=== PATIENT | female | born 1955 | race Caucasian/White ===

== ENCOUNTER 2020-01-01 12:03 | Emergency (ER) | payer OTHER, SELFPAY ==
[2020-01-01 12:15] VITALS: BP 136/82; PULSE 80; RESP 16; TEMP 35.9; O2SAT 99
--- NOTE | 2020-01-01 12:20 | ECG_ITS ---
Measurements Intervals [place] Rate: 80 P: 59 MS: 156 QRS: -24 QRSD: 142 T: 95 QT: 452 QTc: 522 Interpretive Statements SINUS RHYTHM POSSIBLE LEFT ATRIAL ENLARGEMENT LEFT BUNDLE BRANCH BLOCK BASELINE ARTIFACT- II, III, AVF ABNORMAL ECG Electronically Signed On 01-01-2020 15:59:07 PATTERN CHECKER by Aman Thompson D.O.
[2020-01-01 12:25] VITALS: BP 136/82; PULSE 80; RESP 16; TEMP 35.9; O2SAT 99
--- NOTE | 2020-01-01 12:40 | ED.CHESTPAIN ---
HPI - Chest Pain General Chief Complaint: Chest Pain Stated Complaint: chest pain Time Seen by Provider: 01/01/20 12:07 Source: patient Mode of arrival: ambulatory Limitations: no limitations History of Present Illness HPI narrative: Patient presents for evaluation of intermittent chest pain for the last 3 days. She indicates she has had several episodes of varying duration. The majority of her pain is in the sternal region described as burning . During several of her previous episodes she did not take any medication to assist with her symptoms. Today she took some Tums and her symptoms are near resolved. She denies any cough, shortness of breath, fever, chills, leg swelling. She has an underlying history of diabetes, hyperlipidemia, COPD, former tobacco use. Personal history of ruptured cerebral aneurysm. No personal history of FL or CVA. She contacted her primary provider today but was unable to get a hold of them. Related Data Home Medications Medication Instructions Recorded Confirmed albuterol sulfate [Ventolin HFA] 90 mcg INHALATION PRN 01/01/20 01/01/20 alendronate 35 mg PO DAILY 01/01/20 01/01/20 fluticasone propionate 50 mcg INTRANASAL DAILY 01/01/20 01/01/20 insulin NPH and regular human 100 unit SUBCUT DAILY 01/01/20 01/01/20 [Humulin 70/30 U-100 Insulin] insulin glargine [Basaglar KwikPen 100 unit SUBCUT DAILY 01/01/20 01/01/20 U-100 Insulin] lancets [OneTouch Delica Plus 01/01/20 01/01/20 Lancet] Allergies Allergy/AdvReac Type Severity Reaction Status Date / Time No Known Allergies Allergy Verified 01/01/20 12:21 Review of Systems Review of Systems: Narrative: CONSTITUTIONAL: Denies fever, chills, or sweats. EYES: Denies visual changes, redness, or discharge. ENT: Denies rhinorrhea, congestion, sore throat, or otalgia. CARDIOVASCULAR: Denies palpitations, or edema. Reports chest pain RESPIRATORY: Denies cough or dyspnea. GASTROINTESTINAL: Denies abdominal pain, nausea, vomiting, or diarrhea. GENITOURINARY: Denies dysuria or hematuria. SKIN: Denies rash or itching. MUSCULOSKELETAL: Denies back pain, joint pain, or myalgia. NEUROLOGIC: Denies headache, numbness, dizziness, or weakness. PSYCHIATRIC: Denies anxiety or depression. [facility] Past Medical History Medical History COPD (chronic obstructive pulmonary disease) Diabetes mellitus type 2, controlled, without complications History of tobacco use Surgical History Surgical History History of cholecystectomy Family History Family History Mother Ruptured cerebral aneurysm Diabetes mellitus Father Diabetes mellitus Social History Social History Smoking status: Former smoker Alcohol use details: social Substance use: never Living arrangements: alone Gender identity (if verbalized by the patient): Female Sexual Orientation (if Verbalized by the Patient): Straight or Heterosexual Exam Narrative: Exam Narrative: GENERAL: Well-appearing, well-nourished, and in no acute distress. HEAD: Normocephalic, atraumatic. EYES: PERRLA and EOMI. ENT: Nares clear, no rhinorrhea or epistaxis. Mucous membranes moist. Oropharynx without tonsillar hypertrophy exudate or other lesions. Bilateral TMs pearly lopez nonbulging NECK: Supple. No adenopathy or masses. No carotid bruits or JVD CHEST: Clear to auscultation. No respiratory distress. No wheezes rales or rhonchi HEART: Regular rate and rhythm. No murmur heard. Normal peripheral pulses. ABDOMEN: Soft, nontender, nondistended, normal active bowel sounds. EXTREMITIES: Normal range of motion. No edema. SKIN: Warm, dry, no rash. NEURO: No focal deficits. Alert and oriented x3. PSYCH: Normal mood and affect. Course Course Emergency Course: This is a 64-year-old female with history of diabetes,
== END 2020-01-01 12:45 | disposition short-term general hospital (02) ==
PROVIDERS: Emergency Provider Nurse Practitioner
DX: R07.89 Other chest pain (principal); I44.7 Left bundle-branch block, unspecified; Z87.891 Personal history of nicotine dependence; J44.9 Chronic obstructive pulmonary disease, unspecified; E11.9 Type 2 diabetes mellitus without complications
CPT/HCPCS: 93005; 99213; G0463

== ENCOUNTER 2020-01-01 12:58 | Emergency (ER) | payer OTHER, SELFPAY ==
--- NOTE | ~2020-01-01 | XR_ITS ---
EXAMINATION: XR chest 2V DATE: 01/01/2020 14:16 INDICATION: Midline chest pain. TECHNIQUE: Frontal and lateral views of the chest were obtained. COMPARISON: Chest 2 views 09/29/2017 FINDINGS: The chest demonstrates clear lungs without pneumonia, pleural effusion, or pneumothorax. Th e heart size is normal. Surgical clips in the right upper quadrant are likely from cholecystectomy. IMPRESSION: 1. No acute cardiopulmonary disease. Reviewed, dictated and finalized at location A. RNATIONAL RELATIONS PROFESSOR
[2020-01-01 13:02] VITALS: BP 151/77; PULSE 89; RESP 18; TEMP 36.6; O2SAT 99
--- NOTE | 2020-01-01 13:13 | ECG_ITS ---
Measurements Intervals [place] Rate: 78 P: 47 IN: 156 QRS: -18 QRSD: 142 T: 98 QT: 444 QTc: 506 Interpretive Statements SINUS RHYTHM POSSIBLE LEFT ATRIAL ENLARGEMENT LEFT BUNDLE BRANCH BLOCK ABNORMAL ECG Electronically Signed On 01-01-2020 15:58:29 CORRECTIONAL GUARD by Aman Thompson D.O.
[2020-01-01 13:37] LABS: Basophils Absolute Auto 0.1 K/mm3 (0.0-0.1); Basophils Percent Auto 0.6 % (0.2-1.2); Eosinophils Absolute Auto 0.1 K/mm3 (0-0.3); Eosinophils Percent Auto 0.9 % (0-4.4); Hematocrit 46.2 % (37.0-47.0); Hemoglobin 15.1 g/dL (12.0-15.0); Immature Granulocyte Absolute 0.03 K/mm3 (0.00-0.031); Immature Granulocyte Percent A 0.3 % (0-0.5); Lymphocytes Absolute Auto 2.95 K/mm3 (0.9-3.2); Mean Corpuscular HGB Conc 32.7 g/dl (32-36); Mean Corpuscular Hemoglobin 27.7 pg (26-34); Mean Corpuscular Volume 84.8 fl (80-100); Mean Platelet Volume 10.9 fl (7.4-10.4); Monocytes Percent Auto 9.6 % (2.6-8.5); Neutrophils Absolute Auto 6.4 K/mm3 (1.3-6.7); Neutrophils Percent Auto 60.6 % (45.5-73.1); Platelet Count Result 276 k/mm3 (150-375); Red Blood Count 5.45 M/mm3 (4.2-5.4); Red Cell Distribution Width 13.3 % (11.5-14.5); White Blood Count 10.5 K/mm3 (4.5-10.0)
[2020-01-01 13:50] LABS: Anion Gap 7 mmol/L (8-16); Blood Urea Nitrogen 19 mg/dL (7-17); Calcium 9.7 mg/dL (8.4-10.2); Carbon Dioxide 35 mmol/L (22-30); Chloride 96 mmol/L (98-107); Estimated Glomerular Filt Rate 50; Glucose 242 mg/dL (65-105); Potassium 3.9 mmol/L (3.4-5.0); Sodium 138 mmol/L (137-145)
[2020-01-01 13:51] LABS: Prothrombin Time 13.5 Seconds (11.1-14.7)
[2020-01-01 13:52] LABS: Partial Thromboplastin Time 26.7 SECONDS (22.3-36.8)
--- NOTE | 2020-01-01 13:53 | ED.CHESTPAIN ---
HPI - Chest Pain General Chief Complaint: Chest Pain Stated Complaint: chest pain Time Seen by Provider: 01/01/20 13:50 History of Present Illness HPI narrative: 64 yo female w/ COPD, DM presents to the ED for CP. She had burning chest pain for several hours. This was releived by TUMS. She was seen at urgent care and they were concerned about LBBB n EKG. Related Data Home Medications Medication Instructions Recorded Confirmed albuterol sulfate [Ventolin HFA] 90 mcg INHALATION PRN 01/01/20 01/01/20 alendronate 35 mg PO DAILY 01/01/20 01/01/20 fluticasone propionate 50 mcg INTRANASAL DAILY 01/01/20 01/01/20 insulin NPH and regular human 100 unit SUBCUT DAILY 01/01/20 01/01/20 [Humulin 70/30 U-100 Insulin] insulin glargine [Basaglar KwikPen 100 unit SUBCUT DAILY 01/01/20 01/01/20 U-100 Insulin] lancets [OneTouch Delica Plus 01/01/20 01/01/20 Lancet] Allergies Allergy/AdvReac Type Severity Reaction Status Date / Time No Known Allergies Allergy Verified 01/01/20 12:21 Review of Systems Review of Systems: All systems reviewed & are unremarkable except as noted in HPI and below Constitutional: Constitutional: Denies chills Eyes: Eyes: Reports no additional eye complaints ENT: Reports system reviewed and no additional complaints, except as documented Cardiovascular: Cardiovascular: Reports chest pain Respiratory: Respiratory: Denies chest congestion, Denies cough and Denies dyspnea Gastrointestinal: Gastrointestinal: Denies abdominal pain Neurologic: Denies weakness PMFSH Past Medical History Medical History COPD (chronic obstructive pulmonary disease) Diabetes mellitus type 2, controlled, without complications History of tobacco use Surgical History Surgical History History of cholecystectomy Family History Family History Mother Ruptured cerebral aneurysm Diabetes mellitus Father Diabetes mellitus Social History Social History Smoking status: Former smoker Substance use: never Gender identity (if verbalized by the patient): Female Exam Const: General: healthy appearing, no acute distress and alert Orientation/consciousness: patient oriented x3 HENMT: Head: normal to inspection Neck: Neck: normal visual inspection and no lymphadenopathy Chest: Chest palpation & inspection: no tenderness Resp: Effort & Inspection: normal respiratory effort Auscultation: clear to auscultation bilaterally, no rales, no rhonchi and no wheezes Cardio: Jugular venous distension: no JVD Rate: regular rate Rhythm: regular rhythm Heart sounds: no murmurs GI: Inspection: non-distended GI Palp: Yes Soft to palpation and No Tenderness to palpation present (GI) Skin: General skin exam: normal color Neuro: General: patient oriented x3 and moves all extremities Speech: normal speech Extrem: General: no edema Psych: Appearance: well kempt Affect: normal affect Course Vital Signs Vital signs: Vital Signs Temperature 36.6 C 01/01/20 13:02 Pulse Rate 89 01/01/20 13:02 Respiratory Rate 18 01/01/20 13:02 Blood Pressure 151/77 H 01/01/20 13:02 Pulse Oximetry 99 01/01/20 13:02 Temperature 36.6 C 01/01/20 13:02 Pulse Rate 76 01/01/20 14:30 Respiratory Rate 13 01/01/20 14:30 Blood Pressure 130/72 01/01/20 14:30 Pulse Oximetry 100 01/01/20 14:30 MDM - Chest Pain MDM Narrative Medical decision making narrative: History consistent with GI cause. No acute findings on EKG. Asymptomatic at this time Medical Records Data Attestation: I reviewed the patient's medical records. Lab Data Attestation: I reviewed the patient's lab results. Result diagrams: 01/01/20 13:28 01/01/20 13:28 Labs: Lab Results 01/01/20 01/01/20 01/01/20 Range/Units 13:28 13:28
[2020-01-01 14:02] LABS: Troponin I < 0.012 ng/mL (0.000-0.034)
[2020-01-01 14:09] VITALS: PULSE 89; RESP 20; O2SAT 99
[2020-01-01 14:28] VITALS: PULSE 78; RESP 16; O2SAT 100
[2020-01-01 14:29] VITALS: PULSE 78
[2020-01-01 14:30] VITALS: BP 130/72; PULSE 76; RESP 13; O2SAT 100
--- NOTE | 2020-01-01 14:37 | PC.NURSE ---
PER ERP LOIS DO NOT ADMIN ASA
[2020-01-01 15:14] VITALS: BP 130/72; PULSE 82; RESP 17; O2SAT 99
== END 2020-01-01 15:15 | disposition home or self-care (01) ==
PROVIDERS: Emergency Medicine; Emergency Provider Emergency Medicine
DX: R07.89 Other chest pain (principal); E11.9 Type 2 diabetes mellitus without complications; Z79.4 Long term (current) use of insulin; I44.7 Left bundle-branch block, unspecified; J44.9 Chronic obstructive pulmonary disease, unspecified; Z87.891 Personal history of nicotine dependence
CPT/HCPCS: 36415; 71046; 80048; 84484; 85025; 85610; 85730; 93005; 99284

== ENCOUNTER 2021-07-06 20:24 | Observation (INO) | payer MEDICARE, SELFPAY ==
--- NOTE | ~2021-07-06 | XR_ITS ---
EXAMINATION: XR chest 1V portable Exam Date/Time: 07/06/2021 20:55 CDT HISTORY: CHEST PAIN, COPD, MISSED TAKING INSULIN THIS MORNING Comparison: 01/01/2020. RESULT: Lines, tubes, and devices: Cholecystectomy clips. Lungs and pleura: Clear. Cardiomediastinal silhouette: Stable cardiomediastinal silhouette. Other: No acute osseous or upper abdominal finding. IMPRESSION: No acute cardiopulmonary process. Reviewed, dictated and finalized at location K.
[2021-07-06 20:26] VITALS: BP 112/57; PULSE 88; RESP 18; TEMP 36.6; O2SAT 100
[2021-07-06 20:32] LABS: Glucose Point of Care 369 mg/dl (65-105)
--- NOTE | 2021-07-06 20:48 | ECG_ITS ---
Measurements Intervals [place] Rate: 83 P: 43 MO: 153 QRS: -30 QRSD: 140 T: 106 QT: 425 QTc: 502 Interpretive Statements SINUS RHYTHM LEFT BUNDLE BRANCH BLOCK BASELINE WANDER- V5 BORDERLINE ECG Electronically Signed On 07-07-2021 6:40:11 CDT by Aman Thompson D.O.
--- NOTE | 2021-07-06 20:48 | ED.GENADULT ---
HPI - General Adult General Chief complaint: Unspecified Stated complaint: back pain Time Seen by Provider: 07/06/21 20:41 Source: patient Mode of arrival: ambulatory Limitations: no limitations History of Present Illness HPI narrative: Patient is a 66-year-old female complaining of not feeling well, I slept all day today so I missed my insulin dose . Patient states that her doctor recently placed her on a new insulin due to her blood sugar being constantly high. Patient vague with her complaints. Patient denies any headache, dizziness, chest pain, shortness of breath, abdominal pain, nausea, vomiting, diarrhea, urinary symptoms, fever or chills. Related Data Home Medications Medication Instructions Recorded Confirmed albuterol sulfate [Ventolin HFA] 90 mcg INHALATION PRN 01/01/20 01/01/20 alendronate 35 mg PO DAILY 01/01/20 01/01/20 fluticasone propionate 50 mcg INTRANASAL DAILY 01/01/20 01/01/20 insulin NPH and regular human 100 unit SUBCUT DAILY 01/01/20 01/01/20 [Humulin 70/30 U-100 Insulin] insulin glargine [Basaglar KwikPen 100 unit SUBCUT DAILY 01/01/20 01/01/20 U-100 Insulin] lancets [OneTouch Delica Plus 01/01/20 01/01/20 Lancet] Allergies Allergy/AdvReac Type Severity Reaction Status Date / Time No Known Allergies Allergy Verified 07/06/21 20:42 Review of Systems Review of Systems: All systems reviewed & are unremarkable except as noted in HPI and below Constitutional: Constitutional: Denies body ache(s), Denies chills, Denies excessive sweating, Reports fatigue, Denies fever(s), Denies headache(s), Reports lethargy, Reports malaise, Denies weakness and Denies weight loss Eyes: Eyes: Denies blurry vision, Denies change in vision and Denies loss of vision ENT: Denies dizziness, Denies ear discharge, Denies headache(s), Denies lip swelling, Denies epistaxis, Denies nasal congestion, Denies neck pain, Denies throat swelling and Denies tongue swelling Cardiovascular: Cardiovascular: Denies chest pain, Denies chest pain at rest, Denies chest pain with activity, Denies diaphoresis, Denies rapid heart rate, Denies edema, Denies irregular heart rhythm, Denies lightheadedness, Denies palpitations, Denies dyspnea and Denies dyspnea on exertion Respiratory: Respiratory: Denies chest congestion, Denies cough, Denies hemoptysis, Denies dyspnea and Denies dyspnea on exertion Gastrointestinal: Gastrointestinal: Denies abdominal pain, Denies melena, Denies hematochezia, Denies diarrhea, Denies nausea, Denies vomiting and Denies hematemesis Musculoskeletal: Musculoskeletal: Denies abnormal gait, Denies deformity, Denies joint swelling, Denies limited range of motion, Denies neck pain and Denies numbness Neurologic: Denies Abnormal speech present, Denies abnormal gait, Denies confusion, Denies dizziness, Denies headache(s), Denies focal weakness, Denies loss of vision, Denies numbness, Denies Other visual disturbances, Denies Sensory deficit (Neuro) and Denies weakness Psychiatric: Psychiatric: Denies confusion, Denies depression, Denies auditory hallucinations, Denies homicidal ideation and Denies suicidal ideation Endocrine: Endocrine: Denies cold intolerance, Denies excessive sweating, Denies fatigue, Denies heat intolerance and Denies palpitations Hematologic/Lymphatic: Hematologic/Lymphatic: Denies easy bleeding and Denies easy bruising Allergic/Immunologic: Allergic/Immunologic: Denies lip swelling, Denies throat swelling and Denies tongue swelling PMFSH Past Medical History Medical History COPD (chronic obstructive pulmonary disease) Diabetes mellitus type 2, controlled, without complications History of tobacco use Surgical History Surgical History History of cholecystectomy Family History Family History Mother Ruptured cerebral aneurysm Diabetes mellitus Father Diabetes mellitus Soc
[2021-07-06 21:06] LABS: Appearance Urine Slightly Cloudy (Clear); Bilirubin Urine Negative (Negative); Blood Urine 1+ (Negative); Color Urine Yellow (Yellow); Glucose Urine UA 3+ mg/dL (Negative); Ketones Urine Negative (Negative); Leukocyte Esterase Ur Trace LEU/UL (Negative); Nitrate Urine Positive (Negative); Protein Urine 1+ mg/dL (Negative); Urobilinogen Urine 0.2 mg/dL (<2.0); pH Urine 5.5 (5.0-9.0)
[2021-07-06] MEDS: LACTATED RINGERS 1,000 ML 999 ML IV CONT (21:07)
[2021-07-06 21:09] LABS: Bacteria Urine 2+ /hpf; Mucus Urine Rare /lpf; Squamous Epithelial Cell Urine Few /hpf (Few); WBC Urine >75 /hpf
[2021-07-06 21:10] LABS: Add Urine Microscopic? YES
--- NOTE | 2021-07-06 21:34 | PC.NURSE ---
attempted to redraw blood and could not get anything. blew the first attempt. called cath lab nurse @[phone] to come draw per rn.
[2021-07-06 21:58] LABS: Basophils Absolute Auto 0.1 K/mm3 (0.0-0.1); Basophils Percent Auto 0.9 % (0.2-1.2); Eosinophils Percent Auto 0.1 % (0-4.4); Hemoglobin 13.2 g/dL (12.0-15.0); Immature Granulocyte Absolute 0.03 K/mm3 (0.00-0.031); Immature Granulocyte Percent A 0.3 % (0-0.5); Lymphocytes Absolute Auto 1.55 K/mm3 (0.9-3.2); Lymphocytes Percent Auto 17.8 % (18.3-44.2); Mean Corpuscular HGB Conc 31.4 g/dl (32-36); Mean Corpuscular Hemoglobin 27.6 pg (26-34); Mean Corpuscular Volume 87.9 fl (80-100); Mean Platelet Volume 11.4 fl (7.4-10.4); Monocytes Absolute Auto 1.9 K/mm3 (0.1-0.6); Monocytes Percent Auto 21.7 % (2.6-8.5); Neutrophils Absolute Auto 5.2 K/mm3 (1.3-6.7); Neutrophils Percent Auto 59.2 % (45.5-73.1); Platelet Count Result 197 k/mm3 (150-375); Red Blood Count 4.78 M/mm3 (4.2-5.4); Red Cell Distribution Width 12.6 % (11.5-14.5); White Blood Count 8.7 K/mm3 (4.5-10.0)
[2021-07-06 22:00] VITALS: BP 120/70; PULSE 82; RESP 16; O2SAT 96
[2021-07-06 22:09] LABS: Anion Gap 11 mmol/L (8-16); Blood Urea Nitrogen 20 mg/dL (7-17); Calcium 8.3 mg/dL (8.4-10.2); Carbon Dioxide 29 mmol/L (22-30); Chloride 90 mmol/L (98-107); Estimated Glomerular Filt Rate > 60; Glucose 449 mg/dL (65-110); Potassium 4.9 mmol/L (3.4-5.0); Sodium 130 mmol/L (137-145)
[2021-07-06 22:17] VITALS: O2SAT 100; O2SAT 88
[2021-07-06 22:21] LABS: Troponin I 0.022 ng/mL (0.000-0.034)
[2021-07-06 23:07] LABS: Glucose Point of Care 409 mg/dl (65-105)
[2021-07-06 23:19] LABS: Alveolar/Arterial O2 Gradient 77.9 mmHg; Base Excess ABG 4.1 mEq/l (+/-2.0); Carboxyhemoglobin 0.7 % THb (0-2.0); Fractional Inspired Oxygen 30 %; HCO3 ABG 28.4 mEq/l (22.0-26.0); Methemoglobin ABG 0.3 %THb (0-1.5); Oxygen Content ABG 18.5 %vol (16.0-22.0); Oxyhemoglobin 95.9 % THb (90.0-100.0); PCO2 ABG 41.6 mmHg (35.0-45.0); PO2 ABG 87.1 mmHg (80.0-100.0); Reduced Hemoglobin 3.1 %THb (0-5.0); Total Hemoglobin 13.7 g/dL (12.0-18.0); pH ABG 7.452 (7.350-7.450)
[2021-07-06] MEDS: SODIUM CHLORIDE 0.9% IV 1,000 ML 999 ML IV CONT (23:19)
[2021-07-06 23:21] LABS: Modified Allen's Test Pass; Site Drawn LEFT RADIAL
--- NOTE | 2021-07-06 23:21 | PC.NURSE ---
Report given to Nahomi HERCULES
[2021-07-06 23:22] LABS: Device NASAL CANNULA; Liters per Minute 2.5 LPM
[2021-07-06] MEDS: INSULIN HUMAN REGULAR (*BKC) 100 UNITS/ML 10 UNITS IV PUSH (23:49)
[2021-07-07] VITALS (10 sets, daily range): BP systolic 129–158; BP diastolic 55–74; PULSE 67–91; RESP 16–20; TEMP 36.4–37.7; O2SAT 92–100; BMI 26.9
[2021-07-07 01:01] LABS: Glucose Point of Care 291 mg/dl (65-105)
[2021-07-07] MEDS: LACTATED RINGERS 1,000 ML 125 ML IV CONT ×3 (01:38→16:46)
--- NOTE | 2021-07-07 02:30 | PC.NURSE ---
This patient, Yanna Caldwell, was admitted to Medical Room 346-01. Patient/family oriented to hospital policies and general routines including ID bracelet, bed and alarms, visiting hours, pain management, procedures, bathroom and other care routines, personal items, smoking policy, room service/diet, and visiting hours. Information on how to activate the Rapid Response Team has been discussed. Patient/Family are encouraged to report perceived risks to care and to ask questions if they do not understand what they are told or what they should do.
[2021-07-07 07:21] LABS: Glucose Point of Care 212 mg/dl (65-105)
[2021-07-07 11:31] LABS: Glucose Point of Care 234 mg/dl (65-105)
--- NOTE | 2021-07-07 12:18 | PM.IMHP ---
H&P: HPI History of Present Illness Date/Time: 07/07/21 12:18 Chief Complaint: Cough Narrative: Catheter is a 66-year-old female with medical history significant for insulin dependent diabetes and COPD. She presented to the emergency department yesterday for evaluation of nonproductive cough for approximately 3 days. She reports associated fatigue, malaise, rhinorrhea, sinus congestion and decreased appetite yesterday. Her cough is worse at night. She states yesterday she ?slept all day and did not take her insulin. ? She states in her insulin has been adjusted in the last several weeks and she is unsure what she is taking but thinks she should be taking 35 units of insulin (unknown type) the 3 times a day with meals. She did not take her insulin yesterday because she was not eating. In the emergency room she was noted to have blood sugar greater than 400. Lab work showed no leukocytosis, stable H&H, sodium 130 (137 sodium corrected for hyperglycemia), and UA concerning for infection. She was treated with 10 units IV insulin and 1 g IV Rocephin. Chest x-ray was negative for acute process and she is requiring no supplemental oxygen. She was referred for observation and further evaluation of hyperglycemia. Review of Systems Review of Systems: All systems reviewed & are unremarkable except as noted in HPI and below Constitutional: Comments: No fevers or chills. Positive malaise as above. ENT: Comments: Positive rhinorrhea Cardiovascular: Comments: No chest pain Respiratory: Comments: Denies dyspnea. Nonproductive cough as above. Gastrointestinal: Comments: Upper abdominal pain with cough. Denies nausea, vomiting, diarrhea, or constipation. Genitourinary: Comments: Denies dysuria, frequency, hematuria, urgency or hesitancy. Musculoskeletal: Comments: Positive left flank pain following mechanical fall. She reports 2 falls in the past week. [facility] Past Medical History Medical History COPD (chronic obstructive pulmonary disease) Diabetes mellitus type 2, controlled, without complications History of tobacco use Surgical History Surgical History H/O section x3 History of cholecystectomy Family History Family History Mother Ruptured cerebral aneurysm Diabetes mellitus Father Diabetes mellitus Dementia Social History Social History (Updated 07/07/21 @ 12:22 by Darling Art, ASYA) Smoking packs per day: 0.5 Smoking cigarettes per day: 10.0 Years smoked: 5 Smoking pack-years: 2.50 Smoking status: Former smoker Alcohol intake: never Alcohol use details: social Substance use: never Living arrangements: alone Additional living arrangements comments: Son stays with her on occasion Occupation/Education: retired Gender identity (if verbalized by the patient): Female Sexual Orientation (if Verbalized by the Patient): Straight or Heterosexual Spiritual care concerns: No Meds Home Medications and Allergies Home Medications Medication Instructions Recorded Confirmed Type albuterol sulfate 90 mcg/actuation 90 mcg inhalation Q4-6H PRN 01/01/20 07/07/21 History aerosol inhaler (Ventolin HFA) Shortness Of Breath Or Wheezing alendronate 35 mg tablet 35 mg PO WEEKLY 01/01/20 07/07/21 History fluticasone propionate 50 50 mcg intranasal DAILY 01/01/20 07/07/21 History mcg/actuation nasal spray,suspension albuterol sulfate 2.5 mg inhalation Q6H 07/07/21 07/07/21 History atorvastatin 20 mg tablet 20 mg PO HS 07/07/21 07/07/21 History dextromethorphan-guaifenesin 10 10 ml PO Q4-6H PRN Cough 07/07/21 07/07/21 History mg-100 mg/5 mL oral syrup fluticasone 113mcg-salmeterol 1 inh inhalation Q12H 07/07/21 07/07/21 History 14mcg/actuation breath act,powder sensor insulin glargine 100 unit/mL 35 unit subcut QPM 07/07/21 05
--- NOTE | 2021-07-07 12:29 | PC.NURSE ---
Called the Pharmaceutical Salesperson, she stated she will be out to see pt tomorrow.
[2021-07-07 12:49] LABS: Hemoglobin A1C 12.8 % (<5.7)
[2021-07-07] MEDS: guaiFENesin/DEXTROMETHORPHAN 10 ML UDC PO ×2 (15:09→18:32)
[2021-07-07] MEDS: ALBUTEROL SULFATE NEB 2.5 MG/0.5 ML INH INHALATION ×2 (15:28→20:30)
[2021-07-07 16:33] LABS: Glucose Point of Care 263 mg/dl (65-105)
[2021-07-07] MEDS: INSULIN ASPART (*BKC) 100 UNITS/ML SUB-Q (16:46)
[2021-07-07] MEDS: metFORMIN HCL 500 MG TABLET 1000 MG PO (16:46)
[2021-07-07] MEDS: INSULIN GLARGINE (*BKC) 100 UNITS/ML 35 UNITS SUB-Q (18:53)
[2021-07-07] MEDS: ATORVASTATIN 20 MG TABLET PO (20:08)
[2021-07-07] MEDS: FLUTICASONE/SALMETEROL 115-21 MCG INHALER 1 PUFF 2 PUFF INHALATION (20:30)
[2021-07-07 21:15] LABS: Glucose Point of Care 242 mg/dl (65-105)
[2021-07-08] MEDS: LACTATED RINGERS 1,000 ML 125 ML IV CONT (00:44)
[2021-07-08 02:40] VITALS: PULSE 65; RESP 18
[2021-07-08] MEDS: ALBUTEROL SULFATE NEB 2.5 MG/0.5 ML INH INHALATION ×2 (02:40→14:09)
[2021-07-08 02:48] VITALS: PULSE 69; RESP 18
[2021-07-08 04:44] VITALS: BP 155/70; PULSE 84; RESP 16; TEMP 36.1; O2SAT 94
[2021-07-08] MEDS: ACETAMINOPHEN 500 MG TABLET 1000 MG PO (05:07)
[2021-07-08 05:31] LABS: Basophils Absolute Auto 0.1 K/mm3 (0.0-0.1); Basophils Percent Auto 0.5 % (0.2-1.2); Eosinophils Percent Auto 0.2 % (0-4.4); Hematocrit 38.4 % (37.0-47.0); Hemoglobin 12.2 g/dL (12.0-15.0); Immature Granulocyte Absolute 0.04 K/mm3 (0.00-0.031); Immature Granulocyte Percent A 0.4 % (0-0.5); Lymphocytes Absolute Auto 3.18 K/mm3 (0.9-3.2); Lymphocytes Percent Auto 29.1 % (18.3-44.2); Mean Corpuscular HGB Conc 31.8 g/dl (32-36); Mean Corpuscular Hemoglobin 28.4 pg (26-34); Mean Corpuscular Volume 89.3 fl (80-100); Mean Platelet Volume 11.1 fl (7.4-10.4); Monocytes Absolute Auto 1.3 K/mm3 (0.1-0.6); Monocytes Percent Auto 11.6 % (2.6-8.5); Neutrophils Absolute Auto 6.4 K/mm3 (1.3-6.7); Neutrophils Percent Auto 58.2 % (45.5-73.1); Platelet Count Result 169 k/mm3 (150-375); Red Cell Distribution Width 12.9 % (11.5-14.5); White Blood Count 10.9 K/mm3 (4.5-10.0)
[2021-07-08 05:40] LABS: Anion Gap 3 mmol/L (8-16); Blood Urea Nitrogen 14 mg/dL (7-17); Calcium 7.9 mg/dL (8.4-10.2); Carbon Dioxide 33 mmol/L (22-30); Chloride 100 mmol/L (98-107); Estimated Glomerular Filt Rate > 60; Glucose 164 mg/dL (65-110); Potassium 3.6 mmol/L (3.4-5.0); Sodium 136 mmol/L (137-145)
--- NOTE | 2021-07-08 07:11 | PM.DS ---
DS: Admitting Diagnosis Discharge Date 07/08/2021 Admitting Diagnosis Type 2 diabetes with hyperglycemia Upper respiratory tract infection, presumed viral UTI Frequent falls Hyponatremia secondary to hyperglycemia DS: Discharge Diagnosis Discharge Diagnosis (1) Urinary tract infection: Qualifiers: Hematuria presence: without hematuria Urinary tract infection type: site unspecified Qualified Code(s): N39.0 - Urinary tract infection, site not specified Code(s): N39.0 - Urinary tract infection, site not specified Status: Acute (2) Frequent falls: Code(s): R29.6 - Repeated falls Status: Acute (3) Hyponatremia: Code(s): E87.1 - Hypo-osmolality and hyponatremia Status: Acute (4) Upper respiratory disease: Code(s): J39.9 - Disease of upper respiratory tract, unspecified Status: Acute (5) Severe hyperglycemia due to diabetes mellitus: Code(s): E11.65 - Type 2 diabetes mellitus with hyperglycemia Status: Acute DS: Summary Hospital Course Reason for hospitalization: hyperglycemia Hospital Course: Yanna Caldwell is a 66-year-old female with medical history significant for insulin dependent diabetes and COPD.? She presented to the emergency department for evaluation of nonproductive cough for approximately 3 days.? She reports associated fatigue, malaise, rhinorrhea, sinus congestion and decreased appetite yesterday.? Her cough is worse at night.? She reportedly ?slept all day and did not take her insulin. ?? Her insulin had been adjusted in the last several weeks and she was unsure what she is taking but thinks she should be taking 35 units of insulin (unknown type) the 3 times a day with meals.? In the emergency room she was noted to have blood sugar greater than 400.? Lab work showed no leukocytosis, stable H&H, sodium 130 (137 sodium corrected for hyperglycemia), and UA concerning for infection.? She was treated with 10 units IV insulin and 1 g IV Rocephin.? Chest x-ray was negative for acute process and she is requiring no supplemental oxygen.? She was referred for observation and further evaluation of hyperglycemia. Her cough and upper respiratory symptoms were treated with Robitussin DM and tessalon perles. Lantus 35 units at HS and fast-acting insulin sliding scale with meals was initiated. A1c was noted to be 12.8%. Her glucose improved to <200 mg/dL by discharge. Additionally, she c/o of left flank pain, worsened with coughing. Lidoderm 5% topical patch was applied with improvement in symptoms. Urine culture showed >100,000 CFU of E.coli. Cefdinir 300 mg PO BID x 6 days was initiated and continued at discharge. Civil Division Commander Deputy Sheriff was consulted for instruction on medications, however, the patient reported she was to see an outpatient Civil Division Commander Deputy Sheriff on July 16. She was counseled to keep this appointment and all medications were reviewed at discharge. PT/OT was consulted for frequent falls. She was noted to be at her baseline functional status and no outpatient therapy was recommended. The patient was discharged in stable condition. Status at Discharge Cognitive/behavioral status at discharge: AAOx3. Functional status at discharge: independent ambulation Overall status at discharge: patient is progressing back to baseline Time Spent with Patient Time attestation: Total time spent providing and/or coordinating discharge services: Time spent: Greater than 30 minutes Exam Narrative: General: NAD, non toxic, chronically ill older adult female. Eyes: PERRL, no scleral icterus HEENT: NCAT, external ears normal, MMM Respiratory: Lungs clear to auscultation. No rhonchi or rales. No accessory muscle use. Speaking in full sentences. Cardiovascular: RRR, no murmur, Abdominal: Soft, nontender, non distended, no rebound or guarding. No suprapubic tenderness. Bowel sounds normoactive all 4 quandrants. Spine: Left flank tenderness to light palpation. Musculoskelet
[2021-07-08 08:02] LABS: Glucose Point of Care 143 mg/dl (65-105)
[2021-07-08] MEDS: metFORMIN HCL 500 MG TABLET 1000 MG PO ×2 (08:24→17:16)
[2021-07-08] MEDS: FLUTICASONE PROPIONATE 0.05% NA SPR 16 GM BTL (*BKC) 2 SPRAY NASAL (08:24)
[2021-07-08 10:09] LABS: Lipase 64 U/L (23-300)
[2021-07-08 11:48] LABS: Glucose Point of Care 171 mg/dl (65-105)
[2021-07-08] MEDS: CEFDINIR 300 MG CAPSULE PO (12:41)
[2021-07-08] MEDS: LIDOCAINE 5% PATCH 1 PATCH TRANSDERM (12:46)
[2021-07-08 14:05] VITALS: PULSE 85; RESP 18; O2SAT 94
[2021-07-08 14:12] VITALS: PULSE 77; RESP 18; O2SAT 94
[2021-07-08 15:13] VITALS: BP 170/65; PULSE 85; RESP 16; TEMP 36.6; O2SAT 96
[2021-07-08] MEDS: INSULIN GLARGINE (*BKC) 100 UNITS/ML 35 UNITS SUB-Q (17:16)
--- NOTE | 2021-07-08 17:34 | PCCDE ---
Consult received for diabetes education on 07/07; pt was admitted 07/07 with severe hyperglycemia and UTI after sleeping all day and not taking insulin. Called pt's room to discuss sick day management but pt declined to talk siting that she is being discharged and that she is seeing a clinical applications specialist (not sure if this is coat repair inspector and/or school vocational educator) on July 16 and again on July 20 at [facility]. Reminded pt that she needs insulin even when she is sick. Pt sts she was given Diabetes Management book to take home.
--- NOTE | 2021-07-08 17:44 | PC.NURSE ---
family educator did not stop by and see pt. RN called and left message with family educator the morning of 07/08/21. pt cleared for discharge and has a set appointment with her PCP & family educator in the early month of July. Prior to discharge, RN did in depth teaching on diabetes and sent pt home with lots of instructions, tools and pamphlets on diabetes.
== END 2021-07-08 17:40 | disposition home or self-care (01) ==
LOC: ANHED 23:34 → ANH3MED 07-08 14:55 → ANH3MEDSUR 07-09 11:14
PROVIDERS: Admitting Provider Internal Medicine; Emergency Provider Emergency Medicine; Visit Provider Nurse Practitioner Family
DX: N39.0 Urinary tract infection, site not specified (principal); E11.65 Type 2 diabetes mellitus with hyperglycemia; M54.9 Dorsalgia, unspecified; R05.9 Cough, unspecified; Z79.4 Long term (current) use of insulin; J44.9 Chronic obstructive pulmonary disease, unspecified; R63.4 Abnormal weight loss; Z68.26 Body mass index [BMI] 26.0-26.9, adult; E87.1 Hypo-osmolality and hyponatremia; R29.6 Repeated falls; J39.9 Disease of upper respiratory tract, unspecified; Z87.891 Personal history of nicotine dependence
CPT/HCPCS: 36415; 36600; 71045; 80048; 81001; 82375; 82805; 82948; 83036; 83050; 83690; 84484; 85025; 87077; 87086; 87186; 87804; 93005; 94640; 96361; 96365; 96375; 97161; 97165; 99285; A9270; G0378; J0696; J1815; J7030; J7120

== ENCOUNTER 2021-08-17 16:32 | Emergency (ER) | payer MEDICARE, MEDICAID, SELFPAY ==
[2021-08-17] VITALS (17 sets, daily range): BP systolic 77–138; BP diastolic 52–88; PULSE 80–136; RESP 14–18; TEMP 36.9; O2SAT 74–100
--- NOTE | ~2021-08-17 | XR_ITS ---
EXAMINATION: XR chest 2V Exam Date/Time: 08/17/2021 17:55 CDT HISTORY: tachycardia Comparison: 07/06/2021. RESULT: Lines, tubes, and devices: Cholestatic clips. Lungs and pleura: Clear. Cardiomediastinal silhouette: Stable cardiomediastinal silhouette. Other: No acute osseous or upper abdominal finding. IMPRESSION: No acute cardiopulmonary process. Reviewed, dictated and finalized at location K.
--- NOTE | ~2021-08-17 | CT_ITS ---
EXAMINATION: CT brain wo con DATE: 08/17/2021 18:04 INDICATION: trauma . TECHNIQUE: Computed tomography (CT) of the head was performed without intravenous contrast. The mA wa s adjusted according to patient size. Iterative reconstruction technique was employed. The dose-lengt h product was 605.33 mGy-cm. COMPARISON: None FINDINGS: No acute intracranial hemorrhage or extra-axial fluid collection. No hydrocephalus, mass, or herniation. No acute ischemic infarct. Unremarkable dural venous sinus attenuation. No acute osseous abnormality. The aerated spaces are clear. Moderate chronic white matter change. Mild atrophy. Bilateral basal ganglia calcifications. Old lacun ar infarct in the right basal ganglia. IMPRESSION: No acute intracranial process. Reviewed, dictated and finalized at location K.
--- NOTE | ~2021-08-17 | CT_ITS ---
EXAMINATION: CTA chest PE protocol DATE: 08/17/2021 18:59 INDICATION: shortness of breath TECHNIQUE: Computed tomography angiography (CTA) of the chest was performed with 100 mL Omnipaque-350 intravenous contrast timed to evaluate the pulmonary arteries. Coronal maximum intensity projection 3D-reconstructions were created by the technologist. The dose-length product (DLP) was 158.56 mGy-cm. Automated exposure control and iterative reconstruction technique were employed. COMPARISON: X-ray chest, same date and 01/01/2020. FINDINGS: Study quality: Adequate. Pulmonary arteries: No pulmonary emboli detected. Thoracic aorta: Mild ectasia.. Lung parenchyma and airways: Clear. Thoracic inlet, axillae and chest wall: Unremarkable. Mediastinum: Normal. Heart and pericardium: Normal. Coronary artery calcifications: Moderate. Pleura: Unremarkable. Upper abdomen: No significant finding. Bones: Mild superior endplate deformity at T5, with subcortical lucency and sclerosis, not clearly pr esent in the prior. IMPRESSION: No CT evidence of acute pulmonary embolus. Question acute/subacute on chronic superior endplate defor mity at T5, correlate with point tenderness. Reviewed, dictated and finalized at location K. IMPRESSION: No CT evidence of acute pulmonary embolus. Question acute/subacute on chronic s uperior endplate deformity at T5, correlate with point tenderness.
--- NOTE | 2021-08-17 17:09 | ECG_ITS ---
Measurements Intervals [place] Rate: 77 P: 42 [place]: 156 QRS: -25 QRSD: 138 T: 113 QT: 435 QTc: 495 Interpretive Statements SINUS RHYTHM POSSIBLE LEFT ATRIAL ENLARGEMENT LEFT BUNDLE BRANCH BLOCK ABNORMAL ECG Electronically Signed On 08-17-2021 20:49:33 CDT by Aman Thompson D.O.
--- NOTE | 2021-08-17 17:11 | ED.FALL ---
HPI - Fall General Chief Complaint: Fall <Sapphire Vasquez MD - Last Filed: 08/17/21 18:29> Stated Complaint: fall - hit head <Sapphire Vasquez MD - Last Filed: 08/17/21 18:29> Time Seen by Provider: 08/17/21 16:49 <Sapphire Vasquez MD - Last Filed: 08/17/21 18:29> History of Present Illness HPI Narrative: pt here with recurrant falls very poor historian says happening multiple times and says has been here before and they havent done anything for me when trying to ask more about the situation she says she was admitted so I know things were done which I explain but she cant say what was done just says they didn't tell her anything which I find odd. the 2 women in the room also have no information and were not with her witnessing this fall today but have seen the previous episodes. no sz activity and in past has become aloc sometimes, falls sometimes. no loc but near syncope. and today fell walking into her kitchen someone else in the house saw her and said she did not pass out per the other women in the room. she sees an chrome plater in [facility] but he has not seen her since past admission or about these falls but she has called him about them. no injury from the fall and no recent rush/cp/sob/f/uri/urine chagnes/vsion changes/n/v/d/abd pain/other neuro chagnes or med chagnes. denies drinking and smoking or sick contacts. pt says feels lt headedness before the falls no spinning or dizziness or ear issues <Sapphire Vasquez MD - Last Filed: 08/17/21 18:29> Related Data Home Medications: Home Medications Medication Instructions Recorded Confirmed albuterol sulfate 90 mcg/actuation 90 mcg inhalation Q4-6H PRN 01/01/20 07/07/21 aerosol inhaler (Ventolin HFA) Shortness Of Breath Or Wheezing alendronate 35 mg tablet 35 mg PO WEEKLY 01/01/20 07/07/21 fluticasone propionate 50 50 mcg intranasal DAILY 01/01/20 07/07/21 mcg/actuation nasal spray,suspension albuterol sulfate 2.5 mg/3 mL 2.5 mg inhalation Q6H 05/24/22 05/24/22 (0.083 %) solution for nebulization atorvastatin 20 mg tablet 20 mg PO HS 07/07/21 07/07/21 dextromethorphan-guaifenesin 10 10 ml PO Q4-6H PRN Cough 07/07/21 07/07/21 mg-100 mg/5 mL oral syrup fluticasone 113mcg-salmeterol 1 inh inhalation Q12H 07/07/21 07/07/21 14mcg/actuation breath act,powder sensor insulin glargine 100 unit/mL 35 unit subcut QPM 07/07/21 07/07/21 subcutaneous cartridge insulin lispro 100 unit/mL 1 sliding scale dose subcut 07/07/21 07/07/21 subcutaneous pen USEASDIRECTD metformin 1,000 mg tablet 1,000 mg PO BID 07/07/21 07/07/21 oxymetazoline 0.05 % nasal mist 2 spray intranasal Q12H PRN Nasal 07/07/21 07/07/21 (Afrin (oxymetazoline)) Congestion <Sapphire Vasquez MD - Last Filed: 08/17/21 18:29> Allergies/Adverse Reactions: Allergies Allergy/AdvReac Type Severity Reaction Status Date / Time No Known Allergies Allergy Verified 08/17/21 16:55 <Sapphire Vasquez MD - Last Filed: 08/17/21 18:29> Review of Systems Constitutional: Comments: CONSTITUTIONAL: Denies fever, chills, or sweats. EYES: Denies visual changes, redness, or discharge. ENT: Denies rhinorrhea, congestion, sore throat, or otalgia. CARDIOVASCULAR: Denies chest pain, palpitations, or edema. RESPIRATORY: Denies cough or dyspnea. GASTROINTESTINAL: Denies abdominal pain, nausea, vomiting, or diarrhea. GENITOURINARY: Denies dysuria or hematuria. SKIN: Denies rash or itching. MUSCULOSKELETAL: Denies back pain, joint pain, or myalgia. NEUROLOGIC: Denies headache, numbness, or weakness. had a fall hit her head no injury feels lt headed prior not after PSYCHIATRIC: Denies anxiety or depression. <Sapphire Vasquez MD - Last Filed: 08/17/21 18:29> [facility] Past Medical History Medical History: Medical History COPD (chronic obstructive pulmonary disease) Diabetes mellitus type 2, controlled, without complications History of tobacco use <Sapphire Vasquez MD - Last Filed
[2021-08-17 17:26] LABS: Alveolar/Arterial O2 Gradient 32.9 mmHg; Base Excess ABG 0.6 mEq/l (+/-2.0); Fractional Inspired Oxygen 21 %; HCO3 ABG 26.2 mEq/l (22.0-26.0); Oxygen Content ABG 19.1 %vol (16.0-22.0); Oxygen Saturation ABG 91.2 % (95.0-100.0); Oxyhemoglobin 90.7 % THb (90.0-100.0); PCO2 ABG 45.7 mmHg (35.0-45.0); PO2 ABG 62.1 mmHg (80.0-100.0); PO2 FiO2 Ratio Arterial Blood 2.96 %; pH ABG 7.377 (7.350-7.450)
[2021-08-17 17:27] LABS: Device ROOM AIR; Modified Allen's Test Pass; Site Drawn LEFT RADIAL
[2021-08-17] MEDS: SODIUM CHLORIDE 0.9% IV 1,000 ML 999 ML IV CONT (17:46)
[2021-08-17 17:53] LABS: Glucose Point of Care 224 mg/dl (65-105)
[2021-08-17 17:53] LABS: Basophils Absolute Auto 0.1 K/mm3 (0.0-0.1); Basophils Percent Auto 0.5 % (0.2-1.2); Eosinophils Absolute Auto 0.1 K/mm3 (0-0.3); Eosinophils Percent Auto 0.5 % (0-4.4); Hematocrit 46.3 % (37.0-47.0); Hemoglobin 14.9 g/dL (12.0-15.0); Immature Granulocyte Absolute 0.04 K/mm3 (0.00-0.031); Immature Granulocyte Percent A 0.3 % (0-0.5); Lymphocytes Absolute Auto 2.81 K/mm3 (0.9-3.2); Mean Corpuscular HGB Conc 32.2 g/dl (32-36); Mean Corpuscular Hemoglobin 27.6 pg (26-34); Mean Corpuscular Volume 85.9 fl (80-100); Mean Platelet Volume 11.1 fl (7.4-10.4); Monocytes Percent Auto 7.5 % (2.6-8.5); Neutrophils Absolute Auto 8.8 K/mm3 (1.3-6.7); Neutrophils Percent Auto 69.2 % (45.5-73.1); Platelet Count Result 260 k/mm3 (150-375); Red Blood Count 5.39 M/mm3 (4.2-5.4); Red Cell Distribution Width 13.1 % (11.5-14.5); White Blood Count 12.8 K/mm3 (4.5-10.0)
[2021-08-17 18:04] LABS: Lactic Acid Reflex 2.1 mmol/L (0.7-2.0)
[2021-08-17 18:06] LABS: Partial Thromboplastin Time 22.7 SECONDS (22.3-36.8)
[2021-08-17 18:14] LABS: Alanine Aminotransferase 20 U/L (6-35); Albumin Level 4.1 g/dL (3.5-5.1); Alkaline Phosphatase 139 U/L (38-126); Anion Gap 8 mmol/L (8-16); Aspartate Amino Transferase 32 U/L (14-36); Bilirubin,Total 0.5 mg/dL (0.2-1.3); Blood Urea Nitrogen 27 mg/dL (7-17); Calcium 9.1 mg/dL (8.4-10.2); Carbon Dioxide 29 mmol/L (22-30); Chloride 98 mmol/L (98-107); Estimated Glomerular Filt Rate > 60; Glucose 256 mg/dL (65-110); Magnesium 2.1 mg/dL (1.6-2.3); Sodium 135 mmol/L (137-145)
[2021-08-17 18:17] LABS: D Dimer 9.36 ug/mL (<0.48)
[2021-08-17 18:22] LABS: NT Pro B Type Natriuretic Pept 948 pg/mL (5-100); Troponin I 0.014 ng/mL (0.000-0.034)
[2021-08-17 18:41] LABS: SARS-CoV-2 RNA PCR Negative
[2021-08-17 18:52] LABS: Appearance Urine Slightly Cloudy (Clear); Bilirubin Urine 3+ (Negative); Blood Urine Trace-lysed (Negative); Color Urine Yellow (Yellow); Glucose Urine UA 2+ mg/dL (Negative); Ketones Urine 1+ mg/dL (Negative); Leukocyte Esterase Ur Trace LEU/UL (Negative); Nitrate Urine Negative (Negative); Protein Urine 1+ mg/dL (Negative); Specific Grav Ur >= 1.030 (1.001-1.035); pH Urine 5.5 (5.0-9.0)
[2021-08-17 18:56] LABS: Bacteria Urine Trace /hpf; Hyaline Casts Urine 15-19 /lpf; Mucus Urine Heavy /lpf; Squamous Epithelial Cell Urine Many /hpf (Few)
[2021-08-17 18:57] LABS: Add Urine Microscopic? YES
[2021-08-17 20:51] LABS: Reflex Lactic Acid Yes or No Add Lactic
== END 2021-08-17 20:50 | disposition home or self-care (01) ==
PROVIDERS: Emergency Provider Emergency Medicine
DX: S09.90XA Unspecified injury of head, initial encounter (principal); I95.1 Orthostatic hypotension; R29.6 Repeated falls; Z20.822 Contact with and (suspected) exposure to COVID-19; J44.9 Chronic obstructive pulmonary disease, unspecified; E11.9 Type 2 diabetes mellitus without complications; Z87.891 Personal history of nicotine dependence; Z79.84 Long term (current) use of oral hypoglycemic drugs; Z79.4 Long term (current) use of insulin; W18.30XA Fall on same level, unspecified, initial encounter
CPT/HCPCS: 36415; 36600; 70450; 71046; 71275; 80053; 81001; 82805; 82948; 83605; 83735; 83880; 84443; 84484; 85025; 85380; 85610; 85730; 86140; 87040; 87147; 87181; 87186; 93005; 96360; 96361; 99284; C9803; J7030; Q9967; U0003; U0005

== ENCOUNTER 2022-02-19 09:24 | Observation (INO) | payer MEDICARE, MEDICAID, SELFPAY ==
[2022-02-19] VITALS (55 sets, daily range): BP systolic 91–167; BP diastolic 42–91; PULSE 77–100; RESP 0–25; TEMP 36.4; O2SAT 89–100
--- NOTE | ~2022-02-19 | CT_ITS ---
EXAMINATION: CT brain wo con DATE: 02/19/2022 10:27 INDICATION: Altered mental status. TECHNIQUE: Computed tomography (CT) of the head was performed without intravenous contrast. The mA wa s adjusted according to patient size. Iterative reconstruction technique was employed. The dose-lengt h product was 605.33 mGy-cm. COMPARISON: Head CT 08/17/2021 FINDINGS: There are scattered areas of low attenuation in the cerebral white matter. There is no intr acranial hemorrhage, acute infarction, or abnormal intracranial mass lesion. The ventricles are flako l in size. There is mild mucosal thickening in the paranasal sinuses. The mastoid air cells are flako l. IMPRESSION: 1. Stable moderate nonspecific cerebral white matter disease, which likely represents chronic small v essel ischemic disease. Reviewed, dictated and finalized at location A. HMALLOW MACHINE WORKER IMPRESSION: 1. Stable moderate nonspecific cerebral white matter disease, which likely repr esents chronic small vessel ischemic disease.
--- NOTE | ~2022-02-19 | US_ITS ---
US renal BI 02/19/2022 17:45 Procedure: Realtime transabdominal ultrasound of the kidneys and bladder. Indication: Acute renal failure Comparison: No prior studies for comparison. Findings: Renal echotexture is normal bilaterally without hydronephrosis, contour deforming mass or r enal calculus. The right kidney measures 9.8 cm and left kidney measures 9.3 cm. Bladder is not well distended for evaluation. Impression: 1: Unremarkable renal ultrasound. No stones, masses or hydronephrosis. Reviewed, dictated and finalized at location A. ORY TEACHER Impression: 1: Unremarkable renal ultrasound. No stones, masses or hydronephrosis.
--- NOTE | ~2022-02-19 | XR_ITS ---
Portable chest x-ray Comparison: 08/17/2021 Clinical History: Altered mental status Findings: Lungs are clear, without focal consolidation or pleural effusion. Cardiomediastinal silho uette is stable. Bones and soft tissues are unremarkable. Impression: Clear lungs. Reviewed, dictated and finalized at location . X CLERK Impression: Clear lungs.
--- NOTE | 2022-02-19 09:36 | ECG_ITS ---
Measurements Intervals [place] Rate: 90 P: 42 MO: 150 QRS: 9 QRSD: 146 T: 97 QT: 412 QTc: 505 Interpretive Statements SINUS RHYTHM POSSIBLE LEFT ATRIAL ENLARGEMENT LEFT BUNDLE BRANCH BLOCK BASELINE ARTIFACT- I, II, III, AVR, AVL, AVF, V1, V5-V6 ABNORMAL ECG COMPARED TO ECG 08/17/2021 17:28:21 NO SIGNIFICANT CHANGES Electronically Signed On 02-19-2022 10:01:33 COSTUME DIRECTOR by Aman Thompson D.O.
--- NOTE | 2022-02-19 09:37 | ED.AMS ---
HPI - Altered Mental Status General Chief Complaint: Altered Mental Status Stated Complaint: WEAK, CONFUSED, LETHARGIC Time Seen by Provider: 02/19/22 09:26 History of Present Illness HPI narrative: 67-year-old female here for evaluation of altered mental status. Per EMS, patient is currently ANO x2, her baseline is ANO x4. Her sister called the ambulance when she noted that she was acting different, her blood sugar was noted to be 46 and she was treated with D10 and oral glucose. She became more alert afterwards but remained oriented x 2. Recheck sugar at 184. Patient is an insulin-dependent diabetic and according to her sister, frequently doses her insulin without eating breakfast. Patient currently not cooperating or answering questions. Spoke with patient's sisters, who are also poor historians and are unsure how long patient has been confused for. Sometimes they say 2 months, other times 2 weeks, other times stating today is first day that she was confused. States that she had a cardiology appointment today to discuss getting stents in her coronary arteries. Related Data Home Medications Medication Instructions Recorded Confirmed albuterol sulfate 90 mcg/actuation 90 mcg inhalation Q4-6H PRN 01/01/20 07/07/21 aerosol inhaler (Ventolin HFA) Shortness Of Breath Or Wheezing alendronate 35 mg tablet 35 mg PO WEEKLY 01/01/20 07/07/21 fluticasone propionate 50 50 mcg intranasal DAILY 01/01/20 07/07/21 mcg/actuation nasal spray,suspension albuterol sulfate 2.5 mg/3 mL 2.5 mg inhalation Q6H 07/07/21 07/07/21 (0.083 %) solution for nebulization atorvastatin 20 mg tablet 20 mg PO HS 07/07/21 07/07/21 dextromethorphan-guaifenesin 10 10 ml PO Q4-6H PRN Cough 07/07/21 07/07/21 mg-100 mg/5 mL oral syrup fluticasone 113mcg-salmeterol 1 inh inhalation Q12H 07/07/21 07/07/21 14mcg/actuation breath act,powder sensor insulin glargine 100 unit/mL 35 unit subcut QPM 07/07/21 07/07/21 subcutaneous cartridge insulin lispro 100 unit/mL 1 sliding scale dose subcut 07/07/21 07/07/21 subcutaneous pen USEASDIRECTD metformin 1,000 mg tablet 1,000 mg PO BID 07/07/21 07/07/21 oxymetazoline 0.05 % nasal mist 2 spray intranasal Q12H PRN Nasal 07/07/21 07/07/21 (Afrin (oxymetazoline)) Congestion Allergies Allergy/AdvReac Type Severity Reaction Status Date / Time No Known Allergies Allergy Verified 08/17/21 16:55 Review of Systems Review of Systems: Gen.: Denies fevers or chills Eyes: Denies eye pain or visual change ENT: Denies congestion Respiratory: Denies shortness of breath or cough CV: Denies chest pain or palpitations GI: Denies abdominal pain nausea, emesis or diarrhea denies burning, urgency, frequency or hematuria Musculoskeletal: Denies back pain or muscle pain Neuro: Denies numbness, tingling, weakness or focal weakness Skin: Denies rash Except as documented, all other systems reviewed and negative [facility] Past Medical History Medical History COPD (chronic obstructive pulmonary disease) Diabetes mellitus type 2, controlled, without complications History of tobacco use Surgical History Surgical History H/O section x3 History of cholecystectomy Family History Family History Mother Ruptured cerebral aneurysm Diabetes mellitus Father Diabetes mellitus Dementia Social History Social History (Updated 07/07/21 @ 12:22 by Darling Art APRN) Smoking packs per day: 0.5 Smoking cigarettes per day: 10.0 Years smoked: 5 Smoking pack-years: 2.50 Smoking status: Former smoker Alcohol intake: never Alcohol use details: social Substance use: never Additional living arrangements comments: Son stays with her on occasion Gender identity (if verbalized by the patient): Female Sexual Orientation (if Verbalized by the Patient): Straight or Heterosexual
[2022-02-19] MEDS: ONDANSETRON INJ 4 MG/2 ML VIAL IV PUSH (09:54)
[2022-02-19] MEDS: LORazepam INJ (*CRX) 2 MG/ML VIAL 0.5 MG IV PUSH (09:54)
--- NOTE | 2022-02-19 10:00 | PC.NURSE ---
Patient catheterized with straight catheter by non morse intercept technician per verbal order from ZOEY Artis.
[2022-02-19 10:06] LABS: Glucose Point of Care 184 mg/dl (65-105)
[2022-02-19 10:15] LABS: Add Urine Microscopic? YES; Appearance Urine Clear (Clear); Bilirubin Urine 2+ (Negative); Blood Urine Negative (Negative); Color Urine Yellow (Yellow); Glucose Urine UA 1+ mg/dL (Negative); Ketones Urine Trace mg/dL (Negative); Leukocyte Esterase Ur Negative LEU/UL (Negative); Nitrate Urine Positive (Negative); Protein Urine 2+ mg/dL (Negative); Specific Grav Ur >= 1.030 (1.001-1.035); pH Urine 5.5 (5.0-9.0)
[2022-02-19 10:18] LABS: Bacteria Urine Trace /hpf; Mucus Urine Rare /lpf; RBC Urine 0-2 /hpf (0-2); Squamous Epithelial Cell Urine Moderate /hpf (Few)
[2022-02-19 10:23] LABS: Basophils Absolute Auto 0.1 K/mm3 (0.0-0.1); Basophils Percent Auto 0.6 % (0.2-1.2); Eosinophils Absolute Auto 0.1 K/mm3 (0-0.3); Eosinophils Percent Auto 0.7 % (0-4.4); Hematocrit 48.8 % (37.0-47.0); Hemoglobin 15.8 g/dL (12.0-15.0); Immature Granulocyte Absolute 0.04 K/mm3 (0.00-0.031); Immature Granulocyte Percent A 0.4 % (0-0.5); Lymphocytes Absolute Auto 3.37 K/mm3 (0.9-3.2); Lymphocytes Percent Auto 29.7 % (18.3-44.2); Mean Corpuscular HGB Conc 32.4 g/dl (32-36); Mean Corpuscular Hemoglobin 28.7 pg (26-34); Mean Corpuscular Volume 88.6 fl (80-100); Mean Platelet Volume 12.3 fl (7.4-10.4); Monocytes Absolute Auto 1.2 K/mm3 (0.1-0.6); Monocytes Percent Auto 10.1 % (2.6-8.5); Neutrophils Absolute Auto 6.7 K/mm3 (1.3-6.7); Neutrophils Percent Auto 58.5 % (45.5-73.1); Platelet Count Result 217 k/mm3 (150-375); Red Blood Count 5.51 M/mm3 (4.2-5.4); Red Cell Distribution Width 13.2 % (11.5-14.5); White Blood Count 11.4 K/mm3 (4.5-10.0)
[2022-02-19 10:33] LABS: Alanine Aminotransferase 19 U/L (6-35); Albumin Level 4.4 g/dL (3.5-5.1); Alkaline Phosphatase 179 U/L (38-126); Anion Gap 12 mmol/L (8-16); Aspartate Amino Transferase 27 U/L (14-36); Bilirubin,Total 0.9 mg/dL (0.2-1.3); Blood Urea Nitrogen 27 mg/dL (7-17); Calcium 8.6 mg/dL (8.4-10.2); Carbon Dioxide 29 mmol/L (22-30); Chloride 96 mmol/L (98-107); Estimated Glomerular Filt Rate 20; Glucose 212 mg/dL (65-110); Lipase 57 U/L (23-300); Potassium 3.4 mmol/L (3.4-5.0); Sodium 137 mmol/L (137-145)
[2022-02-19] MEDS: SODIUM CHLORIDE 0.9% IV 1,000 ML 999 ML IV CONT ×2 (10:44→11:08)
[2022-02-19 10:51] LABS: Troponin I 0.046 ng/mL (0.000-0.034)
[2022-02-19 10:56] LABS: Lactic Acid Reflex 1.6 mmol/L (0.7-2.0)
[2022-02-19 11:08] LABS: Magnesium 1.8 mg/dL (1.6-2.3); Phosphorus 5.6 mg/dL (2.5-4.5)
[2022-02-19 11:22] LABS: Influenza A QL RT-PCR Negative (Negative); Influenza B QL RT-PCR Negative (Negative); SARS-CoV-2 RNA PCR Negative
--- NOTE | 2022-02-19 12:23 | PM.IMHP ---
H&P: HPI History of Present Illness Date/Time: 02/19/22 12:23 Chief Complaint: Altered mental status Narrative: This is a 67-year-old disabled female patient who lives with her son. The patient is diabetic but has been eating poorly lately and giving herself the same amount of insulin. Her sisters are at the bedside telling me that the patient was recently seen by her stapler hand is at [facility]. The sister stated that she was supposed to go to her stapler hand office today to get scheduled for cardiac catheterization. The sister stated that they want the patient to go back to [facility] to the stapler hand and does not want the patient to be seen by stapler hand here. The patient has been medicated with Ativan and is not answering questions the sisters her answering questions for me. A sister stated that the patient is typically A&O x4 but today she was only a and O x2. The sister's also told me that she was aggressive with the staff. Initially the patient had a blood sugar 46 and was treated with D10 an oral glucose. Her blood sugar was rejected 184 and the patient was still only anal x2. The patient was given Zofran, Ativan, 2 L of normal saline and ceftriaxone. Patient was found to be positive for UTI. Her white count 11.4. H&H is 15.8 and 48.8. Patient's BUN is 27 creatinine 2.4. Patient's baseline is a normal reading. Troponin 0.046 and 0.044 respectively. She was negative for influenza A/B and COVID. Patient is being admitted for observation status. Date of service is 02/19/2022. [id number] MOE [phone] I called her stapler hand to obtain more information. I did leave a message for them to call me back. Review of Systems Review of Systems: See HPI All systems reviewed & are unremarkable except as noted in HPI and below Constitutional: Constitutional: Reports as per HPI and Reports no additional constitutional complaints Eyes: Eyes: Reports as per HPI and Reports no additional eye complaints ENT: Reports system reviewed and no additional complaints, except as documented and Reports Normal hearing present Cardiovascular: Cardiovascular: Reports no additional cardiovascular complaints Respiratory: Respiratory: Reports no additional respiratory complaints and Reports no additional respiratory complaints Gastrointestinal: Gastrointestinal: Reports as per HPI and Reports no additional gastrointestinal complaints Musculoskeletal: Musculoskeletal: Reports no additional musculoskeletal complaints Integumentary/Breasts: Skin/Breast: Reports system reviewed and no additional complaints, except as docu and Reports as per HPI Neurologic: Reports system reviewed and no additional complaints, except as documented, Reports as per HPI and Reports Normal hearing present Psychiatric: Psychiatric: Reports no additional psychiatric complaints and Reports as per HPI Endocrine: Endocrine: Reports no additional endocrine complaints Hematologic/Lymphatic: Hematologic/Lymphatic: Reports no additional hematologic/lymphatic complaints Allergic/Immunologic: Allergic/Immunologic: Reports no additional allergic/immunologic complaints [facility] Past Medical History Medical History (Updated 02/19/22 @ 14:48 by Ely Hernández NP) COPD (chronic obstructive pulmonary disease) Diabetes mellitus type 2, controlled, without complications History of tobacco use HTN (hypertension) with goal to be determined Kidney stone Surgical History Surgical History (Updated 02/19/22 @ 12:24 by Ely Hernández NP) H/O section x3 H/O tubal ligation History of cholecystectomy Family History Family History (Updated 02/19/22 @ 14:32 by Ely Hernández NP) Mother Ruptured cerebral aneurysm Diabetes mellitus Father Diabetes mellitus Dementia Malignant neoplasm of prostate Cerebrovascular accident Sibling Malignant neoplasm of prostate Social History Social History (Updated 02/19/22 @ 14:33 by Ely Tran
[2022-02-19 13:48] LABS: Troponin I 0.044 ng/mL (0.000-0.034)
[2022-02-19 16:29] LABS: Glucose Point of Care 137 mg/dl (65-105)
[2022-02-19 16:53] LABS: Troponin I 0.046 ng/mL (0.000-0.034)
--- NOTE | 2022-02-19 17:12 | PC.NURSE ---
diabetic dinner tray ordered
--- NOTE | 2022-02-19 17:24 | PC.NURSE ---
Patient's bed alarm going off, found standing in room saying she needs to use the the bathroom. Patient helped to bedside commode and able to be cleaned up. Patient able to be redirected back to bed. Sitter at bedside.
[2022-02-19] MEDS: SODIUM CHLORIDE 0.9% IV 1,000 ML 150 ML IV CONT (18:03)
[2022-02-19 18:27] LABS: Hemoglobin A1C 10.5 % (<5.7)
[2022-02-19 18:29] LABS: Glucose Point of Care 231 mg/dl (65-105)
[2022-02-19] MEDS: INSULIN ASPART (*BKC) 100 UNITS/ML SUB-Q (18:35)
[2022-02-20] VITALS (11 sets, daily range): BP systolic 117–134; BP diastolic 52–83; PULSE 72–96; RESP 16–18; TEMP 36.1–36.9; O2SAT 90–95; BMI 23.7
--- NOTE | 2022-02-20 | ECHO_ITS ---
Patient Info Name: Yanna Caldwell Age: 67 years : 1955 Gender: Female Ht: 59 in Wt: 117 lbs BSA: 1.50 m2 HR: 65 bpm BP: 117 / 75 mmHg Technical Quality: Good Exam Date: 02/20/2022 9:11 AM Exam Location: [facility] Patient Status: Inpatient Admit Date: 02/19/2022 Staff Ordering Physician: Ely Hernández NP Hoop Bending Machine Operator: Cornelia Arvizu RDCS Attending Provider: Juan José Brady MD Referring Physician: Betty MUÑIZ; Exam Type: CA echo doppler color flow Study Info Complete two-dimensional, color flow and Doppler transthoracic echocardiogram is performed. Summary 1. Complete two-dimensional, color flow and Doppler transthoracic echocardiogram is performed. 2. Normal LV size, mild LVH, normal LV systolic function, ejection fraction 55-60%; grade 1 diastolic dysfunction. Elevated left atrial pressures. Mitral annular calcification, mild mitral regurgitation. Mild aortic valve sclerosis, mild aortic valve stenosis, maximum velocity 1.6 m/sec, mean gradient 5 mmHg, calculated aortic valve area 1.8 cm2. Unable to assess RVSP due to inadequate TR jet. Left Ventricle Left ventricular chamber dimension is normal. Left ventricular systolic function is normal, estimated at 55-60%. There is mildly increased left ventricular wall thickness. The left ventricular diastolic function is grade I diastolic dysfunction. E/e' 21.2 is abnormal. Left Atria Left atrial chamber dimension is normal. Right Atria Right atrial chamber dimension is normal. Aortic Valve There is mild aortic valve sclerosis. There is mild aortic valve stenosis with a peak velocity of 174 cm/s, mean gradient of 5 mmHg, and aortic valve area of 1.7 cm2. Pulmonic Valve The pulmonic valve is normal. There is trace pulmonic regurgitation. Mitral Valve There is mild mitral valve regurgitation. There is mild mitral valve calcification. Tricuspid Valve The tricuspid valve leaflets are normal. There is trace tricuspid valve regurgitation. Pericardium/Pleural The pericardium appears normal. Aorta The aortic root size at the sinus of Valsalva is normal. Left Ventricular Outflow Tract Name Value Normal LVOT 2D LVOT Diameter 1.9 cm LVOT Doppler LVOT Peak Gradient 4 mmHg LVOT Mean Gradient 2 mmHg LVOT VTI 18 cm LVOT VTI/AV VTI Ratio 0.6 LVOT Stroke Volume 48 ml LVOT CO 3.5 l/min LVOT CI 2.4 l/min/m2 Pulmonic Valve Name Value Normal PV Doppler PV Peak Gradient 5 mmHg Mitral Valve Name Value Normal
[2022-02-20 00:26] LABS: Glucose Point of Care 122 mg/dl (65-105)
--- NOTE | 2022-02-20 02:23 | ADMGEN ---
This patient, Yanna Caldwell, was admitted to IMU Room 206-02 on 02/20/22 at 0211. Patient/family oriented to hospital policies and general routines including ID bracelet, bed and alarms, visiting hours, pain management, procedures, bathroom and other care routines, personal items, smoking policy, room service/diet, and visiting hours. Information on how to activate the Rapid Response Team has been discussed. Patient/Family are encouraged to report perceived risks to care and to ask questions if they do not understand what they are told or what they should do.
[2022-02-20 08:19] LABS: Glucose Point of Care 104 mg/dl (65-105)
--- NOTE | 2022-02-20 10:03 | PM.IMPN ---
Progress Note: A&P Assessment and Plan (1) Hypoglycemia: Code(s): E16.2 - Hypoglycemia, unspecified Status: Acute Assessment and Plan: Hemoglobin A1c 10.5 suggesting hypoglycemia was a recent issue Suspect related to decreased oral intake of undetermined etiology Declining renal function and resultant increased insulin affect may be playing a role Hold multiple home medications, including basal insulin and t.i.d. pre meal insulin, and metformin Continue sliding scale insulin / Transfer to medical floor and initiate PT and OT (2) Encephalopathy: Code(s): G93.40 - Encephalopathy, unspecified Status: Acute Assessment and Plan: Likely due to hypoglycemia Doubt underlying infection No evidence for acute stroke by history exam or CT brain, although patient is high risk for cardiovascular disease (3) Acute kidney injury: Code(s): N17.9 - Acute kidney failure, unspecified Status: Acute Assessment and Plan: No evidence for hydronephrosis Suspect related to decreased oral intake Monitor renal function with hydration (4) HTN (hypertension) with goal to be determined: Code(s): I10 - Essential (primary) hypertension Status: Acute Assessment and Plan: Hold carvedilol and monitor blood pressure (5) Abnormal urinalysis: Code(s): R82.90 - Unspecified abnormal findings in urine Status: Acute Assessment and Plan: No symptoms to suggest UTI Day to ceftriaxone with urine culture pending (6) Diabetes mellitus type 2, controlled, without complications: Code(s): E11.9 - Type 2 diabetes mellitus without complications Status: Acute Assessment and Plan: Hemoglobin A1c 10.5 Subjective Date/time seen: 02/20/22 10:03 Interval history: Follow-up for mental status changes and acute kidney injury Patient was hypoglycemic at home. Mental status gradually improved. Was incontinent overnight. Was able to get up walk to bathroom with assist of 1 today and urinated in the toilet. Tolerated breakfast. Denied chest pain or shortness of breath. Denied nausea or bowel or bladder change. Denied abnormal bleeding. Denied swelling. Denied focal weakness or numbness. Did admit to recent fall at home. Does not recall where she lives. Thinks it is the senior apartment complex in [place]. Does remember that she had some testing coming up with her vp site but does not remember why or the vp site name. Review of Systems Review of Systems: All systems reviewed & are unremarkable except as noted in HPI and below Exam Narrative: HEENT: EOMI, PERRL, sclerae nonicteric, pharyngeal mucosa pink and intact NECK: No JVD, adenopathy, or thyromegaly CHEST: Clear to auscultation. Normal effort. HEART: NL S1/S2, regular, no murmur ABDOMEN: BS+, soft, nontender, no mass, no bruits EXTREMITIES: No cyanosis, edema, or clubbing NEUROLOGIC: CN intact and symmetric to inspection, DTRs depressed throughout but symmetric, Babinski's downgoing bilaterally, [id number] intact bilaterally. MUSCULOSKELETAL: Tone and strength symmetric in proximal and distal upper and lower extremities PSYCH: Alert. Oriented to person, knows she is in hospital but not which one, knows it is February 2022 but not the day of the week. Objective Data Vital Signs Vital Signs: Vital Signs - 24 hr 02/19/22 11:07 02/19/22 11:15 02/19/22 11:30 Temperature Pulse Rate 92 90 100 Respiratory Rate 20 17 14 Blood Pressure 99/65 L Pulse Oximetry 93 100 Oxygen Delivery Oxygen Flow Rate 02/19/22 11:31 02/19/22 11:45 02/19/22 12:34 Temperature Pulse Rate 98 92 91 Respiratory Rate 18 18 18 Blood Pressure 160/75 H Pulse Oximetry Oxygen Delivery Oxygen Flow Rate 02/19/22 12:45 02/19/22 12:01 02/19/22 12:11 Temperature Pulse Rate 93 Respiratory Rate 14 Blood Pressure 125/57 L Pulse Oximetry 100 89 L 98 Oxygen
[2022-02-20] MEDS: ASPIRIN 81 MG ENTERIC TABLET PO (11:32)
[2022-02-20 11:50] LABS: Glucose Point of Care 149 mg/dl (65-105)
[2022-02-20 15:02] LABS: Basophils Absolute Auto 0.1 K/mm3 (0.0-0.1); Basophils Percent Auto 0.6 % (0.2-1.2); Eosinophils Absolute Auto 0.2 K/mm3 (0-0.3); Eosinophils Percent Auto 2.2 % (0-4.4); Hematocrit 36.7 % (37.0-47.0); Immature Granulocyte Absolute 0.01 K/mm3 (0.00-0.031); Immature Granulocyte Percent A 0.1 % (0-0.5); Lymphocytes Absolute Auto 3.35 K/mm3 (0.9-3.2); Lymphocytes Percent Auto 39.3 % (18.3-44.2); Mean Corpuscular HGB Conc 32.7 g/dl (32-36); Mean Corpuscular Hemoglobin 28.2 pg (26-34); Mean Corpuscular Volume 86.2 fl (80-100); Mean Platelet Volume 12.4 fl (7.4-10.4); Monocytes Absolute Auto 0.9 K/mm3 (0.1-0.6); Monocytes Percent Auto 10.2 % (2.6-8.5); Neutrophils Absolute Auto 4.1 K/mm3 (1.3-6.7); Neutrophils Percent Auto 47.6 % (45.5-73.1); Platelet Count Result 184 k/mm3 (150-375); Red Blood Count 4.26 M/mm3 (4.2-5.4); Red Cell Distribution Width 13.2 % (11.5-14.5); White Blood Count 8.5 K/mm3 (4.5-10.0)
[2022-02-20 15:17] LABS: Lactic Acid Reflex 0.8 mmol/L (0.7-2.0)
[2022-02-20 15:19] LABS: Alanine Aminotransferase 14 U/L (6-35); Albumin Level 3.2 g/dL (3.5-5.1); Alkaline Phosphatase 134 U/L (38-126); Anion Gap 4 mmol/L (8-16); Aspartate Amino Transferase 21 U/L (14-36); Bilirubin,Total 0.3 mg/dL (0.2-1.3); Blood Urea Nitrogen 19 mg/dL (7-17); Calcium 7.6 mg/dL (8.4-10.2); Carbon Dioxide 30 mmol/L (22-30); Chloride 105 mmol/L (98-107); Estimated Glomerular Filt Rate 55; Glucose 240 mg/dL (65-110); Magnesium 1.6 mg/dL (1.6-2.3); Potassium 3.2 mmol/L (3.4-5.0); Sodium 139 mmol/L (137-145)
--- NOTE | 2022-02-20 15:21 | PC.NURSE ---
Report given to DIOMEDES Grant with 3 med. Patient to move to room 343.
[2022-02-20 15:50] LABS: Thyroid Stimulating Hormone Reflex 0.503 uIU/mL (0.465-4.68)
--- NOTE | 2022-02-20 16:07 | PC.NURSE ---
This patient, Yanna Caldwell, was received from [facility] #2 on 02/20/22 at 1550. Patient/family oriented to unit policies and routines.
[2022-02-20 17:59] LABS: Glucose Point of Care 292 mg/dl (65-105)
[2022-02-20] MEDS: INSULIN ASPART (*BKC) 100 UNITS/ML SUB-Q (18:17)
[2022-02-20 20:50] LABS: Glucose Point of Care 215 mg/dl (65-105)
[2022-02-20] MEDS: ATORVASTATIN 40 MG TABLET 80 MG PO (21:18)
[2022-02-21 00:06] LABS: Glucose Point of Care 242 mg/dl (65-105)
[2022-02-21 02:00] LABS: Glucose Point of Care 272 mg/dl (65-105)
[2022-02-21 05:33] VITALS: BP 148/72; PULSE 70; RESP 20; TEMP 36.4; O2SAT 92
[2022-02-21 06:03] LABS: Hematocrit 37.6 % (37.0-47.0); Hemoglobin 12.1 g/dL (12.0-15.0); Mean Corpuscular HGB Conc 32.2 g/dl (32-36); Mean Corpuscular Hemoglobin 28.5 pg (26-34); Mean Corpuscular Volume 88.5 fl (80-100); Mean Platelet Volume 12.2 fl (7.4-10.4); Platelet Count Result 181 k/mm3 (150-375); Red Blood Count 4.25 M/mm3 (4.2-5.4); Red Cell Distribution Width 13.2 % (11.5-14.5); White Blood Count 8.2 K/mm3 (4.5-10.0)
[2022-02-21 06:08] LABS: Albumin Level 3.2 g/dL (3.5-5.1); Anion Gap 2 mmol/L (8-16); Blood Urea Nitrogen 16 mg/dL (7-17); Calcium 7.7 mg/dL (8.4-10.2); Carbon Dioxide 32 mmol/L (22-30); Chloride 102 mmol/L (98-107); Estimated Glomerular Filt Rate > 60; Glucose 251 mg/dL (65-110); Phosphorus 2.5 mg/dL (2.5-4.5); Potassium 3.5 mmol/L (3.4-5.0); Sodium 136 mmol/L (137-145)
[2022-02-21] MEDS: ASPIRIN 81 MG ENTERIC TABLET PO (08:10)
[2022-02-21 08:21] LABS: Thyroid Stimulating Hormone Reflex 0.927 uIU/mL (0.465-4.68)
[2022-02-21 08:54] LABS: Glucose Point of Care 312 mg/dl (65-105)
[2022-02-21] MEDS: INSULIN ASPART (*BKC) 100 UNITS/ML SUB-Q (09:14)
[2022-02-21 11:58] LABS: Glucose Point of Care 159 mg/dl (65-105)
[2022-02-21 13:51] LABS: Glucose Point of Care 179 mg/dl (65-105)
[2022-02-21 13:51] LABS: Glucose Point of Care 160 mg/dl (65-105)
--- NOTE | 2022-02-21 14:25 | PM.DS ---
DS: Admitting Diagnosis Discharge Date 02/21/2022 Admitting Diagnosis hyperglycemia DS: Discharge Diagnosis Discharge Diagnosis (1) Abnormal urinalysis: Code(s): R82.90 - Unspecified abnormal findings in urine Status: Acute Assessment and Plan: No symptoms to suggest UTI Day to ceftriaxone with urine culture pending Will discharge home with cefdinir 100 mg b.i.d. times 10 days (2) Hypoglycemia: Code(s): E16.2 - Hypoglycemia, unspecified Status: Acute Assessment and Plan: Medication adjustments may patient Lantus has been changed from 35 units to 25 and lispro from 10 units to 5 units t.i.d. Patient instructed to take her blood sugar readings 3 times a day before meals record results and get to her primary care physician for possible medication adjustments Patient will also discharge home with glucose tabs. (3) Encephalopathy: Code(s): G93.40 - Encephalopathy, unspecified Status: Acute Assessment and Plan: Resolved Secondary to hypoglycemia (4) HTN (hypertension) with goal to be determined: Code(s): I10 - Essential (primary) hypertension Status: Acute Assessment and Plan: Continue home medication (5) Acute kidney injury: Code(s): N17.9 - Acute kidney failure, unspecified Status: Acute Assessment and Plan: Resolved Renal function back to baseline (6) COPD (chronic obstructive pulmonary disease): Code(s): J44.9 - Chronic obstructive pulmonary disease, unspecified Status: Acute Assessment and Plan: Stable Continue home medication (7) Diabetes mellitus type 2, controlled, without complications: Code(s): E11.9 - Type 2 diabetes mellitus without complications Status: Acute Assessment and Plan: Patient has had medication adjustment refer to hypoglycemia Follow-up with primary care physician Continue diabetic diet Patient will discharge home with glucose tabs DS: Summary Hospital Course Hospital Course: This is a 67-year-old female who presented to emergency department with altered mental status. Patient has a past medical history of COPD, type 2 diabetes, history of tobacco use, hypertension and kidney stones. Patient was found at her home by her sister. EMS was called patient was found to have a blood sugar of 46 at that time EMS gave the patient D10 and oral glucose which all her blood sugar to 184. Patient has not had any other episodes of imaging and test found to be unremarkable. Patient agrees that her situation has improved she has not had any confusion today is alert and orientated x4 which is her baseline. She will discharge home today instructed to do her blood sugar readings 3 times a day before meals record her results and due to her primary care physician for possible medication adjustment. The patient denies SOB, CP, palpitation, extremity numbness, lightheadedness, dizziness, constipation, diarrhea, chills, or fever. Discharge instructions reviewed with patient, as well as provided in writing per nursing staff. The instructions also include specific and strict return/GO TO THE ER as well as f/u information. All questions have been answered, and the patient and/or family deny any further questions with discharge and discharge plan. Time Spent with Patient Time attestation: Total time spent providing and/or coordinating discharge services: DS: Data Data Completed and Pending Labs on day of discharge: Labs from last 24 hours 02/21/22 02/21/22 02/21/22 13:48 13:44 11:55 WBC RBC Hgb Hct MCV MCH MCHC RDW Plt Count MPV Immature Gran % (Auto) Neut % (Auto) Lymph % (Auto) [place] % (Auto) Eos % (Auto) Baso % (Auto) Lymph # (Auto) [place] # (Auto) Eos # (Auto) Baso # (Auto) Abs Immat Gran (auto) Absolute Neuts (auto) Absolute Nucleated RBC Nucleated RBC % Sodium Potassium
== END 2022-02-21 15:48 | disposition home or self-care (01) ==
LOC: ANHED 12:18 → ANHIMU 15:21 → ANH3MED 02-20 15:32
PROVIDERS: Internal Medicine; Nurse Practitioner; Physician Assistant; Admitting Provider Internal Medicine; Emergency Provider Emergency Medicine; Visit Provider Internal Medicine
DX: R82.90 Unspecified abnormal findings in urine (principal); E11.649 Type 2 diabetes mellitus with hypoglycemia without coma; G93.40 Encephalopathy, unspecified; I11.9 Hypertensive heart disease without heart failure; N17.9 Acute kidney failure, unspecified; J44.9 Chronic obstructive pulmonary disease, unspecified; N39.0 Urinary tract infection, site not specified; R41.82 Altered mental status, unspecified; R90.82 White matter disease, unspecified; Z20.822 Contact with and (suspected) exposure to COVID-19; I25.10 Atherosclerotic heart disease of native coronary artery without angina pectoris; R94.31 Abnormal electrocardiogram [ECG] [EKG]; I08.0 Rheumatic disorders of both mitral and aortic valves; Z87.891 Personal history of nicotine dependence; Z79.51 Long term (current) use of inhaled steroids; Z79.4 Long term (current) use of insulin; Z79.84 Long term (current) use of oral hypoglycemic drugs; Z79.899 Other long term (current) drug therapy; Z83.3 Family history of diabetes mellitus
CPT/HCPCS: 36415; 70450; 71045; 76775; 80053; 80069; 81001; 81025; 82607; 82948; 83036; 83605; 83690; 83735; 84100; 84443; 84484; 85025; 85027; 87040; 87086; 87636; 93005; 93306; 96361; 96365; 96375; 97161; 97165; 99285; A9270; G0378; J0696; J1815; J2060; J2405; J7030

== ENCOUNTER 2022-02-24 14:09 | Emergency (ER) | payer MEDICARE, MEDICAID, SELFPAY ==
[2022-02-24 14:16] VITALS: BP 101/71; PULSE 71; RESP 16; TEMP 36.6; O2SAT 99
--- NOTE | 2022-02-24 14:46 | ECG_ITS ---
Measurements Intervals [place] Rate: 79 P: 53 HI: 141 QRS: -11 QRSD: 138 T: 103 QT: 436 QTc: 502 Interpretive Statements SINUS RHYTHM LEFT BUNDLE BRANCH BLOCK BASELINE ARTIFACT- I, II, III, AVR, AVL, AVF ABNORMAL ECG COMPARED TO ECG 02/19/2022 09:46:33 NO SIGNIFICANT CHANGES Electronically Signed On 02-24-2022 20:05:27 [employer] by Aman Thompson D.O.
[2022-02-24 15:20] LABS: Basophils Absolute Auto 0.1 K/mm3 (0.0-0.1); Basophils Percent Auto 0.9 % (0.2-1.2); Eosinophils Absolute Auto 0.2 K/mm3 (0-0.3); Eosinophils Percent Auto 1.7 % (0-4.4); Hematocrit 42.3 % (37.0-47.0); Hemoglobin 13.6 g/dL (12.0-15.0); Immature Granulocyte Absolute 0.03 K/mm3 (0.00-0.031); Immature Granulocyte Percent A 0.3 % (0-0.5); Lymphocytes Absolute Auto 2.56 K/mm3 (0.9-3.2); Lymphocytes Percent Auto 23.7 % (18.3-44.2); Mean Corpuscular HGB Conc 32.2 g/dl (32-36); Mean Corpuscular Hemoglobin 28.6 pg (26-34); Mean Corpuscular Volume 89.1 fl (80-100); Monocytes Absolute Auto 0.9 K/mm3 (0.1-0.6); Monocytes Percent Auto 8.4 % (2.6-8.5); Platelet Count Result 219 k/mm3 (150-375); Red Blood Count 4.75 M/mm3 (4.2-5.4); Red Cell Distribution Width 13.2 % (11.5-14.5); White Blood Count 10.8 K/mm3 (4.5-10.0)
[2022-02-24 15:24] LABS: Alanine Aminotransferase 17 U/L (6-35); Albumin Level 3.9 g/dL (3.5-5.1); Alkaline Phosphatase 125 U/L (38-126); Anion Gap 6 mmol/L (8-16); Aspartate Amino Transferase 25 U/L (14-36); Bilirubin,Total 0.6 mg/dL (0.2-1.3); Blood Urea Nitrogen 36 mg/dL (7-17); Calcium 8.6 mg/dL (8.4-10.2); Carbon Dioxide 33 mmol/L (22-30); Chloride 98 mmol/L (98-107); Estimated Glomerular Filt Rate 50; Glucose 167 mg/dL (65-110); Potassium 3.9 mmol/L (3.4-5.0); Sodium 137 mmol/L (137-145)
[2022-02-24 15:35] LABS: Troponin I < 0.012 ng/mL (0.000-0.034)
[2022-02-24 15:51] LABS: Influenza A QL RT-PCR Negative (Negative); Influenza B QL RT-PCR Negative (Negative); RSV RNA, RT-PCR Negative (Negative); SARS-CoV-2 RNA PCR Negative
--- NOTE | 2022-02-24 16:02 | ED.GENADULT ---
HPI - General Adult General Chief complaint: Unspecified Stated complaint: Altered mental status Time Seen by Provider: 02/24/22 14:28 History of Present Illness HPI narrative: At 67-year-old female history of diabetes, COPD, hypertension presents to the emergency room for evaluation of possible altered mental status. Patient is accompanied by her 2 sisters who provide the history. According to her 1 sister patient was acting agitated, and was mumbling incoherently. Family states that she threw her head back and appeared to have a syncopal episode. Following the event, the patient was alert and oriented x4. Patient proceeded to have a bowel movement, and now family states that she is acting normally. During interview, patient has no complaints and is wanting to go home. Related Data Home Medications Medication Instructions Recorded Confirmed albuterol sulfate 90 mcg/actuation 90 mcg inhalation Q4-6H PRN 01/01/20 02/20/22 aerosol inhaler (Ventolin HFA) Shortness Of Breath Or Wheezing alendronate 35 mg tablet 35 mg PO WEEKLY 01/01/20 02/20/22 albuterol sulfate 2.5 mg/3 mL 2.5 mg inhalation Q6H PRN 07/07/21 02/20/22 (0.083 %) solution for nebulization Shortness Of Breath Or Wheezing insulin lispro 100 unit/mL 1 sliding scale dose subcut 07/07/21 02/20/22 subcutaneous pen USEASDIRECTD metformin 1,000 mg tablet 1,000 mg PO BID 07/07/21 02/20/22 oxymetazoline 0.05 % nasal mist 2 spray intranasal Q12H PRN Nasal 07/07/21 02/20/22 (Afrin (oxymetazoline)) Congestion aspirin 81 mg tablet,delayed 81 mg PO DAILY 02/20/22 02/20/22 release atorvastatin 80 mg tablet 80 mg PO HS 02/20/22 02/20/22 carvedilol 12.5 mg tablet 12.5 mg PO BID 02/20/22 02/20/22 Allergies Allergy/AdvReac Type Severity Reaction Status Date / Time No Known Allergies Allergy Verified 02/20/22 02:26 Review of Systems Review of Systems: CONSTITUTIONAL: Denies fever, chills, or sweats. EYES: Denies visual changes, redness, or discharge. ENT: Denies rhinorrhea, congestion, sore throat, or otalgia. CARDIOVASCULAR: Denies chest pain, palpitations, or edema. RESPIRATORY: Denies cough or dyspnea. GASTROINTESTINAL: Denies abdominal pain, nausea, vomiting, or diarrhea. GENITOURINARY: Denies dysuria or hematuria. SKIN: Denies rash or itching. MUSCULOSKELETAL: Denies back pain, joint pain, or myalgia. NEUROLOGIC: Denies headache, numbness, dizziness, or weakness. PSYCHIATRIC: Denies anxiety or depression. [facility] Past Medical History Medical History (Updated 02/24/22 @ 16:45 by Richard Hartmann APRN) COPD (chronic obstructive pulmonary disease) Diabetes mellitus type 2, controlled, without complications History of tobacco use HTN (hypertension) with goal to be determined Kidney stone Surgical History Surgical History (Updated 02/19/22 @ 12:24 by Ely Hernández NP) H/O section x3 H/O tubal ligation History of cholecystectomy Family History Family History Mother Ruptured cerebral aneurysm Diabetes mellitus Father Diabetes mellitus Dementia Malignant neoplasm of prostate Cerebrovascular accident Sibling Malignant neoplasm of prostate Social History Social History (Updated 02/19/22 @ 14:33 by Ely Hernández NP) Social History: The patient lives with her . She has 3 CHILDREN. She is on DISABILITY and . She does not have a durable power employment attorney for healthcare. She is a former smoker. Code status full code Smoking packs per day: 0.5 Smoking cigarettes per day: 10.0 Years smoked: 5 Smoking pack-years: 2.50 Smoking status: Former smoker Tobacco type: cigarettes Second hand tobacco smoke exposure: Yes Additional smoking assessment comments: Pt is unsure when she quit smoking. Alcohol intake: never Alcohol use details: social Substance use: never Substance use type: does not use Lack of Transportation: No Lack of Food: Never Tr
[2022-02-24 16:35] LABS: Appearance Urine Slightly Cloudy (Clear); Bilirubin Urine 1+ (Negative); Blood Urine Negative (Negative); Color Urine Yellow (Yellow); Glucose Urine UA Trace mg/dL (Negative); Ketones Urine Negative (Negative); Leukocyte Esterase Ur Negative LEU/UL (Negative); Nitrate Urine Negative (Negative); Protein Urine 1+ mg/dL (Negative); Specific Grav Ur >= 1.030 (1.001-1.035); Urobilinogen Urine 0.2 mg/dL (<2.0)
[2022-02-24 16:43] LABS: Amorphous Sediment Urine Few; Bacteria Urine Trace /hpf; Budding Yeast Urine Present /hpf; Hyaline Casts Urine 15-19 /lpf; Mucus Urine Few /lpf; RBC Urine 21-50 /hpf (0-2); Squamous Epithelial Cell Urine Occasional /hpf (Few)
[2022-02-24 16:46] LABS: Add Urine Microscopic? YES
== END 2022-02-24 17:21 | disposition home or self-care (01) ==
PROVIDERS: Emergency Provider Nurse Practitioner Family
DX: R41.82 Altered mental status, unspecified (principal); E11.9 Type 2 diabetes mellitus without complications; Z20.822 Contact with and (suspected) exposure to COVID-19; J44.9 Chronic obstructive pulmonary disease, unspecified; I10 Essential (primary) hypertension; Z87.442 Personal history of urinary calculi; Z87.891 Personal history of nicotine dependence; Z79.82 Long term (current) use of aspirin; Z79.85 Long-term (current) use of injectable non-insulin antidiabetic drugs; Z79.4 Long term (current) use of insulin; I44.7 Left bundle-branch block, unspecified
CPT/HCPCS: 36415; 80053; 81001; 84484; 85025; 87637; 93005; 99284

== ENCOUNTER 2022-06-25 16:01 | Observation (INO) | payer MEDICARE, MEDICAID, SELFPAY ==
[2022-06-25] VITALS (16 sets, daily range): BP systolic 105–170; BP diastolic 48–73; PULSE 66–109; RESP 12–21; TEMP 36.2–36.8; O2SAT 90–98; BMI 22.6
--- NOTE | 2022-06-25 | ECG_ITS ---
Measurements Intervals [place] Rate: 67 P: 41 CT: 165 QRS: 1 QRSD: 142 T: 110 QT: 472 QTc: 500 Interpretive Statements SINUS RHYTHM LEFT BUNDLE BRANCH BLOCK BASELINE ARTIFACT- I, II, III, AVR, AVL, AVF ABNORMAL ECG COMPARED TO ECG 02/24/2022 16:01:43 NO SIGNIFICANT CHANGES Electronically Signed On 06-25-2022 20:15:22 CDT by Aman Thompson D.O.
--- NOTE | ~2022-06-25 | XR_ITS ---
EXAMINATION: XR chest 1V portable 06/26/2022 05:58 INDICATION: Elevated white blood cell count PROCEDURE: AP portable chest COMPARISON: Comparison to multiple prior studies sequentially, with oldest reviewed study dated 12/15. FINDINGS: The lungs are clear. The cardiomediastinal silhouette is within normal limits. There are no pleural effusions. There is no pneumothorax suspected. There are cholecystectomy clips. IMPRESSION: 1: NO ACUTE CARDIOPULMONARY DISEASE. Reviewed, dictated and finalized at location A.
--- NOTE | ~2022-06-25 | US_ITS ---
EXAMINATION: US carotid duplex BI DATE: 06/26/2022 08:06 INDICATION: Confusion TECHNIQUE: Grayscale, color Doppler, and pulsed Doppler images of the cervical carotid arteries were obtained. The degree of vessel stenosis is placed in one of the following categories: normal, <50%, 5 0-69%, >=70% but less than near-occlusion, near-occlusion, or total occlusion. Note that percent sten osis relative to normal distal artery lumen diameter is indirectly measured from velocity measurement s as described by Naveen, et al. Radiology 2003; 229:340-346. Notes: Normal: Peak systolic velocity <125 centimeters/sec and no plaque <50%. Peak systolic velocity <125 ( EDV <40; ICA/CCA PSV ratio <2.0; used these factors only a tandem lesions or low cardiac output or co ntralateral disease) 50-69 %: PSV 125-230 (EDV 40-100; ratio 2-4) >= 70% but less than near occlusion: PSV greater than 230 (EDV > 100; ratio> 4.0) Near Occlusion: PSV that is variable; markedly narrowed lumen Occlusion: Absent flow on color/spectral Doppler and no lumen on lopez scale. COMPARISON: None. FINDINGS: RIGHT: The right common carotid artery (CCA) peak systolic velocity (PSV) is 68 cm/s. The right internal car otid artery (ICA) PSV is 46 cm/s. The right ICA end-diastolic velocity (EDV) is 15 cm/s. The right IC A/CCA PSV ratio is 0.7. The external carotid artery (ECA) PSV is 90 cm/s. There is antegrade flow in the right vertebral artery. LEFT: The left CCA PSV is 87 cm/s. The left ICA PSV is 78 cm/s. The left ICA EDV is 19 cm/s. The left ICA/C CA PSV ratio is 0.9. The ECA PSV is 92 cm/s. There is antegrade flow in the left vertebral artery. IMPRESSION: 1. Less than 50% stenosis in the right internal carotid artery by sonographic criteria. 2. Less than 50% stenosis in the left internal carotid artery by sonographic criteria. Reviewed, dictated and finalized at location A. IMPRESSION: 1. Less than 50% stenosis in the right internal carotid artery by sonographic wesley galvan. 2. Less than 50% stenosis in the left internal carotid artery by sonographic mike almanza.
--- NOTE | ~2022-06-25 | CT_ITS ---
EXAMINATION: CT brain wo con DATE: 06/25/2022 16:30 INDICATION: Confusion TECHNIQUE: Computed tomography (CT) of the head was performed without intravenous contrast. The dose- length product was 605.33 mGy-cm. Automated exposure control and iterative reconstruction technique were employed. COMPARISON: CT dated dated 02/19/2022 FINDINGS: Generalized atrophy. There are scattered moderate periventricular and subcortical white mat ter changes, most likely related to small vessel ischemic disease (microangiopathy). No acute intracr anial hemorrhage, infarction, mass or mass effect. There are basal ganglia calcifications bilaterally . Paranasal sinuses and mastoids are pneumatized. No depressed skull fractures. IMPRESSION: 1. No acute intracranial abnormality. 2: Chronic age-related findings. Reviewed, dictated and finalized at location B.
--- NOTE | ~2022-06-25 | MR_ITS ---
EXAMINATION: MR brain/brain stem wo/w con DATE: 06/26/2022 07:52 INDICATION: Altered mental status TECHNIQUE: Magnetic resonance imaging (MRI) of the brain and brainstem was performed without and with 15 cc MultiHance intravenous contrast. Sequences included sagittal and axial T1-weighted SE, axial d iffusion-weighted FS SE, axial T2*-weighted GRE, axial T2-weighted FLAIR Propeller, and axial T2-weig hted Propeller. Apparent diffusion coefficient (ADC) maps were created. COMPARISON: CT dated 06/25/2022. FINDINGS: No acute infarction, hemorrhage, mass or mass effect. No abnormal contrast enhancement. No ventriculomegaly or midline shift. There are scattered severe periventricular and subcortical white m atter changes, most likely related to small vessel ischemic disease (microangiopathy). Paranasal sinu ses are unremarkable. Structures of the posterior fossa including 7/8th cranial nerve complexes are n ormal. No evidence for disconjugate gaze. IMPRESSION: 1. No acute intracranial abnormality. 2: Chronic age-related findings. Reviewed, dictated and finalized at location A.
--- NOTE | 2022-06-25 16:18 | ED.GENADULT ---
HPI - General Adult General Chief complaint: Seizure Stated complaint: SZ Time Seen by Provider: 06/25/22 16:07 History of Present Illness HPI narrative: 67-year-old female history of diabetes, CAD, osteoporosis, dyslipidemia presents to the emergency room for evaluation of cute onset of confusion. History is obtained from patient's son and EMS. According to patient's son, he found her confused in the home, unable to answer questions appropriately. Son says that he has found patient in this state before, and thought that it might be her blood sugars causing the confusion. When EMS arrived on the scene, patient was found to have intermittent episodes of expressive aphasia. On arrival, patient is able to occasionally answer questions appropriately, and then demonstrate confusion when attempting to answer other questions. Patient is alert and oriented x2, and can recognize her son who was in the room but cannot correctly identify him by name. Patient's son states that this is abnormal. Patient denies headache, chest pain, shortness of breath, unilateral weakness. Related Data Home Medications Medication Instructions Recorded Confirmed albuterol sulfate 90 mcg/actuation 90 mcg inhalation Q4-6H PRN 01/01/20 02/20/22 aerosol inhaler (Ventolin HFA) Shortness Of Breath Or Wheezing alendronate 35 mg tablet 35 mg PO WEEKLY 01/01/20 02/20/22 albuterol sulfate 2.5 mg/3 mL 2.5 mg inhalation Q6H PRN 07/07/21 02/20/22 (0.083 %) solution for nebulization Shortness Of Breath Or Wheezing insulin lispro 100 unit/mL 1 sliding scale dose subcut 07/07/21 02/20/22 subcutaneous pen USEASDIRECTD metformin 1,000 mg tablet 1,000 mg PO BID 07/07/21 02/20/22 oxymetazoline 0.05 % nasal mist 2 spray intranasal Q12H PRN Nasal 07/07/21 02/20/22 (Afrin (oxymetazoline)) Congestion aspirin 81 mg tablet,delayed 81 mg PO DAILY 02/20/22 02/20/22 release atorvastatin 80 mg tablet 80 mg PO HS 02/20/22 02/20/22 carvedilol 12.5 mg tablet 12.5 mg PO BID 02/20/22 02/20/22 Allergies Allergy/AdvReac Type Severity Reaction Status Date / Time No Known Allergies Allergy Verified 02/20/22 02:26 Review of Systems Review of Systems: CONSTITUTIONAL: Denies fever, chills, or sweats. EYES: Denies visual changes, redness, or discharge. ENT: Denies rhinorrhea, congestion, sore throat, or otalgia. CARDIOVASCULAR: Denies chest pain, palpitations, or edema. RESPIRATORY: Denies cough or dyspnea. GASTROINTESTINAL: Denies abdominal pain, nausea, vomiting, or diarrhea. GENITOURINARY: Denies dysuria or hematuria. SKIN: Denies rash or itching. MUSCULOSKELETAL: Denies back pain, joint pain, or myalgia. NEUROLOGIC: Denies headache, numbness, dizziness, or weakness. PSYCHIATRIC: Denies anxiety or depression. [facility] Past Medical History Medical History (Updated 06/25/22 @ 19:04 by Richard Hartmann APRN) COPD (chronic obstructive pulmonary disease) Diabetes mellitus type 2, controlled, without complications History of tobacco use HTN (hypertension) with goal to be determined Kidney stone Surgical History Surgical History (Updated 02/19/22 @ 12:24 by Ely Hernández NP) H/O section x3 H/O tubal ligation History of cholecystectomy Family History Family History Mother Ruptured cerebral aneurysm Diabetes mellitus Father Diabetes mellitus Dementia Malignant neoplasm of prostate Cerebrovascular accident Sibling Malignant neoplasm of prostate Social History Social History (Updated 02/19/22 @ 14:33 by Ely Hernández NP) Social History: The patient lives with her . She has 3 CHILDREN. She is on DISABILITY and . She does not have a durable power contract attorney for healthcare. She is a former smoker. Code status full code Smoking packs per day: 0.5 Smoking cigarettes per day: 10.0 Years smoked: 5 Smoking pack-years: 2.50 Smoking status: Former smoker Tobacco type: ci
[2022-06-25 16:19] LABS: Basophils Absolute Auto 0.1 K/mm3 (0.0-0.1); Basophils Percent Auto 0.7 % (0.2-1.2); Eosinophils Absolute Auto 0.3 K/mm3 (0-0.3); Eosinophils Percent Auto 1.8 % (0-4.4); Hematocrit 40.7 % (37.0-47.0); Hemoglobin 13.3 g/dL (12.0-15.0); Immature Granulocyte Absolute 0.05 K/mm3 (0.00-0.031); Immature Granulocyte Percent A 0.4 % (0-0.5); Lymphocytes Absolute Auto 5.82 K/mm3 (0.9-3.2); Lymphocytes Percent Auto 42.7 % (18.3-44.2); Mean Corpuscular HGB Conc 32.7 g/dl (32-36); Mean Corpuscular Volume 88.9 fl (80-100); Mean Platelet Volume 11.8 fl (7.4-10.4); Monocytes Absolute Auto 1.4 K/mm3 (0.1-0.6); Monocytes Percent Auto 10.4 % (2.6-8.5); Platelet Count Result 234 k/mm3 (150-375); Red Blood Count 4.58 M/mm3 (4.2-5.4); Red Cell Distribution Width 12.7 % (11.5-14.5); White Blood Count 13.6 K/mm3 (4.5-10.0)
--- NOTE | 2022-06-25 16:50 | ECG_ITS ---
Measurements Intervals [place] Rate: 71 P: 42 GA: 170 QRS: -2 QRSD: 144 T: 111 QT: 458 QTc: 498 Interpretive Statements SINUS RHYTHM LEFT BUNDLE BRANCH BLOCK ABNORMAL ECG COMPARED TO ECG 06/25/2022 16:09:41 NO SIGNIFICANT CHANGES Electronically Signed On 06-25-2022 20:17:58 CDT by Aman Thompson D.O.
[2022-06-25 16:53] LABS: Alanine Aminotransferase 18 U/L (6-35); Albumin Level 4.1 g/dL (3.5-5.1); Alkaline Phosphatase 115 U/L (38-126); Anion Gap 6 mmol/L (8-16); Aspartate Amino Transferase 22 U/L (14-36); Bilirubin,Total 0.3 mg/dL (0.2-1.3); Blood Urea Nitrogen 25 mg/dL (7-17); Calcium 8.7 mg/dL (8.4-10.2); Carbon Dioxide 32 mmol/L (22-30); Chloride 100 mmol/L (98-107); Estimated Glomerular Filt Rate > 60; Glucose 81 mg/dL (65-110); Potassium 3.9 mmol/L (3.4-5.0); Sodium 138 mmol/L (137-145)
[2022-06-25 16:57] LABS: INR 0.9; Partial Thromboplastin Time 25.5 SECONDS (22.3-36.8); Prothrombin Time 12.1 Seconds (11.1-14.7)
[2022-06-25 18:41] LABS: Appearance Urine Clear (Clear); Bacteria Urine Rare /hpf; Bilirubin Urine Negative (Negative); Blood Urine Negative (Negative); Color Urine Yellow (Yellow); Glucose Urine UA 3+ mg/dL (Negative); Ketones Urine Negative (Negative); Leukocyte Esterase Ur Trace LEU/UL (Negative); Nitrate Urine Negative (Negative); Non Pathogenic Casts 0-2; Protein Urine Negative (Negative); Specific Grav Ur 1.026 (1.001-1.035); Squamous Epithelial Cell Urine Occasional /hpf (Few); Urobilinogen Urine 0.2 mg/dL (<2.0)
[2022-06-25 18:46] LABS: Add Urine Microscopic? YES
[2022-06-25 18:55] LABS: Amphetamine Screen Urine Negative (Negative); Barbiturate Screen Urine Negative (Negative); Benzodiazepines Screen Urine Negative (Negative); Cannabinoid Screen Urine Negative (Negative); Cocaine Screen Urine Negative (Negative); Methadone Screen Urine Negative (Negative); Opiate Screen Urine Negative (Negative); Phencyclidine Screen Urine Negative (Negative)
--- NOTE | 2022-06-25 19:52 | PM.IMHP ---
H&P: HPI History of Present Illness Date/Time: 06/25/22 19:52 Chief Complaint: seizure with confusion Narrative: this is a 67-year-old female patient who has a history of diabetes, coronary artery disease and dyslipidemia. The patient came to the emergency room with evaluation of acute onset of confusion. The patient is very irritated and does not want to stay overnight here. The patient lives with her son and the son noticed that she was weak and confused. I personally attempted to ambulate the patient to the bathroom. She walked approximately 30 ft and then began to hang on to the railing and would not let go. The patient's knees started to buckle. We had to place her in a wheelchair in the emergency room. The patient is very irritated at this time. She does not want to stay here. She is orientated to herself and she is aware that she is in the hospital. She does not know what the date is. The son was here earlier in our sisters with her. Her white count is 13.6. Troponin is nonreactive. She has 3+ glucose in her urine and was positive for UTI. Her toxicology screen was negative. Head CT was read as no acute intracranial abnormality. Chronic age-related findings. The patient was only given Zofran in the emergency room. The patient is being admitted to observation status on the date of service of 04/25/2022. Review of Systems Review of Systems: All systems reviewed & are unremarkable except as noted in HPI and below Constitutional: Constitutional: Reports as per HPI and Reports no additional constitutional complaints Eyes: Eyes: Reports as per HPI and Reports no additional eye complaints ENT: Reports system reviewed and no additional complaints, except as documented and Reports Normal hearing present Cardiovascular: Cardiovascular: Reports no additional cardiovascular complaints Respiratory: Respiratory: Reports no additional respiratory complaints and Reports no additional respiratory complaints Gastrointestinal: Gastrointestinal: Reports as per HPI and Reports no additional gastrointestinal complaints Musculoskeletal: Musculoskeletal: Reports no additional musculoskeletal complaints Integumentary/Breasts: Skin/Breast: Reports system reviewed and no additional complaints, except as docu and Reports as per HPI Neurologic: Reports system reviewed and no additional complaints, except as documented, Reports as per HPI and Reports Normal hearing present Psychiatric: Psychiatric: Reports no additional psychiatric complaints and Reports as per HPI Endocrine: Endocrine: Reports no additional endocrine complaints Hematologic/Lymphatic: Hematologic/Lymphatic: Reports no additional hematologic/lymphatic complaints Allergic/Immunologic: Allergic/Immunologic: Reports no additional allergic/immunologic complaints [facility] Past Medical History Medical History (Updated 06/26/22 @ 00:04 by Ely Hernández NP) COPD (chronic obstructive pulmonary disease) Diabetes mellitus type 2, controlled, without complications History of tobacco use HTN (hypertension) with goal to be determined Hyperlipidemia Kidney stone Urinary tract infection Surgical History Surgical History (Updated 02/19/22 @ 12:24 by Ely Hernández NP) H/O section x3 H/O tubal ligation History of cholecystectomy Family History Family History Mother Ruptured cerebral aneurysm Diabetes mellitus Father Diabetes mellitus Dementia Malignant neoplasm of prostate Cerebrovascular accident Sibling Malignant neoplasm of prostate Social History Social History (Updated 06/25/22 @ 19:52 by Ely Hernández NP) Social History: The patient lives with her son. She has 3 CHILDREN. She is on DISABILITY and . She does not have a durable power baseball glove stuffer for healthcare. She is a former smoker. Code status full code Smoking packs per day: 0.5 Smoking cigarettes per day:
--- NOTE | 2022-06-25 21:36 | ADMGEN ---
This patient, Yanna Caldwell, was admitted to Medical Room 254-01. Patient/family oriented to hospital policies and general routines including ID bracelet, bed and alarms, visiting hours, pain management, procedures, bathroom and other care routines, personal items, smoking policy, room service/diet, and visiting hours. Information on how to activate the Rapid Response Team has been discussed. Patient/Family are encouraged to report perceived risks to care and to ask questions if they do not understand what they are told or what they should do.
[2022-06-25 22:53] LABS: Troponin I < 0.012 ng/mL (0.000-0.034)
[2022-06-26] VITALS (11 sets, daily range): BP systolic 100–151; BP diastolic 48–69; PULSE 62–90; RESP 14–16; TEMP 36–36.6; O2SAT 92–98
[2022-06-26 01:36] LABS: Troponin I < 0.012 ng/mL (0.000-0.034)
[2022-06-26 05:53] LABS: Basophils Absolute Auto 0.1 K/mm3 (0.0-0.1); Basophils Percent Auto 0.8 % (0.2-1.2); Eosinophils Absolute Auto 0.2 K/mm3 (0-0.3); Eosinophils Percent Auto 1.9 % (0-4.4); Hematocrit 44.4 % (37.0-47.0); Hemoglobin 14.2 g/dL (12.0-15.0); Immature Granulocyte Absolute 0.03 K/mm3 (0.00-0.031); Immature Granulocyte Percent A 0.2 % (0-0.5); Lymphocytes Absolute Auto 6.42 K/mm3 (0.9-3.2); Lymphocytes Percent Auto 50.4 % (18.3-44.2); Mean Corpuscular Hemoglobin 28.8 pg (26-34); Mean Corpuscular Volume 90.1 fl (80-100); Mean Platelet Volume 11.4 fl (7.4-10.4); Monocytes Absolute Auto 1.1 K/mm3 (0.1-0.6); Monocytes Percent Auto 8.6 % (2.6-8.5); Neutrophils Absolute Auto 4.9 K/mm3 (1.3-6.7); Neutrophils Percent Auto 38.1 % (45.5-73.1); Platelet Count Result 228 k/mm3 (150-375); Red Blood Count 4.93 M/mm3 (4.2-5.4); Red Cell Distribution Width 12.8 % (11.5-14.5); White Blood Count 12.8 K/mm3 (4.5-10.0)
[2022-06-26 06:01] LABS: Lactic Acid Reflex 1.2 mmol/L (0.7-2.0)
[2022-06-26 06:09] LABS: Alanine Aminotransferase 18 U/L (6-35); Albumin Level 4.1 g/dL (3.5-5.1); Alkaline Phosphatase 101 U/L (38-126); Anion Gap 5 mmol/L (8-16); Aspartate Amino Transferase 22 U/L (14-36); Bilirubin,Total 0.4 mg/dL (0.2-1.3); Blood Urea Nitrogen 21 mg/dL (7-17); CRP < 0.5 mg/dL (<1.0); Carbon Dioxide 31 mmol/L (22-30); Chloride 102 mmol/L (98-107); Estimated Glomerular Filt Rate > 60; Glucose 147 mg/dL (65-110); Magnesium 1.9 mg/dL (1.6-2.3); Potassium 4.2 mmol/L (3.4-5.0); Sodium 138 mmol/L (137-145)
[2022-06-26 08:39] LABS: Glucose Point of Care 172 mg/dl (65-105)
[2022-06-26 08:40] LABS: Hemoglobin A1C 9.7 % (<5.7)
[2022-06-26] MEDS: SACUBITRIL/VALSARTAN 24-26 MG TABLET 1 TAB PO ×2 (09:10→17:14)
[2022-06-26] MEDS: ASPIRIN 81 MG ENTERIC TABLET PO (09:11)
[2022-06-26] MEDS: EMPAGLIFLOZIN 10 MG TABLET PO (09:11)
[2022-06-26] MEDS: carvediloL 12.5 MG TABLET PO ×2 (09:11→20:09)
--- NOTE | 2022-06-26 10:26 | PM.IMPN ---
Progress Note: A&P Assessment and Plan (1) Urinary tract infection: Qualifiers: Hematuria presence: without hematuria Urinary tract infection type: site unspecified Qualified Code(s): N39.0 - Urinary tract infection, site not specified Code(s): N39.0 - Urinary tract infection, site not specified Status: Acute Assessment and Plan: continue IV Rocephin Blood and urine cultures are pending tailor antibiotics according to cultures and sensitivities. (2) Altered mental status: Code(s): R41.82 - Altered mental status, unspecified Status: Acute Assessment and Plan: Head CT was negative for anything acute. MRI negative for acute findings Carotid duplex shows less than 50% stenosis bilaterally altered mental status likely secondary to UTI (3) HTN (hypertension) with goal to be determined: Code(s): I10 - Essential (primary) hypertension Status: Acute Assessment and Plan: Continue with Coreg and entresto (4) COPD (chronic obstructive pulmonary disease): Code(s): J44.9 - Chronic obstructive pulmonary disease, unspecified Status: Acute Assessment and Plan: Continue with patient's home Ventolin inhaler. (5) Diabetes mellitus type 2, controlled, without complications: Code(s): E11.9 - Type 2 diabetes mellitus without complications Status: Acute Assessment and Plan: Continue with her Lantus. Sliding scale insulin with hypoglycemic protocol AC and HS. The patient is on Jardiance but I believe she probably has some congestive heart failure. (6) Hyperlipidemia: Code(s): E78.5 - Hyperlipidemia, unspecified Status: Acute Assessment and Plan: continue with Lipitor Subjective Date/time seen: 06/26/22 10:26 Interval history: patient more awake alert this morning Review of Systems Review of Systems: All systems reviewed & are unremarkable except as noted in HPI and below Constitutional: Constitutional: Reports as per HPI and Reports no additional constitutional complaints Eyes: Eyes: Reports as per HPI and Reports no additional eye complaints ENT: Reports system reviewed and no additional complaints, except as documented and Reports Normal hearing present Cardiovascular: Cardiovascular: Reports no additional cardiovascular complaints Respiratory: Respiratory: Reports no additional respiratory complaints and Reports no additional respiratory complaints Gastrointestinal: Gastrointestinal: Reports as per HPI and Reports no additional gastrointestinal complaints Musculoskeletal: Musculoskeletal: Reports no additional musculoskeletal complaints Integumentary/Breasts: Skin/Breast: Reports system reviewed and no additional complaints, except as docu and Reports as per HPI Neurologic: Reports system reviewed and no additional complaints, except as documented, Reports as per HPI and Reports Normal hearing present Psychiatric: Psychiatric: Reports no additional psychiatric complaints and Reports as per HPI Endocrine: Endocrine: Reports no additional endocrine complaints Hematologic/Lymphatic: Hematologic/Lymphatic: Reports no additional hematologic/lymphatic complaints Allergic/Immunologic: Allergic/Immunologic: Reports no additional allergic/immunologic complaints Exam Const: General: no acute distress, well developed and thin Nutritional Appearance: thin Orientation/consciousness: oriented to person and oriented to place Limitations: no limitations HENMT: Head: normal to inspection, No palpable skull fracture present, normocephalic and atraumatic Ears: hearing grossly normal bilaterally and external ears normal Face/Nose/Sinus: Normal external nose present and Normal nares present Eyes: General: appearance normal, both eyes and all related structures Alignment and Position: alignment normal Periorbital: periorbital findings normal Eyelids: eyelids normal Sclera: sclerae normal P
[2022-06-26 11:49] LABS: Glucose Point of Care 244 mg/dl (65-105)
[2022-06-26] MEDS: INSULIN ASPART (*BKC) 100 UNITS/ML SUB-Q ×2 (12:32→17:15)
[2022-06-26 16:53] LABS: Glucose Point of Care 209 mg/dl (65-105)
[2022-06-26] MEDS: ATORVASTATIN 40 MG TABLET 80 MG PO (20:09)
[2022-06-26] MEDS: INSULIN GLARGINE (*BKC) 100 UNITS/ML 25 UNITS SUB-Q (20:13)
[2022-06-26 20:42] LABS: Glucose Point of Care 239 mg/dl (65-105)
[2022-06-27] VITALS: BP 136/65; PULSE 65; PULSE 67; RESP 16; TEMP 37; O2SAT 98
[2022-06-27 04:00] VITALS: BP 139/63; PULSE 62; PULSE 63; RESP 16; TEMP 36.6; O2SAT 97
[2022-06-27 08:00] VITALS: PULSE 67
[2022-06-27 08:23] LABS: Glucose Point of Care 155 mg/dl (65-105)
[2022-06-27] MEDS: SACUBITRIL/VALSARTAN 24-26 MG TABLET 1 TAB PO (09:11)
[2022-06-27] MEDS: EMPAGLIFLOZIN 10 MG TABLET PO (09:11)
[2022-06-27] MEDS: ASPIRIN 81 MG ENTERIC TABLET PO (09:11)
[2022-06-27 09:12] VITALS: PULSE 67
[2022-06-27] MEDS: carvediloL 12.5 MG TABLET PO (09:12)
[2022-06-27 09:13] VITALS: BP 151/62; PULSE 68; RESP 14; O2SAT 98
--- NOTE | 2022-06-27 09:27 | PCPTNOTE ---
During very beginning of evaluation patient's doctor comes in and states patient is going home today. Patient and family feel patient is moving around at her baseline. Held on evaluation.
--- NOTE | 2022-06-27 09:52 | WPDNEURCNPN ---
Assessment and Plan Assessment and plan (1) Altered mental status: Code(s): R41.82 - Altered mental status, unspecified Status: Acute (2) Urinary tract infection: Qualifiers: Hematuria presence: without hematuria Urinary tract infection type: site unspecified Qualified Code(s): N39.0 - Urinary tract infection, site not specified Code(s): N39.0 - Urinary tract infection, site not specified Status: Acute Plan Yanna Caldwell is a 67 year old female with a history of DM, CAD, HLD presenting due to concerns for acute onset confusion. Could be secondary to UTI, althought urine culture from this admission is negative. Patient is back to her baseline. No further work-up needed. Ok to discharge. Consult date: 06/27/22 Reason for consult: Altered mental status HPI: Yanna Caldwell is a 67 year old female with a history of DM, CAD, HLD presenting due to concerns for acute onset confusion. Patient was brought in by her son after he noted that she was weak and confused. When she was brought in to the emergency department she was obly oriented to herself and knew that she was in the hospital. She was not able to tell the date. She was having difficulty walking and had to be placed in a wheelchair. In the ED her CT head was read as negative. She had a negative urine tox screen. Her UA was concerning for UTI. She was started on antibiotics and subsequently admitted. She has already has an MRI brain that was normal as well. Her urine culture from this admission shows no growth. Review of Systems Constitutional: Constitutional: Denies chills, Denies fever(s) and Denies weight loss Eyes: Eyes: Denies diplopia and Denies loss of vision ENT: Denies dizziness, Denies hearing loss and Denies tinnitus Cardiovascular: Cardiovascular: Denies chest pain, Denies syncope and Denies dyspnea Respiratory: Respiratory: Denies cough, Denies dyspnea and Denies wheezing Gastrointestinal: Gastrointestinal: Denies abdominal pain, Denies change in bowel habits and Denies vomiting Genitourinary: Genitourinary: Denies urinary incontinence Musculoskeletal: Musculoskeletal: Denies arthralgias and Denies joint swelling Integumentary/Breasts: Skin/Breast: Denies new lesions and Denies rash Neurologic: Reports as per HPI, Denies dizziness, Denies syncope and Denies loss of vision Psychiatric: Psychiatric: Denies anxiety, Reports confusion and Denies depression Endocrine: Endocrine: Denies cold intolerance and Denies heat intolerance Hematologic/Lymphatic: Hematologic/Lymphatic: Denies easy bleeding and Denies easy bruising Allergic/Immunologic: Allergic/Immunologic: Denies no additional allergic/immunologic complaints and Denies wheezing PMFSH Past Medical History Medical History COPD (chronic obstructive pulmonary disease) Diabetes mellitus type 2, controlled, without complications History of tobacco use HTN (hypertension) with goal to be determined Hyperlipidemia Kidney stone Urinary tract infection Surgical History Surgical History H/O section x3 H/O tubal ligation History of cholecystectomy Family History Family History Mother Ruptured cerebral aneurysm Diabetes mellitus Father Diabetes mellitus Dementia Malignant neoplasm of prostate Cerebrovascular accident Sibling Malignant neoplasm of prostate Social History Social History (Updated 06/25/22 @ 19:52 by Ely Hernández NP) Social History: The patient lives with her son. She has 3 CHILDREN. She is on DISABILITY and . She does not have a durable power assistant city attorney for healthcare. She is a former smoker. Code status full code Smoking packs per day: 0.5 Smoking cigarettes per day: 10.0 Years smoked: 5 Smoking pack-years: 2.50 Smoking status: Former
--- NOTE | 2022-06-27 10:50 | PM.DS ---
DS: Admitting Diagnosis Discharge Date 06/27/2022 Admitting Diagnosis Altered mental status UTI DS: Discharge Diagnosis Discharge Diagnosis (1) Altered mental status: Code(s): R41.82 - Altered mental status, unspecified Status: Acute (2) Urinary tract infection: Qualifiers: Hematuria presence: without hematuria Urinary tract infection type: site unspecified Qualified Code(s): N39.0 - Urinary tract infection, site not specified Code(s): N39.0 - Urinary tract infection, site not specified Status: Acute DS: Summary Hospital Course Hospital Course: Yanna Caldwell is a 67 year old female with a history of DM, CAD, HLD presenting due to concerns for acute onset confusion. Patient was brought in by her son after he noted that she was weak and confused. When she was brought in to the emergency department she was only oriented to herself and knew that she was in the hospital. She was not able to tell the date. She was having difficulty walking and had to be placed in a wheelchair. In the ED her CT head was read as negative. She had a negative urine tox screen. Her UA was concerning for UTI. She was started on antibiotics and subsequently admitted. She has already has an MRI brain that was normal as well. Her urine culture from this admission shows no growth. Patient is mentally back to baseline. She is no longer confused. Will discharge her home with oral ciprofloxacin for 2 more days. Time Spent with Patient Time attestation: Total time spent providing and/or coordinating discharge services: Exam Const: General: no acute distress, well developed and thin Nutritional Appearance: thin Orientation/consciousness: oriented to person and oriented to place Limitations: no limitations HENMT: Head: normal to inspection, No palpable skull fracture present, normocephalic and atraumatic Ears: hearing grossly normal bilaterally and external ears normal Face/Nose/Sinus: Normal external nose present and Normal nares present Eyes: General: appearance normal, both eyes and all related structures Alignment and Position: alignment normal Periorbital: periorbital findings normal Eyelids: eyelids normal Sclera: sclerae normal Pupils: Equal, round and reactive pupils present EOM: EOMs intact bilaterally Neck: Neck: normal visual inspection, full ROM, no lymphadenopathy, trachea midline and supple Chest: Chest palpation & inspection: normal inspection of the chest Resp: Effort & Inspection: normal respiratory effort Auscultation: wheezes Cardio: Palpation: normal PMI Rate: regular rate Rhythm: regular rhythm Heart sounds: S1 normal heart sound present and S2 normal heart sound present Peripheral pulses: Peripheral pulses 2+ throughout GI: Inspection: normal to inspection Auscultation: normal bowel sounds Rectal Exam: deferred Back/Spine/Pelvis: Cervical Spine: cervical ROM normal Skin: General skin exam: normal color Lesions: no lesions Rashes: no rashes Trauma: no lacerations or abrasions Wounds: no wounds Hair: normal Nails: normal Neuro: General: oriented to person and oriented to place Cranial nerves: Yes Equal, round and reactive pupils present and Yes Normal hearing present Cognition (Neuro): normal cognition Speech: normal speech Gait exam (Neuro): Ataxic gait present Motor exam (neuro): 5/5 motor strength present throughout Sensory Exam: normal sensation Extrem: General: normal to inspection Right upper extremity: normal to inspection and shoulder/upper arm Left upper extremity: normal to inspection and shoulder/upper arm Right lower extremity: normal to inspection Left lower extremity: normal to inspection Psych: Appearance: grossly normal Mental Status: mental status grossly normal Speech and movement: Normal speech and movement present Affect: normal affect Attitude: cooperative Thought process: Normal thought process present Thought content: Yes Normal thought content
[2022-06-27 11:53] LABS: Glucose Point of Care 221 mg/dl (65-105)
[2022-06-27 12:00] VITALS: PULSE 73
[2022-06-27] MEDS: INSULIN ASPART (*BKC) 100 UNITS/ML SUB-Q (12:11)
== END 2022-06-27 13:00 | disposition home or self-care (01) ==
LOC: ANHED 19:04 → ANH2MED 20:56
PROVIDERS: Nurse Practitioner; Admitting Provider Internal Medicine; Emergency Provider Nurse Practitioner Family; Visit Provider Hospitalist
DX: R41.82 Altered mental status, unspecified (principal); N39.0 Urinary tract infection, site not specified; I10 Essential (primary) hypertension; J44.9 Chronic obstructive pulmonary disease, unspecified; E11.9 Type 2 diabetes mellitus without complications; E78.5 Hyperlipidemia, unspecified; I25.10 Atherosclerotic heart disease of native coronary artery without angina pectoris; M81.0 Age-related osteoporosis without current pathological fracture; R47.01 Aphasia; I44.7 Left bundle-branch block, unspecified; R94.31 Abnormal electrocardiogram [ECG] [EKG]; D72.829 Elevated white blood cell count, unspecified; Z87.891 Personal history of nicotine dependence; Z79.51 Long term (current) use of inhaled steroids; Z79.4 Long term (current) use of insulin; Z79.84 Long term (current) use of oral hypoglycemic drugs; Z79.82 Long term (current) use of aspirin; Z79.899 Other long term (current) drug therapy; Z83.3 Family history of diabetes mellitus
CPT/HCPCS: 36415; 70450; 70553; 71045; 80053; 80307; 81001; 82948; 83036; 83605; 83735; 84443; 84484; 85025; 85610; 85730; 86140; 87040; 87086; 93005; 93880; 96365; 99285; A9270; A9577; G0378; J0696; J1815

== ENCOUNTER 2022-08-03 14:07 | Emergency (ER) | payer MEDICARE, MEDICAID, SELFPAY ==
--- NOTE | ~2022-08-03 | CT_ITS ---
EXAMINATION: CT brain wo con DATE: 08/03/2022 15:55 INDICATION: Altered level of consciousness TECHNIQUE: Computed tomography (CT) of the head was performed without intravenous contrast. Sagittal and coronal reconstructions were performed. The mA was adjusted according to patient size. Iterative reconstruction technique was employed. The dose-length product was 605.33 mGy-cm. COMPARISON: head CT dated 06/25/2022 and MR dated 06/26/2022 FINDINGS: No acute intracranial hemorrhage, acute infarction or abnormal extra axial fluid collection. There is moderate scattered white matter hypoattenuation consistent with chronic small vessel ischemic diseas e. Chronic dystrophic calcifications at the bilateral basal ganglia. Symmetric prominence of the sulc i consistent with mild age-appropriate diffuse cerebral volume loss. Ventricles are normal and symmet karen. No mass/mass effect. The orbits, paranasal sinuses and mastoid air cells are normal. IMPRESSION: 1. No acute intracranial process. 2. No significant interval change in age-related changes including mild diffuse volume loss and moder ate scattered white matter hypoattenuation consistent with chronic small vessel ischemic disease. Reviewed, dictated and finalized at location A. IMPRESSION: 1. No acute intracranial process. 2. No significant interval change in age-related changes including mild diffuse volume loss and moderate scattered white matter hypoattenuation consistent wit h chronic small vessel ischemic disease.
--- NOTE | ~2022-08-03 | XR_ITS ---
EXAMINATION: XR chest 1V portable 08/03/2022 16:04 INDICATION: Altered level of consciousness PROCEDURE: AP portable chest COMPARISON: Comparison to multiple prior studies sequentially, with oldest reviewed study dated 07/06. FINDINGS: The lungs are clear. The cardiomediastinal silhouette is within normal limits. There are no pleural effusions. There is no pneumothorax suspected. IMPRESSION: 1: NO ACUTE CARDIOPULMONARY DISEASE. Reviewed, dictated and finalized at location L.
[2022-08-03 14:10] VITALS: BP 161/80; PULSE 79; RESP 18; TEMP 36.4; O2SAT 96
--- NOTE | 2022-08-03 14:14 | ECG_ITS ---
Measurements Intervals [place] Rate: 81 P: 53 SC: 165 QRS: 1 QRSD: 137 T: 102 QT: 413 QTc: 481 Interpretive Statements SINUS RHYTHM LEFT BUNDLE BRANCH BLOCK [120+ ms QRS DURATION, 80+ ms Q/S IN V1/V2, 85+ ms R IN I/aVL/V5/V6] COMPARED TO ECG 06/25/2022 16:55:59 NO SIGNIFICANT CHANGES Electronically Signed On 08-03-2022 16:26:25 CDT by Norman Alvarez M.D.
[2022-08-03 14:36] LABS: Basophils Absolute Auto 0.1 K/mm3 (0.0-0.1); Basophils Percent Auto 0.9 % (0.2-1.2); Eosinophils Absolute Auto 0.5 K/mm3 (0-0.3); Eosinophils Percent Auto 4.7 % (0-4.4); Hematocrit 41.9 % (37.0-47.0); Hemoglobin 13.2 g/dL (12.0-15.0); Immature Granulocyte Absolute 0.03 K/mm3 (0.00-0.031); Immature Granulocyte Percent A 0.3 % (0-0.5); Lymphocytes Absolute Auto 5.25 K/mm3 (0.9-3.2); Lymphocytes Percent Auto 45.2 % (18.3-44.2); Mean Corpuscular HGB Conc 31.5 g/dl (32-36); Mean Corpuscular Hemoglobin 28.6 pg (26-34); Mean Corpuscular Volume 90.7 fl (80-100); Mean Platelet Volume 11.2 fl (7.4-10.4); Monocytes Absolute Auto 0.9 K/mm3 (0.1-0.6); Neutrophils Absolute Auto 4.8 K/mm3 (1.3-6.7); Neutrophils Percent Auto 40.9 % (45.5-73.1); Platelet Count Result 269 k/mm3 (150-375); Red Blood Count 4.62 M/mm3 (4.2-5.4); Red Cell Distribution Width 12.6 % (11.5-14.5); White Blood Count 11.6 K/mm3 (4.5-10.0)
[2022-08-03 14:53] LABS: INR 0.9; Prothrombin Time 12.6 Seconds (11.1-14.7)
[2022-08-03 14:54] LABS: Partial Thromboplastin Time 25.2 SECONDS (22.3-36.8)
[2022-08-03 15:04] LABS: Alanine Aminotransferase 17 U/L (6-35); Albumin Level 4.2 g/dL (3.5-5.1); Alkaline Phosphatase 104 U/L (38-126); Anion Gap 4 mmol/L (8-16); Aspartate Amino Transferase 25 U/L (14-36); Bilirubin,Total 0.5 mg/dL (0.2-1.3); Blood Urea Nitrogen 28 mg/dL (7-17); Calcium 8.7 mg/dL (8.4-10.2); Carbon Dioxide 33 mmol/L (22-30); Chloride 101 mmol/L (98-107); Estimated Glomerular Filt Rate > 60; Glucose 251 mg/dL (65-110); Potassium 4.9 mmol/L (3.4-5.0); Sodium 138 mmol/L (137-145)
[2022-08-03 15:35] VITALS: BP 183/86; PULSE 80; PULSE 81; RESP 17; O2SAT 96
--- NOTE | 2022-08-03 15:44 | ED.AMS ---
HPI - Altered Mental Status General Chief Complaint: Altered Mental Status Stated Complaint: altered Time Seen by Provider: 08/03/22 15:35 History of Present Illness HPI narrative: Pt presents with sister for progressively worsening confusion and aggressive behavior toward family. Sister states today she was sitting in her house naked and refused to put on clothes. Sister states she sleeps a lot and has been verbally aggressive towards family and is often confused. This has been gradually worsening. Related Data Home Medications Medication Instructions Recorded Confirmed albuterol sulfate 90 mcg/actuation 90 mcg inhalation Q4-6H PRN 01/01/20 06/25/22 aerosol inhaler (Ventolin HFA) Shortness Of Breath Or Wheezing alendronate 35 mg tablet 35 mg PO WEEKLY 01/01/20 06/25/22 albuterol sulfate 2.5 mg/3 mL 2.5 mg inhalation Q6H PRN 07/07/21 06/25/22 (0.083 %) solution for nebulization Shortness Of Breath Or Wheezing insulin lispro 100 unit/mL 1 sliding scale dose subcut 07/07/21 06/25/22 subcutaneous pen USEASDIRECTD metformin 1,000 mg tablet 1,000 mg PO BID 07/07/21 06/25/22 oxymetazoline 0.05 % nasal mist 2 spray intranasal Q12H PRN Nasal 07/07/21 06/25/22 (Afrin (oxymetazoline)) Congestion aspirin 81 mg tablet,delayed 81 mg PO DAILY 02/20/22 06/25/22 release atorvastatin 80 mg tablet 80 mg PO HS 02/20/22 06/25/22 carvedilol 12.5 mg tablet 12.5 mg PO BID 02/20/22 06/25/22 empagliflozin 10 mg tablet 10 mg PO DAILY 06/25/22 06/25/22 (Jardiance) sacubitril 24 mg-valsartan 26 mg 1 tablet PO BID 06/25/22 06/25/22 tablet (Entresto) Allergies Allergy/AdvReac Type Severity Reaction Status Date / Time No Known Allergies Allergy Verified 08/03/22 15:37 Review of Systems Review of Systems: All systems reviewed & are unremarkable except as noted in HPI and below PMFSH Past Medical History Medical History COPD (chronic obstructive pulmonary disease) Diabetes mellitus type 2, controlled, without complications History of tobacco use HTN (hypertension) with goal to be determined Hyperlipidemia Kidney stone Urinary tract infection Surgical History Surgical History H/O section x3 H/O tubal ligation History of cholecystectomy Family History Family History Mother Ruptured cerebral aneurysm Diabetes mellitus Father Diabetes mellitus Dementia Malignant neoplasm of prostate Cerebrovascular accident Sibling Malignant neoplasm of prostate Social History Social History (Updated 06/25/22 @ 19:52 by Ely Hernández NP) Social History: The patient lives with her son. She has 3 CHILDREN. She is on DISABILITY and . She does not have a durable power transactional attorney for healthcare. She is a former smoker. Code status full code Smoking packs per day: 0.5 Smoking cigarettes per day: 10.0 Years smoked: 5 Smoking pack-years: 2.50 Smoking status: Former smoker Tobacco type: cigarettes Second hand tobacco smoke exposure: Yes Additional smoking assessment comments: Pt is unsure when she quit smoking. Alcohol intake: never Alcohol use details: social Substance use: never Substance use type: does not use Lack of Transportation: No Lack of Food: Never True Current Housing: I Have Housing Concerned About Future Housing: No Difficulty Paying Gas/Electric Bills: No Difficulty Paying for Meds: No Currently Unemployed: No Education: High School Diploma/GED Difficulty w/ Childcare or Family Care: No Living arrangements: alone Additional living arrangements comments: Son stays with her on occasion Occupation/Education: retired Gender identity (if verbalized by the patient): Female Sexual Orientation (if Verbalized by the Patient): Straight or Heterosexual Spiritual care concerns: No E
[2022-08-03 16:51] LABS: Appearance Urine Cloudy (Clear); Bacteria Urine None Seen /hpf; Bilirubin Urine Negative (Negative); Blood Urine Negative (Negative); Color Urine Yellow (Yellow); Glucose Urine UA 2+ mg/dL (Negative); Ketones Urine Negative (Negative); Leukocyte Esterase Ur Negative LEU/UL (Negative); Nitrate Urine Negative (Negative); Non Pathogenic Casts 0-2; Protein Urine Negative (Negative); RBC Urine 0-2 /hpf (0-2); Specific Grav Ur 1.024 (1.001-1.035); Squamous Epithelial Cell Urine None seen /hpf (Few); Urobilinogen Urine 0.2 mg/dL (<2.0); WBC Urine 0-5 /hpf
[2022-08-03 16:57] VITALS: BP 175/75; PULSE 79; RESP 15; O2SAT 98
[2022-08-03 16:59] LABS: Add Urine Microscopic? YES
--- NOTE | 2022-08-03 17:16 | PCCCNOTE ---
met with patient and sister bedside. patient is alert and oriented x 4, I ADL and lives with her son. patient states that she is here for itching, family thinks that she is in need of memory care. CC gave list of local SNF's that accept [place] medicaid. MD plans to dc patient home. no other needs at this time. CC will continue to follow.
[2022-08-03] MEDS: diphenhydrAMINE HCl CAP 25 MG CAPSULE PO (17:38)
== END 2022-08-03 17:39 | disposition home or self-care (01) ==
PROVIDERS: Emergency Provider Emergency Medicine
DX: F03.90 Unspecified dementia, unspecified severity, without behavioral disturbance, psychotic disturbance, mood disturbance, and anxiety (principal); B88.8 Other specified infestations; J44.9 Chronic obstructive pulmonary disease, unspecified; E11.9 Type 2 diabetes mellitus without complications; I10 Essential (primary) hypertension; E78.5 Hyperlipidemia, unspecified; Z87.442 Personal history of urinary calculi; Z87.440 Personal history of urinary (tract) infections; Z87.891 Personal history of nicotine dependence; Z90.49 Acquired absence of other specified parts of digestive tract; Z79.82 Long term (current) use of aspirin; Z79.84 Long term (current) use of oral hypoglycemic drugs; Z79.4 Long term (current) use of insulin; I44.7 Left bundle-branch block, unspecified
CPT/HCPCS: 36415; 70450; 71045; 80053; 81001; 85025; 85610; 85730; 93005; 99284; A9270

== ENCOUNTER 2023-06-24 14:33 | Emergency (ER) | payer MEDICARE, MEDICAID, SELFPAY ==
[2023-06-24] VITALS (20 sets, daily range): BP systolic 96–129; BP diastolic 50–76; PULSE 49–59; RESP 11–21; TEMP 36.8; O2SAT 97–100
--- NOTE | ~2023-06-24 | XR_ITS ---
EXAMINATION: XR chest 1V portable DATE: 06/24/2023 15:26 INDICATION: Altered mental status TECHNIQUE: frontal view of the chest was obtained. COMPARISON: Chest radiograph dated 08/03/2022 FINDINGS: The lungs remain clear with no focal airspace opacities, pulmonary edema, pleural effusion or pneumot horax. The cardiomediastinal silhouette is normal. Mild S-shaped curvature of the thoracic spine. Cho lecystectomy clips in right upper quadrant. IMPRESSION: 1. No acute cardiopulmonary disease. Reviewed, dictated and finalized at location A.
[2023-06-24 14:40] LABS: Glucose Point of Care 247 mg/dl (65-105)
[2023-06-24 15:01] LABS: Basophils Absolute Auto 0.1 K/mm3 (0.0-0.1); Basophils Percent Auto 0.6 % (0.2-1.2); Eosinophils Absolute Auto 0.2 K/mm3 (0-0.3); Eosinophils Percent Auto 1.8 % (0-4.4); Hematocrit 46.9 % (37.0-47.0); Hemoglobin 14.4 g/dL (12.0-15.0); Immature Granulocyte Absolute 0.04 K/mm3 (0.00-0.031); Immature Granulocyte Percent A 0.3 % (0-0.5); Lymphocytes Absolute Auto 3.84 K/mm3 (0.9-3.2); Mean Corpuscular HGB Conc 30.7 g/dl (32-36); Mean Corpuscular Hemoglobin 28.9 pg (26-34); Mean Platelet Volume 11.9 fl (7.4-10.4); Monocytes Absolute Auto 0.9 K/mm3 (0.1-0.6); Monocytes Percent Auto 7.4 % (2.6-8.5); Neutrophils Absolute Auto 6.9 K/mm3 (1.3-6.7); Neutrophils Percent Auto 57.9 % (45.5-73.1); Platelet Count Result 213 k/mm3 (150-375); Red Blood Count 4.99 M/mm3 (4.2-5.4); Red Cell Distribution Width 13.5 % (11.5-14.5)
[2023-06-24 15:04] LABS: Appearance Urine Clear (Clear); Bilirubin Urine Negative (Negative); Blood Urine Negative (Negative); Color Urine Yellow (Yellow); Glucose Urine UA 3+ mg/dL (Negative); Ketones Urine Negative (Negative); Leukocyte Esterase Ur Negative LEU/UL (Negative); Nitrate Urine Negative (Negative); Protein Urine Negative (Negative); Urobilinogen Urine 0.2 mg/dL (<2.0)
[2023-06-24 15:06] LABS: Add Urine Microscopic? NO
[2023-06-24 15:12] LABS: Alanine Aminotransferase 25 U/L (6-35); Alkaline Phosphatase 118 U/L (38-126); Anion Gap 1 mmol/L (4-12); Aspartate Amino Transferase 30 U/L (14-36); Bilirubin,Total 0.6 mg/dL (0.2-1.3); Blood Urea Nitrogen 17 mg/dL (7-17); Calcium 8.9 mg/dL (8.4-10.2); Carbon Dioxide 29 mmol/L (22-30); Chloride 103 mmol/L (98-107); Estimated CRCL calculation 53 ml/min; Estimated Glomerular Filt Rate > 60; Glucose 312 mg/dL (65-110); Lipase 279 U/L (23-300); Potassium 4.6 mmol/L (3.4-5.0); Sodium 133 mmol/L (137-145)
[2023-06-24 16:36] LABS: Glucose Point of Care 238 mg/dl (65-105)
--- NOTE | 2023-06-24 16:45 | ED.RECABL ---
HPI - Recheck/Abnormal Lab/Rx General Chief Complaint: Recheck/Abnormal Lab/Rx Stated Complaint: low blood sugar, abd pain, & diarrhea Time Seen by Provider: 06/24/23 14:54 Limitations: dementia History of Present Illness HPI narrative: This is a 68-year-old female, history diabetes insulin dependent brought in by EMS from for hypoglycemia. The patient's sisters and caregivers at bedside note the patient received her normal morning dose of insulin approximately 09:00, though did not eat. They note the patient had a decreased appetite, though otherwise appeared to be her normal self. They report, the patient's blood glucose was in the 20s on EMS arrival at approximately 11:00. The patient was given IV glucose. Related Data Home Medications Medication Instructions Recorded Confirmed albuterol sulfate 90 mcg/actuation 90 mcg inhalation Q4-6H PRN 01/01/20 06/25/22 aerosol inhaler (Ventolin HFA) Shortness Of Breath Or Wheezing alendronate 35 mg tablet 35 mg PO WEEKLY 01/01/20 06/25/22 albuterol sulfate 2.5 mg/3 mL 2.5 mg inhalation Q6H PRN 07/07/21 06/25/22 (0.083 %) solution for nebulization Shortness Of Breath Or Wheezing insulin lispro 100 unit/mL 1 sliding scale dose subcut 07/07/21 06/25/22 subcutaneous pen USEASDIRECTD metformin 1,000 mg tablet 1,000 mg PO BID 07/07/21 06/25/22 oxymetazoline 0.05 % nasal mist 2 spray intranasal Q12H PRN Nasal 07/07/21 06/25/22 (Afrin (oxymetazoline)) Congestion aspirin 81 mg tablet,delayed 81 mg PO DAILY 02/20/22 06/25/22 release atorvastatin 80 mg tablet 80 mg PO HS 02/20/22 06/25/22 carvedilol 12.5 mg tablet 12.5 mg PO BID 02/20/22 06/25/22 empagliflozin 10 mg tablet 10 mg PO DAILY 06/25/22 06/25/22 (Jardiance) sacubitril 24 mg-valsartan 26 mg 1 tablet PO BID 06/25/22 06/25/22 tablet (Entresto) Allergies Allergy/AdvReac Type Severity Reaction Status Date / Time No Known Allergies Allergy Verified 08/03/22 15:37 Review of Systems Review of Systems: ROS unobtainable: Yes unobtainable due to medical condition ( dementia) [facility] Past Medical History Medical History COPD (chronic obstructive pulmonary disease) Diabetes mellitus type 2, controlled, without complications History of tobacco use HTN (hypertension) with goal to be determined Hyperlipidemia Kidney stone Urinary tract infection Surgical History Surgical History H/O section x3 H/O tubal ligation History of cholecystectomy Family History Family History Mother Ruptured cerebral aneurysm Diabetes mellitus Father Diabetes mellitus Dementia Malignant neoplasm of prostate Cerebrovascular accident Sibling Malignant neoplasm of prostate Social History Social History Social History: The patient lives with her son. She has 3 CHILDREN. She is on DISABILITY and . She does not have a durable power junior recruiter for healthcare. She is a former smoker. Code status full code Smoking packs per day: 0.5 Smoking cigarettes per day: 10.0 Years smoked: 5 Smoking pack-years: 2.50 Smoking status: Former smoker Tobacco type: cigarettes Second hand tobacco smoke exposure: Yes Additional smoking assessment comments: Pt is unsure when she quit smoking. Alcohol intake: never Alcohol use details: social Substance use: never Substance use type: does not use Lack of Transportation: No Lack of Food: Never True Current Housing: I Have Housing Concerned About Future Housing: No Difficulty Paying Gas/Electric Bills: No Difficulty Paying for Meds: No Currently Unemployed: No Education: High School Diploma/GED Difficulty w/ Childcare or Family Care: No Living arrangements: alone Additional living arrangements comments: Son stays wit
== END 2023-06-24 17:26 | disposition home or self-care (01) ==
PROVIDERS: Emergency Medicine; Emergency Provider Preventive Medicine Aerospace Medicine
DX: E11.649 Type 2 diabetes mellitus with hypoglycemia without coma (principal); J44.9 Chronic obstructive pulmonary disease, unspecified; I10 Essential (primary) hypertension; E78.5 Hyperlipidemia, unspecified; Z87.442 Personal history of urinary calculi; Z87.440 Personal history of urinary (tract) infections; Z87.891 Personal history of nicotine dependence; Z90.49 Acquired absence of other specified parts of digestive tract; Z79.84 Long term (current) use of oral hypoglycemic drugs; Z79.4 Long term (current) use of insulin; Z79.82 Long term (current) use of aspirin; T38.3X5A Adverse effect of insulin and oral hypoglycemic [antidiabetic] drugs, initial encounter
CPT/HCPCS: 36415; 71045; 80053; 81003; 82948; 83690; 85025; 99283; A9270

== ENCOUNTER 2023-08-08 09:48 | Emergency (ER) | payer MEDICARE, MEDICAID, SELFPAY ==
--- NOTE | ~2023-08-08 | CT_ITS ---
EXAMINATION: CT chest abdomen pelvis w con DATE: 08/08/2023 11:51 INDICATION: Fall with left-sided rib pain and abdominal pain. TECHNIQUE: Computed tomography (CT) of the chest, abdomen, and pelvis was performed with 100 mL Omnip aque-350 intravenous contrast. Automated exposure control and iterative reconstruction technique were employed. The dose-length product was 529.67 mGy-cm. COMPARISON: Chest CT dated 08/17/2021 FINDINGS: CHEST CT: 4 mm thin lenticular likely intrafissural lymph node along the right minor fissure and 2 mm intrafiss ural lymph node along the left major fissure. No other suspicious pulmonary nodules, pneumonia, pulmo nary edema or pleural effusion. Heart size is normal. Atherosclerotic coronary artery calcification. No pericardial effusion. Thoracic aorta is normal in caliber with no dissection or acute traumatic ao rtic injury. No pathologically enlarged abdominal or pelvic lymphadenopathy. Mild lower thoracic levo curvature with mild to moderate thoracic spondylosis. No acute osseous abnormality. ABDOMEN/PELVIS CT: Cholecystectomy clips the gallbladder fossa. Multiple splenic calcific lesions consistent with old gr anulomatous disease. Liver, pancreas, bilateral adrenal glands and left kidney are normal. Small alec on of mild cortical scarring at the interpolar region of the right kidney. There are a few scattered colonic diverticula without adjacent inflammatory stranding to suggest diverticulitis. Small bowel an d appendix are normal. Partially decompressed bladder is normal. Several small calcifications at the anteverted uterus likely representing small degenerated uterine fibroids. Bilateral adnexa are unrema rkable. No free intraperitoneal gas or fluid. No pathologically enlarged abdominal or pelvic lymphade nopathy. Mild lumbar dextroscoliosis with severe spondylosis at the thoracolumbar junction mild left and severe right hip osteoarthritis. No acute osseous abnormality. IMPRESSION: 1. No acute fracture or acute vascular or visceral organ injury in the chest, abdomen or pelvis. Reviewed, dictated and finalized at location B. IMPRESSION: 1. No acute fracture or acute vascular or visceral organ injury in the chest, a bdomen or pelvis.
--- NOTE | ~2023-08-08 | CT_ITS ---
EXAMINATION: CT cervical spine wo con DATE: 08/08/2023 11:51 INDICATION: Fall with head injury TECHNIQUE: Computed tomography (CT) of the cervical spine was performed without intravenous contrast. Automated exposure control and iterative reconstruction technique were employed. The dose-length pro duct was 529.67 mGy-cm. COMPARISON: None FINDINGS: 15 degrees cervical dextrocurvature. 1-2 mm anterolisthesis C4 on C5. Vertebral body heights are norm al. No acute fracture. Severe disc height loss with fusion across the uncovertebral joints at C2-C3. Additional severe disc height loss with degenerative endplate changes and severe left-sided uncoverte bral osteoarthritis at C3-C4. Mild disc height loss with moderate bilateral uncovertebral osteoarthri tis at C4-C5 and C5-C6. Disc bulge with mild to moderate central canal stenosis at C3-C4 and with mil d central canal stenosis at C4-C5 and C5-C6. Multilevel severe left-sided and mild to moderate right- sided cervical facet osteoarthritis. This contributes to multilevel bilateral mild cervical neural fo raminal stenosis. Cervical soft tissues are unremarkable. Minimal biapical pleural-parenchymal scarri ng. IMPRESSION: 1. 15 degrees cervical dextrocurvature with severe upper cervical predominant spondylosis. No acute o sseous abnormality. Reviewed, dictated and finalized at location B. IMPRESSION: 1. 15 degrees cervical dextrocurvature with severe upper cervical predominant s pondylosis. No acute osseous abnormality.
--- NOTE | ~2023-08-08 | CT_ITS ---
EXAMINATION: CT brain wo con DATE: 08/08/2023 11:50 INDICATION: Fall with head injury TECHNIQUE: Computed tomography (CT) of the head was performed without intravenous contrast. Sagittal and coronal reconstructions were performed. The dose Arturo head The dose-length product was 529.67 mGy-cm. COMPARISON: 08/03/2022 FINDINGS: No fracture. No acute intracranial hemorrhage, acute infarction or abnormal extra axial fluid collect ion. There is moderate scattered white matter hypoattenuation consistent with chronic small vessel is chemic disease. Unchanged dystrophic calcifications at the bilateral basal ganglia. Symmetric promine nce of the sulci consistent with mild age-appropriate diffuse cerebral volume loss. Ventricles are n ormal and symmetric. No mass/mass effect. The orbits, paranasal sinuses and mastoid air cells are nor mal. IMPRESSION: 1. No acute intracranial process. 2. No significant interval change in age-related changes including mild diffuse volume loss and moder ate scattered white matter hypoattenuation consistent with chronic small vessel ischemic disease. Reviewed, dictated and finalized at location B. IMPRESSION: 1. No acute intracranial process. 2. No significant interval change in age-related changes including mild diffuse volume loss and moderate scattered white matter hypoattenuation consistent wit h chronic small vessel ischemic disease.
--- NOTE | ~2023-08-08 | XR_ITS ---
EXAMINATION: XR elbow RT min 3V DATE: 08/08/2023 11:54 INDICATION: Right elbow bruising post fall TECHNIQUE: Anteroposterior, two oblique and lateral views of the right elbow were obtained. COMPARISON: None. FINDINGS: Alignment is normal. No fracture or joint effusion. Mild osteoarthritis at the right elbow with mild nonuniform joint space narrowing. Mild hypertrophic change at the radial tuberosity. Soft tissues are unremarkable. IMPRESSION: 1. Mild osteoarthritis at the right elbow. No joint effusion or acute osseous abnormality . Reviewed, dictated and finalized at location B. IMPRESSION: 1. Mild osteoarthritis at the right elbow. No joint effusion or acute osseous a bnormality .
[2023-08-08 09:55] VITALS: BP 92/49; PULSE 63; RESP 18; TEMP 36.5; O2SAT 96
--- NOTE | 2023-08-08 11:08 | ED.FALL ---
HPI - Fall General Chief Complaint: Fall Stated Complaint: fall, left rib pain Time Seen by Provider: 08/08/23 10:24 Source: patient Mode of arrival: ambulatory Limitations: no limitations History of Present Illness HPI Narrative: Patient is a 68-year-old female, with PMH of DM, COPD, CHF, HLD, HTN, who presents the ED with report of a fall. Family member at bedside assisted in providing information. Reports patient fell last week attempting to remove a trash can liner from a trash can. She fell backwards, injuring her right elbow, left-sided ribs. She did also hit her head. Denied LOC. She is not on any blood thinners. Patient reports having ongoing pain. She has not been taking anything for pain. Reports pain is worse with deep breaths, denies shortness of breath. Denies abdominal pain, nausea, vomiting, dizziness, lightheadedness, vision changes. Related Data Home Medications Medication Instructions Recorded Confirmed albuterol sulfate 90 mcg/actuation 90 mcg inhalation Q4-6H PRN 01/01/20 06/25/22 aerosol inhaler (Ventolin HFA) Shortness Of Breath Or Wheezing alendronate 35 mg tablet 35 mg PO WEEKLY 01/01/20 06/25/22 albuterol sulfate 2.5 mg/3 mL 2.5 mg inhalation Q6H PRN 07/07/21 06/25/22 (0.083 %) solution for nebulization Shortness Of Breath Or Wheezing insulin lispro 100 unit/mL 1 sliding scale dose subcut 07/07/21 06/25/22 subcutaneous pen USEASDIRECTD metformin 1,000 mg tablet 1,000 mg PO BID 07/07/21 06/25/22 oxymetazoline 0.05 % nasal mist 2 spray intranasal Q12H PRN Nasal 07/07/21 06/25/22 (Afrin (oxymetazoline)) Congestion aspirin 81 mg tablet,delayed 81 mg PO DAILY 02/20/22 06/25/22 release atorvastatin 80 mg tablet 80 mg PO HS 02/20/22 06/25/22 carvedilol 12.5 mg tablet 12.5 mg PO BID 02/20/22 06/25/22 empagliflozin 10 mg tablet 10 mg PO DAILY 06/25/22 06/25/22 (Jardiance) sacubitril 24 mg-valsartan 26 mg 1 tablet PO BID 06/25/22 06/25/22 tablet (Entresto) Allergies Allergy/AdvReac Type Severity Reaction Status Date / Time No Known Allergies Allergy Verified 08/08/23 09:54 Review of Systems Review of Systems: CONSTITUTIONAL: Denies fever, chills, or sweats. ENT: Denies vision changes CARDIOVASCULAR: Denies chest pain. RESPIRATORY: See HPI GASTROINTESTINAL: Denies abdominal pain, nausea, vomiting MUSCULOSKELETAL: See HPI. NEUROLOGIC: See HPI. All systems reviewed & are unremarkable except as noted in HPI and below PMFSH Past Medical History Medical History COPD (chronic obstructive pulmonary disease) Diabetes mellitus type 2, controlled, without complications History of tobacco use HTN (hypertension) with goal to be determined Hyperlipidemia Kidney stone Urinary tract infection Surgical History Surgical History H/O section x3 H/O tubal ligation History of cholecystectomy Family History Family History Mother Ruptured cerebral aneurysm Diabetes mellitus Father Diabetes mellitus Dementia Malignant neoplasm of prostate Cerebrovascular accident Sibling Malignant neoplasm of prostate Social History Social History Social History: The patient lives with her son. She has 3 CHILDREN. She is on DISABILITY and . She does not have a durable power title attorney for healthcare. She is a former smoker. Code status full code Smoking packs per day: 0.5 Smoking cigarettes per day: 10.0 Years smoked: 5 Smoking pack-years: 2.50 Smoking status: Former smoker Tobacco type: cigarettes Second hand tobacco smoke exposure: Yes Additional smoking assessment comments: Pt is unsure when she quit smoking. Alcohol intake: never Alcohol use details: social Substance use: never Substance
[2023-08-08] MEDS: ACETAMINOPHEN 500 MG TABLET 1000 MG PO (11:17)
[2023-08-08 11:31] LABS: Basophils Absolute Auto 0.1 K/mm3 (0.0-0.1); Basophils Percent Auto 0.8 % (0.2-1.2); Eosinophils Absolute Auto 0.3 K/mm3 (0-0.3); Eosinophils Percent Auto 2.4 % (0-4.4); Hematocrit 44.9 % (37.0-47.0); Hemoglobin 13.7 g/dL (12.0-15.0); Immature Granulocyte Absolute 0.02 K/mm3 (0.00-0.031); Immature Granulocyte Percent A 0.2 % (0-0.5); Lymphocytes Absolute Auto 5.13 K/mm3 (0.9-3.2); Lymphocytes Percent Auto 48.3 % (18.3-44.2); Mean Corpuscular HGB Conc 30.5 g/dl (32-36); Mean Corpuscular Volume 94.9 fl (80-100); Mean Platelet Volume 10.9 fl (7.4-10.4); Monocytes Absolute Auto 1.1 K/mm3 (0.1-0.6); Monocytes Percent Auto 10.3 % (2.6-8.5); Neutrophils Absolute Auto 4.1 K/mm3 (1.3-6.7); Platelet Count Result 235 k/mm3 (150-375); Red Blood Count 4.73 M/mm3 (4.2-5.4); Red Cell Distribution Width 12.7 % (11.5-14.5); White Blood Count 10.6 K/mm3 (4.5-10.0)
[2023-08-08 11:33] LABS: Estimated Glomerular Filt Rate 45
[2023-08-08 11:44] LABS: Alanine Aminotransferase 30 U/L (6-35); Albumin Level 4.2 g/dL (3.5-5.1); Alkaline Phosphatase 94 U/L (38-126); Anion Gap 7 mmol/L (4-12); Aspartate Amino Transferase 40 U/L (14-36); Bilirubin,Total 0.3 mg/dL (0.2-1.3); Blood Urea Nitrogen 30 mg/dL (7-17); Calcium 8.8 mg/dL (8.4-10.2); Carbon Dioxide 32 mmol/L (22-30); Chloride 105 mmol/L (98-107); Estimated Glomerular Filt Rate 50; Glucose 176 mg/dL (65-110); Potassium 4.5 mmol/L (3.4-5.0); Sodium 144 mmol/L (137-145)
[2023-08-08] MEDS: SODIUM CHLORIDE 0.9% IV 1,000 ML 999 ML IV CONT (12:15)
[2023-08-08 12:54] VITALS: BP 102/61; PULSE 65; RESP 18; O2SAT 97
--- NOTE | 2023-08-20 12:47 | PC.NURSE ---
1255 08/08/23 NS stopped, 1000mL administered.
== END 2023-08-08 12:55 | disposition home or self-care (01) ==
PROVIDERS: Emergency Provider Physician Assistant
DX: S50.01XA Contusion of right elbow, initial encounter (principal); S09.90XA Unspecified injury of head, initial encounter; S20.212A Contusion of left front wall of thorax, initial encounter; E11.9 Type 2 diabetes mellitus without complications; E78.5 Hyperlipidemia, unspecified; I50.9 Heart failure, unspecified; I11.0 Hypertensive heart disease with heart failure; J44.9 Chronic obstructive pulmonary disease, unspecified; Z87.442 Personal history of urinary calculi; Z87.440 Personal history of urinary (tract) infections; Z87.891 Personal history of nicotine dependence; Z90.49 Acquired absence of other specified parts of digestive tract; Z79.899 Other long term (current) drug therapy; Z79.82 Long term (current) use of aspirin; Z79.84 Long term (current) use of oral hypoglycemic drugs; M47.812 Spondylosis without myelopathy or radiculopathy, cervical region; M19.021 Primary osteoarthritis, right elbow; W18.39XA Other fall on same level, initial encounter
CPT/HCPCS: 36415; 70450; 71260; 72125; 73080; 74177; 80053; 85025; 96360; 99284; A9270; J7030; Q9967

== ENCOUNTER 2023-09-09 15:08 | Emergency (ER) | payer MEDICARE, MEDICAID, SELFPAY ==
--- NOTE | ~2023-09-09 | CT_ITS ---
EXAMINATION: CT abdomen pelvis w con DATE: 09/09/2023 17:24 INDICATION: diarrhea TECHNIQUE: Computed tomography (CT) of the abdomen and pelvis was performed with 100 mL Omnipaque-350 intravenous contrast. Automated exposure control and iterative reconstruction technique were employe d. The dose-length product was 247.37 mGy-cm. COMPARISON: CT cap 08/08/2023. FINDINGS: Lower thorax: Mitral calcification Liver: Normal. Biliary/Gallbladder: Gallbladder is absent. No bile duct dilation. Pancreas: Mild atrophy Spleen: Normal. Adrenals:No mass. Kidneys: No suspicious mass, obstructing stone, or hydronephrosis. GI tract: Moderate distal esophageal and gastric wall edema. Mild colonic wall edema extending from t he hepatic flexure to the splenic flexure. No small or large bowel dilation. Normal appendix. Diverti culosis without diverticulitis. Mesentery/Peritoneum: No ascites, mass, or free air. Retroperitoneum: No mass. Pelvis: Pelvic organs are within normal limits. Calcified fibroid. Soft Tissues: Soft tissues and body wall unremarkable. Bones: No acute osseous finding. IMPRESSION: Moderate esophagitis/gastritis. Transverse colonic wall edema may reflect colitis in the appropriate clinical context. Reviewed, dictated and finalized at location K. IMPRESSION: Moderate esophagitis/gastritis. Transverse colonic wall edema may reflect colitis in the appropriate clinical c ontext.
--- NOTE | ~2023-09-09 | CT_ITS ---
EXAMINATION: CT brain wo con DATE: 09/09/2023 17:18 INDICATION: Head injury . TECHNIQUE: Computed tomography (CT) of the head was performed without intravenous contrast. The mA wa s adjusted according to patient size. Iterative reconstruction technique was employed. The dose-lengt h product was 605.33 mGy-cm. COMPARISON: 08/08/2023. FINDINGS: No acute intracranial hemorrhage or extra-axial fluid collection. No hydrocephalus, mass, or herniation. No acute ischemic infarct. Unremarkable dural venous sinus attenuation. Minimally displaced bilateral nasal bone fractures. Mild pansinus mucosal thickening, the mastoid spaces are clear. Mild atrophy and moderate chronic white matter change. Atherosclerotic intracranial calcification. Bi lateral basal ganglia calcification. Old right basal ganglia lacunar infarct. IMPRESSION: No acute intracranial process. Presumed acute minimally displaced nasal bone fractures. Correlate with pain/tenderness. Reviewed, dictated and finalized at [facility] K. IMPRESSION: No acute intracranial process. Presumed acute minimally displaced nasal bone fractures. Correlate with pain/te nderness.
[2023-09-09 15:11] VITALS: BP 102/50; PULSE 61; RESP 16; TEMP 36.7; O2SAT 100
--- NOTE | 2023-09-09 15:15 | ECG_ITS ---
Test Date: 2023-09-09 15:34:46 Measurements Intervals [place] Rate: 63 P: 47 NV: 158 QRS: -9 QRSD: 130 T: 85 QT: 488 QTc: 502 Interpretive Statements SINUS RHYTHM LEFT BUNDLE BRANCH BLOCK BASELINE ARTIFACT- I, II, III, AVR, AVL, AVF, V6 ABNORMAL ECG No previous ECG available for comparison Electronically Signed On 09-09-2023 17:12:27 CDT by Aman Thompson D.O.
[2023-09-09 16:01] LABS: Basophils Percent Auto 0.4 % (0.2-1.2); Eosinophils Absolute Auto 0.1 K/mm3 (0-0.3); Eosinophils Percent Auto 1.6 % (0-4.4); Hematocrit 41.4 % (37.0-47.0); Hemoglobin 13.1 g/dL (12.0-15.0); Immature Granulocyte Absolute 0.03 K/mm3 (0.00-0.031); Immature Granulocyte Percent A 0.3 % (0-0.5); Lymphocytes Absolute Auto 2.83 K/mm3 (0.9-3.2); Lymphocytes Percent Auto 31.5 % (18.3-44.2); Mean Corpuscular HGB Conc 31.6 g/dl (32-36); Mean Corpuscular Hemoglobin 29.3 pg (26-34); Mean Corpuscular Volume 92.6 fl (80-100); Mean Platelet Volume 11.5 fl (7.4-10.4); Monocytes Absolute Auto 0.8 K/mm3 (0.1-0.6); Monocytes Percent Auto 9.3 % (2.6-8.5); Neutrophils Absolute Auto 5.1 K/mm3 (1.3-6.7); Neutrophils Percent Auto 56.9 % (45.5-73.1); Platelet Count Result 185 k/mm3 (150-375); Red Blood Count 4.47 M/mm3 (4.2-5.4); Red Cell Distribution Width 12.7 % (11.5-14.5)
[2023-09-09 16:12] LABS: Alanine Aminotransferase 14 U/L (6-35); Albumin Level 4.1 g/dL (3.5-5.1); Alkaline Phosphatase 75 U/L (38-126); Anion Gap 10 mmol/L (4-12); Aspartate Amino Transferase 21 U/L (14-36); Bilirubin,Total 0.4 mg/dL (0.2-1.3); Blood Urea Nitrogen 26 mg/dL (7-17); Calcium 8.7 mg/dL (8.4-10.2); Carbon Dioxide 29 mmol/L (22-30); Chloride 100 mmol/L (98-107); Estimated Glomerular Filt Rate > 60; Glucose 166 mg/dL (65-110); Lipase 114 U/L (23-300); Potassium 4.3 mmol/L (3.4-5.0); Sodium 139 mmol/L (137-145)
--- NOTE | 2023-09-09 16:45 | ED.GENADULT ---
HPI - General Adult General Chief complaint: Nausea/Vomiting/Diarrhea Stated complaint: uncontrolled diarrhea Time Seen by Provider: 09/09/23 16:15 History of Present Illness HPI narrative: 68-year-old female presented to the emergency department for evaluation for lightheadedness and dizziness. They reports patient did have a fall last week. Patient was also recently on antibiotics for urinary tract infection. Patient has had a large number of bowel movements this week but family states they are not diarrhea stool. Family states that the patient did have some lightheadedness when walking to the bathroom earlier. Related Data Home Medications Medication Instructions Recorded Confirmed albuterol sulfate 90 mcg/actuation 90 mcg inhalation Q4-6H PRN 01/01/20 06/25/22 aerosol inhaler (Ventolin HFA) Shortness Of Breath Or Wheezing alendronate 35 mg tablet 35 mg PO WEEKLY 01/01/20 06/25/22 albuterol sulfate 2.5 mg/3 mL 2.5 mg inhalation Q6H PRN 07/07/21 06/25/22 (0.083 %) solution for nebulization Shortness Of Breath Or Wheezing insulin lispro 100 unit/mL 1 sliding scale dose subcut 07/07/21 06/25/22 subcutaneous pen USEASDIRECTD metformin 1,000 mg tablet 1,000 mg PO BID 07/07/21 06/25/22 oxymetazoline 0.05 % nasal mist 2 spray intranasal Q12H PRN Nasal 07/07/21 06/25/22 (Afrin (oxymetazoline)) Congestion aspirin 81 mg tablet,delayed 81 mg PO DAILY 02/20/22 06/25/22 release atorvastatin 80 mg tablet 80 mg PO HS 02/20/22 06/25/22 carvedilol 12.5 mg tablet 12.5 mg PO BID 02/20/22 06/25/22 empagliflozin 10 mg tablet 10 mg PO DAILY 06/25/22 06/25/22 (Jardiance) sacubitril 24 mg-valsartan 26 mg 1 tablet PO BID 06/25/22 06/25/22 tablet (Entresto) Allergies Allergy/AdvReac Type Severity Reaction Status Date / Time No Known Allergies Allergy Verified 08/08/23 09:54 Review of Systems Review of Systems: All systems reviewed & are unremarkable except as noted in HPI and below PMFSH Past Medical History Medical History COPD (chronic obstructive pulmonary disease) Diabetes mellitus type 2, controlled, without complications History of tobacco use HTN (hypertension) with goal to be determined Hyperlipidemia Kidney stone Urinary tract infection Surgical History Surgical History H/O section x3 H/O tubal ligation History of cholecystectomy Family History Family History Mother Ruptured cerebral aneurysm Diabetes mellitus Father Diabetes mellitus Dementia Malignant neoplasm of prostate Cerebrovascular accident Sibling Malignant neoplasm of prostate Social History Social History Social History: The patient lives with her son. She has 3 CHILDREN. She is on DISABILITY and . She does not have a durable power employment law attorney for healthcare. She is a former smoker. Code status full code Smoking packs per day: 0.5 Smoking cigarettes per day: 10.0 Years smoked: 5 Smoking pack-years: 2.50 Smoking status: Former smoker Tobacco type: cigarettes Second hand tobacco smoke exposure: Yes Additional smoking assessment comments: Pt is unsure when she quit smoking. Alcohol intake: never Alcohol use details: social Substance use: never Substance use type: does not use Lack of Transportation: No Lack of Food: Never True Current Housing: I Have Housing Concerned About Future Housing: No Difficulty Paying Gas/Electric Bills: No Difficulty Paying for Meds: No Currently Unemployed: No Education: High School Diploma/GED Difficulty w/ Childcare or Family Care: No Living arrangements: alone Additional living arrangements comments: Son stays with her on occasion Occupation/Education: retired Gender identity (if verba
[2023-09-09] MEDS: SODIUM CHLORIDE 0.9% IV 1,000 ML 999 ML IV CONT (17:00)
[2023-09-09 17:06] VITALS: BP 104/49; PULSE 65; RESP 18; O2SAT 92
[2023-09-09 18:09] VITALS: BP 118/49; PULSE 73; RESP 17; O2SAT 97
[2023-09-09 18:25] LABS: Appearance Urine Clear (Clear); Bilirubin Urine Negative (Negative); Blood Urine Negative (Negative); Color Urine Yellow (Yellow); Glucose Urine UA 3+ mg/dL (Negative); Ketones Urine Negative (Negative); Leukocyte Esterase Ur Negative LEU/UL (Negative); Nitrate Urine Negative (Negative); Protein Urine Negative (Negative); Specific Grav Ur > 1.045 (1.001-1.035); Urobilinogen Urine 0.2 mg/dL (<2.0); pH Urine 5.5 (5.0-9.0)
[2023-09-09 18:30] LABS: Add Urine Microscopic? NO
[2023-09-09] MEDS: AMOXICILLIN/CLAVULANATE K 875-125 MG TAB 1 TABLET PO (19:21)
[2023-09-09 19:34] VITALS: PULSE 75; RESP 16; O2SAT 98
== END 2023-09-09 19:36 | disposition home or self-care (01) ==
PROVIDERS: Emergency Provider Emergency Medicine
DX: K52.9 Noninfective gastroenteritis and colitis, unspecified (principal); K29.70 Gastritis, unspecified, without bleeding; E86.0 Dehydration; I10 Essential (primary) hypertension; E11.9 Type 2 diabetes mellitus without complications; E78.5 Hyperlipidemia, unspecified; J44.9 Chronic obstructive pulmonary disease, unspecified; Z87.442 Personal history of urinary calculi; Z87.440 Personal history of urinary (tract) infections; Z87.891 Personal history of nicotine dependence; Z90.49 Acquired absence of other specified parts of digestive tract; Z79.84 Long term (current) use of oral hypoglycemic drugs; Z79.899 Other long term (current) drug therapy; Z79.82 Long term (current) use of aspirin; Z79.4 Long term (current) use of insulin; I44.7 Left bundle-branch block, unspecified
CPT/HCPCS: 36415; 70450; 74177; 80053; 81003; 83690; 85025; 85055; 93005; 96360; 96361; 99284; A9270; J7030; Q9967

== ENCOUNTER 2023-09-12 15:05 | Emergency (ER) | payer MEDICARE, MEDICAID, SELFPAY ==
[2023-09-12] VITALS (7 sets, daily range): BP systolic 114–177; BP diastolic 63–75; PULSE 61–70; RESP 16–18; TEMP 36.4; O2SAT 98–100
--- NOTE | ~2023-09-12 | XR_ITS ---
EXAMINATION: XR chest 2V DATE: 09/12/2023 15:35 INDICATION: Syncope. TECHNIQUE: Frontal and lateral views of the chest were obtained. COMPARISON: Chest single view 06/24/2023 FINDINGS: There is no pneumonia, pleural effusion, or pneumothorax. The heart size is normal. Surgica l clips in the right upper quadrant are likely from cholecystectomy. IMPRESSION: 1. No acute cardiopulmonary disease. Reviewed, dictated and finalized at location A.
--- NOTE | 2023-09-12 15:13 | ECG_ITS ---
Test Date: 2023-09-12 15:17:13 Measurements Intervals [place] Rate: 60 P: 41 NV: 170 QRS: -17 QRSD: 138 T: 87 QT: 481 QTc: 483 Interpretive Statements SINUS RHYTHM LEFT BUNDLE BRANCH BLOCK BASELINE ARTIFACT- I, II, III, AVR, AVL, AVF ABNORMAL ECG Compared to ECG 09/09/2023 15:34:46 No significant changes Electronically Signed On 09-12-2023 15:25:21 CDT by Aman Thompson D.O.
[2023-09-12 15:29] LABS: Basophils Absolute Auto 0.1 K/mm3 (0.0-0.1); Basophils Percent Auto 0.6 % (0.2-1.2); Eosinophils Absolute Auto 0.2 K/mm3 (0-0.3); Eosinophils Percent Auto 2.2 % (0-4.4); Hematocrit 40.4 % (37.0-47.0); Hemoglobin 12.9 g/dL (12.0-15.0); Immature Granulocyte Absolute 0.03 K/mm3 (0.00-0.031); Immature Granulocyte Percent A 0.4 % (0-0.5); Lymphocytes Absolute Auto 3.48 K/mm3 (0.9-3.2); Lymphocytes Percent Auto 40.6 % (18.3-44.2); Mean Corpuscular HGB Conc 31.9 g/dl (32-36); Mean Corpuscular Hemoglobin 29.3 pg (26-34); Mean Corpuscular Volume 91.6 fl (80-100); Mean Platelet Volume 11.3 fl (7.4-10.4); Monocytes Absolute Auto 0.9 K/mm3 (0.1-0.6); Neutrophils Absolute Auto 3.9 K/mm3 (1.3-6.7); Neutrophils Percent Auto 45.2 % (45.5-73.1); Platelet Count Result 234 k/mm3 (150-375); Red Blood Count 4.41 M/mm3 (4.2-5.4); Red Cell Distribution Width 12.6 % (11.5-14.5); White Blood Count 8.6 K/mm3 (4.5-10.0)
[2023-09-12] MEDS: SODIUM CHLORIDE 0.9% IV 2,000 ML 999 ML IV CONT (15:29)
[2023-09-12 15:44] LABS: Alanine Aminotransferase 10 U/L (6-35); Albumin Level 3.9 g/dL (3.5-5.1); Alkaline Phosphatase 72 U/L (38-126); Anion Gap 6 mmol/L (4-12); Aspartate Amino Transferase 21 U/L (14-36); Bilirubin,Total 0.4 mg/dL (0.2-1.3); Blood Urea Nitrogen 22 mg/dL (7-17); Calcium 8.7 mg/dL (8.4-10.2); Carbon Dioxide 32 mmol/L (22-30); Chloride 99 mmol/L (98-107); Estimated Glomerular Filt Rate > 60; Glucose 147 mg/dL (65-110); Sodium 137 mmol/L (137-145)
[2023-09-12 15:56] LABS: NT Pro B Type Natriuretic Pept 1660 pg/mL (19.9-100); Troponin I < 0.012 ng/mL (0.000-0.034)
--- NOTE | 2023-09-12 16:02 | ED.GENADULT ---
HPI - General Adult General Chief complaint: Syncope Stated complaint: syncopal/lethargy Time Seen by Provider: 09/12/23 15:16 History of Present Illness HPI narrative: This is a 68-year-old female presents to the ED with chief complaint of weakness. Patient states she was at a [facility] trying to pull out money for her son. They said that she looked too ill to give her any money and called an ambulance. Ambulance and brought her to the ED for evaluation. At this time the patient's main complaint is weakness. She denies syncope, chest pain difficulty breathing, nausea vomiting. She had a recent bout of diarrhea and had been diagnosed with colitis in our ED several days ago. She had completed her antibiotics as instructed but has not improved. Related Data Home Medications Medication Instructions Recorded Confirmed albuterol sulfate 90 mcg/actuation 90 mcg inhalation Q4-6H PRN 01/01/20 06/25/22 aerosol inhaler (Ventolin HFA) Shortness Of Breath Or Wheezing alendronate 35 mg tablet 35 mg PO WEEKLY 01/01/20 06/25/22 albuterol sulfate 2.5 mg/3 mL 2.5 mg inhalation Q6H PRN 07/07/21 06/25/22 (0.083 %) solution for nebulization Shortness Of Breath Or Wheezing insulin lispro 100 unit/mL 1 sliding scale dose subcut 07/07/21 06/25/22 subcutaneous pen USEASDIRECTD metformin 1,000 mg tablet 1,000 mg PO BID 07/07/21 06/25/22 oxymetazoline 0.05 % nasal mist 2 spray intranasal Q12H PRN Nasal 07/07/21 06/25/22 (Afrin (oxymetazoline)) Congestion aspirin 81 mg tablet,delayed 81 mg PO DAILY 02/20/22 06/25/22 release atorvastatin 80 mg tablet 80 mg PO HS 02/20/22 06/25/22 carvedilol 12.5 mg tablet 12.5 mg PO BID 02/20/22 06/25/22 empagliflozin 10 mg tablet 10 mg PO DAILY 06/25/22 06/25/22 (Jardiance) sacubitril 24 mg-valsartan 26 mg 1 tablet PO BID 06/25/22 06/25/22 tablet (Entresto) Allergies Allergy/AdvReac Type Severity Reaction Status Date / Time No Known Allergies Allergy Verified 08/08/23 09:54 [facility] Past Medical History Medical History COPD (chronic obstructive pulmonary disease) Diabetes mellitus type 2, controlled, without complications History of tobacco use HTN (hypertension) with goal to be determined Hyperlipidemia Kidney stone Urinary tract infection Surgical History Surgical History H/O section x3 H/O tubal ligation History of cholecystectomy Family History Family History Mother Ruptured cerebral aneurysm Diabetes mellitus Father Diabetes mellitus Dementia Malignant neoplasm of prostate Cerebrovascular accident Sibling Malignant neoplasm of prostate Social History Social History Social History: The patient lives with her son. She has 3 CHILDREN. She is on DISABILITY and . She does not have a durable power mergers and acquisitions attorney for healthcare. She is a former smoker. Code status full code Smoking packs per day: 0.5 Smoking cigarettes per day: 10.0 Years smoked: 5 Smoking pack-years: 2.50 Smoking status: Former smoker Tobacco type: cigarettes Second hand tobacco smoke exposure: Yes Additional smoking assessment comments: Pt is unsure when she quit smoking. 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
[2023-09-12 16:32] LABS: Ethanol < 10 mg/dL (<10)
[2023-09-12 16:44] LABS: Appearance Urine Cloudy (Clear); Bacteria Urine None Seen /hpf; Bilirubin Urine Negative (Negative); Blood Urine Negative (Negative); Color Urine Yellow (Yellow); Glucose Urine UA 3+ mg/dL (Negative); Ketones Urine Negative (Negative); Leukocyte Esterase Ur Negative LEU/UL (Negative); Need Manual Microscopic Reviewed; Nitrate Urine Negative (Negative); Non Pathogenic Casts 0-2; Protein Urine Negative (Negative); RBC Urine 0-2 /hpf (0-2); Specific Grav Ur 1.043 (1.001-1.035); Squamous Epithelial Cell Urine Moderate /hpf (Few); Urobilinogen Urine 0.2 mg/dL (<2.0); WBC Urine 21-50 /hpf (0-3); pH Urine 5.5 (5.0-9.0)
[2023-09-12 16:45] LABS: Add Urine Microscopic? YES
[2023-09-12 16:46] LABS: Amphetamine Screen Urine Negative (Negative); Barbiturate Screen Urine Negative (Negative); Benzodiazepines Screen Urine Negative (Negative); Cannabinoid Screen Urine Negative (Negative); Cocaine Screen Urine Negative (Negative); Methadone Screen Urine Negative (Negative); Opiate Screen Urine Negative (Negative); Phencyclidine Screen Urine Negative (Negative)
--- NOTE | 2023-09-12 18:24 | ECG_ITS ---
Test Date: 2023-09-12 18:35:53 Measurements Intervals [place] Rate: 69 P: 45 MD: 167 QRS: -7 QRSD: 134 T: 87 QT: 470 QTc: 504 Interpretive Statements SINUS RHYTHM WITH SINUS ARRHYTHMIA LEFT BUNDLE BRANCH BLOCK BASELINE ARTIFACT- I, II, AVR, AVL, AVF ABNORMAL ECG Compared to ECG 09/12/2023 15:17:13 No significant changes Electronically Signed On 09-12-2023 19:37:53 CDT by Aman Thompson D.O.
[2023-09-12 19:02] LABS: Troponin I < 0.012 ng/mL (0.000-0.034)
[2023-09-12] MEDS: SULFAMETHOXAZOLE/TRIMETHOPRIM 800/160 MG DS TABLET 1 TAB PO (19:19)
== END 2023-09-12 19:33 | disposition home or self-care (01) ==
PROVIDERS: Emergency Provider Emergency Medicine
DX: N39.0 Urinary tract infection, site not specified (principal); E86.0 Dehydration; E11.9 Type 2 diabetes mellitus without complications; E78.5 Hyperlipidemia, unspecified; J44.9 Chronic obstructive pulmonary disease, unspecified; Z87.442 Personal history of urinary calculi; Z87.440 Personal history of urinary (tract) infections; Z90.49 Acquired absence of other specified parts of digestive tract; Z87.891 Personal history of nicotine dependence; Z79.4 Long term (current) use of insulin; Z79.84 Long term (current) use of oral hypoglycemic drugs; Z79.82 Long term (current) use of aspirin; Z79.899 Other long term (current) drug therapy; I44.7 Left bundle-branch block, unspecified
CPT/HCPCS: 36415; 71046; 80053; 80307; 81001; 83880; 84484; 85025; 87086; 93005; 96360; 96361; 99284; A9270; J7030

== ENCOUNTER 2023-10-10 12:43 | Observation (INO) | payer MEDICARE, MEDICAID, SELFPAY ==
[2023-10-10] VITALS (23 sets, daily range): BP systolic 84–196; BP diastolic 36–90; PULSE 60–76; RESP 5–30; TEMP 36.3–36.4; O2SAT 91–100; BMI 26.1
--- NOTE | ~2023-10-10 | XR_ITS ---
EXAMINATION: XR chest 1V portable DATE: 10/10/2023 14:27 INDICATION: Sepsis. TECHNIQUE: A single frontal view of the chest was obtained. COMPARISON: Chest 2 views 09/12/2023, CT abdomen and pelvis 09/09/2023 FINDINGS: There is no pneumonia, pleural effusion, or pneumothorax. The heart size is normal. There i s an electronic implant overlying left chest. Surgical clips in the right upper quadrant are likely f rom cholecystectomy. IMPRESSION: 1. No acute cardiopulmonary disease. Reviewed, dictated and finalized at location A.
--- NOTE | 2023-10-10 14:12 | ECG_ITS ---
Test Date: 2023-10-10 15:40:49 Measurements Intervals [place] Rate: 61 P: 47 MD: 174 QRS: -23 QRSD: 136 T: 79 QT: 489 QTc: 494 Interpretive Statements SINUS RHYTHM LEFT BUNDLE BRANCH BLOCK [120+ ms QRS DURATION, 80+ ms Q/S IN V1/V2, 85+ ms R IN I/aVL/V5/V6] Compared to ECG 09/12/2023 18:35:53 Sinus arrhythmia no longer present Electronically Signed On 10-11-2023 15:29:16 CDT by Norman Alvarez M.D.
[2023-10-10 15:36] LABS: Basophils Absolute Auto 0.1 K/mm3 (0.0-0.1); Basophils Percent Auto 0.8 % (0.2-1.2); Eosinophils Absolute Auto 0.4 K/mm3 (0-0.3); Eosinophils Percent Auto 3.8 % (0-4.4); Hematocrit 42.2 % (37.0-47.0); Hemoglobin 13.5 g/dL (12.0-15.0); Immature Granulocyte Absolute 0.03 K/mm3 (0.00-0.031); Immature Granulocyte Percent A 0.3 % (0-0.5); Lymphocytes Absolute Auto 3.51 K/mm3 (0.9-3.2); Mean Corpuscular Hemoglobin 29.6 pg (26-34); Mean Corpuscular Volume 92.5 fl (80-100); Mean Platelet Volume 11.7 fl (7.4-10.4); Monocytes Percent Auto 10.2 % (2.6-8.5); Neutrophils Percent Auto 49.9 % (45.5-73.1); Platelet Count Result 208 k/mm3 (150-375); Red Blood Count 4.56 M/mm3 (4.2-5.4); Red Cell Distribution Width 13.5 % (11.5-14.5)
[2023-10-10 15:46] LABS: Prothrombin Time 13.2 Seconds (11.1-14.7)
[2023-10-10] MEDS: SODIUM CHLORIDE 0.9% IV 1,000 ML 999 ML IV CONT (15:59)
[2023-10-10 16:09] LABS: Alanine Aminotransferase 20 U/L (6-35); Alkaline Phosphatase 86 U/L (38-126); Anion Gap 10 mmol/L (4-12); Aspartate Amino Transferase 29 U/L (14-36); Bilirubin,Total 0.3 mg/dL (0.2-1.3); Blood Urea Nitrogen 35 mg/dL (7-17); CRP < 0.5 mg/dL (<1.0); Calcium 8.5 mg/dL (8.4-10.2); Carbon Dioxide 25 mmol/L (22-30); Chloride 103 mmol/L (98-107); Estimated Glomerular Filt Rate 55; Glucose 184 mg/dL (65-110); Potassium 4.9 mmol/L (3.4-5.0); Sodium 138 mmol/L (137-145)
[2023-10-10 16:17] LABS: Troponin I < 0.012 ng/mL (0.000-0.034)
[2023-10-10 16:39] LABS: Add Urine Microscopic? YES; Appearance Urine Cloudy (Clear); Bacteria Urine 4+ /hpf; Bilirubin Urine Negative (Negative); Blood Urine Non-Hemolyzed Trace (Negative); Color Urine Yellow (Yellow); Glucose Urine UA 3+ mg/dL (Negative); Ketones Urine Negative (Negative); Leukocyte Esterase Ur 1+ LEU/UL (Negative); Need Manual Microscopic Reviewed; Nitrate Urine Positive (Negative); Protein Urine Negative (Negative); Squamous Epithelial Cell Urine Many /hpf (Few); Urobilinogen Urine 0.2 mg/dL (<2.0); WBC Urine 51-100 /hpf (0-3)
--- NOTE | 2023-10-10 18:10 | ED.GENADULT ---
HPI - General Adult General Chief complaint: Weakness Stated complaint: lethargy, weakness Time Seen by Provider: 10/10/23 14:07 Source: EMS Mode of arrival: EMS Limitations: altered mental status History of Present Illness HPI narrative: 68-year-old with a history of dementia was brought in from [facility] with the complaints of increased lethargy for past few days. she is being treated with oral antibiotic for urinary tract infection. no further information was obtained, no family members at bedside to get an additional history Onset (ago): unknown Related Data Home Medications Medication Instructions Recorded Confirmed albuterol sulfate 90 mcg/actuation 90 mcg inhalation Q4-6H PRN 01/01/20 06/25/22 aerosol inhaler (Ventolin HFA) Shortness Of Breath Or Wheezing alendronate 35 mg tablet 35 mg PO WEEKLY 01/01/20 06/25/22 albuterol sulfate 2.5 mg/3 mL 2.5 mg inhalation Q6H PRN 07/07/21 06/25/22 (0.083 %) solution for nebulization Shortness Of Breath Or Wheezing insulin lispro 100 unit/mL 1 sliding scale dose subcut 07/07/21 06/25/22 subcutaneous pen USEASDIRECTD metformin 1,000 mg tablet 1,000 mg PO BID 07/07/21 06/25/22 oxymetazoline 0.05 % nasal mist 2 spray intranasal Q12H PRN Nasal 07/07/21 06/25/22 (Afrin (oxymetazoline)) Congestion aspirin 81 mg tablet,delayed 81 mg PO DAILY 02/20/22 06/25/22 release atorvastatin 80 mg tablet 80 mg PO HS 02/20/22 06/25/22 carvedilol 12.5 mg tablet 12.5 mg PO BID 02/20/22 06/25/22 empagliflozin 10 mg tablet 10 mg PO DAILY 06/25/22 06/25/22 (Jardiance) sacubitril 24 mg-valsartan 26 mg 1 tablet PO BID 06/25/22 06/25/22 tablet (Entresto) Allergies Allergy/AdvReac Type Severity Reaction Status Date / Time No Known Allergies Allergy Verified 08/08/23 09:54 Review of Systems Review of Systems: ROS unobtainable: Yes unobtainable due to mental status PMFSH Past Medical History Medical History COPD (chronic obstructive pulmonary disease) Diabetes mellitus type 2, controlled, without complications History of tobacco use HTN (hypertension) with goal to be determined Hyperlipidemia Kidney stone Urinary tract infection Surgical History Surgical History H/O section x3 H/O tubal ligation History of cholecystectomy Family History Family History Mother Ruptured cerebral aneurysm Diabetes mellitus Father Diabetes mellitus Dementia Malignant neoplasm of prostate Cerebrovascular accident Sibling Malignant neoplasm of prostate Social History Social History Social History: The patient lives with her son. She has 3 CHILDREN. She is on DISABILITY and . She does not have a durable power transactional attorney for healthcare. She is a former smoker. Code status full code Smoking packs per day: 0.5 Smoking cigarettes per day: 10.0 Years smoked: 5 Smoking pack-years: 2.50 Smoking status: Former smoker Tobacco type: cigarettes Second hand tobacco smoke exposure: Yes Additional smoking assessment comments: Pt is unsure when she quit smoking. Alcohol intake: never Alcohol use details: social Substance use: never Substance use type: does not use Lack of Transportation: No Lack of Food: Never True Current Housing: I Have Housing Concerned About Future Housing: No Difficulty Paying Gas/Electric Bills: No Difficulty Paying for Meds: No Currently Unemployed: No Education: High School Diploma/GED Difficulty w/ Childcare or Family Care: No Living arrangements: alone Additional living arrangements comments: Son stays with her on occasion Occupation/Education: retired Gender identity (if verbalized by the patient): Female Sexual Orientation (if Verbalized by the Patient): S
--- NOTE | 2023-10-10 18:34 | PM.IMHP ---
H&P: HPI History of Present Illness Date/Time: 10/10/23 18:34 Chief Complaint: Altered mental status, UTI Narrative: This is a 68-year-old female with a significant past medical history of type 2 diabetes mellitus, COPD, hypertension, hyperlipidemia, frequent urinary tract infections, former smoker presented to the hospital from [facility] for evaluation altered mental status. According to the nursing staff she was increasingly lethargic over the past few days and has been treated for urinary tract infection with oral antibiotics recently. Patient states that she has been treated with 4 different antibiotics over last month or so and has been worked up for UTI. She states that she has nausea, vomiting, diarrhea. She denies any fever, chills, abdominal pain, chest pain, shortness a breath. She also denies any dysuria, urinary frequency, urinary urgency. Workup in the hospital included chest x-ray which was negative for any acute cardiopulmonary process. Initial labs showed a normal white blood cell count of 10.0, blood sugar 184, liver enzymes were normal, troponin was negative, C reactive protein less than 0 point. UA was obtained which showed a cloudy appearance, 3+ urine glucose, trace urine blood, positive nitrate, 1+ leukocyte, 3-5 urine RBC, 51-100 urine WBC, many urine squamous cells, 4+ bacteria. Urine and blood cultures were obtained and are now pending. EKG today showing normal sinus rhythm with left bundle branch block with a rate of 61, QTC 494. Patient was given 1 L of normal saline and Rocephin while in the ED. Review of Systems Review of Systems: All systems reviewed & are unremarkable except as noted in HPI and below Constitutional: Constitutional: Reports as per HPI and Reports no additional constitutional complaints Eyes: Eyes: Reports as per HPI and Reports no additional eye complaints ENT: Reports system reviewed and no additional complaints, except as documented and Reports as per HPI Cardiovascular: Cardiovascular: Reports as per HPI and Reports no additional cardiovascular complaints Respiratory: Respiratory: Reports as per HPI and Reports no additional respiratory complaints Gastrointestinal: Gastrointestinal: Reports as per HPI and Reports no additional gastrointestinal complaints Genitourinary: Genitourinary: Reports no additional female genitourinary complaints and Reports as per HPI Musculoskeletal: Musculoskeletal: Reports no additional musculoskeletal complaints and Reports as per HPI Integumentary/Breasts: Skin/Breast: Reports system reviewed and no additional complaints, except as docu and Reports as per HPI Neurologic: Reports system reviewed and no additional complaints, except as documented and Reports as per HPI Psychiatric: Psychiatric: Reports no additional psychiatric complaints and Reports as per HPI [facility] Past Medical History Medical History COPD (chronic obstructive pulmonary disease) Diabetes mellitus type 2, controlled, without complications History of tobacco use HTN (hypertension) with goal to be determined Hyperlipidemia Kidney stone Urinary tract infection Surgical History Surgical History H/O section x3 H/O tubal ligation History of cholecystectomy Family History Family History Mother Ruptured cerebral aneurysm Diabetes mellitus Father Diabetes mellitus Dementia Malignant neoplasm of prostate Cerebrovascular accident Sibling Malignant neoplasm of prostate Social History Social History Social History: The patient lives with her son. She has 3 CHILDREN. She is on DISABILITY and . She does not have a durable power writing manager for healthcare. She is a former smoker. Code status full code Smoking packs p
--- NOTE | 2023-10-10 20:51 | ADMGEN ---
This patient, Yanna Caldwell, was admitted to Medical Room 344-01. Patient/family oriented to hospital policies and general routines including ID bracelet, bed and alarms, visiting hours, pain management, procedures, bathroom and other care routines, personal items, smoking policy, room service/diet, and visiting hours. Information on how to activate the Rapid Response Team has been discussed. Patient/Family are encouraged to report perceived risks to care and to ask questions if they do not understand what they are told or what they should do.
[2023-10-10] MEDS: SODIUM CHLORIDE 0.9% IV 1,000 ML 125 ML IV CONT (21:58)
[2023-10-10 23:34] LABS: Glucose Point of Care 62 mg/dl (65-105)
[2023-10-10 23:34] LABS: Glucose Point of Care 170 mg/dl (65-105)
[2023-10-11 04:30] VITALS: BP 159/68; PULSE 65; RESP 18; TEMP 36.5; O2SAT 96
[2023-10-11] MEDS: SODIUM CHLORIDE 0.9% IV 1,000 ML 125 ML IV CONT ×3 (06:17→20:47)
[2023-10-11 06:53] LABS: Basophils Absolute Auto 0.1 K/mm3 (0.0-0.1); Basophils Percent Auto 0.8 % (0.2-1.2); Eosinophils Absolute Auto 0.4 K/mm3 (0-0.3); Eosinophils Percent Auto 3.9 % (0-4.4); Hematocrit 40.6 % (37.0-47.0); Hemoglobin 12.4 g/dL (12.0-15.0); Immature Granulocyte Absolute 0.03 K/mm3 (0.00-0.031); Immature Granulocyte Percent A 0.3 % (0-0.5); Lymphocytes Absolute Auto 4.86 K/mm3 (0.9-3.2); Lymphocytes Percent Auto 46.2 % (18.3-44.2); Mean Corpuscular HGB Conc 30.5 g/dl (32-36); Mean Corpuscular Volume 94.9 fl (80-100); Mean Platelet Volume 11.7 fl (7.4-10.4); Monocytes Percent Auto 9.4 % (2.6-8.5); Neutrophils Absolute Auto 4.2 K/mm3 (1.3-6.7); Neutrophils Percent Auto 39.4 % (45.5-73.1); Platelet Count Result 197 k/mm3 (150-375); Red Blood Count 4.28 M/mm3 (4.2-5.4); Red Cell Distribution Width 13.4 % (11.5-14.5); White Blood Count 10.5 K/mm3 (4.5-10.0)
[2023-10-11 07:05] LABS: Anion Gap 7 mmol/L (4-12); Blood Urea Nitrogen 25 mg/dL (7-17); Carbon Dioxide 22 mmol/L (22-30); Chloride 110 mmol/L (98-107); Estimated Glomerular Filt Rate > 60; Glucose 89 mg/dL (65-110); Potassium 4.5 mmol/L (3.4-5.0); Sodium 139 mmol/L (137-145)
[2023-10-11 07:54] VITALS: O2SAT 96
[2023-10-11 08:13] VITALS: PULSE 68
[2023-10-11] MEDS: EMPAGLIFLOZIN 10 MG TABLET PO (08:13)
[2023-10-11] MEDS: ENOXAPARIN 40 MG/0.4 ML SYRINGE SUB-Q (08:13)
[2023-10-11] MEDS: SACUBITRIL/VALSARTAN 24-26 MG TABLET 1 TAB PO ×2 (08:13→20:40)
[2023-10-11] MEDS: carvediloL 6.25 MG TABLET PO ×2 (08:13→20:39)
[2023-10-11] MEDS: ASPIRIN 81 MG ENTERIC TABLET PO (08:13)
[2023-10-11 08:42] LABS: Glucose Point of Care 77 mg/dl (65-105)
[2023-10-11 10:26] LABS: Hemoglobin A1C 6.7 % (<5.7)
--- NOTE | 2023-10-11 12:24 | P.PNIM_ITS ---
Progress Note: A&P Assessment and Plan (1) UTI (urinary tract infection): Qualifiers: Hematuria presence: without hematuria Urinary tract infection type: acute cystitis Qualified Code(s): N30.00 - Acute cystitis without hematuria Code(s): N39.0 - Urinary tract infection, site not specified Status: Acute Assessment and Plan: 10/10/23: * UA showing cloudy appearance, 3+ urine glucose, trace urine blood, positive nitrate, 1+ leukocyte, 3-5 urine RBC, 51-100 urine WBC, many urine squamous epithelial cells, 4+ urine bacteria * Blood and urine cultures were obtained and are pending * Continue Rocephin * Patient has history of frequent UTIs and was recently on oral antibiotics * Past urine cultures reviewed and showed E coli which was mostly pansensitive however did have resistance to Augmentin and ampicillin. * White blood cell count was 10.0 10/11/23: * Continue rocephin * Treat until cultures report as pt has been difficult to treat. * WBC stable at 10.5. (2) Altered mental status: Qualifiers: Altered mental status type: somnolence Qualified Code(s): R40.0 - Somnolence Code(s): R41.82 - Altered mental status, unspecified Status: Acute Assessment and Plan: 10/10/23: * Likely secondary to urinary tract infection * Patient refused head CT 10/11/23: * Pt's mentation appears to be improving. * She is currently A&Ox4 and answers all questions appropriately. (3) Hyperlipidemia: Code(s): E78.5 - Hyperlipidemia, unspecified Status: Chronic Assessment and Plan: 10/10/23: * Continue aspirin and atorvastatin 10/11/23: * Continue diabetic/heart healthy diet. (4) HTN (hypertension) with goal to be determined: Code(s): I10 - Essential (primary) hypertension Status: Acute Assessment and Plan: 10/10/23: * Blood pressure ranging 159/71 to 196/73 * Continue carvedilol 10/11/23: * BPs running 140s-150s/60s. * Consider adding ACEI or ARB should pt need additional control * Continue to monitor. (5) Diabetes mellitus type 2, controlled, without complications: Code(s): E11.9 - Type 2 diabetes mellitus without complications Status: Acute Assessment and Plan: 10/10/23: * Blood sugars ranging 147-184 * Hgb A1C 9.7 on 06/26/2022 * Will repeat hemoglobin A1c * Accu checks AC/HS * Will hold mealtime insulin, and metformin * Low-dose SSI ordered * hypoglycemic protocol in place * Diabetic diet ordered 10/11/23: * A1C from today is 6.7, which is improved over last one from three months ago. * Continue diabetic diet. * Fasting glucose is 77. * Continue current plan above. Time Spent With Patient Time with patient: Greater than 35 minutes Subjective Date/time seen: 10/11/23 1120 Interval history: This very pleasant 68 year old female was examined at the bedside today after being admitted to the hospital for UTI that failed outpatient treatment. She reportedly lives at home with her son and had recently been treated with four different abx as outpt with continued confusion, fatigue and upset stomach that prompted her to come to the ER. She was found to again have a UTI and was admitted to the hospital and started on Rocephin. As pt has been difficult to treat, recommend waiting on culture reports which are to this point pending. She is without acute complaints at this time. Exam Narrative: General: In no acute distress, well nourished Head: atraumatic, no encephalopathy Eyes: EOMI, PERRLA, sclera clear ENT:
--- NOTE | 2023-10-11 12:24 | PM.IMPN ---
Progress Note: A&P Assessment and Plan (1) UTI (urinary tract infection): Qualifiers: Hematuria presence: without hematuria Urinary tract infection type: acute cystitis Qualified Code(s): N30.00 - Acute cystitis without hematuria Code(s): N39.0 - Urinary tract infection, site not specified Status: Acute Assessment and Plan: 10/10/23: UA showing cloudy appearance, 3+ urine glucose, trace urine blood, positive nitrate, 1+ leukocyte, 3-5 urine RBC, 51-100 urine WBC, many urine squamous epithelial cells, 4+ urine bacteria Blood and urine cultures were obtained and are pending Continue Rocephin Patient has history of frequent UTIs and was recently on oral antibiotics Past urine cultures reviewed and showed E coli which was mostly pansensitive however did have resistance to Augmentin and ampicillin. White blood cell count was 10.0 10/11/23: Continue rocephin Treat until cultures report as pt has been difficult to treat. WBC stable at 10.5. (2) Altered mental status: Qualifiers: Altered mental status type: somnolence Qualified Code(s): R40.0 - Somnolence Code(s): R41.82 - Altered mental status, unspecified Status: Acute Assessment and Plan: 10/10/23: Likely secondary to urinary tract infection Patient refused head CT 10/11/23: Pt's mentation appears to be improving. She is currently A&Ox4 and answers all questions appropriately. (3) Hyperlipidemia: Code(s): E78.5 - Hyperlipidemia, unspecified Status: Chronic Assessment and Plan: 10/10/23: Continue aspirin and atorvastatin 10/11/23: Continue diabetic/heart healthy diet. (4) HTN (hypertension) with goal to be determined: Code(s): I10 - Essential (primary) hypertension Status: Acute Assessment and Plan: 10/10/23: Blood pressure ranging 159/71 to 196/73 Continue carvedilol 10/11/23: BPs running 140s-150s/60s. Consider adding ACEI or ARB should pt need additional control Continue to monitor. (5) Diabetes mellitus type 2, controlled, without complications: Code(s): E11.9 - Type 2 diabetes mellitus without complications Status: Acute Assessment and Plan: 10/10/23: Blood sugars ranging 147-184 Hgb A1C 9.7 on 06/26/2022 Will repeat hemoglobin A1c Accu checks AC/HS Will hold mealtime insulin, and metformin Low-dose SSI ordered hypoglycemic protocol in place Diabetic diet ordered 10/11/23: A1C from today is 6.7, which is improved over last one from three months ago. Continue diabetic diet. Fasting glucose is 77. Continue current plan above. Time Spent With Patient Time with patient: Greater than 35 minutes Subjective Date/time seen: 10/11/23 1120 Interval history: This very pleasant 68 year old female was examined at the bedside today after being admitted to the hospital for UTI that failed outpatient treatment. She reportedly lives at home with her son and had recently been treated with four different abx as outpt with continued confusion, fatigue and upset stomach that prompted her to come to the ER. She was found to again have a UTI and was admitted to the hospital and started on Rocephin. As pt has been difficult to treat, recommend waiting on culture reports which are to this point pending. She is without acute complaints at this time. Exam Narrative: General: In no acute distress, well nourished Head: atraumatic, no encephalopathy Eyes: EOMI, PERRLA, sclera clear ENT: moist mucous membranes, nasal passages clear Neck: supple, no JVD, no adenopathy, trachea midline Cardiac: Normal S1 and S2. RRR, No murmur, gallops or friction rubs, peripheral pulses intact. Respiratory: Lungs clear to auscultation, no adventitious lung sounds, currently on room air Gastrointestinal: soft, non-distended, non-tender, normoactive bowel sounds. : voiding without difficulty. Extremities: moves all extremities well, no edema, good ROM, s
[2023-10-11 12:30] LABS: Glucose Point of Care 125 mg/dl (65-105)
[2023-10-11 14:00] VITALS: BP 136/60; PULSE 67; RESP 22; TEMP 36.8; O2SAT 96
[2023-10-11 17:27] LABS: Glucose Point of Care 116 mg/dl (65-105)
[2023-10-11 20:33] VITALS: BP 170/65; PULSE 73; RESP 18; TEMP 36.8; O2SAT 95
[2023-10-11 20:39] VITALS: PULSE 73
[2023-10-11] MEDS: ESCITALOPRAM OXALATE 5 MG TABLET PO (20:39)
[2023-10-11] MEDS: INSULIN ASPART (*BKC) 100 UNITS/ML SUB-Q (20:40)
[2023-10-11] MEDS: INSULIN GLARGINE (*BKC) 100 UNITS/ML 25 UNITS SUB-Q (20:41)
[2023-10-11 20:44] LABS: Glucose Point of Care 224 mg/dl (65-105)
[2023-10-11] MEDS: guaiFENesin/DEXTROMETHORPHAN 10 ML UDC PO (21:28)
[2023-10-12] MEDS: ACETAMINOPHEN 325 MG TABLET 650 MG PO ×4 (02:48→22:30)
[2023-10-12] MEDS: guaiFENesin/DEXTROMETHORPHAN 10 ML UDC PO ×4 (02:48→22:30)
[2023-10-12 04:16] VITALS: BP 166/63; PULSE 68; RESP 18; TEMP 36.3; O2SAT 98
[2023-10-12] MEDS: SODIUM CHLORIDE 0.9% IV 1,000 ML 125 ML IV CONT ×2 (05:05→14:43)
[2023-10-12 05:55] LABS: Basophils Absolute Auto 0.1 K/mm3 (0.0-0.1); Basophils Percent Auto 0.7 % (0.2-1.2); Eosinophils Absolute Auto 0.3 K/mm3 (0-0.3); Eosinophils Percent Auto 2.9 % (0-4.4); Hematocrit 36.8 % (37.0-47.0); Hemoglobin 11.6 g/dL (12.0-15.0); Immature Granulocyte Absolute 0.04 K/mm3 (0.00-0.031); Immature Granulocyte Percent A 0.3 % (0-0.5); Lymphocytes Absolute Auto 4.19 K/mm3 (0.9-3.2); Lymphocytes Percent Auto 36.1 % (18.3-44.2); Mean Corpuscular HGB Conc 31.5 g/dl (32-36); Mean Corpuscular Hemoglobin 29.7 pg (26-34); Mean Corpuscular Volume 94.4 fl (80-100); Mean Platelet Volume 11.7 fl (7.4-10.4); Monocytes Absolute Auto 1.2 K/mm3 (0.1-0.6); Monocytes Percent Auto 10.7 % (2.6-8.5); Neutrophils Absolute Auto 5.7 K/mm3 (1.3-6.7); Neutrophils Percent Auto 49.3 % (45.5-73.1); Platelet Count Result 188 k/mm3 (150-375); Red Cell Distribution Width 13.2 % (11.5-14.5); White Blood Count 11.6 K/mm3 (4.5-10.0)
[2023-10-12 06:06] LABS: Alanine Aminotransferase 19 U/L (6-35); Albumin Level 3.5 g/dL (3.5-5.1); Alkaline Phosphatase 70 U/L (38-126); Anion Gap 4 mmol/L (4-12); Aspartate Amino Transferase 30 U/L (14-36); Bilirubin,Total 0.3 mg/dL (0.2-1.3); Blood Urea Nitrogen 20 mg/dL (7-17); Calcium 8.1 mg/dL (8.4-10.2); Carbon Dioxide 28 mmol/L (22-30); Chloride 107 mmol/L (98-107); Estimated Glomerular Filt Rate > 60; Glucose 68 mg/dL (65-110); Potassium 4.4 mmol/L (3.4-5.0); Sodium 139 mmol/L (137-145)
[2023-10-12 08:12] VITALS: PULSE 72
[2023-10-12] MEDS: ASPIRIN 81 MG ENTERIC TABLET PO (08:12)
[2023-10-12] MEDS: EMPAGLIFLOZIN 10 MG TABLET PO (08:12)
[2023-10-12] MEDS: SACUBITRIL/VALSARTAN 24-26 MG TABLET 1 TAB PO ×2 (08:12→20:07)
[2023-10-12] MEDS: carvediloL 6.25 MG TABLET PO ×2 (08:12→20:06)
[2023-10-12] MEDS: ENOXAPARIN 40 MG/0.4 ML SYRINGE SUB-Q (08:13)
[2023-10-12 08:29] LABS: Glucose Point of Care 71 mg/dl (65-105)
[2023-10-12 12:28] LABS: Glucose Point of Care 91 mg/dl (65-105)
[2023-10-12 14:00] VITALS: BP 148/59; PULSE 68; RESP 22; TEMP 36.9; O2SAT 92
--- NOTE | 2023-10-12 15:44 | PCPTNOTE ---
On 10/12/23, the student, [Sharon Li], provided care and completed [facility] documentation on this patient. I have reviewed the student's documentation and agree with the findings.
--- NOTE | 2023-10-12 15:56 | P.PNIM_ITS ---
Progress Note: A&P Assessment and Plan (1) UTI (urinary tract infection): Qualifiers: Hematuria presence: without hematuria Urinary tract infection type: acute cystitis Qualified Code(s): N30.00 - Acute cystitis without hematuria Code(s): N39.0 - Urinary tract infection, site not specified Status: Acute Assessment and Plan: 10/10/23: * UA showing cloudy appearance, 3+ urine glucose, trace urine blood, positive nitrate, 1+ leukocyte, 3-5 urine RBC, 51-100 urine WBC, many urine squamous epithelial cells, 4+ urine bacteria * Blood culture and urine culture were obtained and are pending * Continue Rocephin * Patient has history of frequent UTIs and was recently on oral antibiotics * Past urine cultures reviewed and showed E coli which was mostly pansensitive however did have resistance to Augmentin and ampicillin. * White blood cell count was 10.0 10/11/23: * Continue rocephin * Treat until cultures report as pt has been difficult to treat. * WBC stable at 10.5. * 10/12/23: - Blood cultures NGTD. - Urine culture growing Klebs Pneumoniae. - WBC's slightly trended up. - No fevers noted. - Continue to monitor on Ceftriaxone for now. (2) Altered mental status: Qualifiers: Altered mental status type: somnolence Qualified Code(s): R40.0 - Somnolence Code(s): R41.82 - Altered mental status, unspecified Status: Acute Assessment and Plan: 10/10/23: * Likely secondary to urinary tract infection * Patient refused head CT 10/11/23: * Pt's mentation appears to be improving. * She is currently A&Ox4 and answers all questions appropriately. * 10/12/23 - Mentation appears normalized. (3) Hyperlipidemia: Code(s): E78.5 - Hyperlipidemia, unspecified Status: Chronic Assessment and Plan: 10/10/23: * Continue aspirin and atorvastatin 10/11/23: * Continue diabetic/heart healthy diet. * 10/12/23: - Continue heart healthy diet and statin. (4) HTN (hypertension) with goal to be determined: Code(s): I10 - Essential (primary) hypertension Status: Acute Assessment and Plan: 10/10/23: * Blood pressure ranging 159/71 to 196/73 * Continue carvedilol 10/11/23: * BPs running 140s-150s/60s. * Consider adding ACEI or ARB should pt need additional control * Continue to monitor. * 10/12/23: - Appears fairly well controlled. - Monitor on current treatment. (5) Diabetes mellitus type 2, controlled, without complications: Code(s): E11.9 - Type 2 diabetes mellitus without complications Status: Acute Assessment and Plan: 10/10/23: * Blood sugars ranging 147-184 * Hgb A1C 9.7 on 06/26/2022 * Will repeat hemoglobin A1c * Accu checks AC/HS * Will hold mealtime insulin, and metformin * Low-dose SSI ordered * hypoglycemic protocol in place * Diabetic diet ordered 10/11/23: * A1C from today is 6.7, which is improved over last one from three months ago. * Continue diabetic diet. * Fasting glucose is 77. * Continue current plan above. * 10/12/23: - Appears fairly well controlled. - Monitor for now on current insulin regimen. Time Spent With Patient Time with patient: 25 - 35 minutes Subjective Date/time seen: 10/12/23 15:56 Interval history: This very pleasant 68 year old female was examined at the bedside today after being admitted to the hospital for UTI that failed outpatient treatment. She re portedly lives at home with her son and had recently been treated with four di
--- NOTE | 2023-10-12 15:56 | PM.IMPN ---
Progress Note: A&P Assessment and Plan (1) UTI (urinary tract infection): Qualifiers: Hematuria presence: without hematuria Urinary tract infection type: acute cystitis Qualified Code(s): N30.00 - Acute cystitis without hematuria Code(s): N39.0 - Urinary tract infection, site not specified Status: Acute Assessment and Plan: 10/10/23: UA showing cloudy appearance, 3+ urine glucose, trace urine blood, positive nitrate, 1+ leukocyte, 3-5 urine RBC, 51-100 urine WBC, many urine squamous epithelial cells, 4+ urine bacteria Blood culture and urine culture were obtained and are pending Continue Rocephin Patient has history of frequent UTIs and was recently on oral antibiotics Past urine cultures reviewed and showed E coli which was mostly pansensitive however did have resistance to Augmentin and ampicillin. White blood cell count was 10.0 10/11/23: Continue rocephin Treat until cultures report as pt has been difficult to treat. WBC stable at 10.5. 10/12/23: - Blood cultures NGTD. - Urine culture growing Klebs Pneumoniae. - WBC's slightly trended up. - No fevers noted. - Continue to monitor on Ceftriaxone for now. (2) Altered mental status: Qualifiers: Altered mental status type: somnolence Qualified Code(s): R40.0 - Somnolence Code(s): R41.82 - Altered mental status, unspecified Status: Acute Assessment and Plan: 10/10/23: Likely secondary to urinary tract infection Patient refused head CT 10/11/23: Pt's mentation appears to be improving. She is currently A&Ox4 and answers all questions appropriately. 10/12/23 - Mentation appears normalized. (3) Hyperlipidemia: Code(s): E78.5 - Hyperlipidemia, unspecified Status: Chronic Assessment and Plan: 10/10/23: Continue aspirin and atorvastatin 10/11/23: Continue diabetic/heart healthy diet. 10/12/23: - Continue heart healthy diet and statin. (4) HTN (hypertension) with goal to be determined: Code(s): I10 - Essential (primary) hypertension Status: Acute Assessment and Plan: 10/10/23: Blood pressure ranging 159/71 to 196/73 Continue carvedilol 10/11/23: BPs running 140s-150s/60s. Consider adding ACEI or ARB should pt need additional control Continue to monitor. 10/12/23: - Appears fairly well controlled. - Monitor on current treatment. (5) Diabetes mellitus type 2, controlled, without complications: Code(s): E11.9 - Type 2 diabetes mellitus without complications Status: Acute Assessment and Plan: 10/10/23: Blood sugars ranging 147-184 Hgb A1C 9.7 on 06/26/2022 Will repeat hemoglobin A1c Accu checks AC/HS Will hold mealtime insulin, and metformin Low-dose SSI ordered hypoglycemic protocol in place Diabetic diet ordered 10/11/23: A1C from today is 6.7, which is improved over last one from three months ago. Continue diabetic diet. Fasting glucose is 77. Continue current plan above. 10/12/23: - Appears fairly well controlled. - Monitor for now on current insulin regimen. Time Spent With Patient Time with patient: 25 - 35 minutes Subjective Date/time seen: 10/12/23 15:56 Interval history: This very pleasant 68 year old female was examined at the bedside today after being admitted to the hospital for UTI that failed outpatient treatment. She reportedly lives at home with her son and had recently been treated with four different abx as outpt with continued confusion, fatigue and upset stomach that prompted her to come to the ER. She was found to again have a UTI and was admitted to the hospital and started on Rocephin. Preliminary blood cultures negative to date, with urine culture growing Klebs Pneumonia. She is calm on bedrest without acute complaints at this time. Review of Systems Review of Systems: All systems reviewed & are unremarkable except as noted in HPI and below ROS unobtainable: Yes unobtai
[2023-10-12 17:39] LABS: Glucose Point of Care 88 mg/dl (65-105)
[2023-10-12 20:06] VITALS: PULSE 73
[2023-10-12] MEDS: INSULIN GLARGINE (*BKC) 100 UNITS/ML 25 UNITS SUB-Q (20:07)
[2023-10-12] MEDS: ESCITALOPRAM OXALATE 5 MG TABLET PO (20:07)
[2023-10-12 20:26] LABS: Glucose Point of Care 116 mg/dl (65-105)
[2023-10-12 21:29] VITALS: BP 145/73; PULSE 71; RESP 16; TEMP 36.7; O2SAT 95
[2023-10-13] MEDS: SODIUM CHLORIDE 0.9% IV 1,000 ML 125 ML IV CONT (02:27)
[2023-10-13] MEDS: ACETAMINOPHEN 325 MG TABLET 650 MG PO ×2 (02:27→08:21)
[2023-10-13] MEDS: guaiFENesin/DEXTROMETHORPHAN 10 ML UDC PO ×2 (02:28→09:17)
[2023-10-13 05:54] LABS: Basophils Absolute Auto 0.1 K/mm3 (0.0-0.1); Basophils Percent Auto 0.8 % (0.2-1.2); Eosinophils Absolute Auto 0.4 K/mm3 (0-0.3); Hematocrit 36.8 % (37.0-47.0); Hemoglobin 11.5 g/dL (12.0-15.0); Immature Granulocyte Absolute 0.03 K/mm3 (0.00-0.031); Immature Granulocyte Percent A 0.3 % (0-0.5); Lymphocytes Absolute Auto 1.27 K/mm3 (0.9-3.2); Lymphocytes Percent Auto 13.7 % (18.3-44.2); Mean Corpuscular HGB Conc 31.3 g/dl (32-36); Mean Corpuscular Volume 92.7 fl (80-100); Mean Platelet Volume 11.6 fl (7.4-10.4); Monocytes Absolute Auto 1.2 K/mm3 (0.1-0.6); Monocytes Percent Auto 12.8 % (2.6-8.5); Neutrophils Absolute Auto 6.3 K/mm3 (1.3-6.7); Neutrophils Percent Auto 68.4 % (45.5-73.1); Platelet Count Result 172 k/mm3 (150-375); Red Blood Count 3.97 M/mm3 (4.2-5.4); Red Cell Distribution Width 13.2 % (11.5-14.5); White Blood Count 9.3 K/mm3 (4.5-10.0)
[2023-10-13 06:00] VITALS: BP 148/71; PULSE 68; RESP 18; TEMP 36.4; O2SAT 97
[2023-10-13] MEDS: SACUBITRIL/VALSARTAN 24-26 MG TABLET 1 TAB PO (08:19)
[2023-10-13 08:21] VITALS: PULSE 72
[2023-10-13] MEDS: EMPAGLIFLOZIN 10 MG TABLET PO (08:21)
[2023-10-13] MEDS: ASPIRIN 81 MG ENTERIC TABLET PO (08:21)
[2023-10-13] MEDS: carvediloL 6.25 MG TABLET PO (08:21)
[2023-10-13] MEDS: ENOXAPARIN 40 MG/0.4 ML SYRINGE SUB-Q (08:22)
[2023-10-13 09:15] LABS: Glucose Point of Care 57 mg/dl (65-105)
[2023-10-13 09:21] LABS: Glucose Point of Care 113 mg/dl (65-105)
[2023-10-13 13:04] LABS: Glucose Point of Care 65 mg/dl (65-105)
--- NOTE | 2023-10-13 13:30 | PCOTNOTE ---
Spoke with nursing about pt. They report pt will be leaving to go home shortly. Pt has been up in the room independently/SBA. PT cleared pt for home and no PT needs already. Will d/c OT orders at this time due to pt discharging.
--- NOTE | 2023-10-13 13:53 | PM.DS ---
DS: Admitting Diagnosis Discharge Date 10/13/2023 Admitting Diagnosis Klebsiella Pneumoniae UTI DS: Discharge Diagnosis Discharge Diagnosis (1) UTI (urinary tract infection): Qualifiers: Hematuria presence: without hematuria Urinary tract infection type: acute cystitis Qualified Code(s): N30.00 - Acute cystitis without hematuria Code(s): N39.0 - Urinary tract infection, site not specified Status: Acute Assessment and Plan: Patient's UA: UA showing cloudy appearance, 3+ urine glucose, trace urine blood, positive nitrate, 1+ leukocyte, 3-5 urine RBC, 51-100 urine WBC, many urine squamous epithelial cells, 4+ urine bacteria Blood culture and urine culture were obtained. Patient has history of frequent UTIs and was recently on oral antibiotics Patient was initially treated with Rocephin inpatient but was converted to Cipro after her urine culture grew Klebs Pneumoniae that was sensitive to Cipro. Her blood cultures remained NGTD. - Urine culture growing Klebs Pneumoniae. Treat until cultures report as pt has been difficult to treat. WBC was stable wnl prior to discharge. . (2) Altered mental status: Qualifiers: Altered mental status type: somnolence Qualified Code(s): R40.0 - Somnolence Code(s): R41.82 - Altered mental status, unspecified Status: Acute Assessment and Plan: Likely secondary to urinary tract infection Patient refused head CT. Altered mentation resolved during her hospital stay. (3) Hyperlipidemia: Code(s): E78.5 - Hyperlipidemia, unspecified Status: Chronic Assessment and Plan: Continued on aspirin, atorvastatin heart healthy diet (4) HTN (hypertension) with goal to be determined: Code(s): I10 - Essential (primary) hypertension Status: Acute Assessment and Plan: - Remained fairly well controlled inpatient. (5) Diabetes mellitus type 2, controlled, without complications: Code(s): E11.9 - Type 2 diabetes mellitus without complications Status: Acute Assessment and Plan: A1C from today is 6.7. Blood glucose remained fairly well controlled inpatient on Low-dose SSI. Plan Patient stable for home discharge. DS: Summary Hospital Course Reason for hospitalization: Altered Mental Status Hospital Course: Patient presented to the hospital from [facility] for evaluation altered mental status. According to the nursing staff she was increasingly lethargic over the past few days and has been treated for urinary tract infection with oral antibiotics recently. Patient states that she has been treated with 4 different antibiotics over last month or so and has been worked up for UTI. Patient's urinalysis was consistent with a possible UTI and she was admitted for IV antibiotics infusion. Urine and blood cultures were obtained, with her blood cultures remaining negative, and urine cultures growing Klebsiella Pneumoniae. Patient's mentation is back to normal with all her labs fairly wnl. She's medically stable for discharge from the hospital with no acute distress noted or reported prior to discharge. Status at Discharge Functional status at discharge: independent ambulation Overall status at discharge: patient is back to baseline Time Spent with Patient Time attestation: Total time spent providing and/or coordinating discharge services: Time spent: Greater than 30 minutes Exam Narrative: General: Patient in good spirits to be discharged from hospital. HEENT: Atraumatic, PERRL, EEOMI, non-icteric. Neck: Supple. Lungs: Clear bilaterally. Cardiovascular: RRR, No murmurs. Abdomen: Soft, non-tender, +ve bowel sounds all quadrants. Neuro: Well oriented, CN II-XII fairly intact. Skin: Warm and dry. No lesions noted. Extremities: No edema noted. Psych: Pleasant and co-operative. DS: Data Data Completed and Pending Labs on day of discharge: Labs from last 24 hours
[2023-10-13 14:00] VITALS: BP 166/69; PULSE 71; RESP 20; TEMP 37.1; O2SAT 96
== END 2023-10-13 15:15 ==
LOC: ANHED 18:46 → ANH3MED 20:12
PROVIDERS: Nurse Practitioner Acute Care; Admitting Provider Internal Medicine; Emergency Provider Family Medicine; Visit Provider Nurse Practitioner Adult Health
DX: N30.00 Acute cystitis without hematuria (principal); B96.1 Klebsiella pneumoniae [K. pneumoniae] as the cause of diseases classified elsewhere; I44.7 Left bundle-branch block, unspecified; J44.9 Chronic obstructive pulmonary disease, unspecified; E11.9 Type 2 diabetes mellitus without complications; I10 Essential (primary) hypertension; E78.5 Hyperlipidemia, unspecified; Z87.891 Personal history of nicotine dependence; Z79.51 Long term (current) use of inhaled steroids; Z79.4 Long term (current) use of insulin; Z79.84 Long term (current) use of oral hypoglycemic drugs; Z79.82 Long term (current) use of aspirin
CPT/HCPCS: 36415; 71045; 80048; 80053; 81001; 82948; 83036; 84484; 85025; 85610; 86140; 87040; 87077; 87086; 87088; 87186; 93005; 96360; 96361; 96365; 96367; 96372; 97161; 99285; A9270; G0378; J0696; J1580; J1650; J1815; J7030

== ENCOUNTER 2024-05-12 17:29 | Observation (INO) | payer MEDICARE, MEDICAID, SELFPAY ==
--- NOTE | ~2024-05-12 | XR_ITS ---
HISTORY: fall, hematoma on dorsum of foot COMPARISON: None TECHNIQUE: 2 views of the right foot were performed FINDINGS: No acute fracture or dislocation is appreciated. No significant degenerative disease is noted. The base of the fifth metatarsal is intact. Small calcaneal spur is noted. No significant soft tissue swelling is present. Hallux valgus deformity. IMPRESSION: Degenerative disease without acute fracture. Reviewed, dictated and finalized at location A.
--- NOTE | ~2024-05-12 | XR_ITS ---
HISTORY: fall COMPARISON: None TECHNIQUE: 2 views of the right hip along with an AP view of the pelvis FINDINGS: No acute fracture or dislocation is identified. Superior lateral sclerosis of the bilateral femoral acetabular joint space is present consistent with osteoarthritis. Fecal stasis within the colon and rectum. Diffuse bony demineralization. IMPRESSION: Degenerative disease, without acute fracture or dislocation. The dedicated views of the right hip are limited secondary to technique. If clinical suspicion persists, cross-sectional imaging (noncontrast enhanced CT examination of the p qi) is recommended for further evaluation. Reviewed, dictated and finalized at location A. IMPRESSION: Degenerative disease, without acute fracture or dislocation. The dedicated views of the right hip are limited secondary to technique. If clinical suspicion persists, cross-sectional imaging (noncontrast enhanced C T examination of the pelvis) is recommended for further evaluation.
--- NOTE | ~2024-05-12 | XR_ITS ---
HISTORY: fall COMPARISON: None TECHNIQUE: 2 views of the tibia and fibula were performed FINDINGS: Acute minimally displaced fracture of the proximal shaft of the fibula is identified. On lateral view there appears to be some callus formation, not appreciated on additional views for wh ich history of prior injury should be elicited. Joint spaces are preserved and alignment is maintained. Soft tissues are unremarkable without foreign body or significant calcification. Age-appropriate mineralization. IMPRESSION: Minimally displaced fracture of the proximal shaft of the fibula, as detailed above. Reviewed, dictated and finalized at location A.
--- NOTE | ~2024-05-12 | CT_ITS ---
History: Fall PROCEDURE: CT head without contrast. COMPARISON: None 09/09/2023 and dating back to 08/17/2021 TECHNIQUE: Axial imaging of the head performed from the skull base to the vertex without IV contrast. Sagittal a nd coronal reformations obtained. DLP: 605 mGy-cm FINDINGS: The ventricles are normal in size, shape and position. Basal ganglia calcifications are present. There is no mass, mass effect or midline shift. There is no abnormal extra-axial fluid collection or intracranial hemorrhage. Visualized paranasal sinuses are clear. The mastoid air cells are well aerated. No acute displaced fractures within the overlying cranium. Attached to the lateral margin of the left optic nerve is a 7.3 x 7.9 mm soft tissue attenuation focu s, unchanged from 2021, and likely not a clinically significant finding (unchanged dating back to ). Impression: No acute intracranial hemorrhage or suspicious mass effect. Reviewed, dictated and finalized at location A. Impression: No acute intracranial hemorrhage or suspicious mass effect.
--- NOTE | ~2024-05-12 | XR_ITS ---
HISTORY: fall COMPARISON: None TECHNIQUE: 2 views of the right shoulder were performed FINDINGS: No acute fracture. The glenohumeral and acromioclavicular joint space is maintained The visualized portion of the adjacent right lung is clear. The humeral head is well seated within the glenoid fossa. IMPRESSION: No acute fracture or anterior dislocation. Reviewed, dictated and finalized at location A.
--- NOTE | ~2024-05-12 | XR_ITS ---
HISTORY: fall COMPARISON: None TECHNIQUE: 3 views of the right ankle were performed FINDINGS: No acute fracture or dislocation. No significant soft tissue swelling. The ankle mortise is preserved. Bone mineralization is age-appropriate. IMPRESSION: No acute fracture or dislocation Reviewed, dictated and finalized at location A.
[2024-05-12 17:29] VITALS: BP 104/52; PULSE 62; RESP 16; TEMP 36.7; O2SAT 97
--- NOTE | 2024-05-12 17:47 | ED_ITS ---
HPI - Fall General Chief Complaint: Fall Stated Complaint: fall Time Seen by Provider: 05/12/24 17:36 History of Present Illness HPI Narrative: 69-year-old female with history of hypertension, hyperlipidemia, COPD, diabetes, dementia. Presents to the emergency department after mechanical ground level fall. Patient resides at her sister's home. She normally ambulates on her own 2 ft, today she was putting where her insulin into the refrigerator and then lost her balance and fell to the right side. She landed on her right hip, right leg and struck her face on the ground in the kitchen. Did not lose consciousness. She is on anticoagulation with aspirin and Plavix. Patient had difficulty getting up by herself secondary to the pain in her right hip and foot. EMS was called for assistance. Her sister witnessed the fall as well as the resulting attempts to get up off the ground. Patient is acting appropriately in her normal state of health, patient has no complaints aside from pain her right-sided face and right ankle at this time. Did not take anything for pain prior to arrival. Related Data Home Medications ?Medication ?Instructions ?Recorded ?Confirmed ?Last Taken ?Type aspirin 81 mg tablet,delayed 81 mg PO DAILY 02/20/22 10/10/23 1 Day Ago History release ~06/24/22 carvedilol 12.5 mg tablet 6.25 mg PO BID 02/20/22 10/10/23 1 Day Ago History ~06/24/22 empagliflozin 10 mg tablet 10 mg PO DAILY 06/25/22 10/10/23 1 Day Ago History (Jardiance) ~06/24/22 sacubitril 24 mg-valsartan 26 mg 1 tablet PO BID 06/25/22 10/10/23 1 Day Ago History tablet (Entresto) ~06/24/22 escitalopram oxalate 5 mg tablet 5 mg PO HS 10/10/23 10/10/23 Unknown History Allergies Allergy/AdvReac Type Severity Reaction Status Date / Time No Known Allergies Allergy Verified 05/12/24 17:36 Review of Systems Review of Systems: As reviewed above in HPI [facility] Past Medical History Medical History Hyperlipidemia Kidney stone HTN (hypertension) with goal to be determined Urinary tract infection History of tobacco use COPD (chronic obstructive pulmonary disease) Diabetes mellitus type 2, controlled, without complications Surgical History Surgical History H/O tubal ligation H/O section x3 History of cholecystectomy Family History Family History Mother Ruptured cerebral aneurysm Diabetes mellitus Father Diabetes mellitus Dementia Malignant neoplasm of prostate Cerebrovascular accident Sibling Malignant neoplasm of prostate Social History Social History Social History: The patient lives with her son. She has 3 CHILDREN. She is on DISABILITY and . 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 She is a former smoker. Code status full code Smoking packs per day: 0.5 Smoking cigarettes per day: 10.0 Years smoked: 5 Smoking pack-years: 2.50 Smoking status: Former smoker Tobacco type: cigarettes Second hand tobacco smoke exposure: Yes Additional smoking assessment comments: Pt is unsure when she quit smoking. Alcohol intake: never Alcohol use details: social Substance use: never Substance use type: does not use Do You Feel Safe in your Home?: Yes Lack of Transportation: No Lack of Food: Never True Current Housing: I Have Housing Concerned About Future Housing: No Difficulty Paying Gas/Electric Bills: No Difficulty Paying for Meds: No Currently Unemployed: No Education: High School Diploma/GED Difficulty w/ Childcare or Family Care: No Living arrangements: alone Additional living arrangements comments: Son stays with her on occasion Occupation/Education: retired Gender identity (if verbalized by the patient): Female Sexual Orientation (if Verbalized by the Patient): Straight or Heterosexual Spiritual care concerns: No Exam Narrative: GENERAL: Thin and frail, elderly, not any acute distress, answering all questions appropriately. Awake and at her baseline mentation. HEAD: Normocephalic, right-sided periorbital face hematoma. No bleeding. EYES: [PERRLA and EOMI.] ENT: Nares clear, no rhinorrhea or epistaxis. Mucous membranes moist. NECK: Supple. CHEST: [Clear to auscultation. No respiratory distress.] HEART: [Regular rate and rhythm]. No murmur heard. [Normal peripheral pulses.] ABDOMEN: [Soft, nondistended], [nontender], [No rigidity or guarding] EXTREMITIES: Full range of motion of the bilateral upper extremities, able to wiggle both toes, plantar flexion 5/5 bilateral. She has ecchymoses over the dorsum of the right ankle but no step-offs deformities. No tenderness over the knee or hip on the right side. No instability in the pelvis. No ribcage pain. No cervical thoracic or lumbar spinal tenderness. No tenderness over the right upper extremity but she has complained of some shoulder pain. No tenderness over the maxillary facial structures. Periorbital right-sided face hematoma. SKIN: Warm, dry, no rash. NEURO: [No focal deficits]. Alert oriented at her baseline, moving all extremities. No sensory or motor deficits appreciated. PSYCH: [Normal mood and affect.] Course Vital Signs Vital signs: Vital Signs Temperature 36.7 C 05/12/24 17:29 Pulse Rate 62 05/12/24 17:29 Respiratory Rate 16 05/12/24 17:29 Blood Pressure 104/52 L 05/12/24 17:29 Pulse Oximetry 97 05/12/24 17:29 Oxygen Delivery Room Air 05/12/24 17:29 Temperature 36.7 C 05/12/24 17:29 Pulse Rate 62 05/12/24 17:29 Respiratory Rate 16 05/12/24 17:29 Blood Pressure 104/52 L 05/12/24 17:29 Pulse Oximetry 97 05/12/24 17:29 Oxygen Delivery Room Air 05/12/24 17:29 MDM - Fall MDM Narrative Medical decision making narrative: 69-year-old female with history of hypertension, hyperlipidemia, dementia, COPD. Presents to the ED via EMS for mechanical ground level fall that was witnessed by family member. Patient tripped and fell onto her right side landing on her right hip and face. She has complained of right ankle pain and right facial pain. She has some periorbital hematoma lateral to her right orbit. No bleeding or scalp hematoma. No cervical spinal tenderness. No loss of consciousness, she is on anticoagulation with aspirin Plavix. She has dorsum of the right foot with some tenderness to palpation and a hematoma with some minor swelling but good 2+ pulses and warm extremities. X-rays of the right foot and ankle, tib-fib, hip, shoulder were obtained. CT of the head was ordered given her age and risk factors with ground level fall. She was provide oxycodone for analgesia and re-evaluated. I discussed with the sister and daughter over the phone plan of care. They felt comfortable with her going home even if she is not back to baseline ambulation rather than admitting her for physical therapy and rehabilitation upon completion of workup. Patient's x-ray shows a minimally displaced fracture of the proximal shaft of the fibula on the right foot but otherwise no injury to the ankle, hip, shoulder or imaging findings of the CT head. I went and re-evaluated the patient was resting comfortably in the bed, no pain and tenderness in this area. Sister at bedside states she was bearing weight at home on that foot and actually walking around on which is reassuring. Will place her in a short posterior leg splint to cover this area and refer her to Orthopedics. She will be given crutch for ambulation assistance. I discussed with the family at bedside if they felt comfortable with her going home and have weight-bearing as tolerated with crutch ambulation assistance as needed. Family stated that they feel very comfortable taking care of her home and do not feel like she needs to be admitted. I gave him strict return precautions and if they felt uncomfortable or unable to care for her or if she is having worsening pain to return to the ER. There were given orthopedics follow-up instructions and pain control medications upon discharge. Medical Records Attestation: I reviewed the patient's medical records. Imaging Data Attestation: I personally reviewed and interpreted this imaging study as foll ows: My impression: Impressions Head CT 05/12/24 19:24 Impression: No acute intracranial hemorrhage or suspicious mass effect. Ankle X-Ray 05/12/24 19:36 IMPRESSION: No acute fracture or dislocation Foot X-Ray 05/12/24 19:37 IMPRESSION: Degenerative disease without acute fracture. Tibia/Fibula X-Ray 05/12/24 19:39 IMPRESSION: Minimally displaced fracture of the proximal shaft of the fibula, as detailed above. Shoulder X-Ray 05/12/24 19:41 IMPRESSION: No acute fracture or anterior dislocation. Hip/Pelvis X-Ray 05/12/24 19:42 IMPRESSION: Degenerative disease, without acute fracture or dislocation. The dedicated views of the right hip are limited secondary to technique. If clinical suspicion persists, cross-sectional imaging (noncontrast enhanced CT examination of the pelvis) is recommended for further evaluation. Discharge Plan Discharge Clinical Impression: Closed fibular fracture Patient Disposition: Home, Self-Care Condition: Stable Instructions: Antibiotic Form, Leg Fracture (ED) Additional Instructions: You have a small fracture of the proximal shaft of the fibula and your right leg. No other injuries. Will give you a cast and crutches for ambulation as needed. We will send you home with pain control medications. If your pain worsens or you want unable to walk or take care of yourself please return to the emergency department or follow-up with regular doctor. Will provide you an disease education specialist to contact to make a follow-up appointment with. Patient Language: Vietnamese Prescriptions: New oxycodone 5 mg tablet 5 mg PO Q8H PRN (Reason: pain) Qty: 10 0RF acetaminophen [Tylenol Extra Strength] 500 mg tablet 1,000 mg PO TID PRN (Reason: pain) Qty: 30 0RF methocarbamol 500 mg tablet 500 mg PO HS Qty: 7 0RF ibuprofen 600 mg tablet 600 mg PO TID PRN (Reason: pain) Qty: 20 0RF No Action carvedilol 12.5 mg tablet 6.25 mg PO BID aspirin 81 mg tablet,delayed release (DR/EC) 81 mg PO DAILY (DME) blood-glucose meter [Blood Glucose Monitoring] Kit See Rx Instructions .ROUTE .MEDSUPPLY Qty: 1 0RF Rx Instructions: As directed (DME) Blood Glucose Test Strip See Rx Instructions .ROUTE .MEDSUPPLY Qty: 10 3RF Rx Instructions: As directed (DME) lancets 17 gauge misc See Rx Instructions .Route Qty: 200 0RF Rx Instructions: As directed insulin lispro 100 unit/mL insulin pen 5 unit SUBCUT TID Qty: 15 0RF Rx Instructions: Inject 5 units subcutaneous TID before meals. insulin glargine [Lantus Solostar U-100 Insulin] 100 unit/mL (3 mL) insulin pen 25 unit SUBCUT HS Qty: 15 0RF Jardiance 10 mg tablet 10 mg PO DAILY Entresto 24-26 mg tablet 1 tablet PO BID escitalopram oxalate 5 mg tablet 5 mg PO HS ciprofloxacin HCl 500 mg tablet 500 mg PO Q12H Qty: 10 0RF Follow-up/Referrals: Arturo,Peter J., MD [Physician] - 1 Week (Closed fibular fracture right leg) PHYSICIAN,TOY DESIGNER [Primary Care Provider] - Time of Disposition: 20:00
--- OUTSIDE RECORDS SUMMARY | 2024-05-12 18:27 | XMS_ITS | Clinical Summary ---
Author Organization [facility] Address [address] [place] [address] Care Team Providers Care Cattle Knocker Name Role Phone Ralph Gutierres MD Unavailable [phone] Ralph Gutierres MD Primary Care Provider [phone]- [phone] Ralph Gutierres MD Unavailable [phone] Source Comments [facility],non-owned Affiliates and Associated Physician Practices is amultiple site organization consisting of ambulatory clinics and hospital sitesin [place], [place], [place] and [place]. This disclosure is being madepursuant to the Care Everywhere program and may not contain all information available regarding this patient. Last updated 17.[facility] [employer] Allergies Active Allergy Reactions Criticality Noted Date Comments Fentanyl Other,Vomiting 10/28/2021 Confusion Midazolam Other,Vomiting 10/28/2021 Confusion Medications * Be aware that medications may not be up to date on this document. Alwaysverify current medications with the patient. Medication Sig Dispensed Refills Start Date End Date Status Nebulizer Use as directed Active blood glucose (ONETOUCH ULTRA TEST STRIPS) test strip Use 1 strip 2 times daily 100 strip 5 0 Active ONE TOUCH ULTRASOFT LANCETS MISC Use 1 Each 2 times daily 100 Each 5 1 Active blood glucose test strip Use 1 (one) strip as directed 100 strip 1 Active Continuous Blood Gluc Sensor (FREESTYLE SARANYA 2 SENSOR SYSTM) MISC Use 1 (one) Each every 14 days 2 Each 2 Active Continuous Blood Gluc Power Technician (FREESTYLE SARANYA 2 READER SYSTM) BRY Use 1 device continuous 1 device 2 Active aspirin EC (Aspirin 81) 81 MG tablet Take 1 (one) tablet by mouth once daily 90 tablet 3 2 Active escitalopram (Lexapro) 5 MG tablet Take 1 (one) tablet by mouth once daily 90 tablet 3 4 Active Additional Information Patient not taking.Reason: Patient adjusted, Informant: Patient, Reported on 04/14/2024 ticagrelor (Brilinta) 90 MG tablet Take 1 (one) tablet by mouth 2 times daily 180 tablet 3 4 Active carvedilol (Coreg) 6.25 MG tablet Take 1 (one) tablet by mouth 2 times daily with morning and evening meal 180 tablet 3 5 Active diclofenac sodium (Voltaren) 1 % gel Apply 2 (two) g to affected area 4 times daily 100 g 5 5 Active rosuvastatin (Crestor) 40 MG tablet Take 1 (one) tablet by mouth once daily 90 tablet 3 5 Active insulin lispro (HumaLOG KwikPen) 100 UNIT/ML pen Inject 5 (five) Units subcutaneously 3 times daily before meals for 90 days 13.5 mL 5 07/15/19 25 Active Lantus SoloStar penIndications :Type 2 diabetes mellitus without complication, with long-term current use of insulin (HCC) INJECT 35 UNITS SUBCUTANEOUSLY ONCE DAILY AT BEDTIME 15 mL 5 Active B-D UF III MINI PEN NEEDLES 31G X 5 MM needleIndicati ons:Type 2 diabetes mellitus without complication, with long-term current use of insulin (HCC) USE 1 PEN NEEDLE 4 TIMES DAILY 100 Each 5 Active Entresto 24-26 MG tablet Take 1 tablet by mouth twice daily 180 tablet 3 4 04/16/19 25 Discontinued(Do se Adjustment) insulin lispro (HumaLOG KwikPen) 100 UNIT/ML pen Inject 10 (ten) Units subcutaneously 3 times daily before meals 27 mL 1 4 04/16/19 25 Discontinued B-D UF III MINI PEN NEEDLES 31G X 5 MM needleIndicati ons:Type 2 diabetes mellitus without complication, with long-term current use of insulin (HCC) USE 1 PEN NEEDLE 4 TIMES DAILY 100 Each 4 05/01/19 25 Discontinued Lantus SoloStar penIndications :Type 2 diabetes mellitus without complication, with long-term current use of insulin (HCC) INJECT 35 UNITS SUBCUTANEOUSLY ONCE DAILY AT BEDTIME 15 mL 5 04/17/19 25 Discontinued amoxicillin-cl avulanate (Augmentin) 875-125 MG tablet Take 1 (one) tablet by mouth 2 times daily with morning and evening meal 04/16/19 25 Discontinued(Tx Complete) Active Problems Problem Noted Date Diagnosed Date Adverse effect of drug, initial encounter 2024 Leukocytosis, unspecified type 04/13/2024 Assessment & Plan (04/13/2024 8:27 PM BUS MATRON): No evidence of infection. Discontinue antibiotic therapy. CINTHIA (acute kidney injury) 04/13/2024 Assessment & Plan (04/13/2024 8:27 PM BUS MATRON): Worsening. Srm Cr: 1.4 on admission date (a >=0.3 mg/dL increment from basline of 0.9-1.0). Etiology of CINTHIA most likely accounted for by prerenal azotemia in setting of hypotension, although acute tubular necrosis is also possible. She has no history of CKD. Plan: Continue to measure urine output. Obtain BMP at least daily to monitor srm Cr. Obtain urinalysis with urine protein level. Obtain urine Na, UN, and Cr levels. No indications for VISCOSE CELLAR CHARGE HAND at this time. Minimize/avoid use of NSAIDs, radiocontrast dye, and other potentially nephrotoxic agents. Maintain euvolemia and adequate blood pressure (MAP >= 65 mm Hg). Hypotension 04/13/2024 Assessment & Plan (04/13/2024 8:27 PM BUS MATRON): Improving. Etiology of hypoTN most likely accounted for by excess ?-cliff pharmacotherapy and antihypertensive medications. Manifestations of tissue hypoperfusion are present, but improving. Past 24 hrs: Neurologic/mental status: somnloent (stable). Urine output: unable to assess. Plan: Serial assessment of blood pressure. Telemetry monitoring. Withhold carvedilol and sacubitril-valsartan in setting of hypotension. Hypoglycemia 04/13/2024 Assessment & Plan (04/13/2024 8:27 PM BUS MATRON): See type 2 diabetes mellitus. Hyperkalemia 04/13/2024 Assessment & Plan (04/13/2024 8:27 PM BUS MATRON): See CINTHIA. Chronic diastolic heart failure 04/13/2024 Agitation 01/04/2024 Acute metabolic encephalopathy 01/04/2024 Assessment & Plan (04/13/2024 8:27 PM BUS MATRON): Due to hypoglycemia. Plan: Minimize/avoid use of medications known to induce delirium. Encourage engaging in stimulating activities. Minimize interruptions at night to avoid sleep deprivation. Encourage mobilization as tolerated, preferably at least 3 times daily. See also hypoglycemia. Coronary artery disease 12/14/2023 Assessment & Plan (04/13/2024 8:27 PM BUS MATRON): She has a history of PCI with RISHI placement (most recently in Feb, 2024). Plan: Continue aspirin 81 mg DAILY PO. Continue ticagrelor 90 mg BID PO. Continue rosuvastatin 40 mg DAILY PO. S/P drug eluting coronary stent placement 2023 Assessment & Plan (04/13/2024 8:27 PM BUS MATRON): See CAD. Vascular dementia 05/06/2023 CAD, 2-vessel involving LAD/D1 and LCx 2 Benign hypertension 10/11/2021 Assessment & Plan (04/13/2024 8:27 PM BUS MATRON): No evidence of new target-organ dysfunction related to HTN. Past 24 hrs: Blood pressure control: excessive. Plan: Serial monitoring of blood pressure. Withhold anti-HTN medications in setting of low blood pressure. Dyslipidemia 10/11/2021 Assessment & Plan (04/13/2024 8:27 PM BUS MATRON): See CAD. 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 Newly diagnosed Systolic and Diastolic Heart Failure with an EF of 41%. Stable and Euvolemic on exam today. Following with Dr. Salazar for evaluation of MR. R/LHC planned for 10/28/2021 Stop Losartan and changed to Entresto 49/51mg BID and increase Coreg to 6.25mg BID. BMP in 1 week. Continue Jardiance 10mg daily. If BP and BMP stable will plan to add aldactone in follow up. Follow up with [facility] in 2-3 weeks. Mitral regurgitation 10/11/2021 Osteopenia of neck of femur 11/01/2019 Overview (11/01/2019): Dex 06/2018 Femoral neck T score -1.8 Assessment & Plan (11/01/2019 9:12 AM CDT): Starting alendronate 35 mg q7 days Vit D and calcium supplement Type 2 diabetes mellitus wit hout complication, with long-term current use of insulin 10/05/2018 Assessment & Plan (04/13/2024 8:27 PM BUS MATRON): Long-term glycemic control unknown. No known DM complications. Past 24 hrs: Glycemic control: excessive; 1 hypoglycemic episode. TDD: unknown. Plan: Daily assessment of glycemic control and modification of insulin regimen to maintain serum glucose level 140-180 mg/dL. Obtain capillary blood glucose QID (AC/HS). Obtain HbA1c to evaluate long-term glycemic control. Insulin regimen. - Basal: None - Mealtime: None - Correction factor: insulin aspart 0-6 units scale TID (AC) SubQ Assessment & Plan (11/27/2020 8:32 AM CDT): A1c 10.8, improved today Continue Basaglar 25 units qhs Novolin 70/30 10 mg bid Increase metformin to 1000 mg bid Establishing with Endocrine 01/15. Assessment & Plan (11/01/2019 9:12 AM CDT): A1c 7.7, improved today Continue Basaglar 25 units qhs Novolin 70/30 10 mg bid Assessment & Plan (07/10/2019 9:28 AM CDT): a1c improved to 8.3 today Novolin 70/30 10 units BID AC basaglar 30 units qhs Improve diet and exercise Prescriptions given for pcv13 and zoster Optometry referral Osteoarthrosis 07/04/2018 Encounters Date Type Department Care Team Description 05/02/2024 Telephone [facility] - Cardiac Rehab [address] [place] [id number] Karissa Herndon, zigzag appliquer 04/30/[address] [facility] Family Medicine [address] [place] [address], [place] [address] Ralph Gutierres MD Refill Request 04/16/[address] [facility] Physician [address], [place] [address] Laina Camargo RN Hospital Follow-up 04/15/[address] [facility] Physician [address] [address] Ralph Gutierres MD Refill Request 04/13/2024 2:07 PM BUS MATRON - 04/15/2024 3:20 PM [facility] Hospital Encounter [facility] [address] [place] [phone] Gagandeep Lee MD Albrecht, Ryan, DO Neal, Christopher David, MD Havens, Timothy R, MD Arshad, Iqra, MD Emergency Medicine Discharge Disposition: Home or Self Care 04/13/2024 2:00 PM BUS MATRON Office Visit [facility] - Cardiology [address] [facility] [place] [phone] Kassidy Encinas, RN OTOLARYNGOLOGY-WAITER/WAITRESS INFORMAL Dahlia Salazar MD CAD, 2-vessel involving LAD/D1 and LCx (Primary Dx); Chronic diastolic heart failure; Nonrheumatic mitral valve regurgitation; Benign hypertension; Dyslipidemia 04/13/2024 Travel 04/02/2024 Telephone [facility] - Cardiology [address] [facility] [place] [address] Kassidy Encinas APRN-CNP Medication Issue 03/15/2024 10:20 AM BUS MATRON Office Visit [facility] - Family Medicine [facility] [place] [address] Ralph Gutierres MD Right arm pain (Primary Dx) 03/15/2024 Travel 03/14/2024 Travel 03/07/2024 2:00 PM BUS MATRON Office Visit [facility] - Cardiology [address] [place] [address], [address] [address] Kassidy Encinas APRN-CNP S/P drug eluting coronary stent placement (Primary Dx); CAD, 2-vessel involving LAD/D1 and LCx; Nonrheumatic mitral valve regurgitation; Heart failure with improved ejection fraction (HFimpEF) 03/07/2024 Travel 02/29/2024 Travel 02/28/2024 2:06 PM BUS MATRON Anesthesia Event [facility] - Cardiac Pediatric Occupational Therapist [address] [place] [address] Mike Martinez DO 02/28/2024 1:28 PM BUS MATRON - 02/28/2024 4:06 PM BUS [facility] Surgery [facility] - Cardiac Pediatric Occupational Therapist [address] [place] [address] Dahlia Salazar MD Staged Percutaneous Coronary Intervention 02/28/2024 9:09 AM BUS MATRON - 02/29/2024 10:51 AM BUS [facility]RON Hospital Encounter [facility] [address] [place] [address] Dahlia Salazar MD Cardiac Catheterization Discharge Disposition: Home or Self Care 02/20/[address] [facility] - Cardiology [address] [place] [phone] Dahlia Salazar MD MEDICATION REFILL 02/18/[address] [facility] - Family Medicine [address] [place] [phone] Ralph Gutierres MD Refill Request 02/16/[address] [facility] - Cardiology [address] [facility] [place] [address] Doris Jones RN Heart failure with reduced ejection fraction ; Nonrheumatic mitral valve regurgitation; CAD, 2-vessel involving LAD/D1 and LCx; S/P drug eluting coronary stent placement from Last 3 Months Immunizations Name Administration Dates Next Due COVID MODERNA 12+ yr 50mcg/0.5mL 01/21/2023 COVID PFIZER 12+YR 30MCG/0.3mL 11/22/2023 Covid Pfizer primary monoval ent 12+ yr 0.3mL Purple cap 12/09/2020,05/07/2020,04/15/2020 INFLUENZA VACCINE, HIGH-DOSE , QUADR. (FLUZONE HIGH-DOSE QUADRIVALENT; 65Y+), 0.7 ML (HD-IIV4) 01/21/2023 INFLUENZA VACCINE, HIGH-DOSE , TRIV. (FLUZONE HIGH-DOSE TRIVALENT; 65Y+) (HD-IIV3) 11/22/2023 INFLUENZA VACCINE, QUADR. (F LUZONE; FLULAVAL; FLUARIX; AFLURIA QUADRIVALENT; 6MO+), 0.5 ML (IIV4) 11/04/2019,04/29/2018 PNEUMOCOCCAL PCV20 CONJ VAC IM 2024 Zoster Hzv Vacc Recombinant Inj Im 12/15/2020 iNFLUENZA VACCINE, RECOM-VILLATORO, QUADR. (FLUBLOCK QUADRIVALENT; 18Y+) (RIV4) 11/27/2020,04/09/2019 Family History Medical History Relation Name Comments Cancer - Other Brother Diabetes - Type 2 Father Hypertension Mother Relation Name Status Comments Brother Father Mother Social History Tobacco Use Types Packs/Day Years Used Date Smoking Tobacco: Former Cigarettes 0.5 5 1 991 - 1995 Smokeless Tobacco: Never Tobacco Cessation:Counseling Given: Not Answered Alcohol Use Standard Drinks/Week Comments Yes 0 (1 standard drink = 0.6 oz pur e alcohol) occasionally AUDIT-C Answer Date Recorded Q1: How often do you have a drink containing alc ohol? Monthly or less 04/13/2024 Q2: How many drinks containi ng alcohol do you have on a typical day when you are drinking? 1 or 2 04/13/2024 Q3: How often do you have si x or more drinks on one occasion? Never 04/13/2024 Overall Financial Resource Strain (CARDIA) Answe r Date Recorded How hard is it for you to pa y for the very basics like food, housing, medical care, and heating? Not very hard 04/14/2024 PHQ-2 Answer Date Recorded Patient Health Questionnaire-2 Score 0 03/15/2024 [facility] - Occupational Stress Questionnaire Answer Date Recorded Do you feel stress - tense, restless, nervous, or anxious, or unable to sleep at night because your mind is troubled all the time - these days? Not at all 04/14/2024 Hunger Vital Sign Answer Date Recorded Within the past 12 months, y ou worried that your food would run out before you got the money to buy more. Never true 04/15/19 25 Within the past 12 months, t he food you bought just didn't last and you didn't have money to get more. Never true 04/14/2024 PRAPARE - Transportation Answer Date Re corded In the past 12 months, has l ack of transportation kept you from medical appointments or from getting medications? No 02/2024 In the past 12 months, has l ack of transportation kept you from meetings, work, or from getting things needed for daily living? No 04/14/2024 Housing Stability Vital Sign Answer Miguel e Recorded In the last 12 months, was t here a time when you were not able to pay the mortgage or rent on time? No 04/14/2024 In the past 12 months, how m any times have you moved where you were living? 1 04/14/2024 At any time in the past 12 m [facility], were you homeless or living in a intermediate (including now)? No 04/14/2024 Sex and Gender Information Value Date Recorded Sex Assigned at Not on file Gender Identity Not on file Sexual Orientation Not on file Last Filed Vital Signs Vital Sign Reading Time Taken Comments Blood Pressure 150/68 04/15/2024 7:59 AM BUS MATRON Pulse 64 04/15/2024 7:59 AM BUS MATRON Temperature 36.6 C (97.9 F) 04/15/2024 7:59 AM BUS MATRON Respiratory Rate 16 04/15/2024 7:59 AM BUS MATRON Oxygen Saturation 92% 04/15/2024 7:59 AM BUS MATRON Inhaled Oxygen Concentration - - Weight 59.4 kg (131 lb) 04/13/2024 11:33 PM BUS MATRON Height 149.9 cm (4' 11 ) 04/13/2024 11:33 PM BUS MATRON Body Mass Index 26.46 04/13/2024 11:33 PM BUS MATRON Plan of Treatment Upcoming Encounters Date Type Department Care Team (Late st Contact Info) Description 05/14/2024 12:40 PM CDT Office Visit [facility] - Cardiology [address] [facility], [facility] [address] [place] [phone] Kassidy Encinas APRN-WAITER/WAITRESS INFORMAL [address] [facility] [address] [place] [address] Dahlia Salazar MD [id number] [place] [address] Health Maintenance Due Date Last Done Comments COLOGUARD (AGES 45-75) - COLON CA SCREENING [address] COLONOGRAPHY - COLON CA SCREENING 1955 FIT - COLON CA SCREENING 1955 FLEX SIG - COLON CA SCREENING 1955 DTAP/TDAP/TD VACCINES (1 - Tdap) 01/17/1975 Respiratory Syncytial Virus (RSV) Vaccine Pt: or over 60 yrs (1 - Risk 60-74 years 1-dose series) 2016 ZOSTER VACCINE (2 of 2) 02/09/2021 12/15/2020 DIABETES-FOOT EXAM WITH MONOFILAMENT 11/27/2021 11/27/2020, 07/10/2019, 07/10/2019, Additional history exists MAMMOGRAM 12/26/2022 12/26/2020, 05/17 (Done Outside Per Patient) DIABETES - URINE PROTEIN SCREENING 02/15/2024 01/26/2023, 06/30/2021, 05/20/2020, Additional history exists MEDICARE AWV CALENDAR YEAR 2024 04/16/2021 DIABETES-HGB A1C 07/03/2024 01/04/2024, 05/2023, 01/26/2023, Additional history exists DIABETES RETINOPATHY SCREENING 04/05/2025 04/05/2023, 10/09/2021, 09/05/2020, Additional history exists DIABETES-SERUM CREATININE 04/15/20252024, 04/15/2024, 04/14/2024, Additional history exists COLONOSCOPY - COLON CA SCREENING 06/14/2025 06/15/2015 (Done Outside Per Patient) Colorectal Cancer Screening 06/14/2025 HEPATITIS C SCREENING Completed 07/04/2018 BONE DENSITY TESTING Completed 03/13/2021 (Done Outside Per Patient) COVID-19 VACCINE Completed 11/22/2023, 09/2022, 12/09/2020, Additional history exists INFLUENZA VACCINE Completed 11/22/2023, , 11/27/2020, Additional history exists PNEUMOCOCCAL VACCINE 50+ Completed 2024 DEPRESSION SCREENING Completed 03/15/2024, 10/19/2023, 09/30/2022, Additional history exists HEPATITIS B VACCINE Aged Out No longe r eligible based on patient's age to complete this topic HIB VACCINE Aged Out No longer eligi ble based on patient's age to complete this topic HPV VACCINE Aged Out No longer eligi ble based on patient's age to complete this topic MENINGOCOCCAL (Group B) VACCINE SHARED DECISION-MAKING Aged Out No longer eligible based on patient's age to complete this topic MENINGOCOCCAL GROUPS A/C/Y/W VACCINE Aged Out No longer eligible based on patient's age to complete this topic Medical Devices Implanted Type Area Bag Making Machine Operator Device Identifier Shelf Expiration Date Model / Serial / Lot Sys Cor Stent Sng Xd Mr 2.25mm 24mm Dlv - [id number] Implanted:Qty: 1 on 01/04/2024 by Dahlia Salazar MD at [facility] [employer] [facility] [id number] 01/30/2025 [id number] / [id number] / [id number] Sys Cor Stent Sng Xd Mr 3mm 12mm Dlv Sys - [id number] Implanted:Qty: 1 on 02/28/2024 by Dahlia Salazar MD at [facility] [employer] [facility] [id number] 11/14/2025 [id number] / [id number] / [id number] Procedures Procedure Name Priority Date/Time Associated Diagnosis Comments CARDIAC EKG ORDER 04/16/2024 12: 11 PM BUS MATRON GLUCOSE - POINT OF CARE Routine 04/15/2024 12:08 PM BUS MATRON XR SHOULDER RIGHT 2VW OR MORE STAT 04/15/2024 11:32 AM BUS MATRON Chronic right shoulder pain BASIC METABOLIC PANEL (CALCIUM TOTAL) STAT 04/15/2024 10:51 AM BUS MATRON GLUCOSE - POINT OF CARE Routine 04/15/2024 8:38 AM BUS MATRON CBC W AUTO DIFFERENTIAL Routine 04/15/2024 2:31 AM BUS MATRON BASIC METABOLIC PANEL (CALCIUM TOTAL) Routine 04/15/2024 2:31 AM BUS MATRON GLUCOSE - POINT OF CARE Routine 04/14/2024 8:13 PM BUS MATRON GLUCOSE - POINT OF CARE Routine 04/14/2024 4:53 PM BUS MATRON BASIC METABOLIC PANEL (CALCIUM TOTAL) STAT 04/14/2024 3:35 PM BUS MATRON GLUCOSE - POINT OF CARE Routine 04/14/2024 12:03 PM BUS MATRON UREA NITROGEN URINE RANDOM STAT 04/14/2024 9:51 AM BUS MATRON CREATININE URINE RANDOM STAT 04/14/2024 9:51 AM BUS MATRON URINALYSIS REFLEX MICROSCOPIC REFLEX CULTURE STAT 04/14/2024 9:51 AM BUS MATRON LYTES (NA K CL) URINE RANDOM PANEL STAT 04/14/2024 9:50 AM BUS MATRON GLUCOSE - POINT OF CARE Routine 04/14/2024 8:31 AM BUS MATRON GLUCOSE - POINT OF CARE Routine 04/13/2024 11:56 PM BUS MATRON SARS-COV-2 (COVID-19) FLU A/B RSV PCR RAPID STAT 04/13/2024 6:58 PM BUS MATRON GLUCOSE - POINT OF CARE Routine 04/13/2024 6:57 PM BUS MATRON TROPONIN-I HIGH SENSITIVE REFLEX 1HOUR Timed 04/13/2024 6:13 PM BUS MATRON CULTURE BLOOD Timed 04/13/2024 5:48 PM BUS MATRON LACTIC ACID BLOOD REFLEX TO REPEAT STAT 04/13/2024 5:43 PM BUS MATRON CULTURE BLOOD Timed 04/13/2024 5:43 PM BUS MATRON GLUCOSE - POINT OF CARE Routine 04/13/2024 5:37 PM BUS MATRON EKG 12-LEAD STAT 04/13/2024 5:12 PM BUS MATRON Altered mental status, unspecified altered mental status type XR CHEST 1VW PORTABLE STAT 04/13/2024 4:42 PM BUS MATRON Altered mental status, unspecified altered mental status type PT-INR [facility] STAT 04/13/2024 4:05 PM BUS MATRON DIFFERENTIAL MANUAL STAT 04/13/2024 4 :02 PM BUS MATRON B-TYPE NATRIURETIC PEPTIDE STAT 04/13/2024 4:02 PM BUS MATRON TROPONIN-I HIGH SENSITIVE BASELINE + 1HR STAT 04/13/2024 4:02 PM BUS MATRON COMPREHENSIVE METABOLIC PANEL STAT 04/13/2024 4:02 PM BUS MATRON CBC W AUTO DIFFERENTIAL STAT 04/13/2024 4:02 PM BUS MATRON GLUCOSE - POINT OF CARE Routine 04/13/2024 2:14 PM BUS MATRON LIPID PROFILE Routine 03/08/2024 8:15 AM BUS MATRON S/P drug eluting coronary stent placement CAD, 2-vessel involving LAD/D1 and LCx Nonrheumatic mitral valve regurgitation GLUCOSE - POINT OF CARE Routine 02/29/2024 7:49 AM BUS MATRON BASIC METABOLIC PANEL (CALCIUM TOTAL) AM Draw 02/29/2024 7:18 AM BUS MATRON Coronary artery disease involving [place] coronary artery of [place] heart, unspecified whether angina present S/P drug eluting coronary stent placement CBC W/O DIFFERENTIAL AM Draw 02/29/2024 7:18 AM BUS MATRON Coronary artery disease involving [place] coronary artery of [place] heart, unspecified whether angina present S/P drug eluting coronary stent placement GLUCOSE - POINT OF CARE Routine 02/28/2024 10:37 PM BUS MATRON GLUCOSE - POINT OF CARE Routine 02/28/2024 6:46 PM BUS MATRON ACT LR - POCT ([facility]) Routine 02/28/2024 3:44 PM BUS MATRON ACT LR - POCT ([facility]) Routine 02/28/2024 3:32 PM BUS MATRON GLUCOSE - POINT OF CARE Routine 02/28/2024 3:30 PM BUS MATRON CCL STAGED PERC CORONARY INTERVENTION Routine 02/28/2024 2:48 PM BUS MATRON Coronary artery disease involving [place] coronary artery of [place] heart with angina pectoris Coronary artery disease involving [place] coronary artery of [place] heart, unspecified whether angina present S/P drug eluting coronary stent placement GLUCOSE - POINT OF CARE Routine 02/28/2024 10:56 AM BUS MATRON CBC W/O DIFFERENTIAL RAVEN 02/28/2024 10:52 AM BUS MATRON Coronary artery disease involving [place] coronary artery of [place] heart, unspecified whether angina present S/P drug eluting coronary stent placement BASIC METABOLIC PANEL (CALCIUM TOTAL) RAVEN 02/28/2024 10:52 AM BUS MATRON Coronary artery disease involving [place] coronary artery of [place] heart, unspecified whether angina present S/P drug eluting coronary stent placement CBC W AUTO DIFFERENTIAL Routine 02/16/2024 3:35 PM BUS MATRON BASIC METABOLIC PANEL (CALCIUM TOTAL) Routine 02/16/2024 3:35 PM BUS MATRON Heart failure with reduced ejection fraction Nonrheumatic mitral valve regurgitation CAD, 2-vessel involving LAD/D1 and LCx S/P drug eluting coronary stent placement LAB RESULTS ORDER 02/16/2024 HEMOGLOBIN A1C RAVEN 01/04/2024 4:03 PM BUS MATRON Type 2 diabetes mellitus without complication, with long-term current use of insulin EYE EXAM Routine 04/05/2023 MICROALB/CREAT RATIO URINE RANDOM PANEL Routine 01/26/2023 3:41 PM BUS MATRON Type 2 diabetes mellitus without complication, with long-term current use of insulin MAMMO BILAT SCREENING W KYLIE Routine 12/26/2020 7:47 AM [facility] Encounter for screening mammogram for breast cancer HEPATITIS C ANTIBODY Routine 07/04/2018 10:02 AM CDT Healthcare maintenance from Last 3 Months or Most Recently Relevant to Health Maintenance Results * CARDIAC EKG ORDER (04/16/2024 12:11 PM [facility]) Narrative 04/16/2024 12:11 PM [facility] Ordered by an unspecified provider. Scanned Document CARDIAC SERVICES ORD ERABLES * (ABNORMAL) GLUCOSE - POINT OF CARE (04/15/2024 12:08 PM [facility]) Only the most recent of15 resultswithin the time period is included. Glucose WB/POC 334(H) 70 - 99 mg/dL 04/15/2024 12:11 PM [facility] Specimen Type Venous 04/15/2024 12:11 PM [facility] Blood BLOOD SPECIMEN / Unknown 04/15/2024 12:08 PM [facility] 04/15/2024 12:11 PM [facility] Shannon Diop MD LAB - POINT OF CARE ORDERABLES [address] [address], [facility] [phone] * XR Shoulder Right 2Vw or More (04/15/2024 11:32 AM [facility]) Anatomical Region Laterality Modality Upper Extremity Digital Radiogra phy 04/15/2024 2:02 PM [facility] Impressions 04/15/2024 2:35 PM [facility] IMPRESSION: No acute fracture or dislocation identified. Report dictated by Tramaine Rosa MD(presidential support specialist). IJose Alfredo MD have personally reviewed and interpreted this examination/study. > Interpreting Provider: Jose Alfredo Wells MD on 04/15/2024 2:35 PM Narrative 04/15/2024 2:35 PM [facility] PROCEDURE: XR SHOULDER RIGHT 2VW OR MORE, DATE/TIME OF EXAM: 04/15/2024 12:39 PM, LOCATION [facility] INDICATION: M25.511: Chronic right shoulder pain G89.29: Chronic right shoulder pain ADDITIONAL CLINICAL INFORMATION: Ordering Provider Reason For Exam: Right shoulder pain COMPARISON: None. FINDINGS: The osseous structures are intact without acute fracture. The glenohumeral and acromioclavicular joints are in anatomic alignment. Bone density and texture are normal. Procedure Note Jose Alfredo Wells MD - 04/15/2024 PROCEDURE: XR SHOULDER RIGHT 2VW OR MORE, DATE/TIME OF EXAM: 04/15/2024 12:39 PM, LOCATION [facility] INDICATION: M25.511: Chronic right shoulder pain G89.29: Chronic right shoulder pain ADDITIONAL CLINICAL INFORMATION: Ordering Provider Reason For Exam: Right shoulder pain COMPARISON: None. FINDINGS: The osseous structures are intact without acute fracture. Theglenohumeral and acromioclavicular joints are in anatomic alignment. Bone density and texture are normal. IMPRESSION: No acute fracture or dislocation identified. Report dictated by Tramaine Rosa MD(presidential support specialist). I, Jose Alfredo Wells MD have personally reviewed and interpreted this examination/study. > Interpreting Provider: Jose Alfredo Wells MD on 04/15/2024 2:35 PM Shannon Diop MD DIAGNOSTIC IMAGING O RDERABLES * (ABNORMAL) BASIC METABOLIC PANEL (CALCIUM TOTAL) (04/15/2024 10:51 AM [facility]) Only the most recent of6 resultswithin the time period is included. BUN 37(H) 7 - 26 mg/dL 04/15/2024 12:30 PM [facility] Creatinine 1.20(H) 0.56 - 0.96 mg/dL 04/15/2024 12:30 PM [facility] Sodium 138 136 - 145 mmol/L 04/15/2024 12:30 PM [facility] Potassium 4.6(H) 3.5 - 4.5 mmol/L 04/15/2024 12:30 PM [facility] Chloride 107 98 - 107 mmol/L 04/15/2024 12:30 PM [facility] CO2 22 22 - 29 mmol/L 04/15/2024 12:30 PM [facility] Glucose 308(H) 70 - 99 mg/dL 04/15/2024 12:30 PM [facility] Calcium 8.9 8.4 - 10.2 mg/dL 04/15/2024 12:30 PM [facility] Anion Gap 9 6 - 16 04/15/2024 12:30 PM [facility] BUN/Creatinine Ratio 31(H) 7 - 23 04/15/2024 12:30 PM [facility] Osmolality Calculated 306(H) 275 - 295 mOsm/kg 04/15/2024 12:30 PM [facility] eGFR by CKD-EPI 49(L) >=90 mL/min/1.7 3 m2 04/15/2024 12:30 PM [facility] Blood BLOOD SPECIMEN / Unknown Venipuncture / Unknown 04/15/2024 10:51 AM [facility] 04/15/2024 12:04 PM [facility] Shannon Diop MD LAB - CHEMISTRY REBECCA SHERIDAN [facility] Organization Address City/State/ZIP Co de Phone Number [facility] [address] [place] [address], [facility] [phone] * (ABNORMAL) CBC W AUTO DIFFERENTIAL (04/15/2024 2:31 AM [facility]) Only the most recent of3 resultswithin the time period is included. WBC 8.9 4.0 - 10.7 x10E9/L 04/15/2024 5:11 AM [facility] RBC Count 3.99 3.90 - 5.20 x10E12/L 04/15/2024 5:11 AM [facility] Hemoglobin 11.5(L) 11.9 - 15.8 g/dL 04/15/2024 5:11 AM [facility] Hematocrit 35.1 34.8 - 46.1 % 04/15/2024 5:11 AM [facility] MCV 88.0 80.0 - 98.0 fL 04/15/2024 5:11 AM [facility] MCH 28.8 26.7 - 33.6 pg 04/15/2024 5:11 AM [facility] MCHC 32.8 31.7 - 36.3 g/dL 04/15/2024 5:11 AM [facility] RDW-CV 13.7 11.3 - 14.8 % 04/15/2024 5:11 AM [facility] Platelet Count 165 150 - 420 x10E9/L 04/15/2024 5:11 AM [facility] MPV 11.4 7.8 - 11.4 fL 04/15/2024 5:11 AM [facility] Neutrophil % 37.2(L) 41.0 - 74.0 % 04/15/2024 5:11 AM [facility] Lymphocyte % 46.8 17.0 - 47.0 % 04/15/2024 5:11 AM [facility] Monocyte % 12.4(H) 3.0 - 11.0 % 04/15/2024 5:11 AM [facility] Eosinophil % 2.7 0.0 - 7.0 % 04/15/2024 5:11 AM [facility] Basophil % 0.7 0.0 - 1.6 % 04/15/2024 5:11 AM [facility] Immature Granulocytes % 0.2 0.0 - 1.0 % 04/15/2024 5:11 AM [facility] Neutrophil Absolute 3.32 1.60 - 7.50 x10E9/L 04/15/2024 5:11 AM [facility] Lymphocyte Absolute 4.18 1.00 - 4.40 x10E9/L 04/15/2024 5:11 AM [facility] Monocyte Absolute 1.11(H) 0.15 - 1.00 x10E9/L 04/15/2024 5:11 AM [facility] Eosinophil Absolute 0.24 0.00 - 0.60 x10E9/L 04/15/2024 5:11 AM [facility] Basophil Absolute 0.06 0.00 - 0.13 x10E9/L 04/15/2024 5:11 AM [facility] Blood BLOOD SPECIMEN / Unknown Lab Venipuncture / Unknown 04/15/2024 2:31 AM [facility] 04/15/2024 5:05 AM [facility] Shannon Diop MD LAB - HEMATOLOGY ORD ERABLES [address] [address], [facility] [phone] * (ABNORMAL) URINALYSIS REFLEX MICROSCOPIC REFLEX CULTURE (04/14/2024 9:51 AM [facility]) Color UA Yellow Yellow, Straw 04/14/2024 2:14 PM [facility] Clarity UA Turbid(A) Clear 04/14/2024 2:14 PM [facility] Glucose UA 2+(A) Normal 04/14/2024 2:14 PM [facility] Bilirubin UA Negative Negative 04/14/2024 2:14 PM [facility] Ketone UA Negative Negative 04/14/2024 2:14 PM [facility] Specific [place] UA 1.024 1.005 - 1.030 04/14/2024 2:14 PM [facility] Blood UA Negative Negative 04/14/2024 2:14 PM [facility] pH UA 8.0 5.0 - 9.0 pH 04/14/2024 2:14 PM [facility] Protein UA 1+(A) Negative 04/14/2024 2:14 PM [facility] Urobilinogen UA Normal Normal mg/dL 04/14/2024 2:14 PM [facility] Nitrite UA Negative Negative 04/14/2024 2:14 PM [facility] Leukocyte UA Negative Negative 04/14/2024 2:14 PM [facility] RBC UA 3-5 0 - 5 # /hpf 04/14/2024 2:14 PM [facility] WBC UA 0-5 0 - 5 # /hpf 04/14/2024 2:14 PM [facility] Bacteria UA Trace(A) None Seen 04/14/2024 2:14 PM [facility] Squamous Epithelial Cells 0-2 0 - 5 /hpf 04/14/2024 2:14 PM [facility] Mucus UA 1+ /LPF 04/14/2024 2:14 PM [facility] Triple Phosphate Crystals Occasional( A) None seen /HPF 04/14/2024 2:14 PM [facility] Urine URINE SPECIMEN OBTAINED BY CLEAN CATCH PROCEDURE / Unknown Collection / Unknown 04/14/2024 9:51 AM [facility] 04/14/2024 1:19 PM [facility] - 04/14/2024 2:14 PM [facility] Gagandeep Lee MD LAB - URINALYSIS ORD ERABLES [facility] [address] [place] [address], [facility] [phone] * UREA NITROGEN URINE RANDOM (04/14/2024 9:51 AM [facility]) Urea Nitrogen Random Urine 897 Not Established mg/dL 04/14/2024 1:45 PM [facility] Urine URINE SPECIMEN OBTAINED BY CLEAN CATCH PROCEDURE / Unknown Collection / Unknown 04/14/2024 9:51 AM [facility] 04/14/2024 1:19 PM [facility] Kirk Funez MD LAB - URINE CH EMISTRY ORDERABLES [address] [address], [facility] [phone] * CREATININE URINE RANDOM (04/14/2024 9:51 AM [facility]) Creatinine Urine 126.45 Not Established mg/dL 04/14/2024 1:45 PM [facility] Urine URINE SPECIMEN OBTAINED BY CLEAN CATCH PROCEDURE / Unknown Collection / Unknown 04/14/2024 9:51 AM [facility] 04/14/2024 1:19 PM [facility] Kirk Funez MD LAB - URINE CH EMISTRY ORDERABLES [address] [address], [facility] [phone] * LYTES (NA K CL) URINE RANDOM PANEL (04/14/2024 9:50 AM [facility]) Sodium Urine 89 Not Established mmol/L 04/14/2024 1:39 PM [facility] Potassium Urine 101.3 Not Established mmol/L 04/14/2024 1:39 PM [facility] Chloride Random Urine 106 Not Established mmol/L 04/14/2024 1:39 PM [facility] Urine URINE SPECIMEN OBTAINED BY CLEAN CATCH PROCEDURE / Unknown Collection / Unknown 04/14/2024 9:50 AM [facility] 04/14/2024 1:19 PM [facility] Shannon Diop MD LAB - URINE CHEMISTR Y ORDERABLES Performing Organization Address [facility]/ZIP Co de Phone Number [address] [address], [facility] [phone] * SARS-COV-2 (COVID-19) FLU A/B RSV PCR RAPID (04/13/2024 6:58 PM [facility]) COVID-19 PCR Not detected Not detected 04/13/19 7:46 PM [facility] Influenza A PCR Not detected Not detected 04/13/2024 7:46 PM [facility] Influenza B PCR Not detected Not detected 04/13/2024 7:46 PM [facility] RSV PCR Not detected Not detected 04/13/2024 7:46 PM [facility] Microbiology SPECIMEN FROM NASOPHARYNGEAL STRUCTURE / Unknown Collection / Unknown 04/13/2024 6:58 PM [facility] 04/13/2024 7:03 PM [facility] Narrative [facility] - 04/13/2024 7:46 PM [facility] This nucleic acid amplification assay has been authorized by the Food and Drug administration (FDA) under an Emergency Use Authorization (EUA). This test is only authorized for the duration of time the declaration that circumstances exist justifying the authorization of emergency use of in vitro diagnostic tests for detection of SARS-CoV-2 virus and/or diagnosis of COVID-19 infection under section 564(b)(1) of the Act, 21 U.S.C 360bbb-3 (b)(1), unless the authorization is terminated or revoked sooner. Fact Sheets for this EUA assay are available upon request. Gagandeep Lee MD LAB - MICROBIOLOGY O RDERABLES Performing Organization Address City/[facility]/ZIP Co de Phone Number [address] [address], [facility] [phone] * TROPONIN-I HIGH SENSITIVE REFLEX 1HOUR (04/13/2024 6:13 PM [facility]) Troponin I High Sensitive 11 <=14 ng/L 04/13/2024 6:58 PM [facility] Delta Troponin I HS 04/13/2024 6:58 PM [facility] Comment:Delta value intentio merlyn not calculated. Baseline to 1 hour specimen collection interval exceeded. Blood BLOOD SPECIMEN / Unknown Venipuncture / Unknown 04/13/2024 6:13 PM [facility] 04/13/2024 6:19 PM [facility] Gagandeep Lee MD LAB - CHEMISTRY REBECCA SHERIDAN Performing Organization Address [facility]/ZIP Co de Phone Number [address] [address], [place] [phone] * CULTURE BLOOD (04/13/2024 5:48 PM [facility]) Only the most recent of2 resultswithin the time period is included. Pathologist [facility] Culture No growth day 5 SIA 04/18/2024 11:31 PM [facility] MICROBIOLOGY Blood PERIPHERAL BLOOD / Unknown Venipuncture / Unknown 04/13/2024 5:48 PM [facility] 04/13/2024 6:01 PM [facility] Gagandeep Lee MD LAB - MICROBIOLOGY O RDERABLES Performing Organization Address [facility] Co de Phone Number [facility] MICROBIOLOGY [address] [place] [address], [facility] [phone] * LACTIC ACID BLOOD REFLEX TO REPEAT (04/13/2024 5:43 PM [facility]) Pathologist [facility] Lactic Acid-Stat 0.8 <=2.0 mmol/L 04/13/2024 6:15 PM [facility] Blood BLOOD SPECIMEN / Unknown Venipuncture / Unknown 04/13/2024 5:43 PM [facility] 04/13/2024 5:44 PM [facility] Gagandeep Lee MD LAB - CHEMISTRY REBECCA SHERIDAN Performing Organization Address [facility]/ZIP Co de Phone Number [address] [address], [place] [phone] * EKG 12-LEAD (04/13/2024 5:12 PM [facility]) Ventricular Rate 69 BPM [facility] Atrial Rate 69 BPM [facility] P-R Interval 166 ms [facility] QRS Duration ms 136 ms [facility] Q-T Interval ms 476 ms [facility] QTC Calculation (Bezet) 510 ms [facility] Calculated P [place] 53 degrees [facility] Calculated R [place] -40 degrees [facility] Calculated T [place] 91 degrees [facility] Interpretation EKG NORMAL SINUS RHYTHM LEFT AXIS DEVIATION LEFT BUNDLE BRANCH BLOCK ABNORMAL ECG NO PREVIOUS ECGS AVAILABLE Confirmed by MD ANTWON, ROBERT ([id number]) on 04/17/2024 8:34:23 AM H MUSE 04/13/2024 5:12 PM [facility] 04/17/2024 8:34 AM [facility] Gagandeep Lee MD ECG ORDERABLES [facility] M[facility] * XR CHEST 1VW PORTABLE (04/13/2024 4:42 PM [facility]) Anatomical Region Laterality Modality Chest Digital Radiogra phy 04/13/2024 5:53 PM [facility] Narrative 04/14/2024 4:10 PM [facility] PROCEDURE: XR CHEST 1VW PORTABLE, DATE/TIME OF EXAM: 04/13/2024 4:42 PM, LOCATION [facility] INDICATION: R41.82: Altered mental status, unspecified altered mental status type ADDITIONAL CLINICAL INFORMATION: Ordering Provider Reason For Exam: cardiopulmonary process Comparison: Chest x-ray 09/30/2022 FINDINGS/IMPRESSION: The patient is right rotated. Left basilar atelectasis and central airspace disease. No pleural effusion or pneumothorax. Patient rotation limits evaluation of heart and mediastinal contours. No displaced fractures visualized. Report dictated by Ran Levi MD (presidential support specialist). I, Lucas Rosario MD have personally reviewed and interpreted this examination/study. > Interpreting Provider: Lucas Rosario MD on 04/14/2024 4:10 PM Procedure Note Lucas Rosario MD - 04/14/2024 PROCEDURE: XR CHEST 1VW PORTABLE, DATE/TIME OF EXAM: 04/13/2024 4:42PM, LOCATION [facility] INDICATION: R41.82: Altered mental status, unspecified altered mental status type ADDITIONAL CLINICAL INFORMATION: Ordering Provider Reason For Exam: cardiopulmonary process Comparison: Chest x-ray 09/30/2022 FINDINGS/IMPRESSION: The patient is right rotated. Left basilar atelectasis and centralairspace disease. No pleural effusion or pneumothorax. Patient rotation limits evaluation of heart and mediastinal contours. No displaced fractures visualized. Report dictated by Ran Levi MD (presidential support specialist). I, Lucas Rosario MD have personally reviewed and interpreted this examination/study. > Interpreting Provider: Lucas Rosario MD on 04/14/2024 4:10 PM Gagandeep Lee MD DIAGNOSTIC IMAGING O RDERABLES * PT-INR [facility] (04/13/2024 4:05 PM [facility]) [facility] PT 13.8 12.1 - 14.8 Seconds 04/13/2024 4:33 PM [facility] INR 1.1 See Comment 04/13/2024 4:33 PM [facility] Comment:The suggested therap eutic range for standard coumadin (warfarin) therapy is an INR of 2.0-3.0. For high-risk patients (Mechanical Mitral Valve Prosthesis, etc.), the suggested prophylactic therapeutic range is an INR of 2.5-3.5. Blood BLOOD SPECIMEN / Unknown Venipuncture / Unknown 04/13/2024 4:05 PM [facility] 04/13/2024 4:09 PM [facility] Gagandeep Lee MD LAB - COAGULATION OR DERABLES [facility] [address] [place] [address], [facility] [phone] * (ABNORMAL) TROPONIN-I HIGH SENSITIVE BASELINE + 1HR (04/13/2024 4:02 PM [facility]) Pathologist [facility] Troponin I High Sensitive 16(H) <=14 ng/L 04/13/2024 4:44 PM [facility] Blood BLOOD SPECIMEN / Unknown Venipuncture / Unknown 04/13/2024 4:02 PM [facility] 04/13/2024 4:12 PM [facility] Gagandeep Lee MD LAB - CHEMISTRY REBECCA SHERIDAN Performing Organization Address [facility] Co de Phone Number [facility] [address] [place] [address], [facility] [phone] * (ABNORMAL) DIFFERENTIAL MANUAL (04/13/2024 4:02 PM [facility]) Neutrophil % 77(H) 41 - 74 % 04/13/2024 4:35 PM [facility] Lymphocyte % 10(L) 17 - 47 % 04/13/2024 4:35 PM [facility] Monocyte % 10 3 - 11 % 04/13/2024 4:35 PM [facility] Eosinophil % 1 0 - 7 % 04/13/2024 4:35 PM [facility] Basophil % 2 0 - 2 % 04/13/2024 4:35 PM [facility] Neutrophil Absolute 15.02(H) 1.60 - 7.50 x10E9/L 04/13/2024 4:35 PM [facility] Lymphocyte Absolute 1.95 1.00 - 4.40 x10E9/L 04/13/2024 4:35 PM [facility] Monocyte Absolute 1.95(H) 0.15 - 1.00 x10E9/L 04/13/2024 4:35 PM [facility] Eosinophil Absolute 0.20 0.00 - 0.60 x10E9/L 04/13/2024 4:35 PM [facility] Basophil Absolute 0.39(H) 0.00 - 0.13 x10E9/L 04/13/2024 4:35 PM [facility] RBC Morphology REVIEWED 04/13/2024 4:35 PM [facility] Microcytosis MODERATE(A) (none) 04/13/2024 4:35 PM [facility] Blood BLOOD SPECIMEN / Unknown Venipuncture / Unknown 04/13/2024 4:02 PM [facility] 04/13/2024 4:15 PM [facility] Gagandeep Lee MD LAB - HEMATOLOGY ORD BARBIE Performing Organization Address City/[facility]/ZIP Co de Phone Number [facility] [address] [place] [address], [facility] [phone] * B-TYPE NATRIURETIC PEPTIDE (04/13/2024 4:02 PM [facility]) [facility] BNP 77 <100 pg/mL 04/13/2024 5:14 PM [facility] Comment: A decision threshold of 100 pg/mL has been demonstrated to provide the maximal combination of sensitivity, specificity and predictive value for the diagnosis of congestive heart failure (CHF). Virtually all patients with no evidence of CHF have BNP values less than 100 pg/mL. A BNP value greater than 100 pg/mL is consistent with the diagnosis of CHF in the appropriate clinical setting. In a study of 693 patients (male and female) with diagnosed CHF, the following values were determined based on the NYHA functional classification system: NYHA Functional Class Mean Valule (pg/mL) % >100 pg/mL I 320 58.1 II 432 73.0 III 656 79.0 IV 1635 98.3 Blood BLOOD SPECIMEN / Unknown Venipuncture / Unknown 04/13/2024 4:02 PM [facility] 04/13/2024 4:10 PM [facility] Gagandeep Lee MD LAB - CHEMISTRY REBECCA SHERIDAN Performing Organization Address [facility]/ZIP Co de Phone Number [facility] [address] [place] [address], [facility] [phone] * (ABNORMAL) COMPREHENSIVE METABOLIC PANEL (04/13/2024 4:02 PM [facility]) [facility] BUN 31(H) 7 - 26 mg/dL 04/13/2024 4:40 PM [facility] Creatinine 1.35(H) 0.56 - 0.96 mg/dL 04/13/2024 4:40 PM [facility] Sodium 141 136 - 145 mmol/L 04/13/2024 4:40 PM [facility] Potassium 4.9(H) 3.5 - 4.5 mmol/L 04/13/2024 4:40 PM [facility] Chloride 111(H) 98 - 107 mmol/L 04/13/2024 4:40 PM [facility] CO2 23 22 - 29 mmol/L 04/13/2024 4:40 PM [facility] Glucose 98 70 - 99 mg/dL 04/13/2024 4:40 PM [facility] Calcium 8.9 8.4 - 10.2 mg/dL 04/13/2024 4:40 PM [facility] Protein Total 6.9 6.0 - 8.3 g/dL 04/13/2024 4:40 PM [facility] Albumin 3.6 3.4 - 5.0 g/dL 04/13/2024 4:40 PM [facility] Bilirubin Total 0.3 0.2 - 1.2 mg/dL 04/13/2024 4:40 PM [facility] Alkaline Phosphatase 94 40 - 150 U/L 04/13/2024 4:40 PM [facility] ALT 88(H) 5 - 55 U/L 04/13/2024 4:40 PM [facility] AST 87(H) 5 - 34 U/L 04/13/2024 4:40 PM [facility] Anion Gap 7 6 - 16 04/13/2024 4:40 PM [facility] BUN/Creatinine Ratio 23 7 - 23 04/13/2024 4:40 PM [facility] Osmolality Calculated 299(H) 275 - 295 mOsm/kg 04/13/2024 4:40 PM [facility] Albumin/Globulin Ratio 1.1 1.1 - 2.3 04/13/2024 4:40 PM [facility] eGFR by CKD-EPI 43(L) >=90 mL/min/1.7 3 m2 04/13/2024 4:40 PM [facility] Blood BLOOD SPECIMEN / Unknown Venipuncture / Unknown 04/13/2024 4:02 PM [facility] 04/13/2024 4:12 PM [facility] Gagandeep Lee MD LAB - CHEMISTRY REBECCA SHERIDAN [facility] Organization Address City/State/ZIP Co de Phone Number [facility] [address] [place] [address], [facility] [phone] * LIPID PROFILE (03/08/2024 8:15 AM [facility]) Cholesterol 108 100 - 199 mg/dL [facility] INSURANCE BILL Triglycerides 77 0 - 149 mg/dL [facility] INSURANCE BILL HDL Cholesterol 52 >39 mg/dL [facility] INSURANCE BILL VLDL Calculated 16 5 - 40 mg/dL [facility] INSURANCE BILL LDL Calculated 40 0 - 99 mg/dL [facility] INSURANCE BILL Blood BLOOD SPECIMEN / Unknown 03/08/2024 8:15 AM [facility] 03/08/2024 Narrative [facility] INSURANCE BILL - 03/09/2024 3:07 AM [facility] Performed at: [facility] - [facility] [address] [place], [place] [id number] Beater Room Helper: Rodolfo Gay PhD, Phone: [phone] Kassidyhang Encinas RN OTOLARYNGOLOGY-WAITER/WAITRESS INFORMAL LAB - CHEMISTR Y ORDERABLES [facility] INSURANCE BILL [address] [place] [address] * (ABNORMAL) CBC W/O DIFFERENTIAL (02/29/2024 7:18 AM [facility]) Only the most recent of2 resultswithin the time period is included. WBC 8.4 4.0 - 10.7 x10E9/L 02/29/2024 8:14 AM [facility] RBC Count 4.10 3.90 - 5.20 x10E12/L 02/29/2024 8:14 AM [facility] Hemoglobin 11.6(L) 11.9 - 15.8 g/dL 02/29/2024 8:14 AM [facility] Hematocrit 35.9 34.8 - 46.1 % 02/29/2024 8:14 AM [facility] MCV 87.6 80.0 - 98.0 fL 02/29/2024 8:14 AM [facility] MCH 28.3 26.7 - 33.6 pg 02/29/2024 8:14 AM [facility] MCHC 32.3 31.7 - 36.3 g/dL 02/29/2024 8:14 AM [facility] RDW-CV 14.3 11.3 - 14.8 % 02/29/2024 8:14 AM [facility] Platelet Count 176 150 - 420 x10E9/L 02/29/2024 8:14 AM [facility] MPV 11.9(H) 7.8 - 11.4 fL 02/29/2024 8:14 AM [facility] Blood BLOOD SPECIMEN / Unknown Lab Venipuncture / Unknown 02/29/2024 7:18 AM [facility] 02/29/2024 8:07 AM [facility] Kassidy Encinas RN OTOLARYNGOLOGY-WAITER/WAITRESS INFORMAL LAB - HEMATOLO GY ORDERABLES Performing Organization Address [facility]/ZIP Co de Phone Number [address] [address], [place] [phone] * ACT LR - POCT ([facility]) (02/28/2024 3:44 PM [facility]) Only the most recent of2 resultswithin the time period is included. ACT LR 296 See result comments sec 02/29/2024 10:12 AM [facility] Blood BLOOD SPECIMEN / Unknown 02/28/2024 3:44 PM [facility] 02/29/2024 10:12 AM [facility] Narrative [facility] - 02/29/2024 10:12 AM [facility] ACT-LR Therapeutics ranges are: Cardiac wood and wood products labourer = 200-300 seconds Sheath pull = ACT less than 170 seconds EPS lab = 200-240 seconds Sheath pull = ACT less than 140 seconds Radiology : CT/Angio lab = 200-300 seconds Sheath pull = ACT less than 200 seconds Expected range of normal volunteers: ACT-LR = 113-149 seconds Expected range of a Non-heparin patients: ACT-LR = 89-169 seconds From established ranges from the company manual Dahlia Salazar MD LAB - COAGULATION O RDERABLES [address] [address], [place] [phone] * CCL STAGED PERC CORONARY INTERVENTION (02/28/2024 2:48 PM [facility]) Anatomical Region Laterality Modality X-Ray Angiograph y Narrative 02/28/2024 7:44 PM [facility]RON Successful PCI of proximal RCA using 3.0 RISHI Prior mid LAD stent widely patent Stable mid LCx 50% stenosis Ost LAD to Prox LAD lesion is 20% stenosed . . Procedure Details Estimated Blood Loss: 5 mL Coronary Findings Diagnostic Dominance: Right Left Anterior Descending: The vessel is moderate in size. There is severe diffuse disease throughout the vessel. mid LAD 80% stenosis right after diagonal 1 takeoff with distal MANUEL III flow Ost LAD to Prox LAD lesion is 20% stenosed. Not the culprit lesion. MANUEL flow is 3. The lesion is not complex (non high-C). The lesion is moderately calcified. The lesion is not chronically occluded. The lesion was previously treated using a drug-eluting stent. Previous treatment took place less than 1 month ago. The lesion has no restenosis. No thrombosis in the previous stent. The stenosis was measured by a visual reading. Patient became agitated during the PCI. We decided to stage prox-mid LAD lesion for future, as it may be a longer intervention, its calcified and may require atherectomy. Previously placed Prox LAD to Mid LAD drug eluting stent is widely patent. Culprit lesion. The lesion is type C and located at the bifurcation. The Bermeo classification is 1,1,0 - main branch proximal and distal. The lesion is mildly calcified. The lesion is not chronically occluded. The lesion was previously treated using angioplasty. Angioplasty was performed using a standard balloon. First Diagonal Branch: The vessel is small to moderate in size and is moderate in size. 60% ostial/proximal diagonal disease 1st Diag lesion is 50% stenosed. Not the culprit lesion. The lesion is distal to major branch and eccentric. The lesion is not chronically occluded. The lesion was not previously treated. Second Diagonal Branch: The vessel is small in size. Left Circumflex: Prox Cx to Mid Cx lesion is 50% stenosed. Not the culprit lesion. MANUEL flow is 3. The lesion is not chronically occluded. The lesion was not previously treated. First Obtuse Marginal Branch: The vessel is small to moderate in size. diffuse 60% OM1 disease Right Coronary Artery: The vessel is moderate in size and is angiographically normal. Prox RCA lesion is 80% stenosed. Not the culprit lesion. MANUEL flow is 3. The lesion is not complex (non high-C), located proximal to the major branch and discrete. The lesion is not chronically occluded. The lesion was not previously treated. Intervention Prox RCA lesion: Angioplasty: Angioplasty was performed using a standard balloon prior to stent deployment. The balloon used was a Cath Balln Dil Nc Emerge Monrl 3Mm 143Cm. Stent: Drug-eluting stent was successfully placed. The stent used was a Sys Cor Stent Sng Xd Mr 3Mm 12Mm Dlv Sys. Angioplasty: Angioplasty was performed using a standard balloon following stent deployment. The balloon used was a Cath Balln Dil Nc Emerge Monrl 3Mm 143Cm. Post-Intervention Lesion Assessment: The intervention was successful. The guidewire crossed the lesion. Device was deployed. Post- intervention MANUEL flow is 3. There were no complications. ultrasound (IVUS) was not performed. The stent is fully expanded. The stent is fully opposed to the vessel wall. There is a 0% residual stenosis post intervention. Recommendations - - Routine post cath recovery - Continue DAPT for minimum 30 days then consider stopping aspirin and continue SAPT Kassidy Encinas RN OTOLARYNGOLOGY-WAITER/WAITRESS INFORMAL CV CARDIAC CAT H CUPID PROCS * LAB RESULTS ORDER (02/16/2024) Narrative 02/16/2024 Ordered by an unspecified provider. Scanned Document LAB - THERAPEUTIC DR GOMEZ MONITORING ORDERABLES * (ABNORMAL) HEMOGLOBIN A1C (01/04/2024 4:03 PM [facility]) Hemoglobin A1c 6.8(H) <=5.6 % 01/05/2024 9:28 AM [facility] Estimated Average Glucose 148 mg/dL 01/05/2024 9:28 AM [facility] Comment: HbA1c Interpretation: Normal : < 5.7% Pre-diabetes: 5.7-6.4% Diabetes: Equal to or greater than 6.5% Test results diagnostic of diabetes should be repeated for confirmation. Treatment target values recommended by ADA and other clinical organizations should be used to evaluate metabolic control in patients. Reference: [place] Diabetes Association, Standards of Care in Diabetes -2020 In patients 70 years and older consider HbA1c target range of 7.0-7.5% (Reference: Sarbjit Marcos et al. JAMDA. 2012) The Sebia assay for the measurement of HbA1c is a National Glycohemoglobin Standardization Program (NGSP) certified method. Blood BLOOD SPECIMEN / Unknown Lab Venipuncture / Unknown 01/04/2024 4:03 PM [facility] 01/04/2024 4:29 PM [facility] Gina Brink MD LAB - CHEMISTRY O RDERABLES Performing Organization Address [facility] Co de Phone Number [address] [address], [facility] [phone] * EYE EXAM (04/05/2023) Anatomical Region Laterality Modality Other Historical Provider MD SCANNING ONLY * MICROALB/CREAT RATIO URINE RANDOM PANEL (01/26/2023 3:41 PM [facility]) Albumin Random Urine 40.1 Not Established ug/mL 01/26/2023 4:32 PM [facility] Creatinine Urine 203.75 Not Established mg/dL 01/26/2023 4:32 PM [facility] Urine Albumin/Creati nine Ratio 20 <30 mg/g 01/26/2023 4:32 PM [facility] Urine URINE SPECIMEN OBTAINED BY CLEAN CATCH PROCEDURE / Unknown Collection / Unknown 01/26/2023 3:41 PM [facility] 01/26/2023 3:58 PM [facility] Ralph Gutierres MD LAB - URINE CHEMIS TRY ORDERABLES Performing Organization Address [facility] Co de Phone Number [address] [address], [place] [phone] * MAMMO BILAT SCREENING W KYLIE (12/26/2020 7:47 AM BUS [facility]) Anatomical Region Laterality Modality Breast Bilateral Mammography 12/26/2020 1:58 PM [facility] Impressions 12/26/2020 4:22 PM [facility] IMPRESSION: No mammographic evidence of malignancy. RECOMMENDATION: Screening mammography in one year, pending no interval breast concerns. Patient will be notified of the results by lay letter. OVERALL ASSESSMENT: BI-RADS CATEGORY 1: NEGATIVE. Report dictated by Mathew Barr DO (presidential support specialist) I, Dr. YANET CARBAJAL M.D. have personally reviewed and interpreted this examination/study. This report was electronically signed by YANET CARBAJAL M.D. on 12/26/2020 4:22 PM . Narrative 12/26/2020 4:22 PM [facility] EXAMINATION: DIGITAL MAMMO BILAT SCREENING W KYLIE AND WITH CAD DATE OF EXAM: 12/26/2020 HISTORY: Screening. RISK ASSESSMENT CALCULATION: Patient completed a breast cancer risk assessment during her appointment. Based upon the information she provided and her mammographic breast density, her lifetime risk of developing breast cancer is 9 % (Average Risk <15%; Intermediate / Moderate Risk 15-19%; High Risk > 20%). COMPARISON: No prior imaging is available. TECHNIQUE: Bilateral synthetic 2-D (C-view) digital mammogram images and bilateral digital breast tomosynthesis (3D) were obtained and reviewed in the craniocaudal and mediolateral oblique projections. A total of 4 images were obtained. Computer-aided detection (CAD) was utilized. BREAST PARENCHYMAL COMPOSITION: Category B: There are scattered areas of fibroglandular density. FINDINGS: There are no suspicious findings or evidence of malignancy on mammography. Ralph Gutierres MD MAMMO ORDERABLES * HEPATITIS C ANTIBODY (07/04/2018 10:02 AM CDT) Hepatitis C Antibody Non-react [place] Non-reac tive 07/04/2018 11:19 AM CDT [facility] Comment: Hepatitis C Antibody screen indicates no serologic evidence of past or current infection with Hepatitis C Virus. Patients with unexplained liver disease who are immunocompromised or suspected of having acute Hepatitis C infection may benefit from Nucleic Acid Test (LUAN) for Hepatitis C Viral RNA to confirm Hepatitis C status. Blood BLOOD SPECIMEN / Unknown Lab Venipuncture / Unknown 07/04/2018 10:02 AM CDT 07/04/2018 10:26 AM CDT Ralph Gutierres MD LAB - CHEMISTRY OR DERABLES [facility] [address] [phone] from Last 3 Months or Most Recently Relevant to Health Maintenance Advance Directives * Full Code (Latest Code Status on File) Date Activated Date Inactivated Comments 04/13/2024 8:00 PM 04/15/2024 4:25 PM * Full Code Date Activated Date Inactivated Comments 02/28/2024 3:03 PM 02/29/2024 11:51 AM * Full Code Date Activated Date Inactivated Comments 01/04/2024 3:41 PM 01/08/2024 4:35 PM * Full Code Date Activated Date Inactivated Comments 01/04/2024 10:59 AM 01/04/2024 3:41 PM * Full Code Date Activated Date Inactivated Comments 10/28/2021 10:03 AM 10/28/2021 3:02 PM Care Teams Cattle Knocker Relationship Specialty Start Date End Date Ralph Gutierres MD [address] [place] [address] PCP - General Family Medicine 01/18/23 Ralph Gutierres MD [address] [place] [address] PCP - [facility] 07/16/23 Ralph Gutierres MD [address] [place] [id number] Physician Family Medicine 01/18/23
--- OUTSIDE RECORDS SUMMARY | 2024-05-12 18:27 | XMS_ITS | Encounter Summary ---
Author Organization [facility] Health Address [address] [place] [address] Care Team Providers Care Trestle Mechanic Name Role Phone Ralph Gutierres MD Primary Care Provider [phone]- [phone] Ralph Gutierres MD Unavailable [phone] Ralph Gutierres MD Primary Care Provider + [phone] Ralph Gutierres MD Unavailable [phone] Encounter Details Date Type Department Care Team (Late st Contact Info) Description 01/17/2023 Telephone [facility] - Family Medicine [address] [place] [address], [facility] [place] [address] Ralph Gutierres MD [address] [place] [address] [place] [address] Social History Tobacco Use Types Packs/Day Years Used Date Smoking Tobacco: Former Cigarettes 0.5 5 1 991 - 1996 Smokeless Tobacco: Never Alcohol Use Standard Drinks/Week Comments Not Currently 0 (1 standard drink = 0.6 oz pur e alcohol) PHQ-2 Answer Date Recorded Patient Health Questionnaire-2 Score 0 09/30/2022 Sex and Gender Information Value Date Recorded Sex Assigned at Not on file Gender Identity Not on file Sexual Orientation Not on file documented as of this encounter Functional Status Functional Status Response Date of Assess ment Is person deaf or have serious hearing difficult y? No 10/28/2021 Is person blind or have serious difficulty seein g? No 10/28/2021 Does person have serious dif ficulty walking/climbing stairs? No 10/28/2021 Does person have difficulty dressing/bathing? No 10/28/2021 Does person have difficulty doing errands alone? No 10/28/2021 Cognitive Status Response Date of Assessm ent Does person have difficulty concentrating/remembering/making decisions? No 10/28/2021 documented as of this encounter Miscellaneous Notes * Telephone Encounter - Sepideh Ray - 01/17/2023 9:10 AM CST Current Provider name: Dr. Ralph Gutierres Reason for call: Ms. Yanna Caldwell has a FU appt w Dr. Gutierres 03/17/23 to review an MRI to the head. There's nothing sooner. She had to find an imaging clinic that would do open MRI. She would like a sooner appt and all Dr. Gutierres has are SPORT MEDICINE/Special Care Slots. Can she be scheduled in one of these for a much sooner appt. Sister stated possibly they are trying to find out if she has alzhemirs or dementia because of her behavior. Please advise. Call sister Cornelia Church [phone] Patient Call Back number: [phone] UATE RESEARCH ASSISTANT documented in this encounter Plan of Treatment Upcoming Encounters Date Type Department Care Team (Late st Contact Info) Description 05/14/2024 12:40 PM CDT Office Visit [facility] - Cardiology [address] [facility], [address] [address] Kassidy Encinas, ASYA-MACHINE OPERATOR TRANSPLANTER [address] [place] [address] Dahlia Salazar MD [address] [place] [address] documented as of this encounter Visit Diagnoses Not on filedocumented in this encounter Additional Health Concerns Infection Onset Date Last Indicated Resolved Time COVID-19 Under Investigation 01/08/2024 01/08/2024 01/08/2024 9:25 AM GRADUATE RESEARCH ASSISTANT COVID-19 Under Investigation 04/13/2024 04/13/2024 04/13/2024 7:46 PM GRADUATE RESEARCH ASSISTANT documented as of this encounter Care Teams Trestle Mechanic Relationship Specialty Start Date End Date Ralph Gutierres MD PCP - General 06/08/18 01/17/23 Ralph Gutierres MD [address] [place] [address] PCP - General Family Medicine 01/18/23 Ralph Gutierres MD [address] [place] [phone] PCP - [facility] 07/16/23 Ralph Gutierres MD [address] [place] [address] Physician Family Medicine 01/18/23 documented as of this encounter
--- OUTSIDE RECORDS SUMMARY | 2024-05-12 18:27 | XMS_ITS | Encounter Summary ---
Author Organization [facility] Health Address [address] [facility] [place] [address] Care Team Providers Care Vehicle Modification Technician Name Role Phone Ralph Gutierres MD Primary Care Provider +- [phone] Rlaph Gutierres MD Unavailable [phone] Ralph Gutierres MD Primary Care Provider + [phone] Ralph Gutierres MD Unavailable [phone] Encounter Details Date Type Department Care Team (Late Contact Info) Description 09/14/2021 Telephone [facility] [address] [place] [address] Ralph Gutierres MD [address] [address] Social History Tobacco Use Types Packs/Day Years Used Date Smoking Tobacco: Former Cigarettes 0.5 5 1 991 - 1995 Smokeless Tobacco: Never Alcohol Use Standard Drinks/Week Comments Not Currently 0 (1 standard drink = 0.6 oz pur e alcohol) PHQ-2 Answer Date Recorded PHQ2 TOTAL SCORE 0 04/16/2021 Sex and Gender Information Value Date Recorded Sex Assigned at Not on file Gender Identity Not on file Sexual Orientation Not on file documented as of this encounter Plan of Treatment Upcoming Encounters Date Type Department Care Team (Late Contact Info) Description 05/14/2024 12:40 PM CDT Office Visit [facility] - Cardiology [address] [facility], [facility] [address] [place] [phone] Kassidy Encinas APRN-BYPRODUCTS PUMP OPERATOR [address] [place] [address] Dahlia Salazar MD [address] [place] [address] documented as of this encounter Visit Diagnoses Not on filedocumented in this encounter Additional Health Concerns Infection Onset Date Last Indicated Resolved Time COVID-19 Under Investigation 01/08/2024 01/08/2024 01/08/2024 9:25 AM STOCKROOM HELPER COVID-19 Under Investigation 04/13/2024 04/13/2024 04/13/2024 7:46 PM STOCKROOM HELPER documented as of this encounter Care Teams Vehicle Modification Technician Relationship Specialty Start Date End Date Ralph Gutierres MD PCP - General 06/08/18 01/17/23 Ralph Gutierres MD [address] [place] [address] PCP - General Family Medicine 01/18/23 Ralph Gutierres MD [address] [place] [address] PCP - [facility] P[facility] 07/16/23 Ralph Gutierres MD [address] [place] [address] Physician Family Medicine 01/18/23 documented as of this encounter
--- OUTSIDE RECORDS SUMMARY | 2024-05-12 18:27 | XMS_ITS | Encounter Summary ---
Author Organization [facility] Health Address [address] [facility] [place] [address] Care Team Providers Care Progress Clerk Name Role Phone Ralph Gutierres MD Unavailable [phone] Ralph Gutierres MD Primary Care Provider + [phone] Ralph Gutierres MD Unavailable [phone] Encounter Details Date Type Department Care Team (Late st Contact Info) Description 02/02/2024 Telephone [facility] - Cardiology [address] [address] Dahlia Salazar MD [facility] [address] [id number] Social History Tobacco Use Types Packs/Day Years Used Date Smoking Tobacco: Former Cigarettes 0.5 5 1 991 - 1995 Smokeless Tobacco: Never Alcohol Use Standard Drinks/Week Comments Yes 0 (1 standard drink = 0.6 oz pur e alcohol) occasionally AUDIT-C Answer Date Recorded Q1: How often do you have a drink containing alcohol? Never 01/06/2024 Q2: How many drinks containi ng alcohol do you have on a typical day when you are drinking? Patient does not drink Q3: How often do you have si x or more drinks on one occasion? Never 01/06/2024 Overall Financial Resource Strain (CARDIA) Answe r Date Recorded How hard is it for you to pa y for the very basics like food, housing, medical care, and heating? Not hard at all 01/06/2024 PHQ-2 Answer Date Recorded Patient Health Questionnaire-2 Score 0 09/30/2022 [facility] - Occupational Stress Questionnaire Answer Date Recorded Do you feel stress - tense, restless, nervous, or anxious, or unable to sleep at night because your mind is troubled all the time - these days? Not at all 01/06/2024 Hunger Vital Sign Answer Date Recorded Within the past 12 months, y ou worried that your food would run out before you got the money to buy more. Never true 01/06/20 24 Within the past 12 months, t he food you bought just didn't last and you didn't have money to get more. Never true 01/06/2024 PRAPARE - Transportation Answer Date Re corded In the past 12 months, has l ack of transportation kept you from medical appointments or from getting medications? No 12/16 In the past 12 months, has l ack of transportation kept you from meetings, work, or from getting things needed for daily living? No 01/06/2024 Housing Stability Vital Sign Answer Miguel e Recorded In the last 12 months, was t here a time when you were not able to pay the mortgage or rent on time? No 01/06/2024 In the past 12 months, how m any times have you moved where you were living? 0 01/06/2024 At any time in the past 12 m [facility], were you homeless or living in a half-way (including now)? No 01/06/2024 Sex and Gender Information Value Date Recorded Sex Assigned at Not on file Gender Identity Not on file Sexual Orientation Not on file documented as of this encounter Functional Status Functional Status Response Date of Assess ment Is person deaf or have serious hearing difficult y? No 01/06/2024 Is person blind or have serious difficulty seein g? No 01/06/2024 Does person have serious dif ficulty walking/climbing stairs? No 01/06/2024 Does person have difficulty dressing/bathing? No 01/06/2024 Does person have difficulty doing errands alone? No 01/06/2024 Cognitive Status Response Date of Assessm ent Does person have difficulty concentrating/remembering/making decisions? No 01/06/2024 documented as of this encounter Miscellaneous Notes * Telephone Encounter - Radha Garcia RN - 02/02/2024 10:08 AM CST Received request for cath instructions to be mailed to patient's sister. Contacted patient's sisterto verify address. Address confirmed. Instruction letter mailed. Radha Garcia RN 02/02/2024 10:10 AM You have been scheduled for a heart catheterization in the [facility] at [facility] on Feb [address] Salazar. [facility] is located at [address] [place] [address], turn in at the Main Entrance or you can enter by going west on [facility]. You may park on the [place] side of garage directly across from the Hospital. Parking tickets will not print until after 5:30am. Press help button on parking meter if not open. Please bring your parking ticket with you for validation. Take elevator to Level 1, exit the elevator to your right and walk straight down the hallway to [facility] desk then the [employer]. During the hours of 8-8:30, visitors will also need to check in at the [employer]. Please arrive to the [employer] [employer] on First Level at [facility] by 9:30 am (two hours before start time). The doors will be locked prior 5:30 am. Before your surgery, you can expect to have an IV catheter placed, blood drawn, and vital signs measured. You will also clean your skin with a surgical soap and change into a hospital gown. You can expect to store your belongings in a small locker while in the public works laborer. After sedation, you can expect to spend a few hours being monitored while you wake up. Visitors are not allowed in therecovery area during this monitoring period. If groin access was used, you can expect to lay flat for 4-6 hours. Please contact the office with any questions you may have prior to your procedure at: [phone]. If you have questions for the hospital on the day of procedure call: [phone] Scheduling questions only: [phone] DO NOT eat any solid food after midnight the night before surgery including gum, cough drops, candy. You may have CLEAR LIQUIDS UNTIL: 9:30 am (2 HOURS PRIOR TO YOUR SCHEDULED START TIME) (Examples: Water, clear fruit juice (no pulp, no orange juice, vegetable juice), Gatorade, clear soda such as Sprite or 7-up (No lawrence or root beer), fruit flavored carbonated beverages, coffee or tea (no cream, milk or sugar), fat-free broth. This does NOT include alcoholic beverages Bring a list of your current medications. Please bring an overnight bag in case you are admitted to the hospital following your procedure. Leave all valuables at home. Bring rescue inhaler if needed, leave all home medications at home. If needed, the hospital will provide medications for you. If you are discharged the same day you will NOT be able to drive, please arrange for a ride home. Wear comfortable clothing that is loose fitting and not restrictive. Bring your insurance card and a photo ID. Please have your Lab work done prior to the procedure at [facility]: orders have been sent, no appointment required, please have these drawn 1-2 weeks before procedure If you have an Advanced Directive please bring a copy with you. Medication instructions: Follow the instructions below for diabetic medications: Humalog (insulin lispro): Take no short acting insulin the morning of procedure. and Lantus/Basaglar/Tujeo (insulin glargine):Take ?? usual amount the night before Continue all other medications as prescribed if not listed above. KLAYER APPRENTICE documented in this encounter Plan of Treatment Upcoming Encounters Date Type Department Care Team (Late st Contact Info) Description 05/14/2024 12:40 PM CDT Office Visit [facility] - Cardiology [address] [phone] [place] [address] Kassidy Encinas APRN-PEDRO [address] [place] [address] Dahlia Salazar MD [address] [place], [place] [phone] documented as of this encounter Visit Diagnoses Not on filedocumented in this encounter Additional Health Concerns Infection Onset Date Last Indicated Resolved Time COVID-19 Under Investigation 04/13/2024 04/13/2024 04/13/2024 7:46 PM BRICKLAYER APPRENTICE documented as of this encounter Care Teams Progress Clerk Relationship Specialty Start Date End Date Ralph Gutierres MD [address] [place] [address] PCP - General Family Medicine 01/18/23 Ralph Gutierres MD [address] [place] [phone] PCP - [facility] P4P 07/16/23 Ralph Gutierres MD [address] [place] [address] Physician Family Medicine 01/18/23 documented as of this encounter
--- OUTSIDE RECORDS SUMMARY | 2024-05-12 18:27 | XMS_ITS | Continuity of Care Document ---
Author Organization [facility] Address [address] [place] [address] [facility] [address] [place] [address] Phone Care Team Providers Care Picking Machine Operator Helper Name Role Phone Shawn Merrillhil Unavailable Unavailable Procedures Procedure Date Office/outpatient Visit, [facility] Advance Directives Directive Yes / No Effective Date File Name No Information Encounters Encounter Description Practice Location Reason(s) For Visit Diagnoses Date Provider Providers Copied on Encounter Office/outpat ient Visit, [facility], [address], [place], [place], [id number], [place] tel:[phone] [facility] No Information [phone] Desirae Jian. [address], [place], [address], [place]. tel:[phone] Referring Provider: Ryder Neville OD D, [address] [facility], [place], [address]. tel:[phone] Family History Family Member Type Diagnosis Age At Onset No Information Payers Payer name Insurance type Covered green party ID Authoriza tion(s) Medicaid [facility] [id number] Social History Type Description Quantity Date Captured Comments Sex Female Smoking Status No Information Chief Complaint And Reason For Visit No Information Reason For Referral Reason For Referral No Information History Of Present Illness Encounter Date Complaint History Of Prese nt Illness No Information Functional Status Date Functional Assessmen t No Information Instructions Date Instruction Additional Infor mation No Information Assessments Type Assessment Date No Information Patient Care Teams Name Effective Dates (start - stop) Status Members No Information
--- OUTSIDE RECORDS SUMMARY | 2024-05-12 18:27 | XMS_ITS | Encounter Summary ---
Author Organization [facility] Health Address [address] [facility] [place] [address] Care Team Providers Care Computer Technology Instructor Name Role Phone Ralph Gutierres MD Primary Care Provider [phone] Ralph Gutierres MD Unavailable [phone] Ralph Gutierres MD Primary Care Provider + [phone] Ralph Gutierres MD Unavailable [phone] Encounter Details Date Type Department Care Team (Late st Contact Info) Description 11/19/2022 Telephone [facility] - Family Medicine [address] [place] [address], [facility] [place] [address] Ralph Gutierres MD [address] [place] [address] [place] [id number] Social History Tobacco Use Types Packs/Day Years [...] encounter Miscellaneous Notes * Telephone Encounter - Neda Little - 11/19/2022 9:31 AM CDT Current Provider name:Ralph Gutierres Reason for call: sister called to follow up with any recommended places in [place] for to have a open MRI. Requesting a Urgent call back with any recommendations. Patient Call Back number: [phone] documented in this encounter Plan of Treatment Upcoming Encounters Date Type Department Care Team (Late st Contact Info) Description 05/14/2024 12:40 PM CDT Office Visit [facility] - Cardiology [address] [facility], [address] [address] Kassidy Encinas APRN-WASHER AND CAPPER MACHINE OPERATOR [address] [address] Dahlia Salazar MD [address] [address] documented as of this encounter Visit Diagnoses Not on filedocumented in this encounter Additional Health Concerns Infection Onset Date Last Indicated Resolved Time COVID-19 Under Investigation 01/08/2024 01/08/2024 01/08/2024 9:25 AM INDUSTRIAL COMMERCIAL GROUNDSKEEPER COVID-19 Under Investigation 04/13/2024 04/13/2024 04/13/2024 7:46 PM INDUSTRIAL COMMERCIAL GROUNDSKEEPER documented as of this encounter Care Teams Computer Technology Instructor Relationship Specialty Start Date End Date Ralph Gutierres MD PCP - General 06/08/18 01/17/23 Ralph Gutierres MD [address] [place] [id number] PCP - General Family Medicine 01/18/23 Ralph Gutierres MD [address] [place] [id number] PCP - [facility] 07/16/23 Ralph Gutierres MD [address] [place] [id number] Physician Family Medicine 01/18/23 documented as of this encounter
--- OUTSIDE RECORDS SUMMARY | 2024-05-12 18:27 | XMS_ITS | CONTINUITY OF CARE DOCUMENT ---
Author Name emilia nieto Address Unknown Organization [facility] Address [address] [place] [address] Phone [phone] Care Team Providers Care Wash Crew Person Name Role Phone Lorenzo Rosales MD Unavailable Lorenzo Rosales MD Unavailable INSURANCE PROVIDERS Payer name Policy type / Coverage type [place] red alliance party ID [facility] MEDICARE COMPLETE HMO Other [id number] Medicaid 1 [id number]
--- OUTSIDE RECORDS SUMMARY | 2024-05-12 18:27 | XMS_ITS | Clinical Summary ---
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 Name Role Phone Unavailable Primary Care Provider Unavailabl e Social History Tobacco Use Types Packs/Day Years Used Date Smoking Tobacco: Never Assessed Comments Unknown Sex and Gender Information Value Date Recorded Sex Assigned at Not on file Legal Sex Female 8:23 PM CDT Gender Identity Not on file Sexual Orientation Not on file Plan of Treatment Health Maintenance Due Date Last Done Comments Colorectal Cancer Screening Colonoscopy (10 Years) 1955 Hepatitis C 01/17/1974 DTaP, Tdap and Td Vaccines ( 1 - Tdap) 01/17/1975 Mammogram Screening 1996 Zoster Vaccines (1 of 2) 01/17/2006 Dexa Scan (General) 01/17/2021 Pneumococcal Vaccine: 65+ Ye ars (1 of 1 - PCV) 01/17/2021 COVID-19 Vaccine ( - 2023-2 5 season) 2023 Influenza Adult (#1) 2023 RSV Immunization or 60+ Years (1 - 1-dose 75+ series) 01/17/2031 Meningococcal B Vaccine Aged Out No l onger eligible based on patient's age to complete this topic Meningococcal Vaccine Aged Out No griselda aravind eligible based on patient's age to complete this topic RSV Immunizations Under 20 Months Aged Out No longer eligible based on patient's age to complete this topic
[2024-05-12] MEDS: oxyCODONE HCL (*CRX) 2.5 MG TAB IR PO (20:43)
--- NOTE | 2024-05-12 21:23 | PC.NURSE ---
patient ocl was placed on the right side short leg posterior per order from edp dr. reid. family member states that she would like patient to go home at this time. this rn attempted to do crutch training at this time due to patient being non-weight bearing due to fracture. pt unable to correctly use crutches and unable to sit up at the edge of the bed without screaming in pain. edp dr. humphresy at bedside explaining to patient and patient visitor the benefits of patient staying and the risks of patient going home. the patient visitor is adamant that patient go home and stay with her sister. pt visitor states that she can obtain a wheelchair for patient to get around. At this time patient has a difficult time rolling without pain. pharmacist in charge aware. Patient visitor called sister where patient lives to discuss if patient should go home or not. tank charger AI aware and speaking with family at this time.
[2024-05-12 22:40] VITALS: BP 95/58; PULSE 74; RESP 16; TEMP 36.9; O2SAT 92
[2024-05-12 23:01] VITALS: BMI 26.6
[2024-05-12 23:17] VITALS: BP 115/53; PULSE 75; RESP 16; TEMP 36.7; O2SAT 96
[2024-05-12 23:22] LABS: Glucose Point of Care 165 mg/dl (65-105)
--- NOTE | 2024-05-12 23:26 | ADMGEN ---
This patient, Yanna Caldwell, was admitted to Medical Room 340-01. Patient/family oriented to hospital policies and general routines including ID bracelet, bed and alarms, visiting hours, pain management, procedures, bathroom and other care routines, personal items, smoking policy, room service/diet, and visiting hours. Information on how to activate the Rapid Response Team has been discussed. Patient/Family are encouraged to report perceived risks to care and to ask questions if they do not understand what they are told or what they should do.
[2024-05-13] MEDS: oxyCODONE HCL (*CRX) 2.5 MG TAB IR PO ×2 (00:22→09:33)
[2024-05-13 00:23] LABS: Basophils Absolute Auto 0.1 K/mm3 (0.0-0.1); Basophils Percent Auto 0.5 % (0.2-1.2); Eosinophils Absolute Auto 0.2 K/mm3 (0-0.3); Eosinophils Percent Auto 1.2 % (0-4.4); Hematocrit 40.1 % (37.0-47.0); Hemoglobin 12.2 g/dL (12.0-15.0); Immature Granulocyte Absolute 0.03 K/mm3 (0.00-0.031); Immature Granulocyte Percent A 0.2 % (0-0.5); Lymphocytes Absolute Auto 2.26 K/mm3 (0.9-3.2); Lymphocytes Percent Auto 17.3 % (18.3-44.2); Mean Corpuscular HGB Conc 30.4 g/dl (32-36); Mean Corpuscular Hemoglobin 28.4 pg (26-34); Mean Corpuscular Volume 93.5 fl (80-100); Mean Platelet Volume 11.6 fl (7.4-10.4); Monocytes Absolute Auto 1.3 K/mm3 (0.1-0.6); Monocytes Percent Auto 10.1 % (2.6-8.5); Neutrophils Absolute Auto 9.2 K/mm3 (1.3-6.7); Neutrophils Percent Auto 70.7 % (45.5-73.1); Platelet Count Result 167 k/mm3 (150-375); Red Blood Count 4.29 M/mm3 (4.2-5.4); Red Cell Distribution Width 13.8 % (11.5-14.5)
--- NOTE | 2024-05-13 00:50 | P.HP_ITS ---
H&P: HPI History of Present Illness Date/Time: 05/13/24 00:50 Chief Complaint: fall with right leg pain Narrative: 69-year-old female with a past medical history type 2 diabetes mellitus with diabetic peripheral neuropathy, the dementia, COPD, coronary artery disease with 2 cardiac stents placed in February and March 2024 who presented to the ER via EMS several hours after ground level fall. The patient reports that she was up and going to the kitchen to give herself her mealtime insulin injection. On her way back into the other room which she tripped and fell. She fell and hit her head on a hard surface. She did not lose consciousness. She was alert oriented x3 at the time of my evaluation despite her history of dementia. She was a fair to good historian. She reports significant pain in her right lower extremity. She is refusing to let me evaluate the lower extremity Anton check for cap refill. The patient was cooperative up until that point but absolutely refused further assessment of the right lower extremity. She denied any preceding dizziness, lightheadedness or loss of balance. The patient did tells nursing staff that she does fall quite frequently up to 3 times a week. In the ER she was also complaining of pain in her opposite leg and right arm and shoulder. All imaging was negative for fracture except for the right fibula. The patient was actually prepared for discharge from the ER but then was having difficulty managing crutches. The patient tells me at the time of my evaluation that she actually has a walker at home that she chooses not to use unless she is out of the house. Review of Systems 2 Review of Systems: 12 systems were reviewed with pertinent positives and negatives per HPI. Except as documented in the HPI, all other systems were reviewed and are negative. [facility] Past Medical History Medical History (Updated 05/13/24 @ 21:39 by Deandra Barkley DO) Aortic valve stenosis Echocardiogram 2022 mild aortic valve sclerosis with mild stenosis peak velocity 1.6 mean gradient 5 aortic valve area 1.8 cm2 Diastolic dysfunction Echocardiogram 02/2022: EF 55-60% grade 1 diastolic dysfunction Dementia Per family report Type 2 diabetes mellitus Kidney stone Hyperlipidemia HTN (hypertension) with goal to be determined History of tobacco use COPD (chronic obstructive pulmonary disease) Surgical History Surgical History (Updated 05/13/24 @ 08:26 by Deandra Barkley DO) History of cholecystectomy H/O tubal ligation H/O section x3 Family History Family History Mother Ruptured cerebral aneurysm Diabetes mellitus Father Diabetes mellitus Dementia Malignant neoplasm of prostate Cerebrovascular accident Sibling Malignant neoplasm of prostate Social History Social History (Updated 05/13/24 @ 21:34 by Deandra Barkley DO) Social History: The patient lives with her son. She has 3 CHILDREN. She is on DISABILITY and . She has a brief history of smoking when she was young. She denies any alcohol or illicit substance use. Code status: Full code Healthcare power of divorce attorney: Justin Maddox (sister) Smoking packs per day: 0.5 Smoking cigarettes per day: 10.0 Years smoked: 2 Smoking pack-years: 1.00 Smoking status: Former smoker Tobacco type: cigarettes Second hand tobacco smoke exposure: Yes Additional smoking assessment comments: Pt is unsure when she quit smoking. Alcohol intake: former Alcohol use details: social Substance use: never Substance use type: does not use Do You Feel Safe in your Home?: Yes Lack of Transportation: No Lack of Food: Never True Current Housing: I Have Housing Concerned About Future Housing: No Difficulty Paying Gas/Electric Bills: No Difficulty Paying for Meds: No Currently Unemployed: No Education: High School Diploma/GED Difficulty w/ Childcare or Family Care: No Living arrangements: with family Occupation/Education: retired Gender identity (if verbalized by the patient): Female Sexual Orientation (if Verbalized by the Patient): Straight or Heterosexual Spiritual care concerns: No Meds Home Medications and Allergies Home Medications ?Medication ?Instructions ?Recorded ?Confirmed ?Type aspirin 81 mg tablet,delayed 81 mg PO DAILY 02/20/22 05/12/24 History release carvedilol 12.5 mg tablet 6.25 mg PO BID 02/20/22 05/12/24 History blood sugar diagnostic (Blood #10 ea 02/21/22 05/12/24 Rx Glucose Test strips) blood-glucose meter (Blood Glucose #1 ea 02/21/22 05/12/24 Rx Monitoring kit) insulin glargine 100 unit/mL (3 25 unit (0.25 mL) subcut HS #15 mL 02/21/22 05/12/24 Rx mL) subcutaneous pen (Lantus Solostar U-100 Insulin) insulin lispro 100 unit/mL 5 unit (0.05 mL) subcut TID #15 mL 02/21/22 05/12/24 Rx subcutaneous pen lancets 17 gauge #200 ea 02/21/22 05/12/24 Rx escitalopram oxalate 5 mg tablet 5 mg PO HS 10/10/23 05/12/24 History acetaminophen 500 mg tablet 1,000 mg (2 x 500 mg) PO TID PRN 05/12/24 Rx (Tylenol Extra Strength) pain #30 tabs ibuprofen 600 mg tablet 600 mg PO TID PRN pain #20 tabs 05/12/24 Rx methocarbamol 500 mg tablet 500 mg PO HS #7 tabs 05/12/24 Rx oxycodone 5 mg tablet 5 mg PO Q8H PRN pain #10 tabs 05/12/24 Rx rosuvastatin 40 mg tablet 40 mg PO DAILY 05/12/24 05/12/24 History ticagrelor 90 mg tablet (Brilinta) 90 mg PO Q12H 05/12/24 05/12/24 History Allergies Allergy/AdvReac Type Severity Reaction Status Date / Time No Known Allergies Allergy Verified 05/12/24 17:36 Vital Signs Vital Signs - 24 hr 05/12/24 17:29 05/12/24 22:40 05/12/24 23:17 Temperature 98.1 F 98.5 F 98.0 F Pulse Rate 62 74 75 Respiratory Rate 16 16 16 Blood Pressure 104/52 L 95/58 L 115/53 L Pulse Oximetry 97 92 96 Oxygen Delivery Room Air Exam 2 Narrative: Weight 60 kg BMI 26.7 Const: Other: Chronically ill-appearing, disheveled HENMT: Other: Bruise of the right brow, mucous membranes are tacky, patient has poor dentition in the upper and lower jaw with dental caries in the posterior upper jaw not well visualized, few remaining teeth are in poor condition Eyes: Other: Pupils are equal and reactive, no scleral icterus, no conjunctival pallor Neck: Other: No JVD, possible thyromegaly Resp: Other: Clear to auscultation bilaterally, no increased work of breathing Cardio: Other: Regular rate, regular rhythm, 2+ bilateral radial pedal pulses, GI: Other: Soft, nontender, nondistended, positive bowel sounds Skin: Other: No jaundice, no pallor, bruising to the right brow ridge Neuro: Other: Alert orient x3, speech is clear, no localizing neurologic deficits noted during the course of conversation, no gross motor deficits but exam limited due to splint on the patient's right lower extremity Extrem: Other: Splint to right lower extremity, seems to have adequate cap refill but patient is resistant to exam of the lower extremity, distal extremity has intact sensation Psych: Other: Odd affect, pleasant for the most part but resistant to portions of exam, poor insight H&P: Results Labs Labs: Laboratory Tests 05/13/24 00:19 05/13/24 17:12 05/12/24 05/13/24 05/13/24 23:14 00:13 00:19 WBC 13.0 H RBC 4.29 Hgb 12.2 Hct 40.1 MCV 93.5 MCH 28.4 MCHC 30.4 L RDW 13.8 Plt Count 167 MPV 11.6 H Immature Gran % (Auto) 0.2 Neut % (Auto) 70.7 Lymph % (Auto) 17.3 L [place] % (Auto) 10.1 H Eos % (Auto) 1.2 Baso % (Auto) 0.5 Lymph # (Auto) 2.26 [place] # (Auto) 1.3 H Eos # (Auto) 0.2 Baso # (Auto) 0.1 Abs Immat Gran (auto) 0.03 Absolute Neuts (auto) 9.2 H Absolute Nucleated RBC 0.000 Nucleated RBC % 0.0 Sodium 139 Potassium 5.2 H Chloride 107 Carbon Dioxide 22 Anion Gap 10 BUN 41 H D Creatinine 1.26 H Estim Creat Clear Calc Not Reportable Estimated GFR 42 L Glucose 157 H POC Capillary Glucose 165 H Calcium 9.0 Total Bilirubin 0.5 AST 90 H ALT 114 H Alkaline Phosphatase 122 Total Creatine Kinase 589 H Total Protein 7.0 Albumin 4.3 05/13/24 05/13/24 05/13/24 08:55 11:28 17:12 WBC RBC Hgb Hct MCV MCH MCHC RDW Plt Count MPV Immature Gran % (Auto) Neut % (Auto) Lymph % (Auto) [place] % (Auto) Eos % (Auto) Baso % (Auto) Lymph # (Auto) [place] # (Auto) Eos # (Auto) Baso # (Auto) Abs Immat Gran (auto) Absolute Neuts (auto) Absolute Nucleated RBC Nucleated RBC % Sodium 137 Potassium 4.5 Chloride 105 Carbon Dioxide 23 Anion Gap 9 BUN 41 H Creatinine 1.38 H Estim Creat Clear Calc Not Reportable Estimated GFR 38 L Glucose 269 H POC Capillary Glucose 167 H 200 H 278 H Calcium 8.1 L Total Bilirubin AST ALT Alkaline Phosphatase Total Creatine Kinase Total Protein Albumin X-rays of the foot, hip, shoulder oral performed and negative for acute fracture. X-rays personally reviewed agree with radiologic interpretation. Date of Service: 05/12/24 Procedure(s): XR tibia fibula RT 2V Accession Number(s): [id number] cc: [employer]; Geoffrey Royal MD~ HISTORY: fall COMPARISON: None TECHNIQUE: 2 views of the tibia and fibula were performed FINDINGS: Acute minimally displaced fracture of the proximal shaft of the fibula is identified. On lateral view there appears to be some callus formation, not appreciated on additional views for which history of prior injury should be elicited. Joint spaces are preserved and alignment is maintained. Soft tissues are unremarkable without foreign body or significant calcification. Age-appropriate mineralization. IMPRESSION: Minimally displaced fracture of the proximal shaft of the fibula, as detailed above. Date of Service: 05/12/24 Procedure(s): CT brain wo con Accession Number(s): [id number] cc: [employer]; Geoffrey Royal MD~ History: Fall PROCEDURE: CT head without contrast. COMPARISON: None 09/09/2023 and dating back to 08/17/2021 TECHNIQUE: Axial imaging of the head performed from the skull base to the vertex without IV contrast. Sagittal and coronal reformations obtained. DLP: 605 mGy-cm FINDINGS: The ventricles are normal in size, shape and position. Basal ganglia calcifications are present. There is no mass, mass effect or midline shift. There is no abnormal extra-axial fluid collection or intracranial hemorrhage. Visualized paranasal sinuses are clear. The mastoid air cells are well aerated. No acute displaced fractures within the overlying cranium. Attached to the lateral margin of the left optic nerve is a 7.3 x 7.9 mm soft tissue attenuation focus, unchanged from 2021, and likely not a clinically significant finding (unchanged dating back to 2021). Impression: No acute intracranial hemorrhage or suspicious mass effect. Assessment and Plan Assessment and plan (1) Closed fibular fracture: Qualifiers: Encounter type: initial encounter Fibula location: proximal Fracture morphology: unspecified fracture morphology Laterality: right Qualified Code(s): S82.831A - Other fracture of upper and lower end of right fibula, initial encounter for closed fracture Code(s): S82.409A - Unspecified fracture of shaft of unspecified fibula, initial encounter for closed fracture Status: Acute (2) Acute kidney injury: Code(s): N17.9 - Acute kidney failure, unspecified Status: Acute (3) Frequent falls: Code(s): R29.6 - Repeated falls Status: Acute (4) Type 2 diabetes mellitus with hyperglycemia, with long-term current use of insulin: Code(s): E11.65 - Type 2 diabetes mellitus with hyperglycemia; Z79.4 - skilled nursing (current) use of insulin Status: Acute (5) Hyperkalemia: Code(s): E87.5 - Hyperkalemia Status: Acute Plan Patient had fall and has fibular fracture. She was unable to ambulate with crutches. She does have a walker at home but the patient could not get home to try ambulating with a walker. Will have PT and OT evaluate the patient and consult care coordination for rehab placement. P.r.n. pain medications have been ordered. Labs were ordered on the time of the patient's admission but did not come back for quite some time. At the time of this documentation is noted that the patient has acute kidney injury with hyperkalemia as well as some transaminitis. I had given her history of frequent falls I am somewhat concerned for the possibility of rhabdomyolysis subsequently his CK has been ordered off of the blood that was originally obtained id ER with initial labs. Will place patient on gentle IV fluid hydration at 100 mL an hour. Will repeat electrolyte panel this afternoon and re-evaluate potassium and creatinine. Will monitor urine output closely. The patient does have mild transaminitis which seems to be new but no associated hyperbilirubinemia anemia to suggest biliary dysfunction retained stones which would be less likely we given patient's history of prior cholecystectomy. Again I am somewhat suspicious the patient may have some component of rhabdomyolysis given history of multiple falls and it is not exactly clear how long the patient was on the floor with her fall. Will hold ibuprofen and avoid further nephrotoxic medications. Will repeat CMP in a.m.. Patient does have type 2 diabetes mellitus likely has some component of diabetic peripheral neuropathy given her reluctance still at providers evaluate or touch her feet they seem extremely sensitive suggesting neuropathy. Patient does have some mild hyperglycemia. Wondering if portion the patient's falls is due to neuropathy verses may be some borderline hypoglycemia. Will check hemoglobin A1c with a.m. labs. Will continue patient's home Lantus, mealtime bolus insulin and will place patient on low-dose sliding scale insulin with Accu-Cheks a.c. HS with hypoglycemia protocol as needed. The patient does have history of dementia listed and mention per ER provider notes. This is poorly documented. Will need to clarify accuracy of this report. The currently the patient is alert orient x3. Patient has been admitted as observation status. Quality If No VTE Prophylaxis Answer both mechanical and pharmacologic: Reason no mechanical VTE proph: medical contraindication (Right lower extremity splint) Reason no pharmacologic proph: medical contraindication active bleeding/bleeding risk Hospitalist MIPS Advance Care Plan I have confirmed that the patient's Advanced Care Plan is present, code status is documented, or surrogate decision maker is listed in patient medical record.: Yes Medication Reconciliation I have utilized all available resources to obtain, update and review the patients current medications (includes all prescriptions, OTC, herbals, cannabis, and nutritional supplements).: Yes
[2024-05-13 01:04] LABS: Alanine Aminotransferase 114 U/L (6-35); Albumin Level 4.3 g/dL (3.5-5.1); Alkaline Phosphatase 122 U/L (38-126); Anion Gap 10 mmol/L (4-12); Aspartate Amino Transferase 90 U/L (14-36); Bilirubin,Total 0.5 mg/dL (0.2-1.3); Blood Urea Nitrogen 41 mg/dL (7-17); Carbon Dioxide 22 mmol/L (22-30); Chloride 107 mmol/L (98-107); Estimated Glomerular Filt Rate 42; Glucose 157 mg/dL (65-110); Potassium 5.2 mmol/L (3.4-5.0); Sodium 139 mmol/L (137-145)
[2024-05-13 05:15] VITALS: BP 107/54; PULSE 70; RESP 16; TEMP 36.4; O2SAT 94
[2024-05-13 08:25] LABS: Creatine Kinase 589 U/L (30-135)
[2024-05-13 08:59] LABS: Glucose Point of Care 167 mg/dl (65-105)
[2024-05-13 09:24] VITALS: PULSE 71
[2024-05-13] MEDS: carvediloL 6.25 MG TABLET PO ×2 (09:24→17:22)
[2024-05-13] MEDS: ROSUVASTATIN 20 MG TABLET 40 MG PO (09:24)
[2024-05-13] MEDS: TICAGRELOR 90 MG TABLET PO ×2 (09:25→20:46)
[2024-05-13] MEDS: ASPIRIN 81 MG ENTERIC TABLET PO (09:25)
[2024-05-13] MEDS: INSULIN ASPART (*BKC) 100 UNITS/ML SUB-Q ×3 (09:26→17:17)
[2024-05-13] MEDS: SODIUM CHLORIDE 0.9% IV 1,000 ML 100 ML IV CONT (09:26)
--- NOTE | 2024-05-13 10:13 | P.PNIM_ITS ---
Progress Note: A&P Assessment and Plan (1) Closed fibular fracture: Qualifiers: Encounter type: initial encounter Fibula location: proximal Fracture morphology: unspecified fracture morphology Laterality: right Qualified Code(s): S82.831A - Other fracture of upper and lower end of right fibula, initial encounter for closed fracture Code(s): S82.409A - Unspecified fracture of shaft of unspecified fibula, initial encounter for closed fracture Status: Acute (2) Acute kidney injury: Code(s): N17.9 - Acute kidney failure, unspecified Status: Acute (3) Frequent falls: Code(s): R29.6 - Repeated falls Status: Acute (4) Type 2 diabetes mellitus with hyperglycemia, with long-term current use of insulin: Code(s): E11.65 - Type 2 diabetes mellitus with hyperglycemia; Z79.4 - tank terminal gauger (current) use of insulin Status: Acute (5) Hyperkalemia: Code(s): E87.5 - Hyperkalemia Status: Acute Plan Patient had fall and has fibular fracture. She was unable to ambulate with crutches. She does have a walker at home but the patient could not get home to try ambulating with a walker. Will have PT and OT evaluate the patient and consult care coordination for rehab placement. P.r.n. pain medications have been ordered. Labs were ordered on the time of the patient's admission but did not come back for quite some time. At the time of this documentation is noted that the patient has acute kidney injury with hyperkalemia as well as some transaminitis. I had given her history of frequent falls I am somewhat concerned for the possibility of rhabdomyolysis subsequently his CK has been ordered off of the blood that was originally obtained id ER with initial labs. Will place patient on gentle IV fluid hydration at 100 mL an hour. Will repeat electrolyte panel this afternoon and re-evaluate potassium and creatinine. Will monitor urine output closely. The patient does have mild transaminitis which seems to be new but no associated hyperbilirubinemia anemia to suggest biliary dysfunction retained stones which would be less likely we given patient's history of prior cholecystectomy. Again I am somewhat suspicious the patient may have some component of rhabdomyolysis given history of multiple falls and it is not exactly clear how long the patient was on the floor with her fall. Will hold ibuprofen and avoid further nephrotoxic medications. Will repeat CMP in a.m.. Patient does have type 2 diabetes mellitus likely has some component of diabetic peripheral neuropathy given her reluctance still at providers evaluate or touch her feet they seem extremely sensitive suggesting neuropathy. Patient does have some mild hyperglycemia. Will continue patient's home Lantus, mealtime bolus insulin, add low-dose sliding scale insulin with Accu-Cheks a.c. HS with hypoglycemia protocol as needed. The patient does have history of dementia and anxiety per sisters report/. Unsure if PT/OT would be able to work with her now as she is anxious and restless. Will try to do OT/OT once pt is a little more cooperative. Will add low dose buspar for anxiety. Avoid narcotics. Care coordination consult for placement. Time Spent With Patient Time with patient: 25 - 35 minutes Subjective Date/time seen: 05/13/24 10:13 Interval history: 69-year-old female with a past medical history type 2 diabetes mellitus with diabetic peripheral neuropathy, the dementia, COPD, coronary artery disease with 2 cardiac stents placed in February and March 2024 who presented to the ER via EMS several hours after ground level fall. The patient reports that she was up and going to the kitchen to give herself her mealtime insulin injection. On her way back into the other room which she tripped and fell. She fell and hit her head on a hard surface. She did not lose consciousness. In the ER she was also complaining of pain in her opposite leg and right arm and shoulder. All imaging was negative for fracture except for the right fibula. The patient was actually prepared for discharge from the ER but then was having difficulty managing crutches. Prior to my exam, pt received pain medication and was out of her mind per her sisters. She was uncomfortable and anxious. Pt sisters present at the bedside were not aware of any reaction to pain meds in the past. Pt is waiting to work with PT/OT. will avoid narcotic pain meds for now. Sisters reports that pt does have dementia but so far had been doing ok. Does have anxiety at times as well. BUt prior to [facility] admission was pretty functioning. She stays with one sister 5 days of joe week, then goes to stay with another sister. This living arrangement might not be ideal for now as pt would need a little more hlep and supervision. Review of Systems Review of Systems: 12 systems were reviewed with pertinent positives and negatives per HPI. Except as documented in the HPI, all other systems were reviewed and are negative. Exam Narrative: pt is restless, anxious. Resp: Effort & Inspection: normal respiratory effort Cardio: Rate: regular rate Rhythm: regular rhythm GI: GI Palp: Yes Soft to palpation Auscultation: normal bowel sounds Neuro: Motor exam (neuro): 5/5 motor strength present throughout Psych: Affect: Anxious affect present Objective Data Vital Signs Vital Signs: Vital Signs - 24 hr 05/12/24 17:29 05/12/24 22:40 05/12/24 23:17 Temperature 98.1 F 98.5 F 98.0 F Pulse Rate 62 74 75 Respiratory Rate 16 16 16 Blood Pressure 104/52 L 95/58 L 115/53 L Pulse Oximetry 97 92 96 Oxygen Delivery Room Air 05/13/24 05:15 05/13/24 09:24 05/13/24 09:49 Temperature 97.6 F Pulse Rate 70 71 Respiratory Rate 16 Blood Pressure 107/54 L Pulse Oximetry 94 Oxygen Delivery Room Air Intake/Output Intake/Output: Intake & Output 05/10/24 05/11/24 05/12/24 05/13/24 23:59 23:59 23:59 23:59 Intake Total 1030 Balance 1030 Meds/Results Medications: Active Medications Generic Name Dose Route Start Last Admin Trade Name Freq PRN Reason Stop Dose Admin Hydrocodone Bitart/Acetaminophen 1 tab 05/12/24 21:51 Hydrocodone/Acetaminophen (*Crx) 5-325 Mg Tablet PO Q4H PRN Pain Rated 4-6 Aspirin 81 mg 05/13/24 09:00 05/13/24 09:25 Aspirin 81 Mg Enteric Tablet PO 81 mg DAILY CARLOS Administration Carvedilol 6.25 mg 05/13/24 09:00 05/13/24 09:24 Carvedilol 6.25 Mg Tablet PO 6.25 mg BID CARLOS Administration Dextrose 12.5 gm 05/13/24 08:14 Dextrose 50% 25 Gm/50 Ml Syringe IV PUSH PRN PRN Hypoglycemia Protocol Escitalopram Oxalate 5 mg 05/13/24 21:00 Escitalopram Oxalate 5 Mg Tablet PO HS CARLOS Glucagon 1 mg 05/13/24 08:14 Glucagon For Inj 1 Mg Vial IM PRN PRN Hypoglycemia Protocol Glucose 15 gm 05/13/24 08:14 Glucose Oral Gel 15 Gm Of Glucse In 37.5 Gm Tube PO PRN PRN Hypoglycemia Protocol Sodium Chloride 1,000 mls @ 100 mls/hr 05/13/24 08:15 05/13/24 09:26 Normal Saline Iv IV CONT 100 mls/hr .Q10H CARLOS Administration Dextrose 1,000 mls @ 100 mls/hr 05/13/24 08:14 Dextrose 5% 1,000 Ml IVPB PRN PRN Hypoglycemia Protocol Insulin Aspart 5 units 05/13/24 08:30 05/13/24 09:26 Insulin Aspart (*Bkc) 100 Units/Ml SUB-Q 5 units TIDWM CARLOS Administration Insulin Aspart 2 - 5 units 05/13/24 08:25 05/13/24 09:27 Insulin Aspart (*Bkc) 100 Units/Ml SUB-Q Not Given TIDWM CARLOS Protocol Insulin Glargine 25 units 05/13/24 21:00 Insulin Glargine (*Bkc) 100 Units/Ml SUB-Q HS CARLOS Oxycodone HCl 2.5 mg 05/12/24 17:47 05/13/24 09:33 Oxycodone Hcl (*Crx) 2.5 Mg Tab Ir PO 2.5 mg Q4H PRN Administration Pain Rated 7-10 Rosuvastatin Calcium 40 mg 05/13/24 09:00 05/13/24 09:24 Rosuvastatin 20 Mg Tablet PO 40 mg DAILY CARLOS Administration Ticagrelor 90 mg 05/13/24 09:00 05/13/24 09:25 Ticagrelor 90 Mg Tablet PO 90 mg Q12H CARLOS Administration Radiology Results: ITS Impressions Head CT 05/12/24 19:24 Impression: No acute intracranial hemorrhage or suspicious mass effect. Ankle X-Ray 05/12/24 19:36 IMPRESSION: No acute fracture or dislocation Foot X-Ray 05/12/24 19:37 IMPRESSION: Degenerative disease without acute fracture. Tibia/Fibula X-Ray 05/12/24 19:39 IMPRESSION: Minimally displaced fracture of the proximal shaft of the fibula, as detailed above. Shoulder X-Ray 05/12/24 19:41 IMPRESSION: No acute fracture or anterior dislocation. Hip/Pelvis X-Ray 05/12/24 19:42 IMPRESSION: Degenerative disease, without acute fracture or dislocation. The dedicated views of the right hip are limited secondary to technique. If clinical suspicion persists, cross-sectional imaging (noncontrast enhanced CT examination of the pelvis) is recommended for further evaluation. Labs Labs: Laboratory Results - last 24 hr 05/12/24 05/13/24 05/13/24 23:14 00:13 00:19 WBC 13.0 H RBC 4.29 Hgb 12.2 Hct 40.1 MCV 93.5 MCH 28.4 MCHC 30.4 L RDW 13.8 Plt Count 167 MPV 11.6 H Immature Gran % (Auto) 0.2 Neut % (Auto) 70.7 Lymph % (Auto) 17.3 L [place] % (Auto) 10.1 H Eos % (Auto) 1.2 Baso % (Auto) 0.5 Lymph # (Auto) 2.26 [place] # (Auto) 1.3 H Eos # (Auto) 0.2 Baso # (Auto) 0.1 Abs Immat Gran (auto) 0.03 Absolute Neuts (auto) 9.2 H Absolute Nucleated RBC 0.000 Nucleated RBC % 0.0 Sodium 139 Potassium 5.2 H Chloride 107 Carbon Dioxide 22 Anion Gap 10 BUN 41 H D Creatinine 1.26 H Estim Creat Clear Calc Not Reportable Estimated GFR 42 L Glucose 157 H POC Capillary Glucose 165 H Calcium 9.0 Total Bilirubin 0.5 AST 90 H ALT 114 H Alkaline Phosphatase 122 Total Creatine Kinase 589 H Total Protein 7.0 Albumin 4.3 05/13/24 08:55 WBC RBC Hgb Hct MCV MCH MCHC RDW Plt Count MPV Immature Gran % (Auto) Neut % (Auto) Lymph % (Auto) [place] % (Auto) Eos % (Auto) Baso % (Auto) Lymph # (Auto) [place] # (Auto) Eos # (Auto) Baso # (Auto) Abs Immat Gran (auto) Absolute Neuts (auto) Absolute Nucleated RBC Nucleated RBC % Sodium Potassium Chloride Carbon Dioxide Anion Gap BUN Creatinine Estim Creat Clear Calc Estimated GFR Glucose POC Capillary Glucose 167 H Calcium Total Bilirubin AST ALT Alkaline Phosphatase Total Creatine Kinase Total Protein Albumin
[2024-05-13 11:34] LABS: Glucose Point of Care 200 mg/dl (65-105)
[2024-05-13] MEDS: SODIUM CHLORIDE 0.9% IV 1,000 ML 150 ML IV CONT ×3 (11:45→23:57)
[2024-05-13 13:25] VITALS: O2SAT 90
[2024-05-13 14:00] VITALS: BP 131/84; PULSE 75; RESP 18; TEMP 36.3; O2SAT 96
[2024-05-13 17:14] LABS: Glucose Point of Care 278 mg/dl (65-105)
[2024-05-13 17:22] VITALS: PULSE 71
[2024-05-13 17:32] LABS: Anion Gap 9 mmol/L (4-12); Blood Urea Nitrogen 41 mg/dL (7-17); Calcium 8.1 mg/dL (8.4-10.2); Carbon Dioxide 23 mmol/L (22-30); Chloride 105 mmol/L (98-107); Estimated Glomerular Filt Rate 38; Glucose 269 mg/dL (65-110); Potassium 4.5 mmol/L (3.4-5.0); Sodium 137 mmol/L (137-145)
[2024-05-13 20:11] VITALS: BP 137/85; PULSE 73; RESP 20; TEMP 36.7; O2SAT 95
[2024-05-13] MEDS: ESCITALOPRAM OXALATE 5 MG TABLET PO (20:46)
[2024-05-13] MEDS: ACETAMINOPHEN 325 MG TABLET 650 MG PO (20:46)
[2024-05-13] MEDS: busPIRone HCL 2.5 MG TABLET PO (20:46)
[2024-05-13] MEDS: LIDOCAINE 5% PATCH 1 PATCH TOPICAL (20:50)
[2024-05-13] MEDS: INSULIN GLARGINE (*BKC) 100 UNITS/ML 25 UNITS SUB-Q (20:53)
[2024-05-13 21:45] LABS: Glucose Point of Care 190 mg/dl (65-105)
[2024-05-14 05:58] VITALS: BP 166/71; PULSE 75; RESP 20; TEMP 36.4; O2SAT 93
[2024-05-14] MEDS: SODIUM CHLORIDE 0.9% IV 1,000 ML 150 ML IV CONT ×3 (05:59→20:00)
[2024-05-14 06:13] LABS: Alanine Aminotransferase 78 U/L (6-35); Albumin Level 3.3 g/dL (3.5-5.1); Alkaline Phosphatase 107 U/L (38-126); Anion Gap 5 mmol/L (4-12); Aspartate Amino Transferase 47 U/L (14-36); Bilirubin,Total 0.3 mg/dL (0.2-1.3); Blood Urea Nitrogen 36 mg/dL (7-17); Carbon Dioxide 23 mmol/L (22-30); Chloride 112 mmol/L (98-107); Creatine Kinase 337 U/L (30-135); Estimated Glomerular Filt Rate 40; Glucose 160 mg/dL (65-110); Potassium 4.8 mmol/L (3.4-5.0); Sodium 140 mmol/L (137-145)
[2024-05-14 07:38] LABS: Glucose Point of Care 139 mg/dl (65-105)
[2024-05-14 08:40] VITALS: PULSE 86
[2024-05-14] MEDS: ROSUVASTATIN 20 MG TABLET 40 MG PO (08:40)
[2024-05-14] MEDS: TICAGRELOR 90 MG TABLET PO (08:40)
[2024-05-14] MEDS: carvediloL 6.25 MG TABLET PO ×2 (08:40→18:13)
[2024-05-14] MEDS: busPIRone HCL 2.5 MG TABLET PO (08:40)
[2024-05-14] MEDS: ASPIRIN 81 MG ENTERIC TABLET PO (08:41)
[2024-05-14] MEDS: INSULIN ASPART (*BKC) 100 UNITS/ML SUB-Q ×2 (08:44→18:14)
[2024-05-14] MEDS: ACETAMINOPHEN 325 MG TABLET 650 MG PO (08:49)
--- NOTE | 2024-05-14 09:15 | PM.IMPN ---
Progress Note: A&P Assessment and Plan (1) Closed fibular fracture: Qualifiers: Encounter type: initial encounter Fibula location: proximal Fracture morphology: unspecified fracture morphology Laterality: right Qualified Code(s): S82.831A - Other fracture of upper and lower end of right fibula, initial encounter for closed fracture Code(s): S82.409A - Unspecified fracture of shaft of unspecified fibula, initial encounter for closed fracture Status: Acute (2) Acute kidney injury: Code(s): N17.9 - Acute kidney failure, unspecified Status: Acute (3) Frequent falls: Code(s): R29.6 - Repeated falls Status: Acute (4) Type 2 diabetes mellitus with hyperglycemia, with long-term current use of insulin: Code(s): E11.65 - Type 2 diabetes mellitus with hyperglycemia; Z79.4 - client services assistant (current) use of insulin Status: Acute (5) Hyperkalemia: Code(s): E87.5 - Hyperkalemia Status: Acute Plan Patient had fall and has fibular fracture. She was unable to ambulate with crutches. She does have a walker at home but the patient could not get home to try ambulating with a walker. Will have PT and OT evaluate the patient and consult care coordination for rehab placement. P.r.n. pain medications have been ordered. acute kidney injury with hyperkalemia as well as some transaminitis. - gentle IV fluid hydration at 100 mL an hour. - trend electrolyte panel this afternoon and re-evaluate potassium and creatinine. - monitor urine output closely. - cr/bun improving - hemoglobin A1c -6.7 in 2023 Will continue patient's home Lantus, mealtime bolus insulin low-dose sliding scale insulin with Accu-Cheks a.c. HS with hypoglycemia protocol as needed. - Will order ortho consult for Acute minimally displaced fracture for mngmnt and f/u recommendation PT/OT following - ck, liver enzymes elevated- will continue IV fluids for now monitor Time Spent With Patient Time with patient: 25 - 35 minutes Subjective Date/time seen: 05/14/24 09:15 Interval history: 69-year-old female with a past medical history type 2 diabetes mellitus with diabetic peripheral neuropathy, the dementia, COPD, coronary artery disease with 2 cardiac stents placed in February and March 2024 who presented to the ER via EMS several hours after ground level fall. The patient reports that she was up and going to the kitchen to give herself her mealtime insulin injection. On her way back into the other room which she tripped and fell. She fell and hit her head on a hard surface. She did not lose consciousness. In the ER she was also complaining of pain in her opposite leg and right arm and shoulder. All imaging was negative for fracture except for the right fibula. The patient was actually prepared for discharge from the ER but then was having difficulty managing crutches. Prior to my exam, pt received pain medication and was out of her mind per her sisters. She was uncomfortable and anxious. Pt sisters present at the bedside were not aware of any reaction to pain meds in the past. Pt is waiting to work with PT/OT. will avoid narcotic pain meds for now. Sisters reports that pt does have dementia but so far had been doing ok. Does have anxiety at times as well. BUt prior to [facility] admission was pretty functioning. She stays with one sister 5 days of the week, then goes to stay with another sister. This living arrangement might not be ideal for now as pt would need a little more help and supervision. 05/14 ortho is consulted. Pt will need placement for rehab/SNF. Pt is refusing PT/OT, attempted to discussed with her, but was told to shut up . Sister at maxime bedside. Pt appears comfortable. Review of Systems Review of Systems: 12 systems were reviewed with pertinent positives and negatives per HPI. Except as documented in the HPI, all other systems were reviewed and are negative. Exam Narrative: Weight 60 kg BMI 26.7 Const: Other: Chronically ill-appearing HENMT: Other: Bruise of the right brow, mucous membranes are tacky, patient has poor dentition in the upper and lower jaw with dental caries in the posterior upper jaw not well visualized, few remaining teeth are in poor condition Eyes: Other: Pupils are equal and reactive, no scleral icterus, no conjunctival pallor Neck: Other: No JVD, possible thyromegaly Resp: Effort & Inspection: normal respiratory effort Other: Clear to auscultation bilaterally, no increased work of breathing Cardio: Rate: regular rate Rhythm: regular rhythm Other: Regular rate, regular rhythm, 2+ bilateral radial pedal pulses, GI: Auscultation: normal bowel sounds Other: Soft, nontender, nondistended, positive bowel sounds Skin: Other: No jaundice, no pallor, bruising to the right brow ridge Neuro: Motor exam (neuro): 5/5 motor strength present throughout Other: Alert orient x3, speech is clear, no localizing neurologic deficits noted during the course of conversation, no gross motor deficits but exam limited due to splint on the patient's right lower extremity Extrem: Other: Splint to right lower extremity, seems to have adequate cap refill but patient is resistant to exam of the lower extremity, distal extremity has intact sensation Psych: Affect: Anxious affect present Other: Odd affect Objective Data Vital Signs Vital Signs: Vital Signs - 24 hr 05/13/24 09:24 05/13/24 09:49 05/13/24 13:25 Temperature Pulse Rate 71 Respiratory Rate Blood Pressure Pulse Oximetry 90 Oxygen Delivery Room Air Room Air 05/13/24 14:00 05/13/24 14:44 05/13/24 17:22 Temperature 97.3 F L Pulse Rate 75 71 Respiratory Rate 18 Blood Pressure 131/84 Pulse Oximetry 96 Oxygen Delivery Room Air 05/13/24 20:00 05/13/24 20:11 05/14/24 05:58 Temperature 98.1 F 97.6 F Pulse Rate 73 75 Respiratory Rate 20 20 Blood Pressure 137/85 166/71 H Pulse Oximetry 95 93 Oxygen Delivery Room Air 05/14/24 08:40 Temperature Pulse Rate 86 Respiratory Rate Blood Pressure Pulse Oximetry Oxygen Delivery Intake/Output Intake/Output: Intake & Output 05/11/24 05/12/24 05/13/24 05/14/24 23:59 23:59 23:59 23:59 Intake Total 4732.5 1445 Output Total 700 800 Balance 4032.5 645 Meds/Results Medications: Active Medications Generic Name Dose Route Start Last Admin Trade Name Freq PRN Reason Stop Dose Admin Acetaminophen 650 mg 05/13/24 10:57 05/14/24 08:49 Acetaminophen 325 Mg Tablet PO 650 mg Q6H PRN Administration Mild Pain (1-3) or Fever Hydrocodone Bitart/Acetaminophen 1 tab 05/12/24 21:51 Hydrocodone/Acetaminophen (*Crx) 5-325 Mg Tablet PO Q4H PRN Pain Rated 4-6 Aspirin 81 mg 05/13/24 09:00 05/14/24 08:41 Aspirin 81 Mg Enteric Tablet PO 81 mg DAILY CARLOS Administration Buspirone HCl 2.5 mg 05/13/24 11:25 05/14/24 08:40 Buspirone Hcl 2.5 Mg Tablet PO 2.5 mg Q12HR CARLOS Administration Carvedilol 6.25 mg 05/13/24 09:00 05/14/24 08:40 Carvedilol 6.25 Mg Tablet PO 6.25 mg BID CARLOS Administration Dextrose 12.5 gm 05/13/24 08:14 Dextrose 50% 25 Gm/50 Ml Syringe IV PUSH PRN PRN Hypoglycemia Protocol Escitalopram Oxalate 5 mg 05/13/24 21:00 05/13/24 20:46 Escitalopram Oxalate 5 Mg Tablet PO 5 mg HS CARLOS Administration Glucagon 1 mg 05/13/24 08:14 Glucagon For Inj 1 Mg Vial IM PRN PRN Hypoglycemia Protocol Glucose 15 gm 05/13/24 08:14 Glucose Oral Gel 15 Gm Of Glucse In 37.5 Gm Tube PO PRN PRN Hypoglycemia Protocol Dextrose 1,000 mls @ 100 mls/hr 05/13/24 08:14 Dextrose 5% 1,000 Ml IVPB PRN PRN Hypoglycemia Protocol Sodium Chloride 1,000 mls @ 150 mls/hr 05/13/24 11:10 05/14/24 05:59 Normal Saline Iv IV CONT 150 mls/hr .Q6H40M CARLOS Administration Insulin Aspart 5 units 05/13/24 08:30 05/14/24 08:44 Insulin Aspart (*Bkc) 100 Units/Ml SUB-Q 5 units TIDWM CARLOS Administration Insulin Aspart 2 - 5 units 05/13/24 08:25 05/14/24 08:32 Insulin Aspart (*Bkc) 100 Units/Ml SUB-Q Not Given TIDWM [facility] Protocol Insulin Glargine 25 units 05/13/24 21:00 05/13/24 20:53 Insulin Glargine (*Bkc) 100 Units/Ml SUB-Q 25 units HS CARLOS Administration Lidocaine 1 patch 05/13/24 11:07 05/13/24 20:50 Lidocaine 5% Patch TOPICAL 1 patch DAILY PRN Administration Pain Rosuvastatin Calcium 40 mg 05/13/24 09:00 05/14/24 08:40 Rosuvastatin 20 Mg Tablet PO 40 mg DAILY CARLOS Administration Ticagrelor 90 mg 05/13/24 09:00 05/14/24 08:40 Ticagrelor 90 Mg Tablet PO 90 mg Q12H CARLOS Administration Radiology Results: ITS Impressions Head CT 05/12/24 19:24 Impression: No acute intracranial hemorrhage or suspicious mass effect. Ankle X-Ray 05/12/24 19:36 IMPRESSION: No acute fracture or dislocation Foot X-Ray 05/12/24 19:37 IMPRESSION: Degenerative disease without acute fracture. Tibia/Fibula X-Ray 05/12/24 19:39 IMPRESSION: Minimally displaced fracture of the proximal shaft of the fibula, as detailed above. Shoulder X-Ray 05/12/24 19:41 IMPRESSION: No acute fracture or anterior dislocation. Hip/Pelvis X-Ray 05/12/24 19:42 IMPRESSION: Degenerative disease, without acute fracture or dislocation. The dedicated views of the right hip are limited secondary to technique. If clinical suspicion persists, cross-sectional imaging (noncontrast enhanced CT examination of the pelvis) is recommended for further evaluation. Labs Labs: Laboratory Results - last 24 hr 05/13/24 05/13/24 05/13/24 11:28 17:12 20:53 Sodium 137 Potassium 4.5 Chloride 105 Carbon Dioxide 23 Anion Gap 9 BUN 41 H Creatinine 1.38 H Estim Creat Clear Calc Not Reportable Estimated GFR 38 L Glucose 269 H POC Capillary Glucose 200 H 278 H 190 H Calcium 8.1 L Total Bilirubin AST ALT Alkaline Phosphatase Total Creatine Kinase Total Protein Albumin 05/14/24 05/14/24 05:26 07:31 Sodium 140 Potassium 4.8 Chloride 112 H Carbon Dioxide 23 Anion Gap 5 BUN 36 H Creatinine 1.31 H Estim Creat Clear Calc Not Reportable Estimated GFR 40 L Glucose 160 H POC Capillary Glucose 139 H Calcium 8.0 L Total Bilirubin 0.3 AST 47 H ALT 78 H Alkaline Phosphatase 107 Total Creatine Kinase 337 H Total Protein 6.0 L Albumin 3.3 L
--- NOTE | 2024-05-14 09:35 | PCOTNOTE ---
Attempted to see for OT evaluation. Patient adamantly refusing any/all activity despite encouragement. Will continue to attempt.
[2024-05-14 10:36] LABS: Hematocrit 32.2 % (37.0-47.0); Mean Corpuscular HGB Conc 31.1 g/dl (32-36); Mean Corpuscular Hemoglobin 29.2 pg (26-34); Mean Corpuscular Volume 93.9 fl (80-100); Platelet Count Result 128 k/mm3 (150-375); Red Blood Count 3.43 M/mm3 (4.2-5.4); Red Cell Distribution Width 13.9 % (11.5-14.5); White Blood Count 10.8 K/mm3 (4.5-10.0)
[2024-05-14 12:18] LABS: Glucose Point of Care 88 mg/dl (65-105)
[2024-05-14 14:00] VITALS: BP 129/53; PULSE 68; RESP 16; TEMP 36.1; O2SAT 94
--- NOTE | 2024-05-14 14:36 | PCPTNOTE ---
Patient refused treatment this session. Patient encouraged and educted to participate in therapy to improve mobility and strength, however patient continued to refuse stating not now! PT will continue to follow per plan of care.
--- NOTE | 2024-05-14 16:05 | P.CONOP_ITS ---
<Statement entered by Christopher Rose MD - 05/15/24 12:41> Dr. Rose: History, physical, radiographs reviewed. Right proximal fibular fracture, minimally displaced. Treatment options, risks and benefits reviewed. Agree with non operative treatment with weight-bearing as tolerated. Agree with physical therapy. Assessment and Plan Assessment and plan (1) Closed fibular fracture: Qualifiers: Encounter type: initial encounter Fibula location: proximal Fracture morphology: unspecified fracture morphology Laterality: right Qualified Code(s): S82.831A - Other fracture of upper and lower end of right fibula, initial encounter for closed fracture Code(s): S82.409A - Unspecified fracture of shaft of unspecified fibula, initial encounter for closed fracture Status: Acute Assessment and Plan: Radiographs of the right tib/fib reveal a minimally displaced fracture of the proximal shaft of the fibula. The fracture type and injury as well as radiographs discussed with the patient. Operative and nonoperative treatment options reviewed. family not present at bedside at this time. Patient is refusing full exam. Mentation poor at this time. We will further discuss with family present. Would recommend non operative treatment at this time. Patient may continue splint until more coherent at which point this can be removed. Patient can participate with PT and OT as tolerated with weight-bearing as tolerated. High fall risk precautions. Pain control. Avoid narcotics. We will continue to follow. Plan Reviewed history, exam, radiographs and current labs with attending MD and covering surgeon, Dr. Rose, who agrees with current plan as indicated above. No further recommendations from Dr. Rose at this time. History of Present Illness HPI Consult date: 05/14/24 Consult reason: fracture Chief complaint: Fibula fracture Narrative: 69-year-old female admitted after a fall at home. Radiographs in the emergency room revealed a minimally displaced fracture of the proximal shaft of the fibula. All other imaging negative. Patient was initially discharged home with her family but they were unable to care for her so she was readmitted for PT, OT and possible placement. Orthopedic consult requested. No family at bedside. Patient is a poor historian and refusing assessment and discussion today. Review of Systems 2 Review of Systems: All systems reviewed & are unremarkable except as noted in HPI and below PMFSH Past Medical History Medical History Aortic valve stenosis Echocardiogram 2022 mild aortic valve sclerosis with mild stenosis peak velocity 1.6 mean gradient 5 aortic valve area 1.8 cm2 Diastolic dysfunction Echocardiogram 02/2022: EF 55-60% grade 1 diastolic dysfunction Dementia Per family report Type 2 diabetes mellitus Kidney stone Hyperlipidemia HTN (hypertension) with goal to be determined History of tobacco use COPD (chronic obstructive pulmonary disease) Surgical History Surgical History History of cholecystectomy H/O tubal ligation H/O section x3 Family History Family History Mother Ruptured cerebral aneurysm Diabetes mellitus Father Diabetes mellitus Dementia Malignant neoplasm of prostate Cerebrovascular accident Sibling Malignant neoplasm of prostate Social History Social History Social History: The patient lives with her son. She has 3 CHILDREN. She is on DISABILITY and . She has a brief history of smoking when she was young. She denies any alcohol or illicit substance use. 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 Alcohol intake: former Alcohol use details: social Substance use: never Substance use type: does not use Do You Feel Safe in your Home?: Yes Lack of Transportation: No Lack of Food: Never True Current Housing: I Have Housing Concerned About Future Housing: No Difficulty Paying Gas/Electric Bills: No Difficulty Paying for Meds: No Currently Unemployed: No Education: High School Diploma/GED Difficulty w/ Childcare or Family Care: No Living arrangements: with family Occupation/Education: retired Gender identity (if verbalized by the patient): Female Sexual Orientation (if Verbalized by the Patient): Straight or Heterosexual Spiritual care concerns: No Meds Home Medications and Allergies Home Medications ?Medication ?Instructions ?Recorded ?Confirmed ?Type aspirin 81 mg tablet,delayed 81 mg PO DAILY 02/20/22 05/12/24 History release carvedilol 12.5 mg tablet 6.25 mg PO BID 02/20/22 05/12/24 History blood sugar diagnostic (Blood #10 ea 02/21/22 05/12/24 Rx Glucose Test strips) blood-glucose meter (Blood Glucose #1 ea 02/21/22 05/12/24 Rx Monitoring kit) insulin glargine 100 unit/mL (3 25 unit (0.25 mL) subcut HS #15 mL 02/21/22 05/12/24 Rx mL) subcutaneous pen (Lantus Solostar U-100 Insulin) insulin lispro 100 unit/mL 5 unit (0.05 mL) subcut TID #15 mL 02/21/22 05/12/24 Rx subcutaneous pen lancets 17 gauge #200 ea 02/21/22 05/12/24 Rx escitalopram oxalate 5 mg tablet 5 mg PO HS 10/10/23 05/12/24 History acetaminophen 500 mg tablet 1,000 mg (2 x 500 mg) PO TID PRN 05/12/24 Rx (Tylenol Extra Strength) pain #30 tabs ibuprofen 600 mg tablet 600 mg PO TID PRN pain #20 tabs 05/12/24 Rx methocarbamol 500 mg tablet 500 mg PO HS #7 tabs 05/12/24 Rx oxycodone 5 mg tablet 5 mg PO Q8H PRN pain #10 tabs 05/12/24 Rx rosuvastatin 40 mg tablet 40 mg PO DAILY 05/12/24 05/12/24 History ticagrelor 90 mg tablet (Brilinta) 90 mg PO Q12H 05/12/24 05/12/24 History Allergies Allergy/AdvReac Type Severity Reaction Status Date / Time No Known Allergies Allergy Verified 05/12/24 17:36 Vital Signs Vital Signs - 24 hr 05/13/24 17:22 05/13/24 20:00 05/13/24 20:11 Temperature 36.7 C Pulse Rate 71 73 Respiratory Rate 20 Blood Pressure 137/85 Pulse Oximetry 95 Oxygen Delivery Room Air 05/14/24 05:58 05/14/24 08:38 05/14/24 08:40 Temperature 36.4 C Pulse Rate 75 86 Respiratory Rate 20 Blood Pressure 166/71 H Pulse Oximetry 93 Oxygen Delivery Room Air 05/14/24 14:00 Temperature 36.1 C L Pulse Rate 68 Respiratory Rate 16 Blood Pressure 129/53 L Pulse Oximetry 94 Oxygen Delivery Exam 2 Const: General: comfortable HENMT: Mouth: Yes moist mucous membranes Eyes: General: appearance normal, both eyes and all related structures Neck: Neck: supple and no JVD Resp: Effort & Inspection: normal respiratory effort Cardio: Rate: regular rate Rhythm: regular rhythm GI: Inspection: non-distended GI Palp: Yes Soft to palpation and No Tenderness to palpation present (GI) Neuro: General: gait normal Speech: normal speech Extrem: Right lower extremity: knee ( Patient refusing full exam) Details: tenderness Location: of the lateral joint line, swelling and ecchymosis ( lateral leg, splint in place) Results Labs 05/14/24 05:21 05/14/24 05:26 Labs: Abnormal lab results 05/13/24 05/13/24 05/14/24 Range/Units 17:12 20:53 05:21 WBC 10.8 H (4.5-10.0) K/mm3 RBC 3.43 L (4.2-5.4) M/mm3 Hgb 10.0 L (12.0-15.0) g/dL Hct 32.2 L (37.0-47.0) % MCHC 31.1 L (32-36) g/dl Plt Count 128 L (150-375) k/mm3 MPV 12.0 H (7.4-10.4) fl Chloride (98-107) mmol/L BUN 41 H (7-17) mg/dL Creatinine 1.38 H (0.7-1.0) mg/dL Estimated GFR 38 L (59 - ) Glucose 269 H (65-110) mg/dL POC Capillary Glucose 278 H 190 H (65-105) mg/dl Calcium 8.1 L (8.4-10.2) mg/dL AST (14-36) U/L ALT (6-35) U/L Total Creatine Kinase (30-135) U/L Total Protein (6.3-8.2) g/dL Albumin (3.5-5.1) g/dL 05/14/24 05/14/24 Range/Units 05:26 07:31 WBC (4.5-10.0) K/mm3 RBC (4.2-5.4) M/mm3 Hgb (12.0-15.0) g/dL Hct (37.0-47.0) % MCHC (32-36) g/dl Plt Count (150-375) k/mm3 MPV (7.4-10.4) fl Chloride 112 H (98-107) mmol/L BUN 36 H (7-17) mg/dL Creatinine 1.31 H (0.7-1.0) mg/dL Estimated GFR 40 L (59 - ) Glucose 160 H (65-110) mg/dL POC Capillary Glucose 139 H (65-105) mg/dl Calcium 8.0 L (8.4-10.2) mg/dL AST 47 H (14-36) U/L ALT 78 H (6-35) U/L Total Creatine Kinase 337 H (30-135) U/L Total Protein 6.0 L (6.3-8.2) g/dL Albumin 3.3 L (3.5-5.1) g/dL H & H 05/13/24 05/14/24 Range/Units 00:19 05:21 Hgb 12.2 10.0 L (12.0-15.0) g/dL Hct 40.1 32.2 L (37.0-47.0) % All other labs normal. Fracture/Casting/Strapping Pre Procedure Consent was obtained, Procedures/risks were explained, Questions were answered, Correct patient identified and Correct side and site confirmed Episode of Care New episode (Right Proximal Fibula ) Fracture Care Tibia/malleolus/fibula/ankle Tibia, malleous, fibula, ankle: CLOSED TX PROXIMAL FIBULAR/SHAFT FX W/O MANIPULATION Application Exam of Affected Area: Color: Normal, Temp: Normal, Pulse: Normal, Blanching: Normal, Capillary Refill: Normal and Sensory Exam: Normal Swelling: Yes and Tenderness: Yes Skin Apperance: Intact Post Procedure Patient tolerated the procedure well?: Tolerated procedure well
[2024-05-14 16:58] LABS: Glucose Point of Care 199 mg/dl (65-105)
[2024-05-14 18:13] VITALS: PULSE 76
[2024-05-14 21:41] VITALS: BP 159/72; PULSE 73; RESP 16; TEMP 36.4; O2SAT 93
[2024-05-15] MEDS: SODIUM CHLORIDE 0.9% IV 1,000 ML 150 ML IV CONT ×3 (01:14→15:06)
[2024-05-15 05:23] LABS: Glucose Point of Care 198 mg/dl (65-105)
[2024-05-15] MEDS: ACETAMINOPHEN 325 MG TABLET 650 MG PO ×2 (05:55→20:33)
[2024-05-15 06:00] VITALS: BP 160/64; PULSE 76; RESP 16; TEMP 37; O2SAT 93
[2024-05-15 08:37] LABS: Glucose Point of Care 140 mg/dl (65-105)
--- NOTE | 2024-05-15 08:47 | P.PNOP_ITS ---
Progress Note: A&P Assessment and Plan (1) Closed fibular fracture: Qualifiers: Encounter type: initial encounter Fibula location: proximal Fracture morphology: unspecified fracture morphology Laterality: right Qualified Code(s): S82.831A - Other fracture of upper and lower end of right fibula, initial encounter for closed fracture Code(s): S82.409A - Unspecified fracture of shaft of unspecified fibula, initial encounter for closed fracture Status: Acute Assessment and Plan: Previous radiographs of the right tib/fib reveal a minimally displaced fracture of the proximal shaft of the fibula. The fracture type and injury as well as radiographs discussed with the patient. Operative and nonoperative treatment options reviewed. Family present at bedside at this time. Patient is still refusing full exam. Not cooperative with OT. Discussed imaging with family at bedside. Would recommend continued non operative treatment at this time. Patient may continue splint until more coherent at which point this can be removed. Patient can participate with PT and OT as tolerated with weight-bearing as tolerated once splint is removed. High fall risk precautions. Pain control. Avoid narcotics. We will continue to follow. Plan Reviewed history, exam, radiographs and current labs with attending MD and covering surgeon, Dr. Rose, who agrees with current plan as indicated above. No further recommendations from Dr. Rose at this time. Time Spent With Patient Time with patient: less than 15 minutes Subjective Subjective Date/Time Seen: 05/15/24 08:47 Interval history: Patient awake/alert. Angry with OT. Cursing at nursing/OT. Refusing full exams. Review of Systems Review of Systems: ROS unobtainable: Yes unobtainable due to mental status Exam Const: General: comfortable HENMT: Mouth: Yes moist mucous membranes Eyes: General: appearance normal, both eyes and all related structures Neck: Neck: supple and no JVD Resp: Effort & Inspection: normal respiratory effort Cardio: Rate: regular rate Rhythm: regular rhythm GI: Inspection: non-distended GI Palp: Yes Soft to palpation and No Tenderness to palpation present (GI) Neuro: General: gait normal Speech: normal speech Extrem: Right lower extremity: knee ( Patient refusing full exam) Details: tenderness Location: of the lateral joint line, swelling and ecchymosis ( lateral leg, splint in place), lower leg Details: ecchymosis (visible proximal to the splint ), ankle (unable to evaluate. Splint in place. ) and foot (moves toes. ) Details: normal capillary refill, toes with normal ROM, no edema, vascular exam Details: dorsalis pedis pulse present and motor-sensory exam; no tenderness Objective Data Vital Signs Vital Signs: Vital Signs - 24 hr 05/14/24 14:00 05/14/24 18:13 05/14/24 20:00 Temperature 36.1 C L Pulse Rate 68 76 Respiratory Rate 16 Blood Pressure 129/53 L Pulse Oximetry 94 Oxygen Delivery Room Air 05/14/24 21:41 05/15/24 06:00 Temperature 36.4 C 37.0 C Pulse Rate 73 76 Respiratory Rate 16 16 Blood Pressure 159/72 H 160/64 H Pulse Oximetry 93 93 Oxygen Delivery Intake/Output Intake/Output: Intake & Output 05/12/24 05/13/24 05/14/24 05/15/24 23:59 23:59 23:59 23:59 Intake Total 4732.5 3805 1485 Output Total 700 3300 2000 Balance 4032.5 505 -515 Meds/Results Medications: Active Medications Generic Name Dose Route Start Last Admin Trade Name Freq PRN Reason Stop Dose Admin Acetaminophen 650 mg 05/13/24 10:57 05/15/24 05:55 Acetaminophen 325 Mg Tablet PO 650 mg Q6H PRN Administration Mild Pain (1-3) or Fever Hydrocodone Bitart/Acetaminophen 1 tab 05/12/24 21:51 Hydrocodone/Acetaminophen (*Crx) 5-325 Mg Tablet PO Q4H PRN Pain Rated 4-6 Aspirin 81 mg 05/13/24 09:00 05/14/24 08:41 Aspirin 81 Mg Enteric Tablet PO 81 mg DAILY CARLOS Administration Buspirone HCl 2.5 mg 05/13/24 11:25 05/14/24 21:40 Buspirone Hcl 2.5 Mg Tablet PO Not Given Q12HR CARLOS Carvedilol 6.25 mg 05/13/24 09:00 05/14/24 18:13 Carvedilol 6.25 Mg Tablet PO 6.25 mg BID CARLOS Administration Dextrose 12.5 gm 05/13/24 08:14 Dextrose 50% 25 Gm/50 Ml Syringe IV PUSH PRN PRN Hypoglycemia Protocol Escitalopram Oxalate 5 mg 05/13/24 21:00 05/14/24 21:40 Escitalopram Oxalate 5 Mg Tablet PO Not Given HS CARLOS Glucagon 1 mg 05/13/24 08:14 Glucagon For Inj 1 Mg Vial IM PRN PRN Hypoglycemia Protocol Glucose 15 gm 05/13/24 08:14 Glucose Oral Gel 15 Gm Of Glucse In 37.5 Gm Tube PO PRN PRN Hypoglycemia Protocol Dextrose 1,000 mls @ 100 mls/hr 05/13/24 08:14 Dextrose 5% 1,000 Ml IVPB PRN PRN Hypoglycemia Protocol Sodium Chloride 1,000 mls @ 150 mls/hr 05/13/24 11:10 05/15/24 01:14 Normal Saline Iv IV CONT 150 mls/hr .Q6H40M CARLOS Administration Insulin Aspart 5 units 05/13/24 08:30 05/14/24 18:14 Insulin Aspart (*Bkc) 100 Units/Ml SUB-Q 5 units TIDWM CARLOS Administration Insulin Aspart 2 - 5 units 05/13/24 08:25 05/14/24 17:36 Insulin Aspart (*Bkc) 100 Units/Ml SUB-Q Not Given TIDWM [facility] Protocol Insulin Glargine 25 units 05/13/24 21:00 05/14/24 21:40 Insulin Glargine (*Bkc) 100 Units/Ml SUB-Q Not Given HS [facility] Lidocaine 1 patch 05/13/24 11:07 05/13/24 20:50 Lidocaine 5% Patch TOPICAL 1 patch DAILY PRN Administration Pain Rosuvastatin Calcium 40 mg 05/13/24 09:00 05/14/24 08:40 Rosuvastatin 20 Mg Tablet PO 40 mg DAILY CARLOS Administration Ticagrelor 90 mg 05/13/24 09:00 05/14/24 21:40 Ticagrelor 90 Mg Tablet PO Not Given Q12H [facility] Radiology Results: ITS Impressions Head CT 05/12/24 19:24 Impression: No acute intracranial hemorrhage or suspicious mass effect. Ankle X-Ray 05/12/24 19:36 IMPRESSION: No acute fracture or dislocation Foot X-Ray 05/12/24 19:37 IMPRESSION: Degenerative disease without acute fracture. Tibia/Fibula X-Ray 05/12/24 19:39 IMPRESSION: Minimally displaced fracture of the proximal shaft of the fibula, as detailed above. Shoulder X-Ray 05/12/24 19:41 IMPRESSION: No acute fracture or anterior dislocation. Hip/Pelvis X-Ray 05/12/24 19:42 IMPRESSION: Degenerative disease, without acute fracture or dislocation. The dedicated views of the right hip are limited secondary to technique. If clinical suspicion persists, cross-sectional imaging (noncontrast enhanced CT examination of the pelvis) is recommended for further evaluation. Labs Labs: Laboratory Results - last 24 hr 05/14/24 05/14/24 05/14/24 05:21 12:05 16:56 WBC 10.8 H RBC 3.43 L Hgb 10.0 L Hct 32.2 L MCV 93.9 MCH 29.2 MCHC 31.1 L RDW 13.9 Plt Count 128 L MPV 12.0 H POC Capillary Glucose 88 199 H 05/14/24 05/15/24 20:47 08:33 WBC RBC Hgb Hct MCV MCH MCHC RDW Plt Count MPV POC Capillary Glucose 198 H 140 H
[2024-05-15 09:24] VITALS: PULSE 67
[2024-05-15] MEDS: TICAGRELOR 90 MG TABLET PO ×2 (09:24→20:33)
[2024-05-15] MEDS: ASPIRIN 81 MG ENTERIC TABLET PO (09:24)
[2024-05-15] MEDS: carvediloL 6.25 MG TABLET PO ×2 (09:24→17:39)
[2024-05-15] MEDS: busPIRone HCL 2.5 MG TABLET PO ×2 (09:26→20:33)
[2024-05-15] MEDS: INSULIN ASPART (*BKC) 100 UNITS/ML SUB-Q (09:27)
[2024-05-15] MEDS: ROSUVASTATIN 20 MG TABLET 40 MG PO (09:29)
[2024-05-15 10:03] LABS: Hematocrit 30.5 % (37.0-47.0); Hemoglobin 9.9 g/dL (12.0-15.0); Immature Platelet Fraction Pct 7.1 % (0.9-11.2); Mean Corpuscular HGB Conc 32.5 g/dl (32-36); Mean Corpuscular Hemoglobin 29.6 pg (26-34); Mean Corpuscular Volume 91.3 fl (80-100); Mean Platelet Volume 11.6 fl (7.4-10.4); Platelet Count Result 117 k/mm3 (150-375); Red Blood Count 3.34 M/mm3 (4.2-5.4); Red Cell Distribution Width 13.5 % (11.5-14.5); White Blood Count 11.9 K/mm3 (4.5-10.0)
[2024-05-15 10:15] LABS: Anion Gap 11 mmol/L (4-12); Blood Urea Nitrogen 19 mg/dL (7-17); Calcium 8.3 mg/dL (8.4-10.2); Carbon Dioxide 19 mmol/L (22-30); Chloride 109 mmol/L (98-107); Estimated Glomerular Filt Rate 50; Glucose 236 mg/dL (65-110); Potassium 3.8 mmol/L (3.4-5.0); Sodium 139 mmol/L (137-145)
[2024-05-15 11:53] LABS: Glucose Point of Care 184 mg/dl (65-105)
--- NOTE | 2024-05-15 16:42 | P.PNIM_ITS ---
Progress Note: A&P Assessment and Plan (1) Closed fibular fracture: Qualifiers: Encounter type: initial encounter Fibula location: proximal Fracture morphology: unspecified fracture morphology Laterality: right Qualified Code(s): S82.831A - Other fracture of upper and lower end of right fibula, initial encounter for closed fracture Code(s): S82.409A - Unspecified fracture of shaft of unspecified fibula, initial encounter for closed fracture Status: Acute Assessment and Plan: * Tib fib x-ray shown minimally displaced fracture of the proximal shaft of the fibula * Orthopedic surgery following * Patient placed in splint * Bearing as tolerated on right lower extremity * PT and OT ordered (2) Acute kidney injury: Code(s): N17.9 - Acute kidney failure, unspecified Status: Acute Assessment and Plan: * Initial creatinine 1.26 * Baseline creatinine 0.70-1.0 * Currently at 1.08 * Continue to trend (3) Frequent falls: Code(s): R29.6 - Repeated falls Status: Acute Assessment and Plan: * Continue fall precautions * PT and OT ordered * Head CT was negative for any acute finding * Right ankle and right foot x-ray was negative for fracture dislocation * Tib/fib x-ray showed minimally displaced fracture of the proximal shaft of the fibula * Right shoulder x-ray was negative for any acute fracture or dislocation * Hip/pelvis x-ray showed degenerative disease without acute fracture dislocation (4) Type 2 diabetes mellitus with hyperglycemia, with long-term current use of insulin: Code(s): E11.65 - Type 2 diabetes mellitus with hyperglycemia; 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 with meals * Continue Lantus 25 units at night * hypoglycemic protocol in place * Diabetic diet ordered (5) Hyperkalemia: Code(s): E87.5 - Hyperkalemia Status: Acute Assessment and Plan: * Initial potassium 5.2--likely hemoconcentrated due to dehydration * Patient was given 1 L of normal saline while in the ED and started on IV fluids * Today patient is at 3.8 * Resolved Time Spent With Patient Time with patient: 25 - 35 minutes Subjective Date/time seen: 05/15/24 16:42 Interval history: Interval summary: This is a 69-year-old female with a significant past medical history of type 2 diabetes mellitus, diabetic peripheral neuropathy, dementia, COPD, coronary artery disease with 2 stents placed this year who presented to the hospital after sustaining a ground level fall. Workup in the hospital included a head CT which was negative for any acute intracranial hemorrhage or mass affect. Right ankle was negative for any acute fracture or dislocation. Right foot showed degenerative disease without acute fracture. Right tib-fib x-ray showed minimally displaced fracture of the proximal shaft of the fibula. Shoulder x- ray was negative for any acute fracture or dislocation. Hip and pelvis x-ray showed degenerative disease without acute fracture or dislocation. Initial labs showed a white blood cell count of 13.0, potassium 5.2, creatinine 1.26, EGFR 42, blood sugar ranging 157-200, AST 90, ALT 114, total CK 589. PT and OT were ordered. Ortho surgery was consulted. Patient was placed in a right lower extremity splint. Patient was going to be sent home from ER however she could not ambulate with crutches safely. She was admitted for PT and OT evaluation and SNF placement. Subjective: Patient denies any new complaints today. Labs and imaging reviewed. Review of Systems Review of Systems: All systems reviewed & are unremarkable except as noted in HPI and below Exam Narrative: General: In no acute distress, well nourished Head: atraumatic, no encephalopathy Eyes: PERRLA, sclera clear ENT: moist mucous membranes, nasal passages clear Neck: supple, no JVD, no adenopathy, trachea midline Cardiac: Normal S1 and S2. No murmur, gallops or friction rubs, peripheral pulses intact. Respiratory: Lungs clear to auscultation, no adventitious lung sounds, currently on room air Gastrointestinal: soft, non-distended, non-tender, normoactive bowel sounds. : voiding without difficulty yellow urine Extremities: moves all extremities well, right lower extremity cast Skin: clean, dry, intact. No wounds or lesions. Neuro: Alert and oriented x4, cranial nerves intact, no neuro deficits. Psych: normal mood, normal affect, interactive Objective Data Vital Signs Vital Signs: Vital Signs - 24 hr 05/14/24 18:13 05/14/24 20:00 05/14/24 21:41 Temperature 97.6 F Pulse Rate 76 73 Respiratory Rate 16 Blood Pressure 159/72 H Pulse Oximetry 93 Oxygen Delivery Room Air 05/15/24 06:00 05/15/24 09:24 Temperature 98.6 F Pulse Rate 76 67 Respiratory Rate 16 Blood Pressure 160/64 H Pulse Oximetry 93 Oxygen Delivery Intake/Output Intake/Output: Intake & Output 05/12/24 05/13/24 05/14/24 05/15/24 23:59 23:59 23:59 23:59 Intake Total 4732.5 3805 3544.5 Output Total 700 3300 2000 Balance 4032.5 505 1544.5 Meds/Results Medications: Active Medications Generic Name Dose Route Start Last Admin Trade Name Freq PRN Reason Stop Dose Admin Acetaminophen 650 mg 05/13/24 10:57 05/15/24 05:55 Acetaminophen 325 Mg Tablet PO 650 mg Q6H PRN Administration Mild Pain (1-3) or Fever Hydrocodone Bitart/Acetaminophen 1 tab 05/12/24 21:51 Hydrocodone/Acetaminophen (*Crx) 5-325 Mg Tablet PO Q4H PRN Pain Rated 4-6 Aspirin 81 mg 05/13/24 09:00 05/15/24 09:24 Aspirin 81 Mg Enteric Tablet PO 81 mg DAILY CARLOS Administration Buspirone HCl 2.5 mg 05/13/24 11:25 05/15/24 09:26 Buspirone Hcl 2.5 Mg Tablet PO 2.5 mg Q12HR CARLOS Administration Carvedilol 6.25 mg 05/13/24 09:00 05/15/24 09:24 Carvedilol 6.25 Mg Tablet PO 6.25 mg BID CARLOS Administration Dextrose 12.5 gm 05/13/24 08:14 Dextrose 50% 25 Gm/50 Ml Syringe IV PUSH PRN PRN Hypoglycemia Protocol Escitalopram Oxalate 5 mg 05/13/24 21:00 05/14/24 21:40 Escitalopram Oxalate 5 Mg Tablet PO Not Given HS CARLOS Glucagon 1 mg 05/13/24 08:14 Glucagon For Inj 1 Mg Vial IM PRN PRN Hypoglycemia Protocol Glucose 15 gm 05/13/24 08:14 Glucose Oral Gel 15 Gm Of Glucse In 37.5 Gm Tube PO PRN PRN Hypoglycemia Protocol Dextrose 1,000 mls @ 100 mls/hr 05/13/24 08:14 Dextrose 5% 1,000 Ml IVPB PRN PRN Hypoglycemia Protocol Sodium Chloride 1,000 mls @ 150 mls/hr 05/13/24 11:10 05/15/24 15:06 Normal Saline Iv IV CONT 150 mls/hr .Q6H40M CARLOS Administration Insulin Aspart 5 units 05/13/24 08:30 05/15/24 13:17 Insulin Aspart (*Bkc) 100 Units/Ml SUB-Q Not Given TIDWM CARLOS Insulin Aspart 2 - 5 units 05/13/24 08:25 05/15/24 12:02 Insulin Aspart (*Bkc) 100 Units/Ml SUB-Q Not Given TIDWM CARLOS Protocol Insulin Glargine 25 units 05/13/24 21:00 05/14/24 21:40 Insulin Glargine (*Bkc) 100 Units/Ml SUB-Q Not Given HS CARLOS Lidocaine 1 patch 05/13/24 11:07 05/13/24 20:50 Lidocaine 5% Patch TOPICAL 1 patch DAILY PRN Administration Pain Rosuvastatin Calcium 40 mg 05/13/24 09:00 05/15/24 09:29 Rosuvastatin 20 Mg Tablet PO 40 mg DAILY CARLOS Administration Ticagrelor 90 mg 05/13/24 09:00 05/15/24 09:24 Ticagrelor 90 Mg Tablet PO 90 mg Q12H CARLOS Administration Radiology Results: ITS Impressions Head CT 05/12/24 19:24 Impression: No acute intracranial hemorrhage or suspicious mass effect. Ankle X-Ray 05/12/24 19:36 IMPRESSION: No acute fracture or dislocation Foot X-Ray 05/12/24 19:37 IMPRESSION: Degenerative disease without acute fracture. Tibia/Fibula X-Ray 05/12/24 19:39 IMPRESSION: Minimally displaced fracture of the proximal shaft of the fibula, as detailed above. Shoulder X-Ray 05/12/24 19:41 IMPRESSION: No acute fracture or anterior dislocation. Hip/Pelvis X-Ray 05/12/24 19:42 IMPRESSION: Degenerative disease, without acute fracture or dislocation. The dedicated views of the right hip are limited secondary to technique. If clinical suspicion persists, cross-sectional imaging (noncontrast enhanced CT examination of the pelvis) is recommended for further evaluation. Labs Labs: Laboratory Results - last 24 hr 05/14/24 05/14/24 05/15/24 16:56 20:47 08:33 WBC RBC Hgb Hct MCV MCH MCHC RDW Plt Count MPV % Immature Plt Fraction Sodium Potassium Chloride Carbon Dioxide Anion Gap BUN Creatinine Estim Creat Clear Calc Estimated GFR Glucose POC Capillary Glucose 199 H 198 H 140 H Calcium 05/15/24 05/15/24 09:49 11:50 WBC 11.9 H RBC 3.34 L Hgb 9.9 L Hct 30.5 L MCV 91.3 MCH 29.6 MCHC 32.5 RDW 13.5 Plt Count 117 L MPV 11.6 H % Immature Plt Fraction 7.1 Sodium 139 Potassium 3.8 Chloride 109 H Carbon Dioxide 19 L Anion Gap 11 BUN 19 H D Creatinine 1.08 H Estim Creat Clear Calc Not Reportable Estimated GFR 50 L Glucose 236 H POC Capillary Glucose 184 H Calcium 8.3 L Quality VTE Prophylaxis VTE prophylaxis: pharmacologic ordered
[2024-05-15 17:39] VITALS: PULSE 71
[2024-05-15] MEDS: ESCITALOPRAM OXALATE 5 MG TABLET PO (20:33)
[2024-05-15] MEDS: LIDOCAINE 5% PATCH 1 PATCH TOPICAL (20:33)
[2024-05-15] MEDS: INSULIN GLARGINE (*BKC) 100 UNITS/ML 25 UNITS SUB-Q (20:34)
[2024-05-15 21:55] VITALS: BP 152/67; PULSE 69; RESP 16; TEMP 36.2; O2SAT 95
[2024-05-16 01:21] LABS: Glucose Point of Care 244 mg/dl (65-105)
[2024-05-16 06:00] VITALS: BP 166/64; PULSE 64; RESP 16; TEMP 36.3; O2SAT 92
[2024-05-16 08:47] VITALS: PULSE 72
[2024-05-16] MEDS: ASPIRIN 81 MG ENTERIC TABLET PO (08:47)
[2024-05-16] MEDS: carvediloL 6.25 MG TABLET PO ×2 (08:47→17:42)
[2024-05-16] MEDS: ROSUVASTATIN 20 MG TABLET 40 MG PO (08:47)
[2024-05-16] MEDS: busPIRone HCL 2.5 MG TABLET PO (08:47)
[2024-05-16] MEDS: TICAGRELOR 90 MG TABLET PO (08:47)
[2024-05-16 08:48] LABS: Glucose Point of Care 84 mg/dl (65-105)
[2024-05-16 10:29] LABS: Hematocrit 30.3 % (37.0-47.0); Hemoglobin 9.9 g/dL (12.0-15.0); Immature Platelet Fraction Pct 6.2 % (0.9-11.2); Mean Corpuscular HGB Conc 32.7 g/dl (32-36); Mean Corpuscular Hemoglobin 29.6 pg (26-34); Mean Corpuscular Volume 90.4 fl (80-100); Mean Platelet Volume 11.1 fl (7.4-10.4); Platelet Count Result 131 k/mm3 (150-375); Red Blood Count 3.35 M/mm3 (4.2-5.4); Red Cell Distribution Width 13.8 % (11.5-14.5); White Blood Count 9.6 K/mm3 (4.5-10.0)
[2024-05-16 10:44] LABS: Anion Gap 8 mmol/L (4-12); Blood Urea Nitrogen 19 mg/dL (7-17); Calcium 8.4 mg/dL (8.4-10.2); Carbon Dioxide 22 mmol/L (22-30); Chloride 110 mmol/L (98-107); Estimated Glomerular Filt Rate 53; Glucose 102 mg/dL (65-110); Potassium 4.1 mmol/L (3.4-5.0); Sodium 140 mmol/L (137-145)
[2024-05-16 11:48] LABS: Glucose Point of Care 142 mg/dl (65-105)
--- NOTE | 2024-05-16 11:58 | PCOTNOTE ---
Upon arrival patient was getting her back to bed. Patient refused treatment this session. I don't want you therapy people.
--- NOTE | 2024-05-16 12:06 | P.DS_ITS ---
DS: Admitting Diagnosis Discharge Date 05/16/24 Admitting Diagnosis closed fibular fracture acute kidney injury frequent falls type 2 diabetes mellitus with hyperglycemia hyperkalemia DS: Discharge Diagnosis Discharge Diagnosis (1) Closed fibular fracture: Qualifiers: Encounter type: initial encounter Fibula location: proximal Fracture morphology: unspecified fracture morphology Laterality: right Qualified Code(s): S82.831A - Other fracture of upper and lower end of right fibula, initial encounter for closed fracture Code(s): S82.409A - Unspecified fracture of shaft of unspecified fibula, initial encounter for closed fracture Status: Acute (2) Acute kidney injury: Code(s): N17.9 - Acute kidney failure, unspecified Status: Acute (3) Frequent falls: Code(s): R29.6 - Repeated falls Status: Acute (4) Type 2 diabetes mellitus with hyperglycemia, with long-term current use of insulin: Code(s): E11.65 - Type 2 diabetes mellitus with hyperglycemia; 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 Workup in the hospital included a head CT which was negative for any acute intracranial hemorrhage or mass affect. Right ankle was negative for any acute fracture or dislocation. Right foot showed degenerative disease without acute fracture. Right tib-fib x-ray showed minimally displaced fracture of the proximal shaft of the fibula. Shoulder x- ray was negative for any acute fracture or dislocation. Hip and pelvis x-ray showed degenerative disease without acute fracture or dislocation. Initial labs showed a white blood cell count of 13.0, potassium 5.2, creatinine 1.26, EGFR 42, blood sugar ranging 157-200, AST 90, ALT 114, total CK 589. PT and OT were ordered. Ortho surgery was consulted. Patient was placed in a right lower extremity splint. Patient was going to be sent home from ER however she could not ambulate with crutches safely. She was admitted for PT and OT evaluation who recommended SNF placement. Case coordination got approval today for [facility]. She is stable for discharge today to [facility] for continued rehab. final diagnosis: closed fibular fracture, acute kidney injury, hyperkalemia, generalized weakness Status at Discharge Cognitive/behavioral status at discharge: alert, agitated at times, underlying dementia Functional status at discharge: uses cane/walker Overall status at discharge: patient is progressing back to baseline Time Spent with Patient Time attestation: Total time spent providing and/or coordinating discharge services: Time spent: Greater than 30 minutes Exam Narrative: General: In no acute distress, well nourished Cardiac: Normal S1 and S2. No murmur, gallops or friction rubs, peripheral pulses intact. Respiratory: Lungs clear to auscultation, no adventitious lung sounds, currently on room air Gastrointestinal: soft, non-distended, non-tender, normoactive bowel sounds. : voiding without difficulty yellow urine Extremities: moves all extremities well, right lower extremity cast Skin: clean, dry, intact. No wounds or lesions. Neuro: Alert Psych: DS: Data Data Completed and Pending Completed studies during hospitalization: hip/pelvis x-ray shoulder x-ray tib fib x-ray foot x-ray ankle x-ray head CT Pending studies at discharge: none Labs on day of discharge: Labs from last 24 hours 05/16/24 05/16/24 05/16/24 11:34 10:21 10:14 WBC 9.6 RBC 3.35 L Hgb 9.9 L Hct 30.3 L MCV 90.4 MCH 29.6 MCHC 32.7 RDW 13.8 Plt Count 131 L MPV 11.1 H % Immature Plt Fraction 6.2 Sodium 140 Potassium 4.1 Chloride 110 H Carbon Dioxide 22 Anion Gap 8 BUN 19 H Creatinine 1.04 H Estim Creat Clear Calc Not Reportable Estimated GFR 53 L Glucose 102 POC Capillary Glucose 142 H Calcium 8.4 05/16/24 05/15/24 08:25 19:42 WBC RBC Hgb Hct MCV MCH MCHC RDW Plt Count MPV % Immature Plt Fraction Sodium Potassium Chloride Carbon Dioxide Anion Gap BUN Creatinine Estim Creat Clear Calc Estimated GFR Glucose POC Capillary Glucose 84 244 H Calcium Procedures/Treatments: none Discharge Plan Discharge Attending physician on discharge: Job Saucedo Consulting providers: Robert Aedn; Christopher Rose Discharging Clinician: Belén Hendrix Anticipated Discharge Date/Time: 05/16/24 12:03 Patient Disposition: SNF Activity: as tolerated Diet: as tolerated and diabetic Discharge Instructions: * Splint may be removed and she can be weight bearing as tolerated Patient Language: Yoruba Stand Alone Forms: General Discharge Information Follow-up/Referrals: Bhavik,Ralph Burks MD [Primary Care Provider] - 2 Weeks Discharge Medications: New oxycodone 5 mg tablet 5 mg PO Q8H PRN (Reason: pain) Qty: 10 0RF acetaminophen [Tylenol Extra Strength] 500 mg tablet 1,000 mg PO TID PRN (Reason: pain) Qty: 30 0RF methocarbamol 500 mg tablet 500 mg PO HS Qty: 7 0RF ibuprofen 600 mg tablet 600 mg PO TID PRN (Reason: pain) Qty: 20 0RF Continued rosuvastatin 40 mg tablet 40 mg PO DAILY Brilinta 90 mg tablet 90 mg PO Q12H carvedilol 12.5 mg tablet 6.25 mg PO BID aspirin 81 mg tablet,delayed release (DR/EC) 81 mg PO DAILY (DME) blood-glucose meter [Blood Glucose Monitoring] Kit See Rx Instructions .ROUTE .MEDSUPPLY Qty: 1 0RF Rx Instructions: As directed (DME) Blood Glucose Test Strip See Rx Instructions .ROUTE .MEDSUPPLY Qty: 10 3RF Rx Instructions: As directed (DME) lancets 17 gauge misc See Rx Instructions .Route Qty: 200 0RF Rx Instructions: As directed insulin lispro 100 unit/mL insulin pen 5 unit SUBCUT TID Qty: 15 0RF Rx Instructions: Inject 5 units subcutaneous TID before meals. insulin glargine [Lantus Solostar U-100 Insulin] 100 unit/mL (3 mL) insulin pen 25 unit SUBCUT HS Qty: 15 0RF escitalopram oxalate 5 mg tablet 5 mg PO HS Date of admission: 05/12/24 21:51 Primary Care Provider: BhavikRalph Admitting Provider: Deandra Barkley Attending physician on admission: Belén Hendrix Condition: Improved Quality VTE Prophylaxis VTE prophylaxis: pharmacologic ordered Hospitalist MIPS Heart Failure (Exclusion) Patient has history of Heart Transplant or Left Ventricular Assistive Device?: No IF YES, STOP HERE Heart Failure (Qualifier) Patient has current or prior documentation of LVEF less than or equal to 40%, or mod/servere depressed LVSF?: No IF NO, STOP HERE
[2024-05-16] MEDS: INSULIN ASPART (*BKC) 100 UNITS/ML SUB-Q ×2 (13:58→17:43)
[2024-05-16 14:00] VITALS: BP 117/44; PULSE 75; RESP 18; TEMP 36.5; O2SAT 91
[2024-05-16 17:20] LABS: Glucose Point of Care 163 mg/dl (65-105)
[2024-05-16 17:42] VITALS: PULSE 68
[2024-05-16 19:27] VITALS: BP 150/62; PULSE 72; RESP 17; TEMP 36.7; O2SAT 93
[2024-05-16 20:27] LABS: Glucose Point of Care 163 mg/dl (65-105)
== END 2024-05-16 21:44 ==
LOC: ANHED 19:58 → ANH3MED 05-13 05:46
PROVIDERS: Emergency Medicine; Nurse Practitioner; Admitting Provider Internal Medicine; Emergency Provider Student in an Organized Health Care Education/Training Program; PCP Family Medicine; Visit Provider Nurse Practitioner Acute Care
DX: S82.831A Other fracture of upper and lower end of right fibula, initial encounter for closed fracture (principal); W18.30XA Fall on same level, unspecified, initial encounter; R29.6 Repeated falls; N17.9 Acute kidney failure, unspecified; E87.5 Hyperkalemia; R74.01 Elevation of levels of liver transaminase levels; E11.65 Type 2 diabetes mellitus with hyperglycemia; E11.42 Type 2 diabetes mellitus with diabetic polyneuropathy; F03.90 Unspecified dementia, unspecified severity, without behavioral disturbance, psychotic disturbance, mood disturbance, and anxiety; E78.5 Hyperlipidemia, unspecified; J44.9 Chronic obstructive pulmonary disease, unspecified; I10 Essential (primary) hypertension; I25.10 Atherosclerotic heart disease of native coronary artery without angina pectoris; I35.0 Nonrheumatic aortic (valve) stenosis; Z87.891 Personal history of nicotine dependence; Z79.02 Long term (current) use of antithrombotics/antiplatelets; Z79.4 Long term (current) use of insulin; Z79.82 Long term (current) use of aspirin; Z90.49 Acquired absence of other specified parts of digestive tract; Z95.5 Presence of coronary angioplasty implant and graft; Z98.51 Tubal ligation status
CPT/HCPCS: 36415; 70450; 73030; 73502; 73590; 73610; 73620; 80048; 80053; 82550; 82948; 85025; 85027; 85055; 96360; 96361; 97162; 97166; 97530; 99285; A9270; G0378; J1815; J7030

== ENCOUNTER 2024-08-28 09:40 | Outpatient (CLI) | payer MEDICARE, MEDICAID, SELFPAY ==
--- NOTE | 2024-08-28 | ECHO_ITS ---
Patient Info Name: Yanna Caldwell Age: 69 years : 1955 Gender: Female Ht: 59 in Wt: 132 lbs BSA: 1.60 m2 HR: 60 bpm BP: 97 / 66 mmHg Heart Rhythm: Sinus Rhythm Technical Quality: Good Exam Date: 08/28/2024 10:09 AM Patient Status: O Admit Date: 08/28/2024 Exam Type: CA echo doppler color flow Complete two-dimensional, color flow and Doppler transthoracic echocardiogram is performed. Architecture Drafter: Dolores Neville Summary 1. Complete two-dimensional, color flow and Doppler transthoracic echocardiogram is performed. 2. Mildly sclerotic aortic valve with well maintained leaflet separation, no significant aortic stenosis mild AI. 3. Concentric left ventricular hypertrophy with well-preserved systolic function. Left Ventricle Left ventricular chamber dimension is normal. Left ventricular systolic function is normal, estimated at 60-65. There is moderate concentric increased left ventricular wall thickness. The left ventricular diastolic function is grade I diastolic dysfunction. Right Ventricle Right ventricular chamber dimension is normal. Left Atria Left atrial chamber dimension is mildly enlarged. Right Atria Right atrial chamber dimension is normal. Aortic Valve The aortic valve is trileaflet. There is mild aortic valve sclerosis. There is no aortic valve stenosis. There is mild aortic valve regurgitation. Pulmonic Valve The pulmonic valve is normal. Mitral Valve The mitral valve has normal leaflets. The mitral valve annulus is mildly calcified. Tricuspid Valve The tricuspid valve leaflets are normal. Pericardium/Pleural The pericardium appears normal. Aorta The aortic root size at the sinus of Valsalva is normal. Left Ventricular Outflow Tract Name Value Normal LVOT 2D LVOT Diameter 1.9 cm LVOT Doppler LVOT Peak Velocity 111 cm/s LVOT Peak Gradient 5 mmHg LVOT Mean Gradient 2 mmHg LVOT VTI 27 cm LVOT VTI/AV VTI Ratio 0.7 LVOT Stroke Volume 73 ml LVOT CO 4.4 l/min LVOT CI 2.8 l/min/m2 Pulmonic Valve Name Value Normal RVOT Doppler RVOT Peak Velocity 77 cm/s RVOT Peak Gradient 2 mmHg PV Doppler PV Peak Velocity 103 cm/s PV Peak Gradient 4 mmHg Mitral Valve Name Value Normal MV Diastolic Function MV E Peak Velocity 71 cm/s MV A Peak Velocity 97 cm/s MV E/A 0.7 MV Decel Time (PW) 283 ms MV Annular TDI MV E/e' (Septal) 25.5 MV E/e' (Lateral) 20.2 MV E/e' (Average) 22.8 Septae/Shunt/Generic Name Value Normal Miscellaneous Measurements lv Volume 81.70 cm3 lv Area 27.71 cm2 lv Length 7.73 cm Aortic Valve Name Value Normal AV Doppler AV Peak Velocity 173 cm/s AV Peak Gradient 11 mmHg AV Mean Gradient 5 mmHg AV VTI 40 cm AV Area (Cont Eq VTI) 1.9 cm2 >=3.0 AV Area (Cont Eq Karthikeyan) 1.8 cm2 AV DI (Karthikeyan) 0.64 AV Regurgitation 2D LVOT Area 2.7 cm2 Ventricles Name Value Normal LV Dimensions 2D/MM IVS Diastolic Thickness (2D) 1.3 cm 0.6-1.0 LVID Diastole (2D) 3.6 cm 3.8-5.2 LVIW Diastolic Thickness (2D) 1.2 cm 0.6-0.9 LVID Systole (2D) 2.3 cm 2.2-3.5 LVOT Diameter 1.9 cm LV Mass (2D Cubed) 155.79 g 67.00-162.00 LV Mass Index (2D Cubed) 98 g/m2 43-95 Relative Wall Thickness (2D) 0.68 <=0.42 LV Fractional Shortening/Ejection Fraction 2D/MM LV Fractional Shortening (2D) 37 % 27-45 LV EF (2D Teichrahelz) 67 % LV Diastolic Volume (4C MOD) 82 ml LV EF (4C MOD) 48 % LV Diastolic Volume (2C MOD) 78 ml LV EF (2C MOD) 58 % LV Diastolic Volume (BP MOD) 81 ml 46-106 LV Diastolic Volume Index (BP MOD) 50 ml/m2 29-61 LV Systolic Volume (BP MOD) 38 ml 14-42 LV Systolic Volume Index (BP MOD) 24 ml/m2 8-24 LV EF (BP MOD) 53 % 54-74 LV Diastolic Length (4C) 7.8 cm LV Systolic Length (4C) 6.3 cm LV Stroke Volume (4C MOD) 39 ml RV Dimensions 2D/MM TAPSE 1.7 cm >=1.7 Atria Name Value Normal LA Dimensions LA Volume (4C A-L) 39 ml LA Volume (BP A-L) 45 ml RA Dimensions RA Systolic Major Alpine Length (4C) 4.5 cm 2.2-2.8 RA Area (4C) 12.2 cm2 <=18.0 Report Signatures
--- OUTSIDE RECORDS SUMMARY | 2024-08-28 09:56 | XMS_ITS | Clinical Summary ---
Author Organization [facility] Address [address] [place] [id number] Care Team Providers Care Clinical Documentation Consultant Name Role Phone Unavailable Primary Care Provider [...] 1 - Tdap) 01/17/1975 Mammogram Screening 1996 Pneumococcal Vaccine: 50+ Ye ars (1 of 1 - PCV) 01/17/2006 Zoster Vaccines (1 of 2) 01/17/2006 Dexa Scan (General) 01/17/2021 COVID-19 Vaccine ( - 2023-2 5 season) 2023 RSV Immunization or 60+ Years (1 [...]
== END 2024-08-28 09:41 | disposition home or self-care (01) ==
LOC: ANHCARD 09:43
PROVIDERS: PCP Family Medicine
DX: I35.0 Nonrheumatic aortic (valve) stenosis (principal)
CPT/HCPCS: 93306

== ENCOUNTER 2024-10-14 08:38 | Inpatient (IN) | payer MEDICARE, MEDICAID, SELFPAY ==
[2024-10-14] VITALS (9 sets, daily range): BP systolic 96–153; BP diastolic 50–63; PULSE 66–69; RESP 14–24; TEMP 36.1–36.6; O2SAT 90–100; BMI 29.0
--- NOTE | ~2024-10-14 | CT_ITS ---
EXAMINATION: CT brain wo con DATE: 10/18/2024 13:43 INDICATION: Increasing somnolence TECHNIQUE: Computed tomography (CT) of the head was performed without intravenous contrast. Sagittal and coronal reconstructions were performed. Automated exposure control and iterative reconstruction technique were employed. The dose-length product was 605.33 mGy-cm. COMPARISON: head CT dated 10/14/2024 FINDINGS: No acute intracranial hemorrhage, acute infarction or abnormal extra axial fluid collection. Unchanged old lacunar infarcts at the right basal ganglia and subinsular white matter, in the right parietal lobe carty radiata and the left frontal lobe carty radiata. There is moderate scattered white matter hypoattenuation consistent with chronic small vessel ischemic disease. Symmetric prominence of the sulci consistent with moderate age-appropriate diffuse cerebral volume loss. Ventricles are normal and symmetric. No mass/mass effect. The orbits, paranasal sinuses and mastoid air cells are normal. IMPRESSION: 1. Old lacunar infarcts in the right basal ganglia, right parietal lobe and left frontal lobe. No acute intracranial process. 2. Age-related changes including moderate diffuse volume loss and moderate scattered white matter hypoattenuation consistent with chronic small vessel ischemic disease. Reviewed, dictated and finalized at location A. IMPRESSION: 1. Old lacunar infarcts in the right basal ganglia, right parietal lobe and lef t frontal lobe. No acute intracranial process. 2. Age-related changes including moderate diffuse volume loss and moderate scat tered white matter hypoattenuation consistent with chronic small vessel ischemi c disease.
--- NOTE | ~2024-10-14 | CT_ITS ---
EXAMINATION: CT cervical spine wo con DATE: 10/14/2024 10:11 INDICATION: Trauma TECHNIQUE: Computed tomography (CT) of the cervical spine was performed without intravenous contrast. Automated exposure control and iterative reconstruction technique were employed. The dose-length product was 352.30 mGy-cm. COMPARISON: 08/08/2023 FINDINGS: 12 degrees cervical dextrocurvature. Sagittal alignment is normal. Vertebral body heights are normal. No fracture. Severe disc height loss at C2-C3, moderate to severe disc height loss with prominent degenerative endplate changes at C3-C4 and mild disc height loss at C4-C5 through C6-C7. Severe uncovertebral osteoarthritis on the left at C3-C4, C4-C5 and on the right at C6-C7 and mild to moderate uncovertebral osteoarthritis the remaining cervical levels. There is severe facet osteoarthritis on the left at C3-C4 through C7-T1 and on the right at C4-C5. Mild to moderate osteoarthritis the remaining cervical facet joints. Disc bulges contributing to moderate central canal stenosis at C3-C4 and mild at C4-C5 and C5-C6. Multilevel bilateral cervical neural foraminal stenosis, mild to moderate on the left at C3-C4, C4-C5 and C5-C6 and otherwise mild. Mild discoid atelectasis in the visualized left upper lobe. IMPRESSION: 1. 12 degrees cervical dextrocurvature with severe upper cervical predominant spondylosis. No acute osseous abnormality. Reviewed, dictated and finalized at location A. IMPRESSION: 1. 12 degrees cervical dextrocurvature with severe upper cervical predominant s pondylosis. No acute osseous abnormality.
--- NOTE | ~2024-10-14 | CT_ITS ---
EXAMINATION: CT brain wo con DATE: 10/14/2024 10:11 INDICATION: Fall with altered mental status TECHNIQUE: Computed tomography (CT) of the head was performed without intravenous contrast. Sagittal and coronal reconstructions were performed. The mA was adjusted according to patient size. Iterative reconstruction technique was employed. The dose-length product was 352.30 mGy-cm. COMPARISON: head CT dated 05/12/2024 FINDINGS: No fracture. No acute intracranial hemorrhage, acute infarction or abnormal extra axial fluid collection. Unchanged small old lacunar infarcts at the right basal ganglia and subinsular white matter. There is moderate scattered white matter hypoattenuation consistent with chronic small vessel ischemic disease. Symmetric prominence of the sulci and ventricles consistent with mild age- appropriate diffuse cerebral volume loss. Ventricles are normal and symmetric. Unchanged 7 mm relatively high density mass along the the left optic nerve regions remain stable since 06/05 consistent with a benign etiology such as optic nerve sheath meningioma. Orbits are otherwise normal. No intracranial mass/mass effect. Symmetric likely senescent dystrophic calcifications at the bilateral basal ganglia. The paranasal sinuses and mastoid air cells are normal. IMPRESSION: 1. No fracture or acute intracranial process. 2. Peripheral old lacunar infarcts at the right basal ganglia and subinsular white matter. 3. Prominent Age-related changes including mild diffuse volume loss and moderate scattered white matter hypoattenuation consistent with chronic small vessel ischemic disease. 4. 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 Reviewed, dictated and finalized at location A. IMPRESSION: 1. No fracture or acute intracranial process. 2. Peripheral old lacunar infarcts at the right basal ganglia and subinsular wh ite matter. 3. Prominent Age-related changes including mild diffuse volume loss and moderat e scattered white matter hypoattenuation consistent with chronic small vessel i schemic disease. 4. Stable appearance of a chronic 7 mm mass along the left optic nerve most lik emmie benign uptake nerve sheath meningioma.
--- NOTE | ~2024-10-14 | XR_ITS ---
EXAMINATION: XR chest 2V 10/14/2024 10:18 INDICATION: Shortness of breath PROCEDURE: AP and lateral view of the chest COMPARISON: 10/10/2023 FINDINGS: The lungs are clear. The cardiomediastinal silhouette is within normal limits. There are no pleural effusions. There is no pneumothorax suspected. IMPRESSION: 1: NO ACUTE CARDIOPULMONARY DISEASE. Reviewed, dictated and finalized at location O.
--- NOTE | ~2024-10-14 | XR_ITS ---
XR chest 1V portable 10/16/2024 13:25 Indication: Newly acquired oxygen requirement Procedure: AP portable chest Comparison: Comparison to multiple prior studies sequentially, with oldest reviewed study dated 06/24/2023. Findings: Mild cardiomegaly with mild interstitial edema. No pleural effusion or pneumothorax. No acute osseous abnormality. Impression: 1: Mild cardiomegaly with interstitial edema. Reviewed, dictated and finalized at location O. Impression: 1: Mild cardiomegaly with interstitial edema.
--- NOTE | 2024-10-14 08:55 | ECG_ITS ---
Test Date: 2024-10-14 09:21:25 Measurements Intervals [place] Rate: 66 P: 47 WV: 175 QRS: -29 QRSD: 149 T: 75 QT: 464 QTc: 488 Interpretive Statements SINUS RHYTHM LEFT BUNDLE BRANCH BLOCK BASELINE ARTIFACT- I, II, AVR, AVF, V4-V5 ABNORMAL ECG Compared to ECG 10/10/2023 15:40:49 No significant changes Electronically Signed On 10-14-2024 16:01:14 CDT by Aman Thompson D.O.
[2024-10-14] MEDS: LACTATED RINGERS 1,000 ML 999 ML IV CONT ×2 (09:17→11:30)
--- NOTE | 2024-10-14 09:19 | ED.GENADULT ---
HPI - General Adult General Chief complaint: Weakness Stated complaint: fall Time Seen by Provider: 10/14/24 09:08 History of Present Illness HPI narrative: 69-year-old female present to the emergency department for evaluation for multiple complaints. Patient does have a history of dementia and decreased deconditioning. Family states that the patient is always a bit feisty. patient is upset about being here in the emergency department and is verbally abusive to the staff. Patient reportedly had a fall on Tuesday night into morning. Patient was complaining of low back pain at That time. Family brought the patient to the emergency department for evaluation of worsening pain. Patient does have a history of dementia, high cholesterol, hypertension, COPD, aortic valve stenosis, type 2 diabetes and tobacco use Related Data Home Medications ?Medication ?Instructions ?Recorded ?Confirmed ?Last Taken ?Type aspirin 81 mg tablet,delayed 81 mg PO DAILY 02/20/22 10/14/24 10/14/24 History release carvedilol 12.5 mg tablet 6.25 mg PO BID 02/20/22 10/14/24 10/14/24 History Held on 10/14/24. Instructions: Patient no longer taking escitalopram oxalate 5 mg tablet 5 mg PO HS 10/10/23 10/14/24 05/11/24 History rosuvastatin 40 mg tablet 40 mg PO DAILY 05/12/24 10/14/24 10/14/24 History ticagrelor 90 mg tablet (Brilinta) 90 mg PO Q12H 05/12/24 10/14/24 10/14/24 History carvedilol 6.25 mg tablet 6.25 mg PO Q12H 10/14/24 10/14/24 10/14/24 History Allergies Allergy/AdvReac Type Severity Reaction Status Date / Time No Known Allergies Allergy Verified 06/28/24 09:22 Review of Systems Review of Systems: All systems reviewed & are unremarkable except as noted in HPI and below PMFSH Past Medical History Medical History Closed fibular fracture Aortic valve stenosis Echocardiogram 2022 mild aortic valve sclerosis with mild stenosis peak velocity 1.6 mean gradient 5 aortic valve area 1.8 cm2 Diastolic dysfunction Echocardiogram 02/2022: EF 55-60% grade 1 diastolic dysfunction Dementia Per family report Type 2 diabetes mellitus Kidney stone Hyperlipidemia HTN (hypertension) with goal to be determined History of tobacco use COPD (chronic obstructive pulmonary disease) Surgical History Surgical History History of cholecystectomy H/O tubal ligation H/O section x3 Family History Family History Mother Ruptured cerebral aneurysm Diabetes mellitus Father Diabetes mellitus Dementia Malignant neoplasm of prostate Cerebrovascular accident Sibling Malignant neoplasm of prostate Social History Social History Social History: The patient lives with her son. She has 3 CHILDREN. She is on DISABILITY and . She has a brief history of smoking when she was young. She denies any alcohol or illicit substance use. Code status: Full code [facility] power of environmental attorney: Justin Maddox (sister) Smoking packs per day: 0.5 Smoking cigarettes per day: 10.0 Years smoked: 2 Smoking pack-years: 1.00 Smoking status: Never smoker Tobacco type: cigarettes Second hand tobacco smoke exposure: Yes Additional smoking assessment comments: Pt is unsure when she quit smoking. Alcohol intake: never Alcohol use details: social Substance use: never Substance use type: does not use Do You Feel Safe in your Home?: Yes Lack of Transportation: No Lack of Food: Never True Current Housing: I Have Housing Concerned About Future Housing: No Difficulty Paying Gas/Electric Bills: No Difficulty Paying for Meds: No Currently Unemployed: No Education: High School Diploma/GED Difficulty w/ Childcare or Family Care: No Living arrangements: with family Occupation/Education: retired Gender identity (if verbalized by the patient): Female Sexual Orientation (if Verbalized by the Patient): Straight or Heterosexual Spiritual care concerns: No Exam Narrative: APPEARANCE: Well appearing, no pain, no distress, well-nourished. HEAD: normocephalic, atraumatic. EYES: PERRLA/EOMI, conjunctivae clear. NOSE: Normal no drainage EARS:TMS clear with good light reflex. THROAT: Pharynx clear, no exudate. NECK: Supple. No adenopathy, no masses. RESPIRATORY: Airway patent, respirations nonlabored. Clear to auscultation bilaterally, no rales, rhonchi, wheezing. CARDIOVASCULAR: Regular rate and rhythm without murmurs rubs or gallops. ABDOMINAL: Soft, nontender, nondistended, normal bowel sounds MUSCULOSKELETAL: Moves all extremities. Strength/ROM intact, No edema, No calf tenderness. NEURO: Alert. Cranial nerves II through XII intact. Good gait. Good coordination SKIN: Warm, dry. Normal Color Course Vital Signs Vital signs: Vital Signs Temperature 97.8 F 10/14/24 08:45 Pulse Rate 69 10/14/24 08:45 Respiratory Rate 24 H 10/14/24 08:45 Blood Pressure 96/55 L 10/14/24 08:45 Pulse Oximetry 90 10/14/24 08:45 Oxygen Delivery Room Air 10/14/24 08:45 Temperature 97.5 F L 10/14/24 14:00 Pulse Rate 66 10/14/24 14:00 Respiratory Rate 16 10/14/24 12:08 Blood Pressure 118/50 L 10/14/24 14:00 Pulse Oximetry 96 10/14/24 16:03 Oxygen Delivery Nasal Cannula 10/14/24 16:03 Oxygen Flow Rate 2 10/14/24 16:03 Medical Decision Making [facility] Narrative Medical decision making narrative: 69-year-old female presents emergency department for evaluation for increased generalized weakness frequent falls. Patient is afebrile does have a leukocytosis of 13.1 hemoglobin 11.3. Patient has INR 1.1. Patient does have mild CINTHIA with creatinine of 1.88 and a GFR of 27. Patient did have an elevated CRP of 8.0. UA was significant for urinary tract infection. Patient was started on IV Rocephin, urine cultures are pending, blood cultures are pending. Patient was treated with 30 mils per kg of IV fluids. Head CT was negative for acute intracranial abnormality. Cervical spine CT was negative. Chest x-ray shows no acute cardiopulmonary abnormality. Case was discussed with the hospitalist patient was accepted for admission for altered mental status generalized weakness and urinary tract infection. All questions concerns were addressed. Patient and family were also updated the results of the workup and plan for admission. Differential Diagnosis Differential Diagnosis: Subdural hematoma, subarachnoid hemorrhage, cervical spine fracture, failure to thrive, UTI Vital Signs Vital Signs: Vital Signs Temperature 97.8 F 10/14/24 08:45 Pulse Rate 69 10/14/24 08:45 Respiratory Rate 24 H 10/14/24 08:45 Blood Pressure 96/55 L 10/14/24 08:45 Pulse Oximetry 90 10/14/24 08:45 Oxygen Delivery Room Air 10/14/24 08:45 Temperature 97.5 F L 10/14/24 14:00 Pulse Rate 66 10/14/24 14:00 Respiratory Rate 16 10/14/24 12:08 Blood Pressure 118/50 L 10/14/24 14:00 Pulse Oximetry 96 10/14/24 16:03 Oxygen Delivery Nasal Cannula 10/14/24 16:03 Oxygen Flow Rate 2 10/14/24 16:03 Lab Data Lab results reviewed: Yes I reviewed the patient's lab results. 10/14/24 09:19 10/14/24 09:19 Labs: Lab Results 10/14/24 10/14/24 10/14/24 Range/Units 08:48 09:19 09:32 WBC 13.1 H (4.5-10.0) K/mm3 RBC 4.01 L (4.2-5.4) M/mm3 Hgb 11.3 L (12.0-15.0) g/dL Hct 36.0 L (37.0-47.0) % MCV 89.8 (80-100) fl MCH 28.2 (26-34) pg MCHC 31.4 L (32-36) g/dl RDW 13.3 (11.5-14.5) % Plt Count 178 (150-375) k/mm3 MPV 11.2 H (7.4-10.4) fl Immature Gran % (Auto) 0.3 (0-0.5) % Neut % (Auto) 64.9 (45.5-73.1) % Lymph % (Auto) 18.5 (18.3-44.2) % [place] % (Auto) 14.3 H (2.6-8.5) % Eos % (Auto) 1.4 (0-4.4) % Baso % (Auto) 0.6 (0.2-1.2) % Lymph # (Auto) 2.43 (0.9-3.2) K/mm3 [place] # (Auto) 1.9 H (0.1-0.6) K/mm3 Eos # (Auto) 0.2 (0-0.3) K/mm3 Baso # (Auto) 0.1 (0.0-0.1) K/mm3 Abs Immat Gran (auto) 0.04 H (0.00-0.031) K/mm3 Absolute Neuts (auto) 8.5 H (1.3-6.7) K/mm3 Absolute Nucleated RBC 0.000 (0.0-0.012) K/mm3 Nucleated RBC % 0.0 (0.0-0.2) % PT 14.4 (11.1-14.7) Seconds INR 1.1 APTT 27.8 (22.3-36.8) Seconds Sodium 137 (137-145) mmol/L Potassium 4.3 (3.4-5.0) mmol/L Chloride 103 (98-107) mmol/L Carbon Dioxide 24 (22-30) mmol/L Anion Gap 10 (4-12) mmol/L BUN 34 H D (7-17) mg/dL Creatinine 1.88 H (0.7-1.0) mg/dL Estim Creat Clear Calc Not Reportable Estimated GFR 27 L (59 - ) Glucose 138 H (65-110) mg/dL POC Capillary Glucose 124 H (65-105) mg/dl Hemoglobin A1c 7.6 H (<5.7) % Lactic Acid 1.3 (0.7-2.0) mmol/L Calcium 9.0 (8.4-10.2) mg/dL Total Bilirubin 1.1 (0.2-1.3) mg/dL AST 73 H (14-36) U/L ALT 86 H (6-35) U/L Alkaline Phosphatase 139 H (38-126) U/L C-Reactive Protein 8.0 H (<1.0) mg/dL Total Protein 7.7 (6.3-8.2) g/dL Albumin 4.1 (3.5-5.1) g/dL Urine Color Yellow (Yellow) Urine Appearance Turbid H (Clear) Urine pH 5.5 (5.0-9.0) Ur Specific [place] 1.015 (1.001-1.035) Urine Protein 3+ H (Negative) mg/dL Urine Glucose (UA) Negative (Negative) mg/dL Urine Ketones Negative (Negative) mg/dL Ur Blood (Man) 2+ H (Negative) Urine Nitrate Negative (Negative) Urine Bilirubin Negative (Negative) Urine Urobilinogen 1.0 (<2.0) mg/dL Add Ur Microanalysis Reviewed Leukocyte Esterase Rfl 2+ H (Negative) RORO/UL Urine RBC 0-2 (0-2) /hpf Urine WBC 51-100 H (0-3) /hpf Ur Squamous Epith Cells Occasional (Few) /hpf Urine Bacteria 4+ H /hpf Urine Casts >20 Granular Casts Present (None) /lpf Imaging Data Radiologist's impression: Impressions Head CT 10/14/24 10:52 IMPRESSION: 1. No fracture or acute intracranial process. 2. Peripheral old lacunar infarcts at the right basal ganglia and subinsular white matter. 3. Prominent Age-related changes including mild diffuse volume loss and moderate scattered white matter hypoattenuation consistent with chronic small vessel ischemic disease. 4. 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 Cervical Spine CT 10/14/24 11:08 IMPRESSION: 1. 12 degrees cervical dextrocurvature with severe upper cervical predominant spondylosis. No acute osseous abnormality. Discharge Plan Discharge Clinical Impression: Frequent falls, Acute kidney injury, Acute UTI Patient Disposition: Still a Patient Condition: Serious
[2024-10-14 09:24] LABS: Hematocrit 36.0 % (37.0-47.0); Hemoglobin 11.3 g/dL (12.0-15.0); Immature Granulocyte Percent A 0.3 % (0-0.5); Lymphocytes Absolute Auto 2.43 K/mm3 (0.9-3.2); Mean Corpuscular HGB Conc 31.4 g/dl (32-36); Mean Corpuscular Hemoglobin 28.2 pg (26-34); Mean Corpuscular Volume 89.8 fl (80-100); Nucleated Red Blood Cells Absolute Auto 0.000 K/mm3 (0.0-0.012); Nucleated Red Blood Cells Perc 0.0 % (0.0-0.2); Platelet Count Result 178 k/mm3 (150-375); Red Blood Count 4.01 M/mm3 (4.2-5.4); White Blood Count 13.1 K/mm3 (4.5-10.0)
[2024-10-14 09:35] LABS: INR 1.1; Partial Thromboplastin Time 27.8 Seconds (22.3-36.8); Prothrombin Time 14.4 Seconds (11.1-14.7)
[2024-10-14 09:39] LABS: Alanine Aminotransferase 86 U/L (6-35); Albumin Level 4.1 g/dL (3.5-5.1); Alkaline Phosphatase 139 U/L (38-126); Anion Gap 10 mmol/L (4-12); Aspartate Amino Transferase 73 U/L (14-36); Bilirubin,Total 1.1 mg/dL (0.2-1.3); Blood Urea Nitrogen 34 mg/dL (7-17); Calcium 9.0 mg/dL (8.4-10.2); Carbon Dioxide 24 mmol/L (22-30); Chloride 103 mmol/L (98-107); Estimated Glomerular Filt Rate 27; Glucose 138 mg/dL (65-110); Potassium 4.3 mmol/L (3.4-5.0); Sodium 137 mmol/L (137-145); Total Protein 7.7 g/dL (6.3-8.2)
--- OUTSIDE RECORDS SUMMARY | 2024-10-14 09:50 | XMS_ITS | Encounter Summary ---
Author Organization [facility] Health Address [address] [facility] [place] [address] Care Team Providers Care Set O Type Operator Name Role Phone Ralph Gutierres MD Unavailable [phone] Ralph Gutierres MD Primary Care Provider + [phone] Ralph Gutierres MD Unavailable [phone] Encounter Details Date Type Department Care Team (Late st Contact Info) Description 02/02/2024 Telephone [facility] - Cardiology [address] [phone] Dahlia Salazar MD [facility] [address] [id number] Social History Tobacco Use Types Packs/Day Years [...] Recorded Patient Health Questionnaire-2 Score 0 09/30/2022 [facility] - Occupational [...] any time in the past 12 m [facility], were you homeless or living in a intermediate (including now)? 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 Answer Date of Assessment Author No 01/06/2024 9:17 AM Zackary Hernández RN * Is person blind or have serious difficulty seeing? Answer Date of Assessment Author No 01/06/2024 9:17 AM Zackary Hernández RN * Does person have serious difficulty walking/climbing stairs? Answer Date of Assessment Author No 01/06/2024 9:17 AM Zackary Hernández RN * Does person have difficulty dressing/bathing? Answer Date of Assessment Author No 01/06/2024 9:17 AM Zackary Hernández RN * Does person have difficulty doing errands alone? Answer Date of Assessment Author No 01/06/2024 9:17 AM Zackary Hernández RN documented as of this encounter Mental Status * Does person have difficulty concentrating/remembering/making decisions? Answer Entry Date Author No 01/06/2024 9:17 AM Zackray Hernández RN documented in this encounter Miscellaneous Notes * Telephone Encounter - Radha Garcia RN - 02/02/2024 10:08 AM CST Received request for cath instructions to be mailed to patient's sister. Contacted patient's sisterto verify address. Address confirmed. Instruction letter mailed. Radha Garcia RN 02/02/2024 10:10 AM You have been scheduled for a heart catheterization in the [facility] at [facility] on Feb [address] Salazar. [facility] is located at [address] [place] [address], turn in at the Main Entrance or you can enter by going west on [facility]. You may park on the [place] side of garage directly across from the Hospital. Parking tickets will not print until after 5:30am. Press help button on parking meter if not open. Please bring your parking ticket with you for validation. Take elevator to Level 1, exit the elevator to your right and walk straight down the [facility] then the [place] un[facility]. During the hours of 8-8:30, visitors will also need to check in at the [place] [facility]. Please arrive to the [facility] on First Level at [facility] by 9:30 am (two hours before start [...] in a small locker while in the crime lab technician. After sedation, you can expect to spend a few hours being monitored while you wake up. Visitors are not allowed in therecovery area during this monitoring period. If groin access was used, you can expect to lay flat for 4-6 hours. Please contact the office with any questions you may have prior to your procedure at: [phone]. If you have questions for the hospital on the day of procedure call: [phone] Scheduling questions only: [phone] DO NOT eat any solid food after [...] medications as prescribed if not listed above. KER IN documented in this encounter Plan of Treatment Upcoming Encounters Date Type Department Care Team (Late st Contact Info) Description 11/05/2024 9:00 AM CDT Office Visit [facility] - Family Medicine [address] [place] [address], [facility] [place] [address] Callie Aguillon MD [address] [place] [phone] documented as of this encounter Visit Diagnoses Not on filedocumented in this encounter Additional Health Concerns Infection Onset Date Last Indicated Resolved Time COVID-19 Under Investigation 04/13/2024 04/13/2024 04/13/2024 7:46 PM CHECKER IN documented as of this encounter Care Teams Set O Type Operator Relationship Specialty Start Date End Date Ralph Gutierres MD [address] [place] [phone] PCP - General Family Medicine 01/18/23 Ralph Gutierres MD [address] [place] [phone] PCP - [facility]O P4P 07/16/23 Ralph Gutierres MD [address] [place] [phone] Physician Family Medicine 01/18/23 documented as of this encounter
--- OUTSIDE RECORDS SUMMARY | 2024-10-14 09:50 | XMS_ITS | Encounter Summary ---
Author Organization [facility] Health Address [address] [place] [address] Care Team Providers Care Molder Labels Name Role Phone Ralph Gutierres MD Primary Care Provider [phone]- [phone] Ralph Gutierres MD Unavailable [phone] Ralph Gutierres MD Primary Care Provider + [phone] Ralph Gutierres MD Unavailable [phone] Encounter Details Date Type Department Care Team (Late Contact Info) Description 09/14/2021 Telephone [facility] [address] [place] [address] Ralph Gutierres MD [address] [place] [phone] Social History Tobacco Use Types Packs/Day Years Used Date Smoking Tobacco: Former Cigarettes 0.5 5 1 991 - 1995 Smokeless Tobacco: Never Alcohol Use Standard Drinks/Week Comments Not Currently 0 (1 standard drink = 0.6 oz pur e alcohol) PHQ-2 Answer Date Recorded PHQ2 TOTAL SCORE 0 04/16/2021 Comments No Sex and Gender Information Value Date Recorded Sex Assigned at Not on file 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 Gender Identity Not on file Sexual Orientation Not on file documented as of this encounter Plan of Treatment Upcoming Encounters Date Type Department Care Team ([facility] Contact Info) Description 11/05/2024 9:00 AM CDT Office Visit [facility] - Family Medicine [address] [place] [phone] Callie Aguillon MD [address] [place] [address] documented as of this encounter Visit Diagnoses Not on filedocumented in this encounter Additional Health Concerns Infection Onset Date Last Indicated Resolved Time COVID-19 Under Investigation 01/08/2024 01/08/2024 01/08/2024 9:25 AM TEMPERING MACHINE OPERATOR COVID-19 Under Investigation 04/13/2024 04/13/2024 04/13/2024 7:46 PM TEMPERING MACHINE OPERATOR documented as of this encounter Care Teams Molder Labels Relationship Specialty Start Date End Date Ralph Gutierres MD PCP - General 06/08/18 01/17/23 Ralph Gutierres MD [address] [place] [address] PCP - General Family Medicine 01/18/23 Ralph Gutierres MD [address] [place] [address] PCP - [facility] QU[facility]CY [facility]O P4P 07/16/23 Ralph Gutierres MD [address] [place] [address] Physician Family Medicine 01/18/23 documented as of this encounter
--- OUTSIDE RECORDS SUMMARY | 2024-10-14 09:51 | XMS_ITS | Clinical Summary ---
Author Organization [facility] Rewarder Address [address] [place] [address] Care Team Providers Care Undercutter Operator Name Role Phone Ralph Gutierres MD Unavailable [phone] Ralph Gutierres MD Primary Care Provider [phone]- [phone] Ralph Gutierres MD Unavailable [phone] Source Comments [facility] Rewarder,non-owned Affiliates and Associated Physician Practices is amultiple site organization consisting of ambulatory clinics and hospital sitesin [place], [place], [place] and [place]. This disclosure is being madepursuant to the Care Everywhere program and may not contain all information available regarding this patient. Last updated 17.[facility] Rewarder Allergies Active Allergy Reactions Criticality Noted Date Comments Fentanyl Other,Vomiting 10/28/2021 Confusion Midazolam Other,Vomiting 10/28/2021 Confusion Medications * Be aware that medications may not be up to date on this document. Alwaysverify current medications with the patient. Nebulizer Use as directed Acti ve blood glucose (ONETOUCH ULTRA TEST STRIPS) test strip Use 1 strip 2 times daily 100 strip 0 Active ONE TOUCH ULTRASOFT LANCETS MISC Use 1 Each 2 times daily 100 Each 1 Active blood glucose test strip Use 1 (one) strip as directed 100 strip 1 Active Continuous Blood Gluc Sensor (FREESTYLE SARANYA 2 SENSOR SYSTM) MISC Use 1 (one) Each every 14 days 2 Each 2 Active Additional Information Patient not taking.Reported on 06/15/2024 Continuous Blood Gluc Oxidation Operator (FREESTYLE SARANYA 2 READER SYSTM) BRY Use 1 device continuous 1 device 2 Active Additional Information Patient not taking.Reported on 06/15/2024 aspirin EC (Aspirin 81) 81 MG tablet Take 1 (one) tablet by mouth once daily 90 tablet 3 2 Active ticagrelor (Brilinta) 90 MG tablet Take 1 [...] times daily 100 g 5 5 Active Additional Information Patient not taking.Reported on 06/15/2024 rosuvastatin (Crestor) 40 MG tablet Take 1 (one) tablet by mouth once daily 90 tablet 3 5 Active insulin lispro (HumaLOG KwikPen) 100 UNIT/ML pen Inject 5 (five) Units subcutaneously 3 times daily before meals for 90 days 13.5 mL 5 Active escitalopram (Lexapro) 5 MG tablet Take 1 (one) tablet by mouth once daily 90 tablet 3 5 Active BD Pen Needle Mini Ultrafine 31G X 5 MM needleIndicati ons:Type 2 diabetes mellitus without complication, with long-term current use of insulin (HCC) USE 1 PEN NEEDLE 4 TIMES DAILY 100 Each 5 Active Lantus SoloStar penIndications :Type 2 diabetes mellitus without complication, with long-term current use of insulin (HCC) INJECT 35 UNITS SUBCUTANEOUSLY ONCE DAILY AT BEDTIME 15 mL 5 Active Active Problems Problem Noted Date Diagnosed Date Adverse effect of drug, initial encounter 2024 Leukocytosis, unspecified type 04/13/2024 Assessment & Plan (04/13/2024 8:27 PM SUPERVISOR [employer]INT[employer]): No evidence of infection. Discontinue antibiotic therapy. CINTHIA (acute kidney injury) 04/13/2024 Assessment & Plan (04/13/2024 8:27 PM [employer]): Worsening. Srm Cr: 1.4 on admission date [...] UN, and Cr levels. No indications for COSMETOLOGIST at this time. Minimize/avoid use of NSAIDs, radiocontrast dye, and other potentially nephrotoxic agents. Maintain euvolemia and adequate blood pressure (MAP >= 65 mm Hg). Hypotension 04/13/2024 Assessment & Plan (04/13/2024 8:27 PM [employer]): Improving. Etiology of hypoTN most likely accounted for by excess ?-cliff pharmacotherapy and antihypertensive medications. Manifestations of tissue hypoperfusion are present, but improving. Past 24 hrs: Neurologic/mental status: somnloent (stable). Urine output: unable to assess. Plan: Serial assessment of blood pressure. Telemetry monitoring. Withhold carvedilol and sacubitril-valsartan in setting of hypotension. Hypoglycemia 04/13/2024 Assessment & Plan (04/13/2024 8:27 PM [employer]): See type 2 diabetes mellitus. Hyperkalemia 04/13/2024 Assessment & Plan (04/13/2024 8:27 PM [employer]): See CINTHIA. Chronic diastolic heart failure 04/13/2024 Agitation 01/04/2024 Acute metabolic encephalopathy 01/04/2024 Assessment & Plan (04/13/2024 8:27 PM SU[employer]): Due to hypoglycemia. Plan: Minimize/avoid use of medications known to induce delirium. Encourage engaging in stimulating activities. Minimize interruptions at night to avoid sleep deprivation. Encourage mobilization as tolerated, preferably at least 3 times daily. See also hypoglycemia. Coronary artery disease 12/14/2023 Assessment & Plan (04/13/2024 8:27 PM [employer]): She has a history of PCI with RISHI placement (most recently in Feb, 2024). Plan: Continue aspirin 81 mg DAILY PO. Continue ticagrelor 90 mg BID PO. Continue rosuvastatin 40 mg DAILY PO. S/P drug eluting coronary stent placement 2023 Assessment & Plan (04/13/2024 8:27 PM [employer]): See CAD. Vascular dementia 05/06/2023 CAD, 2-vessel involving LAD/D1 and LCx 2 Benign hypertension 10/11/2021 Assessment & Plan (04/13/2024 8:27 PM [employer]): No evidence of new target-organ dysfunction related to HTN. Past 24 hrs: Blood pressure control: excessive. Plan: Serial monitoring of blood pressure. Withhold anti-HTN medications in setting of low blood pressure. Dyslipidemia 10/11/2021 Assessment & Plan (04/13/2024 8:27 PM [employer]): See CAD. 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 Newly diagnosed Systolic and Diastolic Heart Failure with an EF of 41%. Stable and Euvolemic on exam today. Following with Dr. Salazar for evaluation of MR. R/[facility] planned for 10/28/2021 Stop Losartan and changed [...] 10/05/2018 Assessment & Plan (04/13/2024 8:27 PM [employer]): Long-term glycemic control unknown. No known DM [...] Encounters Date Type Department Care Team Description 09/26/2024 Telephone [facility] - Family Medicine [facility] [facility], [place] [address] Ralph Gutierres MD Referral 09/18/2024 Telephone [facility] - Cardiology [address] [facility], [facility] [address] [place] [address] Kassidy Encinas APRN-AUTO MACHINIST Echocardiogram 09/13/2024 Refill [facility] - Family Medicine [address] [facility] [place] [address] Ralph Gutierres MD Refill Request 09/11/2024 Telephone [facility] - Cardiology [address] [facility], [address] [address] Kassidy Encinas APRN-CNP Echo Interpretation 09/10/2024 [facility] - Cardiology [address] [facility], [address] [address] Dahlia Salazar MD Follow-up 09/05/2024 Telephone [facility] - Cardiology [address] [facility], [address] [address] Kassidy Encinas APRN-PEDRO Results 08/28/2024 Refill [facility] Physician [facility] - Family [address], [place] [address] Ralph Gutierres MD Refill Request 08/07/2024 Refill [facility] Physician [address], [facility] [place] [address] Ralph Gutierres MD Refill Request 07/26/2024 [facility] - Cardiology [address] [place] [address], [address] [address] Dahlia Salazar MD Echocardiogram 07/24/2024 [facility] - Cardiology [address] [place] [address], [address] [address] Kassidy Encinas APRN-PEDRO Follow-up from Last 3 Months Immunizations Immunization Administration Dates Next Due COVID MODERNA 12+ [...] Recorded Patient Health Questionnaire-2 Score 0 03/15/2024 [facility] of Occupat ional Health - Occupational Stress [...] any time in the past 12 [facility], were you homeless or living in a detention (including now)? No 04/14/2024 Comments No Sex and Gender Information Value Date Recorded Sex Assigned at Not on file Legal Sex Female 12:28 PM [employer] Gender Identity Not on file Sexual Orientation Not on file Last Filed Vital Signs Vital Sign Reading Time Taken Comments Blood Pressure 95/63 06/15/2024 8:15 AM CDT Pulse 65 06/15/2024 8:15 AM CDT Temperature 36.6 C (97.9 F) 04/15/2024 7:59 AM [employer] Respiratory Rate 16 04/15/2024 7:59 AM [employer] Oxygen Saturation 96% 06/15/2024 8:15 AM CDT Inhaled Oxygen Concentration - - Weight 61.2 kg (135 lb) 06/15/2024 8:15 AM CDT Height 149.9 cm (4' 11) 06/15/2024 8:15 AM CDT Body Mass Index 27.27 06/15/2024 8:15 AM CDT Plan of Treatment Upcoming Encounters Date Type Department Care Team (Late st Contact Info) Description 11/05/2024 9:00 AM CDT Office Visit [facility] - Family Medicine [address] [place] [address], [place] [address] Callie Aguillon MD [address] [place] [address] [place] [address] Health Maintenance Due Date Last Done Comments [...] exists MEDICARE AWV CALENDAR YEAR 2024 04/16/2021 COVID-19 VACCINE ( season) 2024 11/22/2023, 01/21/2023, 12/09/2020, Additional history exists INFLUENZA VACCINE (#1) 2024 , 01/21/2023, 11/27/2020, Additional history exists DIABETES-HGB A1C 12/16/2024 06/15/2024, , 10/19/2023, Additional history exists DIABETES RETINOPATHY SCREENING 04/05/2025 04/05/2023, 10/09/2021, 09/05/2020, Additional history exists COLONOSCOPY - COLON CA SCREENING 06/14/2025 06/15/2015 (Done Outside Per Patient) Colorectal Cancer Screening 06/14/2025 DIABETES-SERUM CREATININE 06/15/20252024, 04/15/2024, 04/15/2024, Additional history exists HEPATITIS C SCREENING Completed 07/04/2018 BONE DENSITY TESTING Completed 03/13/2021 (Done Outside Per Patient) PNEUMOCOCCAL VACCINE 50+ Completed 2024 DEPRESSION SCREENING [...] this topic Medical Devices Implanted Type Area Category Director Device Identifier Shelf Expiration Date Model / Serial / Lot Sys Cor Stent Sng Xd Mr 2.25mm 24mm Dlv - [id number] Implanted:Qty: 1 on 01/04/2024 by Dahlia Salazar MD at [facility] [employer] [id number] 01/30/2025 [id number] / [id number] / [id number] Sys Cor Stent Sng Xd Mr 3mm 12mm Dlv Sys - [id number] Implanted:Qty: 1 on 02/28/2024 by Dahlia Salazar MD at [facility] [employer] [id number] 11/14/2025 [id number] / [id number] / [id number] Procedures Procedure Name Priority Date/Time Associated Diagnosis Comments COMPREHENSIVE METABOLIC PANEL Routine 06/15/2024 9:20 AM CDT LLQ pain Type 2 diabetes mellitus without complication, with long-term current use of insulin (HCC) HEMOGLOBIN A1C Routine 06/15/2024 9:20 AM CDT Type 2 diabetes mellitus without complication, with long-term current use of insulin (HCC) EYE EXAM Routine 04/05/2023 MICROALB/CREAT RATIO URINE RANDOM PANEL Routine 01/26/2023 3:41 PM [employer] Type 2 diabetes mellitus without complication, with long-term current use of insulin MAMMO BILAT SCREENING W KYLIE Routine 12/26/2020 7:47 AM [employer] Encounter for screening mammogram for breast cancer HEPATITIS C ANTIBODY Routine 07/04/2018 10:02 AM CDT Healthcare maintenance from Last 3 Months or Most Recently Relevant to Health Maintenance Results * (ABNORMAL) HEMOGLOBIN A1C (06/15/2024 9:20 AM CDT) Hemoglobin A1c 6.8(H) <=5.6 % 06/15/2024 11:14 AM CDT [facility] Estimated Average Glucose 148 mg/dL 06/15/2024 11:14 AM T [facility] Comment: HbA1c Interpretation: Normal : < 5.7% Pre-diabetes: 5.7-6.4% Diabetes: Equal to or greater than 6.5% Test results diagnostic of diabetes should be repeated for confirmation. Treatment target values recommended by ADA and other clinical organizations should be used to evaluate metabolic control in patients. Reference: [place] Diabetes Association, Standards of Care in Diabetes -2020 In patients 70 years and older consider HbA1c target range of 7.0-7.5% (Reference: Sarbjit Marcos et al. JORDINDA. 2012) The Sebia assay for the measurement of HbA1c is a National Glycohemoglobin Standardization Program (NGSP) certified method. Blood BLOOD SPECIMEN / Unknown Lab Venipuncture / Unknown 06/15/2024 9:20 AM CDT 06/15/2024 9:50 AM CDT us Ralph Gutierres MD LAB - CHEMISTRY ORDERABLES Final Result [facility] [address] [place] [phone], [place] [phone] * (ABNORMAL) COMPREHENSIVE METABOLIC PANEL (06/15/2024 9:20 AM CDT) BUN 44(H) 7 - 26 mg/dL 06/15/2024 10:30 AM CDT [facility] Creatinine 1.18(H) 0.56 - 0.96 mg/dL 06/15/2024 10:30 AM [facility] Sodium 140 136 - 145 mmol/L 06/15/2024 10:30 AM [facility] Potassium 4.7(H) 3.5 - 4.5 mmol/L 06/15/2024 10:30 AM [facility] Chloride 108(H) 98 - 107 mmol/L 06/15/2024 10:30 AM [facility] CO2 23 22 - 29 mmol/L 06/15/2024 10:30 AM [facility] Glucose 125(H) 70 - 99 mg/dL 06/15/2024 10:30 AM [facility] Calcium 8.8 8.4 - 10.2 mg/dL 06/15/2024 10:30 AM [facility] Protein Total 7.1 6.0 - 8.3 g/dL 06/15/2024 10:30 AM [facility] Albumin 3.8 3.4 - 5.0 g/dL 06/15/2024 10:30 AM [facility] Bilirubin Total 0.3 0.2 - 1.2 mg/dL 06/15/2024 10:30 AM [facility] Alkaline Phosphatase 173(H) 40 - 150 U/L 06/15/2024 10:30 AM [facility] ALT 80(H) 5 - 55 U/L 06/15/2024 10:30 AM [facility] AST 71(H) 5 - 34 U/L 06/15/2024 10:30 AM [facility] Anion Gap 9 6 - 16 06/15/2024 10:30 AM [facility] BUN/Creatinine Ratio 37(H) 7 - 23 06/15/2024 10:30 AM [facility] Osmolality Calculated 303(H) 275 - 295 mOsm/kg 06/15/2024 10:30 AM [facility] Albumin/Globulin Ratio 1.2 1.1 - 2.3 06/15/2024 10:30 AM [facility] eGFR by CKD-EPI 50(L) >=90 mL/min/1.7 3 m2 06/15/2024 10:30 AM [facility] Blood BLOOD SPECIMEN / Unknown Lab Venipuncture / Unknown 06/15/2024 9:20 AM CDT 06/15/2024 9:50 AM CDT Ralph Gutierres MD LAB - CHEMISTRY ORDERABLES Final Result [facility] [address] [place] [id number], [place] [phone] * EYE EXAM (04/05/2023) Anatomical Region Laterality Modality Other Historical Provider MD SCANNING ONLY Final Res ult * MICROALB/CREAT RATIO URINE RANDOM PANEL (01/26/2023 3:41 PM [employer]) Albumin Random Urine 40.1 Not Established ug/mL 01/26/2023 4:32 PM [employer] [facility] Creatinine Urine 203.75 Not Established mg/dL 01/26/2023 4:32 PM [employer] [facility] Urine Albumin/Creati nine Ratio 20 <30 mg/g 01/26/2023 4:32 PM [employer] [facility] Urine URINE SPECIMEN OBTAINED BY CLEAN CATCH PROCEDURE / Unknown Collection / Unknown 01/26/2023 3:41 PM [employer] 01/26/2023 3:58 PM [employer] Ralph Gutierres MD LAB - URINE CHEMISTRY ORDE RABLES Final Result Performing Organization Address City/[facility]/ZIP Co de Phone Number [facility] [address] [place] [id number], [place] [phone] * MAMMO BILAT SCREENING W KYLIE (12/26/2020 7:47 AM [employer]) Anatomical Region Laterality Modality Breast Bilateral Mammography 12/26/2020 1:58 PM [employer] Impressions 12/26/2020 4:22 PM [employer] IMPRESSION: No mammographic evidence of malignancy. RECOMMENDATION: Screening mammography in one year, pending no interval breast concerns. Patient will be notified of the results by lay letter. OVERALL ASSESSMENT: BI-RADS CATEGORY 1: NEGATIVE. Report dictated by Mathew Barr DO (supervisor residential) IDr. YANET M.D. have personally reviewed and interpreted this examination/study. This report was electronically signed by YANET CARBAJAL M.D. on 12/26/2020 4:22 PM . Narrative 12/26/2020 4:22 PM [employer] EXAMINATION: DIGITAL MAMMO BILAT SCREENING W KYLIE [...] on mammography. Ralph Gutierres MD MAMMO ORDERABLES Final Res ult * HEPATITIS C ANTIBODY (07/04/2018 10:02 AM CDT) Hepatitis C Antibody Non-react [place] Non-reac tive 07/04/2018 11:19 AM CDT [facility] Comment: Hepatitis C Antibody screen indicates no [...] CDT Ralph Gutierres MD LAB - CHEMISTRY ORDERABLES Final Result [address] [phone] from Last 3 Months or Most Recently Relevant to Health Maintenance Insurance UHC MANAGED MEDICARE ADV MEDICAID - [place] MEDICAID - [facility] UHC MANAGED MEDICARE ADV Advance Directives * Full Code (Latest Code [...] 10:03 AM 10/28/2021 3:02 PM Care Teams Undercutter Operator Relationship Specialty Start Date End Date Ralph Gutierres MD [address] [place] [address] PCP - General Family Medicine 01/18/23 Ralph Gutierres MD [address] [place] [address] PCP - Attributed-[facility] P4P 07/16/23 Ralph Gutierres MD [address] [place] [address] Physician Family Medicine 01/18/23
--- OUTSIDE RECORDS SUMMARY | 2024-10-14 09:51 | XMS_ITS | Encounter Summary ---
Author Organization [facility] Health Address [address] [facility] [place] [address] Care Team Providers Care Nitrate Operator Name Role Phone Ralph Gutierres MD Primary Care Provider [phone] Ralph Gutierres MD Unavailable [phone] Ralph Gutierres MD Primary Care Provider + [phone] Ralph Gutierres MD Unavailable [phone] Encounter Details Date Type Department Care Team (Late st Contact Info) Description 11/19/2022 Telephone [facility] - Family Medicine [address] [place] [address], [facility] [place] [address] Ralph Gutierres MD [address] [place] [phone] Social History Tobacco Use Types Packs/Day Years Used Date Smoking Tobacco: Former Cigarettes 0.5 5 1 991 - 1996 Smokeless Tobacco: Never Alcohol Use Standard Drinks/Week Comments Not Currently 0 (1 standard drink = 0.6 oz pur e alcohol) PHQ-2 Answer Date Recorded Patient Health Questionnaire-2 Score 0 09/30/2022 Comments No Sex and Gender Information Value Date Recorded Sex Assigned at Not on file Legal Sex Female 12:28 PM MECHANIC INSULATOR Gender Identity Not on file Sexual Orientation Not on file documented as of this encounter Functional Status * Is person deaf or have serious hearing difficulty? Answer Date of Assessment Author No 10/28/2021 12:06 PM CDT Soto, La uren N, RN * Is person blind or have serious difficulty seeing? Answer Date of Assessment Author No 10/28/2021 12:06 PM CDT Daisy Soto RN * Does person have serious difficulty walking/climbing stairs? Answer Date of Assessment Author No 10/28/2021 12:06 PM CDT Daisy Soto RN * Does person have difficulty dressing/bathing? Answer Date of Assessment Author No 10/28/2021 12:06 PM CDT Daisy Soto RN * Does person have difficulty doing errands alone? Answer Date of Assessment Author No 10/28/2021 12:06 PM CDT Daisy Soto RN documented as of this encounter Mental Status * Does person have difficulty concentrating/remembering/making decisions? Answer Entry Date Author No 10/28/2021 12:06 PM CDT Daisy Soto RN documented in this encounter Miscellaneous Notes * Telephone Encounter - Neda Little - 11/19/2022 9:31 AM CDT Current Provider name:Ralph Gutierres Reason for call: sister called to follow up with any recommended places in [place] for to have a open MRI. Requesting a Urgent call back with any recommendations. Patient Call Back number: [phone] documented in this encounter Plan of Treatment Upcoming Encounters Date Type Department Care Team (Late st Contact Info) Description 11/05/2024 9:00 AM CDT Office Visit [facility] - Family Medicine [address] [place] [address], [facility] [place] [phone] Callie Aguillon MD [address] [place] [phone] documented as of this encounter Visit Diagnoses Not on filedocumented in this encounter Additional Health Concerns Infection Onset Date Last Indicated Resolved Time COVID-19 Under Investigation 01/08/2024 01/08/2024 01/08/2024 9:25 AM MECHANIC INSULATOR COVID-19 Under Investigation 04/13/2024 04/13/2024 04/13/2024 7:46 PM MECHANIC INSULATOR documented as of this encounter Care Teams Nitrate Operator Relationship Specialty Start Date End Date Ralph Gutierres MD PCP - General 06/08/18 01/17/23 Ralph Gutierres MD [address] [place] [phone] PCP - General [facility] Medicine 01/18/23 Ralph Gutierres MD [address] [place] [phone] PCP - [facility] P4P 07/16/23 Ralph Gutierres MD [address] [place] [phone] Physician Family Medicine 01/18/23 documented as of this encounter
--- OUTSIDE RECORDS SUMMARY | 2024-10-14 09:51 | XMS_ITS | Encounter Summary ---
Author Organization [facility] Health Address [address] [facility] [place] [address] Care Team Providers Care Cadmium Liquor Maker Name Role Phone Ralph Gutierres MD Primary Care Provider [phone] Ralph Gutierres MD Unavailable [phone] Ralph Gutierres MD Primary Care Provider + [phone] Ralph Gutierres MD Unavailable [phone] Encounter Details Date Type Department Care Team (Late st Contact Info) Description 01/17/2023 Telephone [facility] - Family Medicine [address] [place] [address], [facility] [place] [address] Ralph Gutierres MD [address] [place] [phone] Social History Tobacco Use Types Packs/Day Years [...] on file Legal Sex Female 12:28 PM IRRIGATION TECHNICIAN Gender Identity Not on file Sexual Orientation Not on file documented as of this encounter Functional Status * Is person deaf or have serious hearing difficulty? Answer Date of Assessment Author No 10/28/2021 12:06 PM CDT Soto, La uren N, RN * Is person blind or have serious difficulty seeing? Answer Date of Assessment Author No 10/28/2021 12:06 PM TIARAT Daisy Soto RN * Does person have serious difficulty walking/climbing stairs? Answer Date of Assessment Author No 10/28/2021 12:06 PM TIARAT Daisy Soto RN * Does person have difficulty dressing/bathing? Answer Date of Assessment Author No 10/28/2021 12:06 PM TIARAT Daisy Soto RN * Does person have difficulty doing errands alone? Answer Date of Assessment Author No 10/28/2021 12:06 PM TIARAT Daisy Soto RN documented as of this encounter Mental Status * Does person have difficulty concentrating/remembering/making decisions? Answer Entry Date Author No 10/28/2021 12:06 PM Daisy Escalante RN documented in this encounter Miscellaneous Notes [...] behavior. Please advise. Call sister Cornelia Church [phone] Patient Call Back number: [phone] GATION TECHNICIAN documented in this encounter Plan of Treatment Upcoming Encounters Date Type Department Care Team (Late st Contact Info) Description 11/05/2024 9:00 AM CDT Office Visit [facility] - Family Medicine [address] [place] [address], [place] [address] Callie Aguillon MD [address] [place] [phone] documented as of this encounter Visit Diagnoses Not on filedocumented in this encounter Additional Health Concerns Infection Onset Date Last Indicated Resolved Time COVID-19 Under Investigation 01/08/2024 01/08/2024 01/08/2024 9:25 AM IRRIGATION TECHNICIAN COVID-19 Under Investigation 04/13/2024 04/13/2024 04/13/2024 7:46 PM IRRIGATION TECHNICIAN documented as of this encounter Care Teams Cadmium Liquor Maker Relationship Specialty Start Date End Date Ralph Gutierres MD PCP - General 06/08/18 01/17/23 Ralph Gutierres MD [address] [place] [address] PCP - General Family Medicine 01/18/23 Ralph Gutierres MD [address] [place] [address] PCP - On license of [facility] P4 07/16/23 Ralph Gutierres MD [address] [place] [address] Physician Family Medicine 01/18/23 documented as of this encounter
--- OUTSIDE RECORDS SUMMARY | 2024-10-14 09:51 | XMS_ITS | Clinical Summary ---
Author Organization [facility] Address [address] [place] [address] Care Team Providers Care Classified Advertising Manager Name Role Phone Unavailable Primary Care Provider [...]
--- OUTSIDE RECORDS SUMMARY | 2024-10-14 09:51 | XMS_ITS | Encounter Summary ---
Author Organization [facility] Health Address [address] [place] [address] Care Team Providers Care Clinical Trial Assistant Name Role Phone Ralph Gutierres MD Unavailable [phone] Ralph Gutierres MD Primary Care Provider + [phone] Ralph Gutierres MD Unavailable [phone] Reason for Visit * Reason Onset Date Comments Results 09/05/2024 Encounter Details Date Type Department Care Team (Late st Contact Info) Description 09/05/2024 Telephone [facility] - Cardiology [address] [facility], [facility] [address] [place] [address] Kassidy Encinas APRN-DEMOLITION HAMMER OPERATOR [address] [place], [place] [id number] Results Social History Tobacco Use Types Packs/Day Years [...] Recorded Patient Health Questionnaire-2 Score 0 03/15/2024 [facility] [place] [facility] - Occupational Stress [...] No 04/14/2024 Housing Stability Vital Sign Answer Migule e Recorded In the last 12 months, was t here a time when you were not able to pay the mortgage or rent on time? No 04/14/2024 In the past 12 months, how m any times have you moved where you were living? 1 04/14/2024 At any time in the past 12 m onths, were you homeless or living in a retirement (including now)? 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 Answer Date of Assessment Author No 04/13/2024 11:57 PM Luisana Bergman RN * Is person blind or have serious difficulty seeing? Answer Date of Assessment Author No 04/13/2024 11:57 PM Luisana Bergman RN * Does person have serious difficulty walking/climbing stairs? Answer Date of Assessment Author No 04/13/2024 11:57 PM Luisana Bergman RN * Does person have difficulty dressing/bathing? Answer Date of Assessment Author No 04/13/2024 11:57 PM Luisana Bergman RN * Does person have difficulty doing errands alone? Answer Date of Assessment Author No 04/13/2024 11:57 PM Luisana Bergman RN documented as of this encounter Mental Status * Does person have difficulty concentrating/remembering/making decisions? Answer Entry Date Author No 04/13/2024 11:57 PM Luisana Bergman RN documented in this encounter Miscellaneous Notes * Telephone Encounter - Neda Little - 09/11/2024 10:21 AM CDT Reason for call: Patient reached back out requesting a call back regarding her echo results Patient Call Back number: [phone] * Telephone Encounter - Neda Little - 09/05/2024 8:28 AM CDT Reason for call: Patient would like a call back to go over her echo results Patient Call Back number: [phone] documented in this encounter Plan of Treatment Upcoming Encounters Date Type Department Care Team (Late st Contact Info) Description 11/05/2024 9:00 AM CDT Office Visit [facility] - Family Medicine [address] [place] [address], [place] [phone] Callie Aguillon MD [address] [place] [address] [address] [place] [phone] documented as of this encounter Visit Diagnoses Not on filedocumented in this encounter Care Teams Clinical Trial Assistant Relationship Specialty Start Date End Date Ralph Gutierres MD [address] [place] [address] [address] [place] [phone] PCP - General Family Medicine 01/18/23 Ralph Gutierres MD [address] [place] [phone] PCP - [facility] P4 07/16/23 Ralph Gutierres MD [address] [place] [phone] Physician Family Medicine 01/18/23 documented as of this encounter
[2024-10-14 09:52] LABS: CRP 8.0 mg/dL (<1.0)
[2024-10-14 09:59] LABS: Add Urine Microscopic? YES; Appearance Urine Turbid (Clear); Glucose Urine UA Negative (Negative); Leukocyte Esterase Ur 2+ LEU/UL (Negative); Need Manual Microscopic Reviewed; Nitrate Urine Negative (Negative); Non Pathogenic Casts >20; Specific Grav Ur 1.015 (1.001-1.035)
[2024-10-14] MEDS: cefTRIAXone 1 GM in SODIUM CHLORIDE 0.9% IV 50 ML 100 ML IVPB (11:30)
--- NOTE | 2024-10-14 12:24 | PM.IMHP ---
H&P: HPI History of Present Illness Date/Time: 10/14/24 12:24 Chief Complaint: Worsening pain from mechanical fall 2 days ago Narrative: Yanna Caldwell is a 69 year old female with pmhx of Dementia, HFpEF, HTN, HLD, remote smoker, and COPD who is here for worsening of back pain. Patient fell 10/10/2024-she visited emergency room at that time. Family brought her to the ED because of behavior change. Patient was verbally abusive to the ED staff. Her 2 sisters provided a history and they stated she did not have fever, abdominal pain, diarrhea, bowel or urinary habit. Shows week and she was sleeping too many hours a day. She lives with her older sister. She lack appetite for the last 3 days. In the ED, sepsis protocol was activated. She received 30 cc/kg IV fluid. Lactate was normal. Has leukocytosis 13.1 without left shift. BMP shows CINTHIA. UA shows 2+ leukocyte esterase and urine WBC 50 1-100 and urine bacteria 4+ with negative nitrite. Blood culture and urine culture collected ceftriaxone started. CT cervical obtained and did not show any acute fracture. Noted 12 degree cervical dextrocurvature with severe predominant predominant spondylolysis. CT head negative for new fracture or acute intracranial bleed. CT head shows peripheral old lacunar infarcts at the right basal ganglia and subinsular white matter. 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 Chest x-ray was negative for consolidation/infiltrate/cardiomegaly or vascular congestion. Review of Systems Review of Systems: Unable to do because patient was falling asleep Eyes: Eyes: Reports as per HPI [facility] Past Medical History Medical History Closed fibular fracture Aortic valve stenosis Echocardiogram 2022 mild aortic valve sclerosis with mild stenosis peak velocity 1.6 mean gradient 5 aortic valve area 1.8 cm2 Diastolic dysfunction Echocardiogram 02/2022: EF 55-60% grade 1 diastolic dysfunction Dementia Per family report Type 2 diabetes mellitus Kidney stone Hyperlipidemia HTN (hypertension) with goal to be determined History of tobacco use COPD (chronic obstructive pulmonary disease) Surgical History Surgical History History of cholecystectomy H/O tubal ligation H/O section x3 Family History Family History Mother Ruptured cerebral aneurysm Diabetes mellitus Father Diabetes mellitus Dementia Malignant neoplasm of prostate Cerebrovascular accident Sibling Malignant neoplasm of prostate Social History Social History Social History: The patient lives with her son. She has 3 CHILDREN. She is on DISABILITY and . She has a brief history of smoking when she was young. She denies any alcohol or illicit substance use. Code status: Full code Healthcare power of energy attorney: Justin Maddox (sister) Smoking packs per day: 0.5 Smoking cigarettes per day: 10.0 Years smoked: 2 Smoking pack-years: 1.00 Smoking status: Never smoker Tobacco type: cigarettes Second hand tobacco smoke exposure: Yes Additional smoking assessment comments: Pt is unsure when she quit smoking. Alcohol intake: never Alcohol use details: social Substance use: never Substance use type: does not use Do You Feel Safe in your Home?: Yes Lack of Transportation: No Lack of Food: Never True Current Housing: I Have Housing Concerned About Future Housing: No Difficulty Paying Gas/Electric Bills: No Difficulty Paying for Meds: No Currently Unemployed: No Education: High School Diploma/GED Difficulty w/ Childcare or Family Care: No Living arrangements: with family Occupation/Education: retired Gender identity (if verbalized by the patient): Female Sexual Orientation (if Verbalized by the Patient): Straight or Heterosexual Spiritual care concerns: No Meds Home Medications and Allergies Home Medications ?Medication ?Instructions ?Recorded ?Confirmed ?Type aspirin 81 mg tablet,delayed 81 mg PO DAILY 02/20/22 10/14/24 History release carvedilol 12.5 mg tablet 6.25 mg PO BID 02/20/22 10/14/24 History Held on 10/14/24. Instructions: Patient no longer taking blood sugar diagnostic (Blood #10 ea 02/21/22 10/14/24 Rx Glucose Test strips) blood-glucose meter (Blood Glucose #1 ea 02/21/22 10/14/24 Rx Monitoring kit) insulin glargine 100 unit/mL (3 25 unit (0.25 mL) subcut HS #15 mL 02/21/22 10/14/24 Rx mL) subcutaneous pen (Lantus Solostar U-100 Insulin) insulin lispro 100 unit/mL 5 unit (0.05 mL) subcut TID #15 mL 02/21/22 10/14/24 Rx subcutaneous pen Held on 10/14/24. Instructions: Patient no longer taking lancets 17 gauge #200 ea 02/21/22 10/14/24 Rx escitalopram oxalate 5 mg tablet 5 mg PO HS 10/10/23 10/14/24 History acetaminophen 500 mg tablet 1,000 mg (2 x 500 mg) PO TID PRN 05/12/24 10/14/24 Rx (Tylenol Extra Strength) pain #30 tabs Held on 10/14/24. Instructions: Patient no longer taking ibuprofen 600 mg tablet 600 mg PO TID PRN pain #20 tabs 05/12/24 10/14/24 Rx Held on 10/14/24. Instructions: Patient no longer taking methocarbamol 500 mg tablet 500 mg PO HS #7 tabs 05/12/24 10/14/24 Rx Held on 10/14/24. Instructions: Patient no longer taking oxycodone 5 mg tablet 5 mg PO Q8H PRN pain #10 tabs 05/12/24 10/14/24 Rx Held on 10/14/24. Instructions: Patient no longer taking rosuvastatin 40 mg tablet 40 mg PO DAILY 05/12/24 10/14/24 History ticagrelor 90 mg tablet (Brilinta) 90 mg PO Q12H 05/12/24 10/14/24 History carvedilol 6.25 mg tablet 6.25 mg PO Q12H 10/14/24 10/14/24 History Allergies Allergy/AdvReac Type Severity Reaction Status Date / Time No Known Allergies Allergy Verified 06/28/24 09:22 Vital Signs Vital Signs - 24 hr 10/14/24 08:45 10/14/24 09:00 10/14/24 10:00 Temperature 36.6 C Pulse Rate 69 67 Respiratory Rate 24 H 18 Blood Pressure 96/55 L 106/57 L Pulse Oximetry 90 97 97 Oxygen Delivery Room Air Nasal Cannula Oxygen Flow Rate 2 10/14/24 10:30 10/14/24 11:30 Temperature Pulse Rate 67 66 Respiratory Rate 18 20 Blood Pressure 100/51 L 138/63 Pulse Oximetry 97 99 Oxygen Delivery Oxygen Flow Rate Exam Narrative: APPEARANCE: Fall asleep EYES: Unable to perform HEENT: No bruises or swelling RESPIRATORY: No respiratory distress Clear to auscultation bilaterally with no rhonchi wheezing or rales. CARDIOVASCULAR: RRR, S1 and S2 without murmurs rubs or gallops. ABDOMINAL: No tenderness upon deep palpation MUSCULOSKELETAl: Unable to assess. NEURO: Unable to assess SKIN:: Warm, dry. No rashes lesions or abrasions PSYCHIATRIC: Fall asleep H&P: Results Labs Labs: Short CBC 10/14/24 Range/Units 09:19 WBC 13.1 H (4.5-10.0) K/mm3 Hgb 11.3 L (12.0-15.0) g/dL Hct 36.0 L (37.0-47.0) % Plt Count 178 (150-375) k/mm3 BMP 10/14/24 09:19 Sodium 137 Potassium 4.3 Chloride 103 Carbon Dioxide 24 BUN 34 H D Creatinine 1.88 H Glucose 138 H Calcium 9.0 Liver Function 10/14/24 Range/Units 09:19 Total Bilirubin 1.1 (0.2-1.3) mg/dL AST 73 H (14-36) U/L ALT 86 H (6-35) U/L Alkaline Phosphatase 139 H (38-126) U/L Albumin 4.1 (3.5-5.1) g/dL Urine 10/14/24 Range/Units 09:32 Urine Color Yellow (Yellow) Urine Appearance Turbid H (Clear) Urine pH 5.5 (5.0-9.0) Ur Specific Henderson 1.015 (1.001-1.035) Urine Protein 3+ H (Negative) mg/dL Urine Glucose (UA) Negative (Negative) mg/dL Assessment and Plan Assessment and plan (1) Leukocytosis: Code(s): D72.829 - Elevated white blood cell count, unspecified Status: Acute (2) Acute kidney injury: Code(s): N17.9 - Acute kidney failure, unspecified Status: Acute (3) Type 2 diabetes mellitus with hyperglycemia, with long-term current use of insulin: Code(s): E11.65 - Type 2 diabetes mellitus with hyperglycemia; Z79.4 - MCFP (current) use of insulin Status: Acute (4) Acute UTI: Code(s): N39.0 - Urinary tract infection, site not specified Status: Inactive (5) Acute kidney injury: Code(s): N17.9 - Acute kidney failure, unspecified Status: Resolved (6) Dementia: Code(s): F03.90 - Unspecified dementia, unspecified severity, without behavioral disturbance, psychotic disturbance, mood disturbance, and anxiety Status: Inactive Plan 1. Generalized weakness likely secondary to UTI/physical deconditioning Her sister's reported she had 2 falls recent-they say that she reported her legs give up on her-she walks with a walker In the ED, noted leukocytosis, UA shows 2+ leukocytes trace, urine WBC 50 1-100, urine bacteria 4+ but negative for nitrites Sepsis protocol was activated; received 30 cc/kg IV fluid, lactate normal, leukocytosis, blood culture and urine culture collected, IV antibiotics start Follow blood culture and urine culture Continue ceftriaxone Physical/occupational therapy 2. UTI-treatment like above 3.Cinthia-likely secondary to UTI/poor oral intake Baseline creatinine is around 1, on admission today creatinine is 1.88 BMP in the a.m. if Cinthia does not improve, we will investigate further the etiology. 4. HFpEF 08/28/24 2D echo shows EF 60-65 %, increased left ventricle wall thickness. Grade 1 diastolic dysfunction Patient is not in acute exacerbation 5. Coronary artery disease s/p PCI x 2 stent in February and March 2024 Continue aspirin/Brilinta/Crestor/carvedilol 6. Physical deconditioning Likely secondary to the acute illness PT/ OT 7. Disposition Lives with her older sister-her older sister is looking for some kind of placement after PT /OT assessment Quality VTE Prophylaxis VTE prophylaxis: pharmacologic ordered (Lovenox)
--- NOTE | 2024-10-14 12:25 | PC.NURSE ---
This patient, Yanna Caldwell, was admitted to [facility] Surg Room [address] [id number]. Patient/family oriented to hospital policies and general routines including ID bracelet, bed and alarms, visiting hours, pain management, procedures, bathroom and other care routines, personal items, smoking policy, room service/diet, and visiting hours. Information on how to activate the Rapid Response Team has been discussed. Patient/Family are encouraged to report perceived risks to care and to ask questions if they do not understand what they are told or what they should do.
[2024-10-14 12:45] LABS: Hemoglobin A1C 7.6 % (<5.7)
[2024-10-14 16:29] LABS: Creatine Kinase 103 U/L (30-135)
[2024-10-14] MEDS: INSULIN GLARGINE (*BKC) 100 UNITS/ML 25 UNITS SUB-Q (20:12)
[2024-10-14] MEDS: ESCITALOPRAM OXALATE 5 MG TABLET PO (20:15)
[2024-10-14] MEDS: TICAGRELOR 90 MG TABLET PO (20:15)
[2024-10-15] VITALS (7 sets, daily range): BP systolic 123–156; BP diastolic 55–77; PULSE 66–76; RESP 13–19; TEMP 36.4–36.8; O2SAT 93–99
[2024-10-15 05:44] LABS: Hematocrit 33.9 % (37.0-47.0); Hemoglobin 10.5 g/dL (12.0-15.0); Immature Granulocyte Percent A 0.5 % (0-0.5); Lymphocytes Absolute Auto 1.87 K/mm3 (0.9-3.2); Mean Corpuscular HGB Conc 31.0 g/dl (32-36); Mean Corpuscular Hemoglobin 28.1 pg (26-34); Mean Corpuscular Volume 90.6 fl (80-100); Nucleated Red Blood Cells Absolute Auto 0.000 K/mm3 (0.0-0.012); Nucleated Red Blood Cells Perc 0.0 % (0.0-0.2); Platelet Count Result 165 k/mm3 (150-375); Red Blood Count 3.74 M/mm3 (4.2-5.4); White Blood Count 10.1 K/mm3 (4.5-10.0)
[2024-10-15 06:04] LABS: Alanine Aminotransferase 68 U/L (6-35); Albumin Level 3.2 g/dL (3.5-5.1); Alkaline Phosphatase 117 U/L (38-126); Anion Gap 7 mmol/L (4-12); Aspartate Amino Transferase 60 U/L (14-36); Bilirubin,Total 0.5 mg/dL (0.2-1.3); Blood Urea Nitrogen 33 mg/dL (7-17); Calcium 8.4 mg/dL (8.4-10.2); Carbon Dioxide 25 mmol/L (22-30); Chloride 105 mmol/L (98-107); Estimated Glomerular Filt Rate 32; Glucose 136 mg/dL (65-110); Potassium 3.9 mmol/L (3.4-5.0); Sodium 137 mmol/L (137-145); Total Protein 6.3 g/dL (6.3-8.2)
[2024-10-15] MEDS: ROSUVASTATIN 20 MG TABLET PO (08:23)
[2024-10-15] MEDS: ASPIRIN 81 MG ENTERIC TABLET PO (08:23)
[2024-10-15] MEDS: TICAGRELOR 90 MG TABLET PO ×2 (08:23→21:44)
[2024-10-15] MEDS: ENOXAPARIN 30 MG/0.3 ML SYRINGE SUB-Q (08:24)
[2024-10-15] MEDS: cefTRIAXone 1 GM in SODIUM CHLORIDE 0.9% IV 50 ML 100 ML IVPB (08:24)
--- NOTE | 2024-10-15 10:06 | PCPTNOTE ---
attempted PT evaluation, pt sleeping and unable to arouse- would not open her eyes. family member present and reports she has been sleeping since OT worked with her.
--- NOTE | 2024-10-15 10:59 | PM.IMPN ---
Subjective Date/time seen: 10/15/24 10:59 Review of Systems Review of Systems: All systems reviewed & are unremarkable except as noted in HPI and below Objective Data Vital Signs Vital Signs: Vital Signs - 24 hr 10/14/24 11:30 10/14/24 12:08 10/14/24 14:00 Temperature 97.5 F L Pulse Rate 66 69 66 Respiratory Rate 20 16 Blood Pressure 138/63 119/52 L 118/50 L Pulse Oximetry 99 98 96 Oxygen Delivery Oxygen Flow Rate 10/14/24 16:03 10/14/24 21:28 10/15/24 05:03 Temperature 97.0 F L 97.7 F Pulse Rate 66 70 Respiratory Rate 14 13 Blood Pressure 153/57 H 123/69 Pulse Oximetry 96 100 99 Oxygen Delivery Nasal Cannula Oxygen Flow Rate 2 10/15/24 08:00 10/15/24 08:23 10/15/24 08:38 Temperature Pulse Rate 66 Respiratory Rate Blood Pressure Pulse Oximetry 97 Oxygen Delivery Nasal Cannula Nasal Cannula Oxygen Flow Rate 2 2 Intake/Output Intake/Output: Intake & Output 10/12/24 10/13/24 10/14/24 10/15/24 23:59 23:59 23:59 23:59 Intake Total 2049 490 Balance 2049 490 Meds/Results Medications: Active Medications Generic Name Dose Route Start Last Admin Trade Name Freq PRN Reason Stop Dose Admin Acetaminophen 1,000 mg 10/14/24 15:51 Acetaminophen 500 Mg Tablet PO TID PRN PAIN RATED 1-3 Aspirin 81 mg 10/15/24 09:00 10/15/24 08:23 Aspirin 81 Mg Enteric Tablet PO 81 mg DAILY CARLOS Administration Carvedilol 6.25 mg 10/14/24 21:00 10/15/24 08:23 Carvedilol 6.25 Mg Tablet PO 6.25 mg Q12H CARLOS Administration Dextrose 12.5 gm 10/14/24 16:21 Dextrose 50% 25 Gm/50 Ml Syringe IV PUSH PRN PRN Hypoglycemia Protocol Enoxaparin Sodium 30 mg 10/15/24 09:00 10/15/24 08:24 Enoxaparin 30 Mg/0.3 Ml Syringe SUB-Q 30 mg DAILY CARLOS Administration Escitalopram Oxalate 5 mg 10/14/24 21:00 10/14/24 20:15 Escitalopram Oxalate 5 Mg Tablet PO 5 mg HS CARLOS Administration Glucagon 1 mg 10/14/24 16:21 Glucagon For Inj 1 Mg Vial IM PRN PRN Hypoglycemia Protocol Glucose 15 gm 10/14/24 16:21 Glucose Oral Gel 15 Gm Of Glucse In 37.5 Gm Tube PO PRN PRN Hypoglycemia Protocol Ceftriaxone Sodium 1 gm/ 50 mls @ 100 mls/hr 10/15/24 09:00 10/15/24 08:24 Sodium Chloride IVPB 100 mls/hr QAM CARLSO Administration Dextrose 1,000 mls @ 100 mls/hr 10/14/24 16:21 Dextrose 5% 1,000 Ml IVPB PRN PRN Hypoglycemia Protocol Insulin Aspart 2 - 5 units 10/14/24 17:00 10/15/24 08:27 Insulin Aspart (*Bkc) 100 Units/Ml SUB-Q Not Given TIDWM CARLOS Protocol Insulin Glargine 25 units 10/14/24 21:00 10/14/24 20:12 Insulin Glargine (*Bkc) 100 Units/Ml SUB-Q 25 units HS CARLOS Administration Rosuvastatin Calcium 20 mg 10/15/24 09:00 10/15/24 08:23 Rosuvastatin 20 Mg Tablet PO 20 mg QAM CARLOS Administration Ticagrelor 90 mg 10/14/24 21:00 10/15/24 08:23 Ticagrelor 90 Mg Tablet PO 90 mg Q12H CARLOS Administration Radiology Results: ITS Impressions Head CT 10/14/24 10:52 IMPRESSION: 1. No fracture or acute intracranial process. 2. Peripheral old lacunar infarcts at the right basal ganglia and subinsular white matter. 3. Prominent Age-related changes including mild diffuse volume loss and moderate scattered white matter hypoattenuation consistent with chronic small vessel ischemic disease. 4. 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 Cervical Spine CT 10/14/24 11:08 IMPRESSION: 1. 12 degrees cervical dextrocurvature with severe upper cervical predominant spondylosis. No acute osseous abnormality. Chest X-Ray 10/14/24 11:18 IMPRESSION: 1: NO ACUTE CARDIOPULMONARY DISEASE. Labs Labs: Laboratory Results - last 24 hr 10/14/24 10/14/24 10/14/24 09:19 16:12 16:34 WBC RBC Hgb Hct MCV MCH MCHC RDW Plt Count MPV Immature Gran % (Auto) Neut % (Auto) Lymph % (Auto) [place] % (Auto) Eos % (Auto) Baso % (Auto) Lymph # (Auto) [place] # (Auto) Eos # (Auto) Baso # (Auto) Abs Immat Gran (auto) Absolute Neuts (auto) Absolute Nucleated RBC Nucleated RBC % Sodium Potassium Chloride Carbon Dioxide Anion Gap BUN Creatinine Estim Creat Clear Calc Estimated GFR Glucose POC Capillary Glucose 187 H Hemoglobin A1c 7.6 H Calcium Total Bilirubin AST ALT Alkaline Phosphatase Total Creatine Kinase 103 Total Protein Albumin 10/14/24 10/15/24 19:59 05:22 WBC 10.1 H RBC 3.74 L Hgb 10.5 L Hct 33.9 L MCV 90.6 MCH 28.1 MCHC 31.0 L RDW 13.4 Plt Count 165 MPV 11.3 H Immature Gran % (Auto) 0.5 Neut % (Auto) 61.0 Lymph % (Auto) 18.6 [place] % (Auto) 17.0 H Eos % (Auto) 2.5 Baso % (Auto) 0.4 Lymph # (Auto) 1.87 [place] # (Auto) 1.7 H Eos # (Auto) 0.3 Baso # (Auto) 0.0 Abs Immat Gran (auto) 0.05 H Absolute Neuts (auto) 6.1 Absolute Nucleated RBC 0.000 Nucleated RBC % 0.0 Sodium 137 Potassium 3.9 Chloride 105 Carbon Dioxide 25 Anion Gap 7 BUN 33 H Creatinine 1.59 H Estim Creat Clear Calc Not Reportable Estimated GFR 32 L Glucose 136 H POC Capillary Glucose 163 H Hemoglobin A1c Calcium 8.4 Total Bilirubin 0.5 AST 60 H ALT 68 H Alkaline Phosphatase 117 Total Creatine Kinase Total Protein 6.3 Albumin 3.2 L
--- NOTE | 2024-10-15 12:27 | P.PNIM_ITS ---
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 Generalized weakness likely secondary to UTI/physical deconditioning Her sister's reported she had 2 falls recent-they say that she reported her legs give up on her-she walks with a walker In the ED, noted leukocytosis, UA shows 2+ leukocytes trace, urine WBC 50 1-100, urine bacteria 4+ but negative for nitrites Sepsis protocol was activated; received 30 cc/kg IV fluid, lactate normal, leukocytosis, blood culture and urine culture collected, IV antibiotics start Follow blood culture and urine culture Continue ceftriaxone Physical/occupational therapy 2. UTI-treatment like above 3.[facility]-likely secondary to UTI/poor oral intake Baseline creatinine is around 1, on admission today creatinine is 1.58 BMP daily 4. HFpEF 08/28/24 2D echo shows EF 60-65 %, increased left ventricle wall thickness. Grade 1 diastolic dysfunction Patient is not in acute exacerbation 5. Coronary artery disease s/p PCI x 2 stent in February and March 2024 Continue aspirin/Brilinta/Crestor/carvedilol 6. Physical deconditioning Likely secondary to the acute illness PT/ OT 7. Disposition Lives with her older sister-her older sister is looking for some kind of placement after PT /OT assessment Should be clinically ready to be discharged tomorrow-she has improved Time Spent With Patient Time: 25 minutes Subjective Date/time seen: 10/15/24 12:27 Interval history: She is awake and alert. She is fatigued. Her appetite is better than yesterday. She was able to walk to the bathroom but she was unable to work with physical therapy. Patient is in no room air Review of Systems Review of Systems: All systems reviewed & are unremarkable except as noted in HPI and below Exam Narrative: APPEARANCE: Awake and alert EYES: EOMI HEENT: Normocephalic, atraumatic, OMM RESPIRATORY: No respiratory distress Clear to auscultation bilaterally with no rhonchi wheezing or rales. CARDIOVASCULAR: RRR, S1 and S2 without murmurs rubs or gallops. ABDOMINAL: Soft, nontender, nondistended, no rebound or guarding MSK: 5/5 motor strength-she feels fatigued but her strings intact. NEURO: Awake and alert. Following commands, speech normal, no focal deficits SKIN:: Warm, dry. No rashes lesions or abrasions PSYCHIATRIC: Normal mood Objective Data Vital Signs Vital Signs: Vital Signs - 24 hr 10/14/24 14:00 10/14/24 16:03 10/14/24 21:28 Temperature 36.4 C L 36.1 C L Pulse Rate 66 66 Respiratory Rate 14 Blood Pressure 118/50 L 153/57 H Pulse Oximetry 96 96 100 Oxygen Delivery Nasal Cannula Oxygen Flow Rate 2 10/15/24 05:03 10/15/24 08:00 10/15/24 08:23 Temperature 36.5 C Pulse Rate 70 66 Respiratory Rate 13 Blood Pressure 123/69 Pulse Oximetry 99 97 Oxygen Delivery Nasal Cannula Oxygen Flow Rate 2 10/15/24 08:38 Temperature Pulse Rate Respiratory Rate Blood Pressure Pulse Oximetry Oxygen Delivery Nasal Cannula Oxygen Flow Rate 2 Intake/Output Intake/Output: Intake & Output 10/12/24 10/13/24 10/14/24 10/15/24 23:59 23:59 23:59 23:59 Intake Total 2049 490 Balance 2049 490 Meds/Results Medications: Active Medications Generic Name Dose Route Start Last Admin Trade Name Freq PRN Reason Stop Dose Admin Acetaminophen 1,000 mg 10/14/24 15:51 Acetaminophen 500 Mg Tablet PO TID PRN PAIN RATED 1-3 Aspirin 81 mg 10/15/24 09:00 10/15/24 08:23 Aspirin 81 Mg Enteric Tablet PO 81 mg DAILY CARLOS Administration Carvedilol 6.25 mg 10/14/24 21:00 10/15/24 08:23 Carvedilol 6.25 Mg Tablet PO 6.25 mg Q12H CARLOS Administration Dextrose 12.5 gm 10/14/24 16:21 Dextrose 50% 25 Gm/50 Ml Syringe IV PUSH PRN PRN Hypoglycemia Protocol Enoxaparin Sodium 30 mg 10/15/24 09:00 10/15/24 08:24 Enoxaparin 30 Mg/0.3 Ml Syringe SUB-Q 30 mg DAILY CARLOS Administration Escitalopram Oxalate 5 mg 10/14/24 21:00 10/14/24 20:15 Escitalopram Oxalate 5 Mg Tablet PO 5 mg HS CARLOS Administration Glucagon 1 mg 10/14/24 16:21 Glucagon For Inj 1 Mg Vial IM PRN PRN Hypoglycemia Protocol Glucose 15 gm 10/14/24 16:21 Glucose Oral Gel 15 Gm Of Glucse In 37.5 Gm Tube PO PRN PRN Hypoglycemia Protocol Ceftriaxone Sodium 1 gm/ 50 mls @ 100 mls/hr 10/15/24 09:00 10/15/24 08:24 Sodium Chloride IVPB 100 mls/hr QAM CARLOS Administration Dextrose 1,000 mls @ 100 mls/hr 10/14/24 16:21 Dextrose 5% 1,000 Ml IVPB PRN PRN Hypoglycemia Protocol Insulin Aspart 2 - 5 units 10/14/24 17:00 10/15/24 12:27 Insulin Aspart (*Bkc) 100 Units/Ml SUB-Q Not Given TIDWM CARLOS Protocol Insulin Glargine 25 units 10/14/24 21:00 10/14/24 20:12 Insulin Glargine (*Bkc) 100 Units/Ml SUB-Q 25 units HS CARLOS Administration Rosuvastatin Calcium 20 mg 10/15/24 09:00 10/15/24 08:23 Rosuvastatin 20 Mg Tablet PO 20 mg QAM CARLOS Administration Ticagrelor 90 mg 10/14/24 21:00 10/15/24 08:23 Ticagrelor 90 Mg Tablet PO 90 mg Q12H CARLOS Administration Radiology Results: ITS Impressions Head CT 10/14/24 10:52 IMPRESSION: 1. No fracture or acute intracranial process. 2. Peripheral old lacunar infarcts at the right basal ganglia and subinsular white matter. 3. Prominent Age-related changes including mild diffuse volume loss and moderate scattered white matter hypoattenuation consistent with chronic small vessel ischemic disease. 4. 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 Cervical Spine CT 10/14/24 11:08 IMPRESSION: 1. 12 degrees cervical dextrocurvature with severe upper cervical predominant spondylosis. No acute osseous abnormality. Chest X-Ray 10/14/24 11:18 IMPRESSION: 1: NO ACUTE CARDIOPULMONARY DISEASE. Labs Labs: Laboratory Results - last 24 hr 10/14/24 10/14/24 10/14/24 09:19 16:12 16:34 WBC RBC Hgb Hct MCV MCH MCHC RDW Plt Count MPV Immature Gran % (Auto) Neut % (Auto) Lymph % (Auto) [place] % (Auto) Eos % (Auto) Baso % (Auto) Lymph # (Auto) [place] # (Auto) Eos # (Auto) Baso # (Auto) Abs Immat Gran (auto) Absolute Neuts (auto) Absolute Nucleated RBC Nucleated RBC % Sodium Potassium Chloride Carbon Dioxide Anion Gap BUN Creatinine Estim Creat Clear Calc Estimated GFR Glucose POC Capillary Glucose 187 H Hemoglobin A1c 7.6 H Calcium Total Bilirubin AST ALT Alkaline Phosphatase Total Creatine Kinase 103 Total Protein Albumin 10/14/24 10/15/24 10/15/24 19:59 05:22 08:06 WBC 10.1 H RBC 3.74 L Hgb 10.5 L Hct 33.9 L MCV 90.6 MCH 28.1 MCHC 31.0 L RDW 13.4 Plt Count 165 MPV 11.3 H Immature Gran % (Auto) 0.5 Neut % (Auto) 61.0 Lymph % (Auto) 18.6 [place] % (Auto) 17.0 H Eos % (Auto) 2.5 Baso % (Auto) 0.4 Lymph # (Auto) 1.87 [place] # (Auto) 1.7 H Eos # (Auto) 0.3 Baso # (Auto) 0.0 Abs Immat Gran (auto) 0.05 H Absolute Neuts (auto) 6.1 Absolute Nucleated RBC 0.000 Nucleated RBC % 0.0 Sodium 137 Potassium 3.9 Chloride 105 Carbon Dioxide 25 Anion Gap 7 BUN 33 H Creatinine 1.59 H Estim Creat Clear Calc Not Reportable Estimated GFR 32 L Glucose 136 H POC Capillary Glucose 163 H 117 H Hemoglobin A1c Calcium 8.4 Total Bilirubin 0.5 AST 60 H ALT 68 H Alkaline Phosphatase 117 Total Creatine Kinase Total Protein 6.3 Albumin 3.2 L 10/15/24 11:38 WBC RBC Hgb Hct MCV MCH MCHC RDW Plt Count MPV Immature Gran % (Auto) Neut % (Auto) Lymph % (Auto) [place] % (Auto) Eos % (Auto) Baso % (Auto) Lymph # (Auto) [place] # (Auto) Eos # (Auto) Baso # (Auto) Abs Immat Gran (auto) Absolute Neuts (auto) Absolute Nucleated RBC Nucleated RBC % Sodium Potassium Chloride Carbon Dioxide Anion Gap BUN Creatinine Estim Creat Clear Calc Estimated GFR Glucose POC Capillary Glucose 178 H Hemoglobin A1c Calcium Total Bilirubin AST ALT Alkaline Phosphatase Total Creatine Kinase Total Protein Albumin Quality VTE Prophylaxis VTE prophylaxis: mechanical ordered
[2024-10-15] MEDS: INSULIN ASPART (*BKC) 100 UNITS/ML SUB-Q (17:33)
[2024-10-15] MEDS: INSULIN GLARGINE (*BKC) 100 UNITS/ML 25 UNITS SUB-Q (21:43)
[2024-10-15] MEDS: ESCITALOPRAM OXALATE 5 MG TABLET PO (21:44)
[2024-10-16] VITALS (7 sets, daily range): BP systolic 135–144; BP diastolic 55–58; PULSE 66–75; RESP 16–28; TEMP 36.2–36.8; O2SAT 92–97
[2024-10-16 05:54] LABS: Hematocrit 35.9 % (37.0-47.0); Hemoglobin 11.0 g/dL (12.0-15.0); Immature Granulocyte Percent A 0.6 % (0-0.5); Lymphocytes Absolute Auto 2.27 K/mm3 (0.9-3.2); Mean Corpuscular HGB Conc 30.6 g/dl (32-36); Mean Corpuscular Hemoglobin 28.4 pg (26-34); Mean Corpuscular Volume 92.5 fl (80-100); Nucleated Red Blood Cells Absolute Auto 0.000 K/mm3 (0.0-0.012); Nucleated Red Blood Cells Perc 0.0 % (0.0-0.2); Platelet Count Result 193 k/mm3 (150-375); Red Blood Count 3.88 M/mm3 (4.2-5.4); White Blood Count 10.8 K/mm3 (4.5-10.0)
[2024-10-16 06:06] LABS: Alanine Aminotransferase 64 U/L (6-35); Albumin Level 3.6 g/dL (3.5-5.1); Alkaline Phosphatase 135 U/L (38-126); Anion Gap 7 mmol/L (4-12); Aspartate Amino Transferase 45 U/L (14-36); Bilirubin,Total 0.5 mg/dL (0.2-1.3); Blood Urea Nitrogen 34 mg/dL (7-17); Calcium 8.4 mg/dL (8.4-10.2); Carbon Dioxide 24 mmol/L (22-30); Chloride 105 mmol/L (98-107); Estimated Glomerular Filt Rate 35; Glucose 206 mg/dL (65-110); Potassium 3.9 mmol/L (3.4-5.0); Sodium 136 mmol/L (137-145); Total Protein 6.9 g/dL (6.3-8.2)
[2024-10-16] MEDS: ENOXAPARIN 40 MG/0.4 ML SYRINGE SUB-Q (08:32)
[2024-10-16] MEDS: cefTRIAXone 1 GM in SODIUM CHLORIDE 0.9% IV 50 ML 100 ML IVPB (08:32)
[2024-10-16] MEDS: TICAGRELOR 90 MG TABLET PO ×2 (08:33→19:57)
[2024-10-16] MEDS: ROSUVASTATIN 20 MG TABLET PO (08:33)
[2024-10-16] MEDS: ASPIRIN 81 MG ENTERIC TABLET PO (08:33)
[2024-10-16 12:55] LABS: Alveolar/Arterial O2 Gradient 82.7 mmHg; Fractional Inspired Oxygen 28 %; HCO3 ABG 22.3 mEq/l (22.0-26.0); Oxygen Content ABG 15.0 %vol (16.0-22.0); Oxygen Saturation ABG 95.1 % (95.0-100.0); PCO2 ABG 36.2 mmHg (35.0-45.0); PO2 ABG 74.2 mmHg (80.0-100.0); PO2 FiO2 Ratio Arterial Blood 2.65 %
[2024-10-16 12:59] LABS: Liters per Minute 2.0 LPM; Modified Allen's Test Pass; Site Drawn LEFT RADIAL
--- NOTE | 2024-10-16 15:08 | PM.IMPN ---
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 Generalized weakness likely secondary to UTI/physical deconditioning Her sister's reported she had 2 falls recent-they say that she reported her legs give up on her-she walks with a walker In the ED, noted leukocytosis, UA shows 2+ leukocytes trace, urine WBC 50 1-100, urine bacteria 4+ but negative for nitrites Sepsis protocol was activated; received 30 cc/kg IV fluid, lactate normal, leukocytosis, blood culture and urine culture collected, IV antibiotics start Follow blood culture and urine culture Continue ceftriaxone Physical/occupational therapy 2. UTI-treatment like above 3.A[facility]-likely secondary to UTI/poor oral intake Baseline creatinine is around 1, on admission today creatinine is 1.58 BMP daily 4. HFpEF 08/28/24 2D echo shows EF 60-65 %, increased left ventricle wall thickness. Grade 1 diastolic dysfunction Patient is not in acute exacerbation 5. Coronary artery disease s/p PCI x 2 stent in February and March 2024 Continue aspirin/Brilinta/Crestor/carvedilol 6. Physical deconditioning Likely secondary to the acute illness PT/ OT Acute hypoxemic respiratory failure CHF exacerbation, diastolic CXR showed cardiomegaly with interstitial edema now on 2 liters oxygen , no oxygen at baseline Started on lasix titrate oxygen ECHO form August showed diastolic dysfunction 7. Disposition one more night of diuresis Subjective Date/time seen: 10/16/24 15:08 Interval history: Comfortable at bedside, however now on 2 liters oxygen Review of Systems Review of Systems: Unable to do because patient was falling asleep Eyes: Eyes: Reports as per HPI Exam Narrative: APPEARANCE: Awake and alert EYES: EOMI HEENT: Normocephalic, atraumatic, OMM RESPIRATORY: No respiratory distress Clear to auscultation bilaterally with no rhonchi wheezing or rales. CARDIOVASCULAR: RRR, S1 and S2 without murmurs rubs or gallops. ABDOMINAL: Soft, nontender, nondistended, no rebound or guarding MSK: 5/5 motor strength-she feels fatigued but her strings intact. NEURO: Awake and alert. Following commands, speech normal, no focal deficits SKIN:: Warm, dry. No rashes lesions or abrasions PSYCHIATRIC: Normal mood Objective Data Vital Signs Vital Signs: Vital Signs - 24 hr 10/15/24 20:00 10/15/24 21:32 10/16/24 05:09 Temperature 98.2 F 97.7 F Pulse Rate 76 76 75 Respiratory Rate 19 19 17 Blood Pressure 156/55 H 135/55 L Pulse Oximetry 93 93 93 Oxygen Delivery Nasal Cannula Oxygen Flow Rate 2 10/16/24 08:00 10/16/24 08:33 10/16/24 08:47 Temperature Pulse Rate 73 Respiratory Rate Blood Pressure Pulse Oximetry 93 Oxygen Delivery Nasal Cannula Nasal Cannula Oxygen Flow Rate 2 2 10/16/24 13:01 10/16/24 14:00 Temperature 97.2 F L Pulse Rate 66 Respiratory Rate 28 H Blood Pressure 137/56 L Pulse Oximetry 92 97 Oxygen Delivery Nasal Cannula Oxygen Flow Rate 2 Intake/Output Intake/Output: Intake & Output 10/13/24 10/14/24 10/15/24 10/16/24 23:59 23:59 23:59 23:59 Intake Total 2049 2630 906 Balance 2049 2630 906 Meds/Results Medications: Active Medications Generic Name Dose Route Start Last Admin Trade Name Freq PRN Reason Stop Dose Admin Acetaminophen 1,000 mg 10/14/24 15:51 Acetaminophen 500 Mg Tablet PO TID PRN PAIN RATED 1-3 Aspirin 81 mg 10/15/24 09:00 10/16/24 08:33 Aspirin 81 Mg Enteric Tablet PO 81 mg DAILY CARLOS Administration Carvedilol 6.25 mg 10/14/24 21:00 10/16/24 08:33 Carvedilol 6.25 Mg Tablet PO 6.25 mg Q12H CARLOS Administration Dextrose 12.5 gm 10/14/24 16:21 Dextrose 50% 25 Gm/50 Ml Syringe IV PUSH PRN PRN Hypoglycemia Protocol Enoxaparin Sodium 40 mg 10/16/24 09:00 10/16/24 08:32 Enoxaparin 40 Mg/0.4 Ml Syringe SUB-Q 40 mg DAILY CARLOS Administration Escitalopram Oxalate 5 mg 10/14/24 21:00 10/15/24 21:44 Escitalopram Oxalate 5 Mg Tablet PO 5 mg HS CARLOS Administration Furosemide 20 mg 10/16/24 17:00 Furosemide Inj 40 Mg/4 Ml Vial IV PUSH BID CARLOS Glucagon 1 mg 10/14/24 16:21 Glucagon For Inj 1 Mg Vial IM PRN PRN Hypoglycemia Protocol Glucose 15 gm 10/14/24 16:21 Glucose Oral Gel 15 Gm Of Glucse In 37.5 Gm Tube PO PRN PRN Hypoglycemia Protocol Ceftriaxone Sodium 1 gm/ 50 mls @ 100 mls/hr 10/15/24 09:00 10/16/24 08:32 Sodium Chloride IVPB 100 mls/hr QAM CARLOS Administration Dextrose 1,000 mls @ 100 mls/hr 10/14/24 16:21 Dextrose 5% 1,000 Ml IVPB PRN PRN Hypoglycemia Protocol Insulin Aspart 2 - 5 units 10/14/24 17:00 10/16/24 12:05 Insulin Aspart (*Bkc) 100 Units/Ml SUB-Q Not Given TIDWM [facility] Protocol Insulin Glargine 25 units 10/14/24 21:00 10/15/24 21:43 Insulin Glargine (*Bkc) 100 Units/Ml SUB-Q 25 units HS CARLOS Administration Rosuvastatin Calcium 20 mg 10/15/24 09:00 10/16/24 08:33 Rosuvastatin 20 Mg Tablet PO 20 mg QAM CARLOS Administration Ticagrelor 90 mg 10/14/24 21:00 10/16/24 08:33 Ticagrelor 90 Mg Tablet PO 90 mg Q12H CARLOS Administration Radiology Results: ITS Impressions Head CT 10/14/24 10:52 IMPRESSION: 1. No fracture or acute intracranial process. 2. Peripheral old lacunar infarcts at the right basal ganglia and subinsular white matter. 3. Prominent Age-related changes including mild diffuse volume loss and moderate scattered white matter hypoattenuation consistent with chronic small vessel ischemic disease. 4. 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 Cervical Spine CT 10/14/24 11:08 IMPRESSION: 1. 12 degrees cervical dextrocurvature with severe upper cervical predominant spondylosis. No acute osseous abnormality. Chest X-Ray 10/16/24 13:51 Impression: 1: Mild cardiomegaly with interstitial edema. Labs Labs: Laboratory Results - last 24 hr 10/15/24 10/15/24 10/16/24 16:28 20:17 05:33 WBC 10.8 H RBC 3.88 L Hgb 11.0 L Hct 35.9 L MCV 92.5 MCH 28.4 MCHC 30.6 L RDW 13.1 Plt Count 193 MPV 11.4 H Immature Gran % (Auto) 0.6 H Neut % (Auto) 62.5 Lymph % (Auto) 21.1 [place] % (Auto) 13.0 H Eos % (Auto) 2.2 Baso % (Auto) 0.6 Lymph # (Auto) 2.27 [place] # (Auto) 1.4 H Eos # (Auto) 0.2 Baso # (Auto) 0.1 Abs Immat Gran (auto) 0.06 H Absolute Neuts (auto) 6.7 Absolute Nucleated RBC 0.000 Nucleated RBC % 0.0 Puncture Site ABG pH ABG pCO2 ABG pO2 ABG PO2/FiO2 Ratio ABG HCO3 ABG O2 Saturation ABG O2 Content ABG Base Excess A-a Gradient Oxyhemoglobin Total Hemoglobin O2 Delivery Device O2 Liters/Min FiO2 Sodium 136 L Potassium 3.9 Chloride 105 Carbon Dioxide 24 Anion Gap 7 BUN 34 H Creatinine 1.49 H Estim Creat Clear Calc Not Reportable Estimated GFR 35 L Glucose 206 H POC Capillary Glucose 236 H 274 H Calcium 8.4 Total Bilirubin 0.5 AST 45 H ALT 64 H Alkaline Phosphatase 135 H Total Protein 6.9 Albumin 3.6 10/16/24 10/16/24 10/16/24 07:20 11:07 12:51 WBC RBC Hgb Hct MCV MCH MCHC RDW Plt Count MPV Immature Gran % (Auto) Neut % (Auto) Lymph % (Auto) [place] % (Auto) Eos % (Auto) Baso % (Auto) Lymph # (Auto) [place] # (Auto) Eos # (Auto) Baso # (Auto) Abs Immat Gran (auto) Absolute Neuts (auto) Absolute Nucleated RBC Nucleated RBC % Puncture Site Left radial ABG pH 7.408 ABG pCO2 36.2 ABG pO2 74.2 L ABG PO2/FiO2 Ratio 2.65 ABG HCO3 22.3 ABG O2 Saturation 95.1 ABG O2 Content 15.0 L ABG Base Excess -1.9 A-a Gradient 82.7 Oxyhemoglobin 93.9 Total Hemoglobin 11.3 L O2 Delivery Device Nasal cannula O2 Liters/Min 2.0 FiO2 28 Sodium Potassium Chloride Carbon Dioxide Anion Gap BUN Creatinine Estim Creat Clear Calc Estimated GFR Glucose POC Capillary Glucose 192 H 196 H Calcium Total Bilirubin AST ALT Alkaline Phosphatase Total Protein Albumin Quality VTE Prophylaxis VTE prophylaxis: mechanical ordered
[2024-10-16] MEDS: FUROSEMIDE INJ 40 MG/4 ML VIAL 20 MG IV PUSH (17:03)
[2024-10-16] MEDS: INSULIN ASPART (*BKC) 100 UNITS/ML SUB-Q (17:03)
[2024-10-16] MEDS: ESCITALOPRAM OXALATE 5 MG TABLET PO (19:57)
[2024-10-16] MEDS: INSULIN GLARGINE (*BKC) 100 UNITS/ML 25 UNITS SUB-Q (20:23)
[2024-10-17] VITALS (9 sets, daily range): BP systolic 88–124; BP diastolic 49–80; PULSE 56–63; RESP 14–20; TEMP 36.4–36.9; O2SAT 92–98
[2024-10-17 05:51] LABS: Hematocrit 36.0 % (37.0-47.0); Hemoglobin 11.3 g/dL (12.0-15.0); Immature Granulocyte Percent A 0.5 % (0-0.5); Lymphocytes Absolute Auto 2.89 K/mm3 (0.9-3.2); Mean Corpuscular HGB Conc 31.4 g/dl (32-36); Mean Corpuscular Hemoglobin 28.0 pg (26-34); Mean Corpuscular Volume 89.3 fl (80-100); Nucleated Red Blood Cells Absolute Auto 0.000 K/mm3 (0.0-0.012); Nucleated Red Blood Cells Perc 0.0 % (0.0-0.2); Platelet Count Result 223 k/mm3 (150-375); Red Blood Count 4.03 M/mm3 (4.2-5.4); White Blood Count 10.6 K/mm3 (4.5-10.0)
[2024-10-17 06:15] LABS: Alanine Aminotransferase 54 U/L (6-35); Albumin Level 3.7 g/dL (3.5-5.1); Alkaline Phosphatase 137 U/L (38-126); Anion Gap 10 mmol/L (4-12); Aspartate Amino Transferase 38 U/L (14-36); Bilirubin,Total 0.4 mg/dL (0.2-1.3); Blood Urea Nitrogen 33 mg/dL (7-17); Calcium 8.7 mg/dL (8.4-10.2); Carbon Dioxide 25 mmol/L (22-30); Chloride 102 mmol/L (98-107); Estimated Glomerular Filt Rate 31; Glucose 138 mg/dL (65-110); Magnesium 2.1 mg/dL (1.6-2.3); Potassium 3.1 mmol/L (3.4-5.0); Sodium 137 mmol/L (137-145); Total Protein 7.1 g/dL (6.3-8.2)
[2024-10-17] MEDS: ENOXAPARIN 40 MG/0.4 ML SYRINGE SUB-Q (09:08)
[2024-10-17] MEDS: ROSUVASTATIN 20 MG TABLET PO (09:15)
[2024-10-17] MEDS: TICAGRELOR 90 MG TABLET PO ×2 (09:15→20:50)
[2024-10-17] MEDS: ASPIRIN 81 MG ENTERIC TABLET PO (09:15)
[2024-10-17] MEDS: cefTRIAXone 1 GM in SODIUM CHLORIDE 0.9% IV 50 ML 100 ML IVPB (09:23)
[2024-10-17] MEDS: POTASSIUM CHLORIDE 20 MEQ PACKET (FOR LIQUID) 40 MEQ PO (09:33)
--- NOTE | 2024-10-17 11:29 | PCOTNOTE ---
Patient unavailable at this time for therapy services. Patient is going down for a kidney ultrasound, will try back at a later time.
--- NOTE | 2024-10-17 11:57 | PC.NURSE ---
This nurse called Dr. Yeh to tell her that pt refused the retroperitoneal US and the scan was cancelled.
--- NOTE | 2024-10-17 13:10 | PCOTNOTE ---
Attempted to see Patient for OT treatment session. Patient would not open her eyes, shakes her head no when spoke to. Patient then covered her head with her hands and stated, I'm cold, leave me alone. Patient would not participate in any activity this session.
--- NOTE | 2024-10-17 13:53 | PM.IMPN ---
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 Status: Acute (3) Hyponatremia: Code(s): E87.1 - Hypo-osmolality and hyponatremia Status: Acute (4) Acute kidney injury: Code(s): N17.9 - Acute kidney failure, unspecified Status: Acute (5) Hyperkalemia: Code(s): E87.5 - Hyperkalemia Status: Acute (6) Acute UTI: Code(s): N39.0 - Urinary tract infection, site not specified Status: Acute (7) Frequent falls: Code(s): R29.6 - Repeated falls Status: Acute (8) COPD (chronic obstructive pulmonary disease): Code(s): J44.9 - Chronic obstructive pulmonary disease, unspecified Status: Acute Plan 69 year old female with pmhx of Dementia, HFpEF, HTN, HLD, remote smoker, and COPD who is here for worsening of back pain. Patient fell 10/10/2024-she visited emergency room at that time. Family brought her to the ED because of behavior change. Patient was verbally abusive to the ED staff.she was sleeping too many hours a day. She lives with her older sister. She lack appetite for the last [address] cervical obtained and did not show any acute fracture. Noted 12 degree cervical dextrocurvature with severe predominant predominant spondylolysis. CT head negative for new fracture or acute intracranial bleed. CT head shows peripheral old lacunar infarcts at the right basal ganglia and subinsular white matter. 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 Chest x-ray was negative for consolidation/infiltrate/cardiomegaly or vascular congestion. 1. Generalized weakness likely secondary to UTI/physical deconditioning Her sister's reported she had 2 falls recent-they say that she reported her legs give up on her-she walks with a walker Possibly secondary to UTI Physical deconditioning PT/OT as tolerated 2. UTI- Continue with ceftriaxone Await urine culture 3.[facility]-with pre-existing CKD Received diuresis Blood pressure low today Will give 250 cc of fluid extend patient refused for renal ultrasound 4. HFpEF 08/28/24 2D echo shows EF 60-65 %, increased left ventricle wall thickness. Grade 1 diastolic dysfunction Patient is not in acute exacerbation 5. Coronary artery disease s/p PCI x 2 stent in February and March 2024 Continue aspirin/Brilinta/Crestor/carvedilol 6. Physical deconditioning Likely secondary to the acute illness PT/ OT 7.Acute hypoxemic respiratory failure CHF exacerbation, diastolic CXR showed cardiomegaly with interstitial edema now on 2 liters oxygen , no oxygen at baseline Lasix on hold as mentioned above titrate oxygen ECHO form August showed diastolic dysfunction 7. Diabetes mellitus: Blood glucose started using just Continue with Lantus and mealtime sliding scale insulin Adjust dose as needed 8. Code status: Full 9. Dvt prophylaxis: Lovenox 10. Disposition: Will need SNF placement Time Spent With Patient Time: 38 min Subjective Date/time seen: 10/17/24 13:53 Interval history: Patient very sleepy today, does not want to talk Refusing test Review of Systems Review of Systems: Unable to obtain Exam Narrative: APPEARANCE: Sleepy EYES: EOMI HEENT: Normocephalic, atraumatic, OMM RESPIRATORY: No respiratory distress Clear to auscultation bilaterally with no rhonchi wheezing or rales. CARDIOVASCULAR: RRR, S1 and S2 without murmurs rubs or gallops. ABDOMINAL: Soft, nontender, nondistended, no rebound or guarding MSK: 5/5 motor strength-she feels fatigued but her strings intact. NEURO: Sleepy SKIN:: Warm, dry. No rashes lesions or abrasions PSYCHIATRIC: Angry today Objective Data Vital Signs Vital Signs: Vital Signs - 24 hr 10/16/24 14:00 10/16/24 20:00 10/16/24 20:13 Temperature 97.2 F L 98.3 F Pulse Rate 66 69 69 Respiratory Rate 28 H 16 16 Blood Pressure 137/56 L 144/58 H Pulse Oximetry 97 93 93 Oxygen Delivery Nasal Cannula Oxygen Flow Rate 2 10/17/24 04:51 10/17/24 08:00 10/17/24 09:13 Temperature 97.6 F Pulse Rate 63 60 60 Respiratory Rate 18 Blood Pressure 124/80 Pulse Oximetry 95 94 Oxygen Delivery Nasal Cannula Oxygen Flow Rate 2 Intake/Output Intake/Output: Intake & Output 10/14/24 10/15/24 10/16/24 10/17/24 23:59 23:59 23:59 23:59 Intake Total 2049 2630 1192 300 Balance 2049 2629 1192 300 Meds/Results Medications: Active Medications Generic Name Dose Route Start Last Admin Trade Name Freq PRN Reason Stop Dose Admin Acetaminophen 1,000 mg 10/14/24 15:51 Acetaminophen 500 Mg Tablet PO TID PRN PAIN RATED 1-3 Aspirin 81 mg 10/15/24 09:00 10/17/24 09:15 Aspirin 81 Mg Enteric Tablet PO 81 mg DAILY CARLOS Administration Carvedilol 6.25 mg 10/14/24 21:00 10/17/24 09:13 Carvedilol 6.25 Mg Tablet PO 6.25 mg Q12H CARLOS Administration Dextrose 12.5 gm 10/14/24 16:21 Dextrose 50% 25 Gm/50 Ml Syringe IV PUSH PRN PRN Hypoglycemia Protocol Enoxaparin Sodium 40 mg 10/16/24 09:00 10/17/24 09:08 Enoxaparin 40 Mg/0.4 Ml Syringe SUB-Q 40 mg DAILY CARLOS Administration Escitalopram Oxalate 5 mg 10/14/24 21:00 10/16/24 19:57 Escitalopram Oxalate 5 Mg Tablet PO 5 mg HS CARLOS Administration Furosemide 20 mg 10/16/24 17:00 10/17/24 09:22 Furosemide Inj 40 Mg/4 Ml Vial IV PUSH Not Given On Hold: 10/17/24 09:06 BID CARLOS Glucagon 1 mg 10/14/24 16:21 Glucagon For Inj 1 Mg Vial IM PRN PRN Hypoglycemia Protocol Glucose 15 gm 10/14/24 16:21 Glucose Oral Gel 15 Gm Of Glucse In 37.5 Gm Tube PO PRN PRN Hypoglycemia Protocol Ceftriaxone Sodium 1 gm/ 50 mls @ 100 mls/hr 10/15/24 09:00 10/17/24 09:53 Sodium Chloride IVPB Infused QAM CARLOS Infusion Dextrose 1,000 mls @ 100 mls/hr 10/14/24 16:21 Dextrose 5% 1,000 Ml IVPB PRN PRN Hypoglycemia Protocol Sodium Chloride 250 mls @ 999 mls/hr 10/17/24 13:46 Normal Saline Iv IV CONT 10/17/24 14:01 .Q16M ONE Insulin Aspart 2 - 5 units 10/14/24 17:00 10/17/24 11:23 Insulin Aspart (*Bkc) 100 Units/Ml SUB-Q Not Given TIDWM [facility] Protocol Insulin Glargine 25 units 10/14/24 21:00 10/16/24 20:23 Insulin Glargine (*Bkc) 100 Units/Ml SUB-Q 25 units HS CARLOS Administration Potassium Chloride 40 meq 10/17/24 10:00 10/17/24 09:33 Potassium Chloride 20 Meq Packet (For Liquid) PO 10/17/24 17:01 40 meq BID CARLOS Administration Rosuvastatin Calcium 20 mg 10/15/24 09:00 10/17/24 09:15 Rosuvastatin 20 Mg Tablet PO 20 mg QAM CARLOS Administration Ticagrelor 90 mg 10/14/24 21:00 10/17/24 09:15 Ticagrelor 90 Mg Tablet PO 90 mg Q12H CARLOS Administration Radiology Results: ITS Impressions Head CT 10/14/24 10:52 IMPRESSION: 1. No fracture or acute intracranial process. 2. Peripheral old lacunar infarcts at the right basal ganglia and subinsular white matter. 3. Prominent Age-related changes including mild diffuse volume loss and moderate scattered white matter hypoattenuation consistent with chronic small vessel ischemic disease. 4. 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 Cervical Spine CT 10/14/24 11:08 IMPRESSION: 1. 12 degrees cervical dextrocurvature with severe upper cervical predominant spondylosis. No acute osseous abnormality. Chest X-Ray 10/16/24 13:51 Impression: 1: Mild cardiomegaly with interstitial edema. Labs Labs: Laboratory Results - last 24 hr 10/16/24 10/16/24 10/17/24 16:29 20:15 05:33 WBC 10.6 H RBC 4.03 L Hgb 11.3 L Hct 36.0 L MCV 89.3 MCH 28.0 MCHC 31.4 L RDW 13.0 Plt Count 223 MPV 11.2 H Immature Gran % (Auto) 0.5 Neut % (Auto) 56.4 Lymph % (Auto) 27.3 [place] % (Auto) 12.8 H Eos % (Auto) 2.2 Baso % (Auto) 0.8 Lymph # (Auto) 2.89 [place] # (Auto) 1.4 H Eos # (Auto) 0.2 Baso # (Auto) 0.1 Abs Immat Gran (auto) 0.05 H Absolute Neuts (auto) 6.0 Absolute Nucleated RBC 0.000 Nucleated RBC % 0.0 Sodium 137 Potassium 3.1 L Chloride 102 Carbon Dioxide 25 Anion Gap 10 BUN 33 H Creatinine 1.64 H Estim Creat Clear Calc Not Reportable Estimated GFR 31 L Glucose 138 H POC Capillary Glucose 255 H 206 H Calcium 8.7 Magnesium 2.1 Total Bilirubin 0.4 AST 38 H ALT 54 H Alkaline Phosphatase 137 H Total Protein 7.1 Albumin 3.7 10/17/24 10/17/24 07:21 11:19 WBC RBC Hgb Hct MCV MCH MCHC RDW Plt Count MPV Immature Gran % (Auto) Neut % (Auto) Lymph % (Auto) [place] % (Auto) Eos % (Auto) Baso % (Auto) Lymph # (Auto) [place] # (Auto) Eos # (Auto) Baso # (Auto) Abs Immat Gran (auto) Absolute Neuts (auto) Absolute Nucleated RBC Nucleated RBC % Sodium Potassium Chloride Carbon Dioxide Anion Gap BUN Creatinine Estim Creat Clear Calc Estimated GFR Glucose POC Capillary Glucose 132 H 125 H Calcium Magnesium Total Bilirubin AST ALT Alkaline Phosphatase Total Protein Albumin Quality VTE Prophylaxis VTE prophylaxis: pharmacologic ordered
[2024-10-17] MEDS: SODIUM CHLORIDE 0.9% IV 250 ML 999 ML IV CONT (13:56)
[2024-10-17] MEDS: ESCITALOPRAM OXALATE 5 MG TABLET PO (20:50)
[2024-10-17] MEDS: INSULIN GLARGINE (*BKC) 100 UNITS/ML 25 UNITS SUB-Q (20:54)
[2024-10-18] VITALS (8 sets, daily range): BP systolic 100–140; BP diastolic 54–73; PULSE 60–71; RESP 12–20; TEMP 36.6–36.7; O2SAT 91–96
[2024-10-18 06:18] LABS: Hematocrit 37.3 % (37.0-47.0); Hemoglobin 11.6 g/dL (12.0-15.0); Immature Granulocyte Percent A 0.4 % (0-0.5); Lymphocytes Absolute Auto 3.31 K/mm3 (0.9-3.2); Mean Corpuscular HGB Conc 31.1 g/dl (32-36); Mean Corpuscular Hemoglobin 28.2 pg (26-34); Mean Corpuscular Volume 90.8 fl (80-100); Nucleated Red Blood Cells Absolute Auto 0.000 K/mm3 (0.0-0.012); Nucleated Red Blood Cells Perc 0.0 % (0.0-0.2); Platelet Count Result 241 k/mm3 (150-375); Red Blood Count 4.11 M/mm3 (4.2-5.4); White Blood Count 10.9 K/mm3 (4.5-10.0)
[2024-10-18 06:40] LABS: Alanine Aminotransferase 53 U/L (6-35); Albumin Level 3.7 g/dL (3.5-5.1); Alkaline Phosphatase 121 U/L (38-126); Anion Gap 8 mmol/L (4-12); Aspartate Amino Transferase 51 U/L (14-36); Bilirubin,Total 0.4 mg/dL (0.2-1.3); Blood Urea Nitrogen 40 mg/dL (7-17); Calcium 8.9 mg/dL (8.4-10.2); Carbon Dioxide 29 mmol/L (22-30); Chloride 103 mmol/L (98-107); Estimated Glomerular Filt Rate 29; Glucose 78 mg/dL (65-110); Potassium 3.8 mmol/L (3.4-5.0); Sodium 140 mmol/L (137-145); Total Protein 7.2 g/dL (6.3-8.2)
[2024-10-18] MEDS: ENOXAPARIN 40 MG/0.4 ML SYRINGE SUB-Q (08:59)
[2024-10-18] MEDS: cefTRIAXone 1 GM in SODIUM CHLORIDE 0.9% IV 50 ML 100 ML IVPB (08:59)
[2024-10-18] MEDS: TICAGRELOR 90 MG TABLET PO ×2 (08:59→20:39)
[2024-10-18] MEDS: ROSUVASTATIN 20 MG TABLET PO (08:59)
[2024-10-18] MEDS: ASPIRIN 81 MG ENTERIC TABLET PO (08:59)
[2024-10-18] MEDS: ACETAMINOPHEN 500 MG TABLET 1000 MG PO (09:00)
--- NOTE | 2024-10-18 13:16 | PM.IMPN ---
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 Status: Acute (3) Hyponatremia: Code(s): E87.1 - Hypo-osmolality and hyponatremia Status: Acute (4) Acute kidney injury: Code(s): N17.9 - Acute kidney failure, unspecified Status: Acute (5) Hyperkalemia: Code(s): E87.5 - Hyperkalemia Status: Acute (6) Acute UTI: Code(s): N39.0 - Urinary tract infection, site not specified Status: Acute (7) Frequent falls: Code(s): R29.6 - Repeated falls Status: Acute (8) COPD (chronic obstructive pulmonary disease): Code(s): J44.9 - Chronic obstructive pulmonary disease, unspecified Status: Acute Plan 69 year old female with pmhx of Dementia, HFpEF, HTN, HLD, remote smoker, and COPD who is here for worsening of back pain. Patient fell 10/10/2024-she visited emergency room at that time. Family brought her to the ED because of behavior change. Patient was verbally abusive to the ED staff.she was sleeping too many hours a day. She lives with her older sister. She lack appetite for the last [address] cervical obtained and did not show any acute fracture. Noted 12 degree cervical dextrocurvature with severe predominant predominant spondylolysis. CT head negative for new fracture or acute intracranial bleed. CT head shows peripheral old lacunar infarcts at the right basal ganglia and subinsular white matter. 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 Chest x-ray was negative for consolidation/infiltrate/cardiomegaly or vascular congestion. 1. Generalized weakness likely secondary to UTI/physical deconditioning Her sister's reported she had 2 falls recent-they say that she reported her legs give up on her-she walks with a walker Possibly secondary to UTI Physical deconditioning PT/OT as tolerated 2. UTI- Continue with ceftriaxone Await urine culture 3.[facility]-with pre-existing CKD Cr 1.73 from 1.64 lasix on hold patient refused for renal ultrasound monitor renal function, having adequate oral intake 4. HFpEF 08/28/24 2D echo shows EF 60-65 %, increased left ventricle wall thickness. Grade 1 diastolic dysfunction Patient is not in acute exacerbation 5. Coronary artery disease s/p PCI x 2 stent in February and March 2024 Continue aspirin/Brilinta/Crestor/carvedilol 6. Physical deconditioning Likely secondary to the acute illness PT/ OT 7.Acute hypoxemic respiratory failure CHF exacerbation, diastolic CXR showed cardiomegaly with interstitial edema now on 2 liters oxygen , no oxygen at baseline Lasix on hold as mentioned above titrate oxygen ECHO form August showed diastolic dysfunction 7. Diabetes mellitus: Blood glucose started using just Continue with Lantus and mealtime sliding scale insulin Adjust dose as needed AMS with increasing somnolence CT head ordered Family member at bedside noted that is normal for patient at at baseline, intermittent waxing and waning level of consciouness monitor Dvt prophylaxis: Lovenox Code status: Full Disposition: Will need SNF placement Subjective Date/time seen: 10/18/24 13:16 Interval history: Patient is sleepy today Review of Systems Review of Systems: Somnolence Eyes: Eyes: Reports as per HPI Exam Narrative: APPEARANCE: Sleepy EYES: EOMI HEENT: Normocephalic, atraumatic, OMM RESPIRATORY: No respiratory distress Clear to auscultation bilaterally with no rhonchi wheezing or rales. CARDIOVASCULAR: RRR, S1 and S2 without murmurs rubs or gallops. ABDOMINAL: Soft, nontender, nondistended, no rebound or guarding MSK: 5/5 motor strength-she feels fatigued but her strings intact. NEURO: Sleepy SKIN:: Warm, dry. No rashes lesions or abrasions PSYCHIATRIC: Angry today Objective Data Vital Signs Vital Signs: Vital Signs - 24 hr 10/17/24 13:53 10/17/24 14:15 10/17/24 19:46 Temperature 97.7 F Pulse Rate 60 62 Respiratory Rate 14 20 Blood Pressure 88/58 L 107/49 L Pulse Oximetry 95 92 Oxygen Delivery Nasal Cannula Oxygen Flow Rate 2 Fraction of Inspired Oxygen 28 10/17/24 19:48 10/17/24 20:00 10/17/24 20:50 Temperature 98.4 F Pulse Rate 56 L 56 L Respiratory Rate 18 Blood Pressure 104/64 Pulse Oximetry 98 98 Oxygen Delivery Nasal Cannula Oxygen Flow Rate 2 Fraction of Inspired Oxygen 10/18/24 04:16 10/18/24 08:00 10/18/24 09:00 Temperature 98 F Pulse Rate 60 71 Respiratory Rate 16 Blood Pressure 100/59 L Pulse Oximetry 95 95 Oxygen Delivery Nasal Cannula Oxygen Flow Rate 2 Fraction of Inspired Oxygen Intake/Output Intake/Output: Intake & Output 10/15/24 10/16/24 10/17/24 10/18/24 23:59 23:59 23:59 23:59 Intake Total 2630 1192 550 60 Balance 2630 1192 550 60 Meds/Results Medications: Active Medications Generic Name Dose Route Start Last Admin Trade Name Freq PRN Reason Stop Dose Admin Acetaminophen 1,000 mg 10/14/24 15:51 10/18/24 09:00 Acetaminophen 500 Mg Tablet PO 1,000 mg TID PRN Administration PAIN RATED 1-3 Aspirin 81 mg 10/15/24 09:00 10/18/24 08:59 Aspirin 81 Mg Enteric Tablet PO 81 mg DAILY CARLOS Administration Carvedilol 6.25 mg 10/14/24 21:00 10/18/24 09:00 Carvedilol 6.25 Mg Tablet PO 6.25 mg Q12H CARLOS Administration Dextrose 12.5 gm 10/14/24 16:21 Dextrose 50% 25 Gm/50 Ml Syringe IV PUSH PRN PRN Hypoglycemia Protocol Enoxaparin Sodium 40 mg 10/16/24 09:00 10/18/24 08:59 Enoxaparin 40 Mg/0.4 Ml Syringe SUB-Q 40 mg DAILY CARLOS Administration Escitalopram Oxalate 5 mg 10/14/24 21:00 10/17/24 20:50 Escitalopram Oxalate 5 Mg Tablet PO 5 mg HS CARLOS Administration Furosemide 20 mg 10/16/24 17:00 10/17/24 09:22 Furosemide Inj 40 Mg/4 Ml Vial IV PUSH Not Given On Hold: 10/17/24 09:06 BID CARLOS Glucagon 1 mg 10/14/24 16:21 Glucagon For Inj 1 Mg Vial IM PRN PRN Hypoglycemia Protocol Glucose 15 gm 10/14/24 16:21 Glucose Oral Gel 15 Gm Of Glucse In 37.5 Gm Tube PO PRN PRN Hypoglycemia Protocol Ceftriaxone Sodium 1 gm/ 50 mls @ 100 mls/hr 10/15/24 09:00 10/18/24 08:59 Sodium Chloride IVPB 100 mls/hr QAM CARLOS Administration Dextrose 1,000 mls @ 100 mls/hr 10/14/24 16:21 Dextrose 5% 1,000 Ml IVPB PRN PRN Hypoglycemia Protocol Insulin Aspart 2 - 5 units 10/14/24 17:00 10/18/24 11:43 Insulin Aspart (*Bkc) 100 Units/Ml SUB-Q Not Given TIDWM CARLOS Protocol Insulin Glargine 25 units 10/14/24 21:00 10/17/24 20:54 Insulin Glargine (*Bkc) 100 Units/Ml SUB-Q 25 units HS CARLOS Administration Rosuvastatin Calcium 20 mg 10/15/24 09:00 10/18/24 08:59 Rosuvastatin 20 Mg Tablet PO 20 mg QAM CARLOS Administration Ticagrelor 90 mg 10/14/24 21:00 10/18/24 08:59 Ticagrelor 90 Mg Tablet PO 90 mg Q12H CARLOS Administration Radiology Results: ITS Impressions Head CT 10/14/24 10:52 IMPRESSION: 1. No fracture or acute intracranial process. 2. Peripheral old lacunar infarcts at the right basal ganglia and subinsular white matter. 3. Prominent Age-related changes including mild diffuse volume loss and moderate scattered white matter hypoattenuation consistent with chronic small vessel ischemic disease. 4. 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 Cervical Spine CT 10/14/24 11:08 IMPRESSION: 1. 12 degrees cervical dextrocurvature with severe upper cervical predominant spondylosis. No acute osseous abnormality. Chest X-Ray 10/16/24 13:51 Impression: 1: Mild cardiomegaly with interstitial edema. Labs Labs: Laboratory Results - last 24 hr 10/17/24 10/17/24 10/18/24 16:23 19:54 05:54 WBC 10.9 H RBC 4.11 L Hgb 11.6 L Hct 37.3 MCV 90.8 MCH 28.2 MCHC 31.1 L RDW 13.2 Plt Count 241 MPV 11.2 H Immature Gran % (Auto) 0.4 Neut % (Auto) 54.5 Lymph % (Auto) 30.4 [place] % (Auto) 12.1 H Eos % (Auto) 1.9 Baso % (Auto) 0.7 Lymph # (Auto) 3.31 H [place] # (Auto) 1.3 H Eos # (Auto) 0.2 Baso # (Auto) 0.1 Abs Immat Gran (auto) 0.04 H Absolute Neuts (auto) 5.9 Absolute Nucleated RBC 0.000 Nucleated RBC % 0.0 Sodium 140 Potassium 3.8 Chloride 103 Carbon Dioxide 29 Anion Gap 8 BUN 40 H Creatinine 1.73 H Estim Creat Clear Calc Not Reportable Estimated GFR 29 L Glucose 78 POC Capillary Glucose 150 H 166 H Calcium 8.9 Total Bilirubin 0.4 AST 51 H ALT 53 H Alkaline Phosphatase 121 Total Protein 7.2 Albumin 3.7 10/18/24 10/18/24 07:41 11:21 WBC RBC Hgb Hct MCV MCH MCHC RDW Plt Count MPV Immature Gran % (Auto) Neut % (Auto) Lymph % (Auto) [place] % (Auto) Eos % (Auto) Baso % (Auto) Lymph # (Auto) [place] # (Auto) Eos # (Auto) Baso # (Auto) Abs Immat Gran (auto) Absolute Neuts (auto) Absolute Nucleated RBC Nucleated RBC % Sodium Potassium Chloride Carbon Dioxide Anion Gap BUN Creatinine Estim Creat Clear Calc Estimated GFR Glucose POC Capillary Glucose 83 83 Calcium Total Bilirubin AST ALT Alkaline Phosphatase Total Protein Albumin Quality VTE Prophylaxis VTE prophylaxis: pharmacologic ordered
[2024-10-18] MEDS: INSULIN GLARGINE (*BKC) 100 UNITS/ML 25 UNITS SUB-Q (20:36)
[2024-10-18] MEDS: ESCITALOPRAM OXALATE 5 MG TABLET PO (20:39)
[2024-10-19 05:22] VITALS: BP 161/61; PULSE 68; RESP 12; TEMP 36.6; O2SAT 94
[2024-10-19 06:44] LABS: Hematocrit 32.6 % (37.0-47.0); Hemoglobin 10.1 g/dL (12.0-15.0); Immature Granulocyte Percent A 0.6 % (0-0.5); Lymphocytes Absolute Auto 3.56 K/mm3 (0.9-3.2); Mean Corpuscular HGB Conc 31.0 g/dl (32-36); Mean Corpuscular Hemoglobin 28.1 pg (26-34); Mean Corpuscular Volume 90.6 fl (80-100); Nucleated Red Blood Cells Absolute Auto 0.000 K/mm3 (0.0-0.012); Nucleated Red Blood Cells Perc 0.0 % (0.0-0.2); Platelet Count Result 234 k/mm3 (150-375); Red Blood Count 3.60 M/mm3 (4.2-5.4); White Blood Count 10.9 K/mm3 (4.5-10.0)
[2024-10-19 07:09] LABS: Alanine Aminotransferase 49 U/L (6-35); Albumin Level 3.3 g/dL (3.5-5.1); Alkaline Phosphatase 159 U/L (38-126); Anion Gap 5 mmol/L (4-12); Aspartate Amino Transferase 46 U/L (14-36); Bilirubin,Total 0.3 mg/dL (0.2-1.3); Blood Urea Nitrogen 41 mg/dL (7-17); Calcium 8.2 mg/dL (8.4-10.2); Carbon Dioxide 30 mmol/L (22-30); Chloride 103 mmol/L (98-107); Estimated Glomerular Filt Rate 35; Glucose 218 mg/dL (65-110); Magnesium 2.3 mg/dL (1.6-2.3); Potassium 3.5 mmol/L (3.4-5.0); Sodium 138 mmol/L (137-145); Total Protein 6.4 g/dL (6.3-8.2)
[2024-10-19 08:00] VITALS: O2SAT 94
[2024-10-19 08:13] LABS: Iron 49 ug/dL (37-170)
[2024-10-19 08:21] VITALS: PULSE 67
[2024-10-19] MEDS: cefTRIAXone 1 GM in SODIUM CHLORIDE 0.9% IV 50 ML 100 ML IVPB (08:21)
[2024-10-19] MEDS: ROSUVASTATIN 20 MG TABLET PO (08:21)
[2024-10-19] MEDS: ENOXAPARIN 40 MG/0.4 ML SYRINGE SUB-Q (08:21)
[2024-10-19] MEDS: TICAGRELOR 90 MG TABLET PO (08:21)
[2024-10-19] MEDS: ASPIRIN 81 MG ENTERIC TABLET PO (08:21)
[2024-10-19 08:23] LABS: Percent Iron Saturation 17 % (20-50)
[2024-10-19 08:55] LABS: Ferritin 93.70 ng/mL (11.1-264)
[2024-10-19] MEDS: INSULIN ASPART (*BKC) 100 UNITS/ML SUB-Q ×2 (11:36→16:56)
--- NOTE | 2024-10-19 13:37 | PM.DS ---
DS: Admitting Diagnosis Discharge Date 10/19/24 Admitting Diagnosis Worsening pain from mechanical fall 2 days ago DS: Discharge Diagnosis Discharge Diagnosis (1) Acute UTI: Code(s): N39.0 - Urinary tract infection, site not specified Status: Acute (2) Acute kidney injury: Code(s): N17.9 - Acute kidney failure, unspecified Status: Acute DS: Summary Hospital Course Hospital Course: 69 year old female with pmhx of Dementia, HFpEF, HTN, HLD, remote smoker, and COPD who is here for worsening of back pain. Patient fell 10/10/2024-she visited emergency room at that time. Family brought her to the ED because of behavior change. Patient was verbally abusive to the ED staff.she was sleeping too many hours a day. She lives with her older sister. She lack appetite for the last [address] cervical obtained and did not show any acute fracture. Noted 12 degree cervical dextrocurvature with severe predominant predominant spondylolysis. CT head negative for new fracture or acute intracranial bleed. CT head shows peripheral old lacunar infarcts at the right basal ganglia and subinsular white matter. 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 Chest x-ray was negative for consolidation/infiltrate/cardiomegaly or vascular congestion. 1. Generalized weakness likely secondary to UTI/physical deconditioning Her sister's reported she had 2 falls recent-they say that she reported her legs give up on her-she walks with a walker Possibly secondary to UTI Physical deconditioning PT/OT as tolerated 2. UTI- urine culture showing E coli and sensitivity reviewed Completed Rocephin 3.Amaris-with pre-existing CKD Cr 1.50 from 1.73 decreased lasix to 20mg daily 4. HFpEF 08/28/24 2D echo shows EF 60-65 %, increased left ventricle wall thickness. Grade 1 diastolic dysfunction Patient is not in acute exacerbation 5. Coronary artery disease s/p PCI x 2 stent in February and March 2024 Continue aspirin/Brilinta/Crestor/carvedilol 6. Physical deconditioning Likely secondary to the acute illness PT/ OT 7.Acute hypoxemic respiratory failure CHF exacerbation, diastolic CXR showed cardiomegaly with interstitial edema now on 2 liters oxygen , no oxygen at baseline Lasix on hold as mentioned above titrate oxygen ECHO form August showed diastolic dysfunction resolving discharged on Lasix on 20mg daily, and home with oxygen per home oxygen eval 7. Diabetes mellitus: contineu home regimen AMS with increasing somnolence, resolved CT head no acute changes and patient alert and oriented at bedside Family member at bedside noted that is normal for patient at at baseline, intermittent waxing and waning level of consciouness monitor Discharged to SNF F/u with PCP in 3-5 days Time Spent with Patient Time attestation: Total time spent providing and/or coordinating discharge services: DS: Data Data Completed and Pending Labs on day of discharge: Labs from last 24 hours 10/19/24 10/19/24 10/19/24 11:17 07:38 06:20 WBC 10.9 H RBC 3.60 L Hgb 10.1 L Hct 32.6 L MCV 90.6 MCH 28.1 MCHC 31.0 L RDW 13.0 Plt Count 234 MPV 11.0 H Immature Gran % (Auto) 0.6 H Neut % (Auto) 51.9 Lymph % (Auto) 32.8 [place] % (Auto) 12.3 H Eos % (Auto) 1.8 Baso % (Auto) 0.6 Lymph # (Auto) 3.56 H [place] # (Auto) 1.3 H Eos # (Auto) 0.2 Baso # (Auto) 0.1 Abs Immat Gran (auto) 0.06 H Absolute Neuts (auto) 5.7 Absolute Nucleated RBC 0.000 Nucleated RBC % 0.0 Sodium 138 Potassium 3.5 Chloride 103 Carbon Dioxide 30 Anion Gap 5 BUN 41 H Creatinine 1.50 H Estim Creat Clear Calc Not Reportable Estimated GFR 35 L Glucose 218 H POC Capillary Glucose 220 H 177 H Calcium 8.2 L Magnesium 2.3 Iron 49 TIBC 286 % Saturation 17 L Ferritin 93.70 Total Bilirubin 0.3 AST 46 H ALT 49 H Alkaline Phosphatase 159 H Total Protein 6.4 Albumin 3.3 L 10/18/24 10/18/24 20:28 17:07 WBC RBC Hgb Hct MCV MCH MCHC RDW Plt Count MPV Immature Gran % (Auto) Neut % (Auto) Lymph % (Auto) [place] % (Auto) Eos % (Auto) Baso % (Auto) Lymph # (Auto) [place] # (Auto) Eos # (Auto) Baso # (Auto) Abs Immat Gran (auto) Absolute Neuts (auto) Absolute Nucleated RBC Nucleated RBC % Sodium Potassium Chloride Carbon Dioxide Anion Gap BUN Creatinine Estim Creat Clear Calc Estimated GFR Glucose POC Capillary Glucose 252 H 138 H Calcium Magnesium Iron TIBC % Saturation Ferritin Total Bilirubin AST ALT Alkaline Phosphatase Total Protein Albumin Preliminary micro results at discharge 10/14/24 09:21 Blood Culture - Preliminary Blood 10/14/24 09:58 Blood Culture - Preliminary Blood Discharge Plan Discharge Attending physician on discharge: Job Saucedo Consulting providers: Job Saucedo Discharging Clinician: Job Saucedo Anticipated Discharge Date/Time: 10/19/24 13:33 Patient Disposition: SNF Activity: as tolerated Diet: as tolerated, heart healthy and diabetic Patient Language: Mongolian Stand Alone Forms: General Discharge Information Follow-up/Referrals: Marge Payne DO [Primary Care Provider, [facility]] Referral Note: F/u with PCP in 3-5 days Discharge Medications: New furosemide [Lasix] 20 mg tablet 20 mg PO DAILY 30 Days Qty: 30 0RF Continued oxycodone 5 mg tablet 5 mg PO Q8H PRN (Reason: pain) Qty: 10 0RF acetaminophen [Tylenol Extra Strength] 500 mg tablet 1,000 mg PO TID PRN (Reason: pain) Qty: 30 0RF methocarbamol 500 mg tablet 500 mg PO HS Qty: 7 0RF ibuprofen 600 mg tablet 600 mg PO TID PRN (Reason: pain) Qty: 20 0RF rosuvastatin 40 mg tablet 40 mg PO DAILY ticagrelor [Brilinta] 90 mg tablet 90 mg PO Q12H carvedilol 6.25 mg tablet 6.25 mg PO Q12H carvedilol 12.5 mg tablet 6.25 mg PO BID aspirin 81 mg tablet,delayed release (DR/EC) 81 mg PO DAILY (DME) blood-glucose meter [Blood Glucose Monitoring] Kit See Rx Instructions .ROUTE .MEDSUPPLY Qty: 1 0RF Rx Instructions: As directed (DME) Blood Glucose Test Strip See Rx Instructions .ROUTE .MEDSUPPLY Qty: 10 3RF Rx Instructions: As directed (DME) lancets 17 gauge misc See Rx Instructions .Route Qty: 200 0RF Rx Instructions: As directed insulin lispro 100 unit/mL insulin pen 5 unit SUBCUT TID Qty: 15 0RF Rx Instructions: Inject 5 units subcutaneous TID before meals. insulin glargine [Lantus Solostar U-100 Insulin] 100 unit/mL (3 mL) insulin pen 25 unit SUBCUT HS Qty: 15 0RF escitalopram oxalate 5 mg tablet 5 mg PO HS Date of admission: 10/15/24 13:12 Primary Care Provider: Marge Payne Admitting Provider: Rosa Muñoz Attending physician on admission: Rosa Muñoz Condition: Serious
[2024-10-19 14:00] VITALS: BP 147/65; PULSE 65; RESP 16; TEMP 36.6; O2SAT 99
== END 2024-10-19 18:00 | DRG 689 ==
LOC: ANHED 09:58 → ANH3MEDSUR 12:12
PROVIDERS: Admitting Provider Student in an Organized Health Care Education/Training Program; Emergency Provider Emergency Medicine; PCP Family Medicine; Visit Provider Internal Medicine
DX: N39.0 Urinary tract infection, site not specified (principal); J96.01 Acute respiratory failure with hypoxia; N17.9 Acute kidney failure, unspecified; I13.0 Hypertensive heart and chronic kidney disease with heart failure and stage 1 through stage 4 chronic kidney disease, or unspecified chronic kidney disease; I50.32 Chronic diastolic (congestive) heart failure; E87.1 Hypo-osmolality and hyponatremia; B96.20 Unspecified Escherichia coli [E. coli] as the cause of diseases classified elsewhere; E78.5 Hyperlipidemia, unspecified; E11.22 Type 2 diabetes mellitus with diabetic chronic kidney disease; J44.9 Chronic obstructive pulmonary disease, unspecified; I25.10 Atherosclerotic heart disease of native coronary artery without angina pectoris; F03.90 Unspecified dementia, unspecified severity, without behavioral disturbance, psychotic disturbance, mood disturbance, and anxiety; I35.0 Nonrheumatic aortic (valve) stenosis; R29.6 Repeated falls; Z95.5 Presence of coronary angioplasty implant and graft; Z90.49 Acquired absence of other specified parts of digestive tract
CPT/HCPCS: 36415; 36600; 70450; 71045; 71046; 72125; 80053; 81001; 82550; 82728; 82805; 82948; 83036; 83540; 83550; 83605; 83735; 85018; 85025; 85610; 85730; 86140; 87040; 87086; 87186; 93005; 96361; 96365; 96372; 97110; 97161; 97165; 97530; 97535; 99285; A9270; G0378; J0696; J1650; J1815; J1938; J7050; J7120